=== PATIENT | male | born 1935 | race Caucasian/White ===

== ENCOUNTER 2016-05-03 10:53 | Inpatient (IN) | payer OTHER ==
[~2016-05-03] VITALS: Ht 177.8 cm; Wt 67.1 kg
--- NOTE | 2016-05-03 11:19 | EMERGENCY ROOM VISIT NOTE ---
History Report prepared by Vamsi: Nabor Mcclain Under the Supervision of: Dr. Cayden Singh M.D. First contact with patient: 11:10 Chief Complaint: RESPIRATORY PROBLEMS Stated Complaint: POSSIBLE PNEMONIA History of Present Illness The patient is an 81 year old male who presents to the Emergency Room with complaints of persistent respiratory problems that started 2 weeks ago. He was referred here by his primary care physician. The patient's oxygen was low at the clinic. Per the patient's family, the patient has been sick for 2 weeks, and has been coughing and having gurgling in his chest. The patient has also been losing weight. The patient does not use oxygen at home. Currently, the patient denies any pain or recent fevers. He has a history of heart failure and stroke. He has been taking cold medications, and his whole family has been sick recently. The patient had his flu shot this year. Source of History: patient, family Onset: 2 weeks ago Position: other (global - respiratory problems) Timing: other (persistent) Associated Symptoms: + SOB, + cough, No fevers Note: Associated symptoms: Gurgling in chest, recent weight loss. Denies any current pain. Review of Systems See HPI for pertinent positives & negatives. A total of 10 systems reviewed and were otherwise negative. Past Medical & Surgical Medical Problems: (1) Dementia (2) Heart disease (3) Pneumonia involving right lung (4) Stroke Family History Family history omitted secondary to age. Social History Smoking Status: Never Smoker Marital Status: Housing Status: lives with family Occupation Status: retired Current/Historical Medications Scheduled Carvedilol (Coreg), 12.5 MG PO BID Cholecalciferol (Vitamin D3), 1 TAB PO DAILY Donepezil HCl (Aricept), 5 MG PO HS Enteral Nutrition Formula (Ensure), 1 CAN PO TID Finasteride (Proscar), 5 MG PO DAILY Hydrochlorothiazide (Hctz), 12.5 MG PO DAILY Lisinopril (Prinivil), 2.5 MG PO DAILY Omeprazole (Prilosec), 20 MG PO DAILY Potassium Chloride (Klor-Con M20), 20 MEQ PO BID Spironolactone (Spironolactone), 12.5 MG PO DAILY Warfarin Sod (Coumadin), 4 MG PO FRIDAY Warfarin Sod (Jantoven), 2 MG PO DIRECTED Allergies Coded Allergies: No Known Allergies (Unverified , 05/03/16) Physical Exam Vital Signs Date Time Temp Pulse Resp B/P Pulse Ox O2 Delivery O2 Flow Rate FiO2 05/03/16 13:21 82 05/03/16 13:01 88 24 100/78 93 2.0 05/03/16 11:22 97 Nasal Cannula 2.0 05/03/16 11:21 84 05/03/16 11:19 87 Room Air 05/03/16 11:15 87 Room Air 05/03/16 10:59 36.4 89 18 108/74 100 Nasal Cannula 2.0 Physical Exam GENERAL: Patient is ill appearing and chronically unwell appearing, in mild distress. HEENT: No acute trauma, normocephalic atraumatic, mucous membranes moist, no nasal congestion, no scleral icterus. NECK: No stridor, no adenopathy, no meningismus, trachea is midline. LUNGS: Dyspneic. Diffuse wet lung sounds. HEART: Regular rate and rhythm. No murmurs, rubs, gallops appreciated. ABDOMEN: Soft, nontender, bowel sounds positive, no masses appreciated, no peritonitis. BACK: No midline tenderness, no CVA tenderness EXTREMITIES: Normal motion all extremities, no cyanosis, no edema. NEUROLOGIC: Alert and oriented, no acute motor or sensory deficits, no focal weakness, cranial nerves grossly intact. Mild dementia. SKIN: No rash, no jaundice, no diaphoresis. Medical Decision & Procedures ER Provider Diagnostic Interpretation: X ray results are stated below per my interpretation and the radiologist's interpretation. CHEST ONE VIEW PORTABLE HISTORY: Short of breath. COMPARISON: None. FINDINGS: The heart is mildly enlarged. Trace bilateral pleural effusions. There is a hazy opacity within the right lung. No pneumothorax. The left lung is essentially clear. IMPRESSION: 1. Hazy opacity within the right lung which could represent developing asymmetric pulmonary edema or a pneumonia. Recommend follow to ensure resolution. 2. Mild cardiomegaly and trace bilateral pleural effusions. Electronically signed by: Willard Montoya M.D. 05/03/2016 12:08 PM Dictated Date/Time: 05/03/2016 12:06 PM Laboratory Results 05/03/16 11:35 Red Blood Count 4.55, Mean Corpuscular Volume 96.0, Mean Corpuscular Hemoglobin 31.4, Mean Corpuscular Hemoglobin Concent 32.7, Mean Platelet Volume 11.3, Neutrophils (%) (Auto) 78.1, Lymphocytes (%) (Auto) 12.2, Monocytes (%) (Auto) 8.6, Eosinophils (%) (Auto) 0.5, Basophils (%) (Auto) 0.5, Neutrophils # (Auto) 6.56, Lymphocytes # (Auto) 1.02, Monocytes # (Auto) 0.72, Eosinophils # (Auto) 0.04, Basophils # (Auto) 0.04 05/03/16 11:35 05/03/16 13:10 Test 05/03/16 11:35 05/03/16 11:39 05/03/16 13:10 White Blood Count 8.39 K/uL (4.8-10.8) Red Blood Count 4.55 M/uL (4.7-6.1) Hemoglobin 14.3 g/dL (14.0-18.0) Hematocrit 43.7 % (42-52) Mean Corpuscular Volume 96.0 fL (80-100) Mean Corpuscular Hemoglobin 31.4 pg (25-34) Mean Corpuscular Hemoglobin Concent 32.7 g/dl (32-36) Platelet Count 205 K/uL (130-400) Mean Platelet Volume 11.3 fL (7.4-10.4) Neutrophils (%) (Auto) 78.1 % Lymphocytes (%) (Auto) 12.2 % Monocytes (%) (Auto) 8.6 % Eosinophils (%) (Auto) 0.5 % Basophils (%) (Auto) 0.5 % Neutrophils # (Auto) 6.56 K/uL (1.4-6.5) Lymphocytes # (Auto) 1.02 K/uL (1.2-3.4) Monocytes # (Auto) 0.72 K/uL (0.11-0.59) Eosinophils # (Auto) 0.04 K/uL (0-0.5) Basophils # (Auto) 0.04 K/uL (0-0.2) RDW Standard Deviation 51.1 fL (36.4-46.3) RDW Coefficient of Variation 14.6 % (11.5-14.5) Immature Granulocyte % (Auto) 0.1 % Immature Granulocyte # (Auto) 0.01 K/uL (0.00-0.02) Anion Gap 7.0 mmol/L (3-11) Est Creatinine Clear Calc Drug Dose 36.8 ml/min Estimated GFR () 53.5 Estimated GFR (Non- 46.1 BUN/Creatinine Ratio 19.6 (10-20) Calcium Level 9.2 mg/dl (8.5-10.1) Creatine Kinase MB 1.7 ng/ml (0.5-3.6) Creatine Kinase MB Ratio (0-3.0) Troponin I < 0.015 ng/ml (0-0.045) Pro-B-Type Natriuretic Peptide 2692 pg/ml (0-1800) Bedside Lactic Acid Venous 1.44 mmol/L (0.90-1.70) Prothrombin Time 48.2 SECONDS (9.0-12.0) Prothromb Time International Ratio 4.2 (0.9-1.1) Activated Partial Thromboplast Time 39.7 SECONDS (21.0-31.0) Partial Thromboplastin Ratio 1.5 Total Creatine Kinase 52 U/L (39-308) Laboratory results as reviewed by me. Medications Administered Medications (Trade) Dose Ordered Sig/Bibi Route Start Time Stop Time Status Last Admin Dose Admin Levofloxacin 750 mg 750 mg NOW STAT IV 05/03/16 13:03 05/03/16 13:04 DC 05/03/16 13:16 750 MG Clindamycin Phosphate/Dextrose (Cleocin Iv/ Dextrose Add-Osseo 50ML) 54 ml @ 100 mls/hr ONE ONCE IV 05/03/16 13:15 05/03/16 13:47 DC 05/03/16 15:09 100 MLS/HR ECG Indication: SOB/dyspnea Rate (beats per minute): 90 Rhythm: atrial fibrillation Findings: no acute ischemic change, other (QTC of 437) ED Course 1111: The patient was evaluated in room B12B. A complete history and physical exam was performed. 1255: I reevaluated the patient and he is resting comfortably. The patient verbally expressed understanding and agreement of the treatment plan. The patient will be evaluated for further treatment. 1303: Ordered Levaquin / D5W 750 mg IV. 1314: I discussed the patient with Dr. Lakhani [place] [facility] he will evaluate the patient for further treatment. 1315: Ordered Clindamycin Phosphate 600 mg/Dextrose 54 ml @ 100 mls/hr IV. Medical Decision Differential: Infectious, Reactive Airway Disease, Pneumonia, Pneumothorax, COPD , CHF, ACS, Pulmonary Embolism, MSK, GI, Dissection, amongst other etiologies entertained. 81 yr old male with hypoxia and very poor lung exam who I suspect has infection on top of CHF/pulm edema. Mild chronic dementia at baseline. Not overtly septic. Will given dose of Levaquin for PNA as well as Clinda as possible aspiration risk. Given hypoxia will bring in to hospitalist service for further evaluation/treatment. Consults Time Called: 1255 Consulting Physician: Dr. Kar VIVAS hospitalist Returned Call: 1314 I discussed the patient with Dr. Kar VIVAS hospitalist - he will evaluate the patient for further treatment. Impression Primary Impression: PNA (pneumonia) Additional Impressions: Pulmonary edema Hypoxia Scribe Attestation The scribe's documentation has been prepared under my direction and personally reviewed by me in its entirety. I confirm that the note above accurately reflects all work, treatment, procedures, and medical decision making performed by me. Departure Information Dispostion Being Evaluated By Hospitalist Referrals No Doctor, Assigned (PCP) Patient Instructions [facility] Problem Qualifiers Primary Impression: PNA (pneumonia) Pneumonia type: due to unspecified organism Laterality: right Lung location : unspecified part of lung Qualified Codes: J18.9 - Pneumonia, unspecified organism Additional Impressions: Pulmonary edema Chronicity: acute Qualified Codes: J81.0 - Acute pulmonary edema
[2016-05-03] MEDS ORDERED: NUTR-706 PO (11:48)
[2016-05-03] MEDS ORDERED: CMD4 PO (11:48)
[2016-05-03] MEDS ORDERED: SPR25 PO (11:48)
[2016-05-03] MEDS ORDERED: PRLSR20 PO (11:48)
[2016-05-03] MEDS ORDERED: DONE5TAB9 PO (11:48)
[2016-05-03] MEDS ORDERED: CARV12.52 PO (11:48)
[2016-05-03] MEDS ORDERED: HYDR25TA4 PO (11:48)
[2016-05-03] MEDS ORDERED: MCRK20 PO (11:48)
[2016-05-03] MEDS ORDERED: CHOL1000 PO (11:48)
[2016-05-03] MEDS ORDERED: FINA5TAB PO (11:48)
[2016-05-03] MEDS ORDERED: WARF2TAB8 PO (11:48)
[2016-05-03] MEDS ORDERED: LISI-729 PO (11:48)
[2016-05-03 12:07] LABS: BASO % 0.5 %; BASO ABS # 0.04 K/uL (0-0.2); COMPLETE YES; EOS % 0.5 %; HEMATOCRIT 43.7 % (42-52); IG% 0.1 %; LYMPH % 12.2 %; LYMPH ABS # 1.02 K/uL (1.2-3.4); MEAN CORPUSCULAR HEMOGLOBIN 31.4 pg (25-34); MEAN CORPUSCULAR HGB CONC 32.7 g/dl (32-36); MEAN PLATELET VOLUME 11.3 fL (7.4-10.4); MONO % 8.6 %; NEUT % 78.1 %; PLATELET COUNT 205 K/uL (130-400); RED BLOOD COUNT 4.55 M/uL (4.7-6.1); WHITE BLOOD COUNT 8.39 K/uL (4.8-10.8)
--- NOTE | 2016-05-03 12:10 | DIAGNOSTIC IMAGING REPORT ---
CHEST ONE VIEW PORTABLE HISTORY: Short of breath. COMPARISON: None. FINDINGS: The heart is mildly enlarged. Trace bilateral pleural effusions. There is a hazy opacity within the right lung. No pneumothorax. The left lung is essentially clear. IMPRESSION: 1. Hazy opacity within the right lung which could represent developing asymmetric pulmonary edema or a pneumonia. Recommend follow to ensure resolution. 2. Mild cardiomegaly and trace bilateral pleural effusions. Electronically signed by: Willard Montoya M.D. 05/03/2016 12:08 PM Dictated Date/Time: 05/03/2016 12:06 PM
[2016-05-03 12:37] LABS: BLOOD UREA NITROGEN 27 mg/dl (7-18); BUN/CREATININE RATIO 19.6 (10-20); CALCIUM 9.2 mg/dl (8.5-10.1); CARBON DIOXIDE 31 mmol/L (21-32); CHLORIDE 102 mmol/L (98-107); GLUCOSE 99 mg/dl (70-99); SODIUM 140 mmol/L (136-145)
[2016-05-03] MEDS ORDERED: LEVAQUIN 750MG / 150ML D5W IV STA (13:03)
[2016-05-03] MEDS ORDERED: CLINDAMYCIN IV 600 MG in DEXTROSE 5% ADD-VANTAGE 50ML 50 ML IV ONE (13:15)
[2016-05-03 13:37] LABS: PARTIAL THROMBOPLASTIN RATIO 1.5; PROTHROMBIN TIME (PATIENT) 48.2 SECONDS (9.0-12.0)
[2016-05-03 13:42] LABS: INR 4.2 (0.9-1.1)
--- NOTE | 2016-05-03 14:53 | Medical Student: [facility] ---
Med Student History & Physical Date & Time of Service: May 03, 2016 at 14:02 Chief Complaint: Shortness of Breath Primary Care Physician: Katie Posey History of Present Illness Source: family 81y/o female with a history of CHF, stroke, and dementia presents with a two week history of feeling sick, including symptoms of shortness of breath with exertion, coughing, wheezing, weakness, decreased activity, and decreased appetite. The patient was sent to the ED by his PCP for having a low O2 at the clinic. Per family, the patient has been sleeping more and walking less, and when he does walk around, he gets very short of breath. Per family, the patient does not complain much about pain or shortness of breath, but he has recently been stating that he has been having pains in the middle of the chest. The patient does not use O2 at home. He sees a trade mark examiner at the [facility] in [place]. The family is also concerned about the patient's diarrhea. The diarrhea is a chronic problem, but the family is worried about potential dehydration. They have not noticed a change in the color of stool or blood in the stool. Past Medical/Surgical History Medical Problems: (1) CHF 2. IN 3. Stroke 4. Atrial Fibrillation 5. Dementia 6. Reflux Surgical History 1. Cardiac Stents Social History Smoking Status: Never Smoker Alcohol Use: none Marital Status: Housing status: lives with family Occupational Status: retired Allergies Coded Allergies: No Known Allergies (Unverified , 05/03/16) Medications Carvedilol (Coreg), 12.5 MG PO BID Cholecalciferol (Vitamin D3), 1 TAB PO DAILY Donepezil HCl (Aricept), 5 MG PO HS Enteral Nutrition Formula (Ensure), 1 CAN PO TID Finasteride (Proscar), 5 MG PO DAILY Hydrochlorothiazide (Hctz), 12.5 MG PO DAILY Lisinopril (Prinivil), 2.5 MG PO DAILY Omeprazole (Prilosec), 20 MG PO DAILY Potassium Chloride (Klor-Con M20), 20 MEQ PO BID Spironolactone (Spironolactone), 12.5 MG PO DAILY Warfarin Sod (Coumadin), 4 MG PO FRIDAY Warfarin Sod (Jantoven), 2 MG PO DIRECTED Review of Systems Limited due to patient's dementia Constitutional: No chills, No fever, No sweats Eyes: No discharge, No redness Respiratory: + cough, + shortness of breath, + wheezing Cardiovascular: + chest pain, No edema Abdomen: + diarrhea, No constipation, No nausea, No pain, No vomiting Integumentary: No itch, No new/changing skin lesions, No rash Physical Exam Vital Signs (24 Hours) Date Time Temp Pulse Resp B/P Pulse Ox O2 Delivery O2 Flow Rate FiO2 05/03/16 13:21 82 05/03/16 13:01 88 24 100/78 93 2.0 05/03/16 11:22 97 Nasal Cannula 2.0 05/03/16 11:21 84 05/03/16 11:19 87 Room Air 05/03/16 11:15 87 Room Air 05/03/16 10:59 36.4 89 18 108/74 100 Nasal Cannula 2.0 General Appearance: WD/WN, no apparent distress Head: normocephalic, atraumatic Eyes: normal inspection, EOMI Respiratory/Chest: chest non-tender, + pertinent finding (crackles, wet sounded lungs bilaterally, worse on right. Course breath sounds) Cardiovascular: no murmur, + irregularly irregular, + pertinent finding ( distant heart sounds) Abdomen/GI: normal bowel sounds, non tender, soft Back: normal inspection Extremities/Musculoskelatal: normal inspection, no pedal edema, non-tender Neurologic/Psych: alert, + pertinent finding (responds to questions) Skin: normal color, warm/dry, no rash Diagnostics Laboratory Results Results Past 24 Hours Test 05/03/16 11:35 05/03/16 11:39 05/03/16 13:10 Range/Units White Blood Count 8.39 4.8-10.8 K/uL Red Blood Count 4.55 4.7-6.1 M/uL Hemoglobin 14.3 14.0-18.0 g/dL Hematocrit 43.7 42-52 % Mean Corpuscular Volume 96.0 80-100 fL Mean Corpuscular Hemoglobin 31.4 25-34 pg Mean Corpuscular Hemoglobin Concent 32.7 32-36 g/dl Platelet Count 205 130-400 K/uL Mean Platelet Volume 11.3 7.4-10.4 fL Neutrophils (%) (Auto) 78.1 % Lymphocytes (%) (Auto) 12.2 % Monocytes (%) (Auto) 8.6 % Eosinophils (%) (Auto) 0.5 % Basophils (%) (Auto) 0.5 % Neutrophils # (Auto) 6.56 1.4-6.5 K/uL Lymphocytes # (Auto) 1.02 1.2-3.4 K/uL Monocytes # (Auto) 0.72 0.11-0.59 K/uL Eosinophils # (Auto) 0.04 0-0.5 K/uL Basophils # (Auto) 0.04 0-0.2 K/uL RDW Standard Deviation 51.1 36.4-46.3 fL RDW Coefficient of Variation 14.6 11.5-14.5 % Immature Granulocyte % (Auto) 0.1 % Immature Granulocyte # (Auto) 0.01 0.00-0.02 K/uL Sodium Level 140 136-145 mmol/L Potassium Level 5.0 3.5-5.1 mmol/L Chloride Level 102 98-107 mmol/L Carbon Dioxide Level 31 21-32 mmol/L Anion Gap 7.0 3-11 mmol/L Blood Urea Nitrogen 27 7-18 mg/dl Creatinine 1.40 0.60-1.40 mg/dl Est Creatinine Clear Calc Drug Dose 36.8 ml/min Estimated GFR () 53.5 Estimated GFR (Non- 46.1 BUN/Creatinine Ratio 19.6 10-20 Random Glucose 99 70-99 mg/dl Calcium Level 9.2 8.5-10.1 mg/dl Total Creatine Kinase 52 39-308 U/L Creatine Kinase MB 1.7 0.5-3.6 ng/ml Creatine Kinase MB Ratio 0-3.0 Troponin I < 0.015 0-0.045 ng/ml Pro-B-Type Natriuretic Peptide 2692 0-1800 pg/ml Bedside Lactic Acid Venous 1.44 0.90-1.70 mmol/L Prothrombin Time 48.2 9.0-12.0 SECONDS Prothromb Time International Ratio 4.2 0.9-1.1 Activated Partial Thromboplast Time 39.7 21.0-31.0 SECONDS Partial Thromboplastin Ratio 1.5 Microbiology Results 05/03/16 Blood Culture, Received Pending 05/03/16 Blood Culture, Received Pending Diagnostic Radiology CXR: IMPRESSION: 1. Hazy opacity within the right lung which could represent developing asymmetric pulmonary edema or a pneumonia. Recommend follow to ensure resolution. 2. Mild cardiomegaly and trace bilateral pleural effusions. Impression Assessment and Plan 81y/o male with a history of CHF and dementia presents with shortness of breath on exertion, weakness, and fatigue for two weeks. A CXR was performed and showed right side opacity, suggesting PNA. The patient will be treated for PNA. The patient's BNP is also elevated and the patient's lung infection potentially exacerbated his CHF. The patient is showing signs of left-sided heart failure as his lungs sound fluid overloaded and he does not have peripheral edema. Other potential etiologies for CHF exacerbation include IN, arrhythmia, anemia, uncontrolled hypertension, and med noncompliance. PNA- Administer Vancomycin IV and Zosyn IV. Levalbuterol/Ipratropium ING Q6hr and Methylprednisolone IV Q8hr MARIBETH. Blood cultures pending. O2 via nasal canula as needed for shortness of breath symptoms and low O2 saturation. Continue to monitor patient. CHF- Hold HCTZ. Continue to monitor the patient's symptoms. Will not give Lasix at this time due to the patient's borderline low blood pressure. Consider obtaining cardiology records from the [facility]. Consider performing an echo and obtaining a cardiology consult depending on the patient's hospital course. Obtain serial cardiac enzymes. Administer Carvedilol 12.5 mg PO BID, Lisinopril 2.5mg PO daily, and spironolactone 12.5mg PO daily. Atrial Fibrillation- The patient's INR is 4.2. Continue to monitor the INR and hold the Warfarin until the INR is in the 2.0-3.0 range. Dementia- Continue to administer Donepezil 5mg PO HS. Reflux- Continue to administer Omeprazole 20mg PO daily. BPH- Administer Finasteride 5mg PO daily. Supplementation- Administer Vit D3 1000 units PO, Ensure, and Potassium Chloride 20MEQ PO BID.
[2016-05-03] MEDS ORDERED: ACETAMINOPHEN 325 MG TAB PO PRN ×2 (15:15)
[2016-05-03] MEDS ORDERED: ALUMINUM/MAGNESIUM/SIMETH (MAALOX MAX) 30 ML UDC PO PRN (15:15)
[2016-05-03] MEDS ORDERED: DiphenhydrAMINE HCL 50 MG/ML VIAL IV PRN (15:15)
[2016-05-03] MEDS ORDERED: MoRPHine SULFATE 4 MG/ML 1 ML CARP\\VIAL IV PRN (15:15)
[2016-05-03] MEDS ORDERED: BISACODYL 10 MG SUPP PR PRN (15:15)
[2016-05-03] MEDS ORDERED: MoRPHine SULFATE 2 MG/ML CARP IV PRN (15:15)
[2016-05-03] MEDS ORDERED: ZOLPIDEM TARTRATE 5 MG TAB PO PRN ×2 (15:15)
[2016-05-03] MEDS ORDERED: LORAZEPAM 2 MG/ML 1 ML VIAL IV PRN ×2 (15:15)
[2016-05-03] MEDS ORDERED: PROMETHAZINE HCL INJ 12.5 MG in SODIUM CHLORIDE 0.9% 50ML 50 ML IV PRN (15:15)
[2016-05-03] MEDS ORDERED: ONDANSETRON INJ 2 MG/ML 2 ML VIAL IV PRN ×2 (15:15)
[2016-05-03] MEDS ORDERED: MAGNESIUM HYDROXIDE SUSP 30 ML UDC PO PRN (15:15)
[2016-05-03] MEDS ORDERED: VANCOMYCIN CONSULT ACTIVE PRN (16:00)
[2016-05-03] MEDS ORDERED: PIPERACILL/TAZOBAC CONSULT ACTIVE PRN (16:00)
--- NOTE | 2016-05-03 16:07 | Pharmacy Progress Note ---
Pharmacy Antibiotic Consult Date of Service: May 03, 2016. Pharmacy Dosing Scope Pharmacy is consulted to initiate Vancomycin and Zosyn IV dosing therapy, order appropriate labs and adjust drug dose/frequency. Subjective The patient is a 81 year old male admitted on 05/03/16 with pneumonia. Objective Height (Feet): 5 Height (Inches): 10.00 Weight (Kilograms): 65.000 Lab Results (24hrs): Laboratory Tests Test 05/03/16 11:35 BUN/Creatinine Ratio 19.6 Blood Urea Nitrogen 27 mg/dl Creatinine 1.40 mg/dl White Blood Count 8.39 K/uL Red Blood Count 4.55 M/uL Hemoglobin 14.3 g/dL Hematocrit 43.7 % Mean Corpuscular Volume 96.0 fL Mean Corpuscular Hemoglobin 31.4 pg Mean Corpuscular Hemoglobin Concent 32.7 g/dl Platelet Count 205 K/uL Mean Platelet Volume 11.3 fL Neutrophils (%) (Auto) 78.1 % Lymphocytes (%) (Auto) 12.2 % Monocytes (%) (Auto) 8.6 % Eosinophils (%) (Auto) 0.5 % Basophils (%) (Auto) 0.5 % Neutrophils # (Auto) 6.56 K/uL Lymphocytes # (Auto) 1.02 K/uL Monocytes # (Auto) 0.72 K/uL Eosinophils # (Auto) 0.04 K/uL Basophils # (Auto) 0.04 K/uL Micro Results: Blood cultures pending. Recent Pertinent Medications Levaquin 750mg IV x1 in ED Clindamycin 600mg IV x1 in ED Assessment & Plan VANCOMYCIN Loading dose: Vancomycin 1600 mg (25mg/kg) IV X 1 dose then: * Vancomycin 1000 mg (15mg/kg) IV every 24 hours. * Estimated pharmacokinetic parameters: T1/2= 20hrs, [place] = 0.035/hr, Vd = 0.7L/ Kg * These are based on SCr of 1.4mg/dL, unknown baseline. We will adjust dosing interval or check a level sooner if patient's renal function changes significantly. * Goal trough level estimate: between 15 - 20 mcg/mL for pneumonia * Trough level has been ordered for: prior to 1200 dose, this will be prior to the 4th total dose. ZOSYN: 3.375g IV Q8H for CrCl > 20ml/min - extended infusion protocol Pharmacy will continue to follow and will adjust dose/frequency as necessary. Thank you
[2016-05-03 16:20] VITALS: BP 103/70; PULSE 95; TEMP 36.8; Ht 177.8 cm; Wt 67.1 kg
[2016-05-03] MEDS ORDERED: LORAZEPAM INJ 0.5 MG in SYRINGE 0.75 ML IV PRN (17:00)
[2016-05-03] MEDS ORDERED: LORAZEPAM INJ 1 MG in SYRINGE 0.5 ML IV PRN (17:00)
[2016-05-03] MEDS ORDERED: LEVOFLOXACIN CONSULT ACTIVE PRN (17:00)
[2016-05-03] MEDS ORDERED: VANCOMYCIN INJ 1,600 MG in SODIUM CHLORIDE 0.9% 500ML 500 ML IV SCH (17:00)
[2016-05-03] MEDS: LACTOBACILLUS ACIDOPHILUS (FLORANEX) TAB PO SCH (17:14)
[2016-05-03] MEDS: METHYLPREDNISOLONE IV 40 MG in SYRINGE 0 ML IV SCH (18:21)
--- NOTE | 2016-05-03 18:48 | History and Physical ---
History & Physical Date & Time of Service: May 03, 2016 at 18:43 Chief Complaint: Hypoxia, Pneumonia Involving Right Lung Primary Care Physician: Katie Posey History of Present Illness Source: patient, family, spouse The patient is an 81-year-old male who was referred by his PCP, after having a low pulse ox when seen at clinic today, to the emergency department with respiratory difficulties that began 2 weeks prior to arrival. Family reports that patient has had decreased intake of foods and solids during this time. The rest of his family has been ill, and he presently is taking over-the- counter medications. Past Medical/Surgical History Medical Problems: (1) Dementia Status: Chronic (2) Heart disease Status: Resolved (3) Stroke Status: Resolved Social History Smoking Status: Never Smoker Smokeless Tobacco Use: No Alcohol Use: none Drug Use: none Marital Status: Housing status: lives with family Occupational Status: retired Multi-Drug Resistant Organisms History of MDRO: No Allergies Coded Allergies: No Known Allergies (Unverified , 05/03/16) Home Medications Scheduled Carvedilol (Coreg), 12.5 MG PO BID Cholecalciferol (Vitamin D3), 1 TAB PO DAILY Donepezil HCl (Aricept), 5 MG PO HS Enteral Nutrition Formula (Ensure), 1 CAN PO TID Finasteride (Proscar), 5 MG PO DAILY Hydrochlorothiazide (Hctz), 12.5 MG PO DAILY Lisinopril (Prinivil), 2.5 MG PO DAILY Omeprazole (Prilosec), 20 MG PO DAILY Potassium Chloride (Klor-Con M20), 20 MEQ PO BID Spironolactone (Spironolactone), 12.5 MG PO DAILY Warfarin Sod (Coumadin), 4 MG PO FRIDAY Warfarin Sod (Jantoven), 2 MG PO DIRECTED Review of Systems The patient denies chest pain, palpitations, lower extremity swelling, vision change, hearing change, sore throat, fevers, chills, sweats, weight change, fatigue, nausea, vomiting, abdominal pain, pelvic pain, blood in urine or stool , dysuria, urinary frequency or urgency, lightheadedness, dizziness, headache, memory loss, rash, abnormal bruising or bleeding, imbalance, focal or generalized weakness, numbness or tingling in arms or legs, arthralgias or myalgias, back or neck pain, night sweats, or allergy symptoms. The review of systems is otherwise negative other than for that already noted above, and at least 10 systems have been reviewed. Physical Exam Vital Signs Date Time Temp Pulse Resp B/P Pulse Ox O2 Delivery O2 Flow Rate FiO2 05/03/16 16:20 36.8 95 18 103/70 Nasal Cannula 2.0 05/03/16 15:10 80 20 104/67 94 Nasal Cannula 2.0 05/03/16 13:21 82 05/03/16 13:01 88 24 100/78 93 2.0 05/03/16 11:22 97 Nasal Cannula 2.0 05/03/16 11:21 84 05/03/16 11:19 87 Room Air 05/03/16 11:15 87 Room Air 05/03/16 10:59 36.4 89 18 108/74 100 Nasal Cannula 2.0 The patient is awake, well-developed and adequately nourished, alert and oriented 3, normocephalic and atraumatic, lying in bed and in no acute distress. HEENT--PERRL, EOMI, mucous membranes and oropharynx dry. Neck--supple, no JVD or bruits, thyroid normal, trachea midline, no adenopathy. Heart--normal S1 and S2, no extra beats, no murmurs, rubs or gallops. Lungs--wheezes or rhonchi bilaterally right worse than left, no respiratory distress, no accessory muscle use. Abdomen--normal bowel sounds and soft, nontender and nondistended, no hernias or masses, no organomegaly. Extremities--no cyanosis, clubbing or edema. There are good distal pulses b/l. Dermatologic--normal skin turgor, normal color, warm and dry, no abnormal lymph nodes, no rash. Neurologic--cranial nerves II through XII grossly intact, motor and sensory examination normal. Rheumatologic--normal range of motion, nontender, muscles and joints. Psychiatric--normal affect. Diagnostics Laboratory Results Results Past 24 Hours Test 05/03/16 11:35 05/03/16 11:39 05/03/16 13:10 Range/Units White Blood Count 8.39 4.8-10.8 K/uL Red Blood Count 4.55 4.7-6.1 M/uL Hemoglobin 14.3 14.0-18.0 g/dL Hematocrit 43.7 42-52 % Mean Corpuscular Volume 96.0 80-100 fL Mean Corpuscular Hemoglobin 31.4 25-34 pg Mean Corpuscular Hemoglobin Concent 32.7 32-36 g/dl Platelet Count 205 130-400 K/uL Mean Platelet Volume 11.3 7.4-10.4 fL Neutrophils (%) (Auto) 78.1 % Lymphocytes (%) (Auto) 12.2 % Monocytes (%) (Auto) 8.6 % Eosinophils (%) (Auto) 0.5 % Basophils (%) (Auto) 0.5 % Neutrophils # (Auto) 6.56 1.4-6.5 K/uL Lymphocytes # (Auto) 1.02 1.2-3.4 K/uL Monocytes # (Auto) 0.72 0.11-0.59 K/uL Eosinophils # (Auto) 0.04 0-0.5 K/uL Basophils # (Auto) 0.04 0-0.2 K/uL RDW Standard Deviation 51.1 36.4-46.3 fL RDW Coefficient of Variation 14.6 11.5-14.5 % Immature Granulocyte % (Auto) 0.1 % Immature Granulocyte # (Auto) 0.01 0.00-0.02 K/uL Sodium Level 140 136-145 mmol/L Potassium Level 5.0 3.5-5.1 mmol/L Chloride Level 102 98-107 mmol/L Carbon Dioxide Level 31 21-32 mmol/L Anion Gap 7.0 3-11 mmol/L Blood Urea Nitrogen 27 7-18 mg/dl Creatinine 1.40 0.60-1.40 mg/dl Est Creatinine Clear Calc Drug Dose 36.8 ml/min Estimated GFR () 53.5 Estimated GFR (Non- 46.1 BUN/Creatinine Ratio 19.6 10-20 Random Glucose 99 70-99 mg/dl Calcium Level 9.2 8.5-10.1 mg/dl Total Creatine Kinase 52 39-308 U/L Creatine Kinase MB 1.7 0.5-3.6 ng/ml Creatine Kinase MB Ratio 0-3.0 Troponin I < 0.015 0-0.045 ng/ml Pro-B-Type Natriuretic Peptide 2692 0-1800 pg/ml Bedside Lactic Acid Venous 1.44 0.90-1.70 mmol/L Prothrombin Time 48.2 9.0-12.0 SECONDS Prothromb Time International Ratio 4.2 0.9-1.1 Activated Partial Thromboplast Time 39.7 21.0-31.0 SECONDS Partial Thromboplastin Ratio 1.5 Microbiology Results 05/03/16 Blood Culture, Received Pending 05/03/16 Blood Culture, Received Pending Diagnostic Radiology Patient Name: KEYANA MEDINA MARIANNE Unit Number: [id number] Dictated: 05/03/161205 Transcribed: 05/03/161205 PAJ Printed Date/Time: [~ rep prt dt]/[~ rep prt tm] [~ rep ct labl] - [~ rep ct ivnm] [facility] [place] [address] Dictated: 05/03/161205 Transcribed: 05/03/161205 PAJ Printed Date/Time: [~ rep prt dt]/[~ rep prt tm] [~ rep ct labl] - [~ rep ct ivnm] CHEST ONE VIEW PORTABLE HISTORY: Short of breath. COMPARISON: None. FINDINGS: The heart is mildly enlarged. Trace bilateral pleural effusions. There is a hazy opacity within the right lung. No pneumothorax. The left lung is essentially clear. IMPRESSION: 1. Hazy opacity within the right lung which could represent developing asymmetric pulmonary edema or a pneumonia. Recommend follow to ensure resolution. 2. Mild cardiomegaly and trace bilateral pleural effusions. Electronically signed by: Willard Montoya M.D. 05/03/2016 12:08 PM Dictated Date/Time: 05/03/2016 12:06 PM The status of this report is Signed. Draft = Not yet reviewed or approved by Radiologist. Signed = Reviewed and approved by Radiologist. <AttendingPhy></AttendingPhy> <FamilyPhy>Katie PoseyRRicoN.P.</FamilyPhy> < PrimaryPhy>Katie PoseyN.P.</PrimaryPhy> <UnitNumber>[id number]</ UnitNumber> <VisitNumber>[id number]</VisitNumber> <PatientName>KEYANA MEDINA MARIANNE</PatientName> <DateOfBirth>1935</DateOfBirth> <Location> C.EDB</Location> <ServiceDate>05/03/16</ServiceDate> <MNE>ESINDI</MNE> < OrderingPhy>Cayden Singh M.D.</OrderingPhy> <OrderingPhyMNE>f rep ord dr pike</OrderingPhyMNE> <DictatingPhyMNE>f rep dict dr pike</DictatingPhyMNE> < CCListMNE>f rep ct glendy</CCListMNE> <AdmittingPhyMNE>f pt admit dr pike</ AdmittingPhyMNE> <AttendingPhyMNE>f pt attend dr pike</AttendingPhyMNE> <ConsultingPhyMNE>f pt consult dr pike</ConsultingPhyMNE> <FamilyPhyMNE>f pt fam dr pike</FamilyPhyMNE> <OtherPhyMNE>f pt other dr pike</OtherPhyMNE> < PrimaryPhyMNE>f pt prim care dr pike</PrimaryPhyMNE> <ReferringPhyMNE>f pt referring dr pike</ReferringPhyMNE> EKG EKG shows atrial fibrillation at 90 bpm, with no acute ST-T changes. Impression Assessment and Plan Pneumonia involving right lung, with hypoxia--the patient be admitted to medical floor. He'll be started on vancomycin IV per renal dosing, Zosyn 3.375 mg IV every 12 hours, levofloxacin 500 mg IV daily, Solu-Medrol 40 mg IV every 8 hours, guaifenesin extended release 60 mg by mouth twice a day, and Xopenex with Atrovent nebulizer to use every 6 hours all awake and every 2 hours when necessary. CAD/hypertension/atrial fibrillation--continue carbidopa 12.5 mg by mouth twice a day, lisinopril 2.5 mg by mouth daily, HCTZ 12.5 mg by mouth daily, Klor-Con 20 mEq by mouth twice a day and spironolactone 12.5 mg by mouth daily. INR is still mildly therapeutic, it was 4.6 yesterday is now 4.2 today, we'll recheck the INR tomorrow, and restart when less than 3. BPH--continue finasteride 5 mg by mouth daily. Dementia--continue donepezil 5 mg by mouth at bedtime. GERD--continue omeprazole 20 mg by mouth daily. Level of Care Med/Surg Advanced Directives Existing Advance Directive: No Existing Living Will: No Existing Power of Gold Reclaimer: No Resuscitation Status FULL RESUSCITATION VTE Prophylaxis VTE Risk Assessment Done? Y/N: Yes Risk Level: Moderate Given or contraindicated: Warfarin (Coumadin)
[2016-05-03 19:31] VITALS: PULSE 81; O2SAT 92
[2016-05-03] MEDS: LEVALBUTEROL 1.25MG/0.5ML NEB INH SCH (19:31)
[2016-05-03] MEDS: IPRATROPIUM BROMIDE NEB SOLN 0.02% 2.5 ML VIAL INH SCH (19:31)
[2016-05-03] MEDS: PIPERACILL/TAZOBAC IV 3.375 GM in DEXTROSE 5% 100ML 100 ML IV SCH (20:04)
[2016-05-03] MEDS: BOOST VANILLA PO SCH ×2 (20:08)
[2016-05-03] MEDS: CARVEDILOL 12.5 MG TAB PO SCH (20:10)
[2016-05-03] MEDS: DONEPEZIL HCL 5 MG TAB PO SCH (20:11)
[2016-05-03] MEDS: DOCUSATE SODIUM 100 MG CAP PO SCH (20:11)
[2016-05-03] MEDS: GUAIFENESIN 600 MG TABCR PO SCH (20:12)
[2016-05-03] MEDS: POTASSIUM CHLORIDE 20 MEQ TABCR PO SCH (20:13)
[2016-05-03 20:15] VITALS: BP 101/67; PULSE 74
[2016-05-03] MEDS ORDERED: LEVALBUTEROL/IPRATROPIUM NEB INH SCH (21:00)
[2016-05-03] MEDS: CHOLESTYRAMINE LIGHT 4 GM PKT PO SCH (22:12)
[2016-05-03 23:37] VITALS: BP 95/65; PULSE 99; TEMP 36.7; O2SAT 91
[2016-05-04] VITALS (7 sets, daily range): BP systolic 96–105; BP diastolic 63–70; PULSE 76–95; TEMP 36.5; O2SAT 90–93
[2016-05-04] MEDS: PIPERACILL/TAZOBAC IV 3.375 GM in DEXTROSE 5% 100ML 100 ML IV SCH ×3 (00:36→16:51)
[2016-05-04] MEDS: METHYLPREDNISOLONE IV 40 MG in SYRINGE 0 ML IV SCH ×3 (02:11→17:22)
[2016-05-04] MEDS: LEVALBUTEROL 1.25MG/0.5ML NEB INH SCH ×4 (02:24→19:23)
[2016-05-04] MEDS: IPRATROPIUM BROMIDE NEB SOLN 0.02% 2.5 ML VIAL INH SCH ×4 (02:24→19:23)
[2016-05-04 07:23] LABS: BASO % 0.1 %; BASO ABS # 0.01 K/uL (0-0.2); COMPLETE YES; EOS % 0.1 %; HEMATOCRIT 40.1 % (42-52); IG% 0.4 %; LYMPH % 4.9 %; MEAN CELL VOLUME 94.1 fL (80-100); MEAN CORPUSCULAR HEMOGLOBIN 31.7 pg (25-34); MEAN CORPUSCULAR HGB CONC 33.7 g/dl (32-36); MEAN PLATELET VOLUME 10.9 fL (7.4-10.4); MONO % 0.6 %; NEUT % 93.9 %; PLATELET COUNT 176 K/uL (130-400); RED BLOOD COUNT 4.26 M/uL (4.7-6.1); WHITE BLOOD COUNT 10.25 K/uL (4.8-10.8)
[2016-05-04 07:40] LABS: PARTIAL THROMBOPLASTIN RATIO 1.7; PROTHROMBIN TIME (PATIENT) 51.8 SECONDS (9.0-12.0)
[2016-05-04 07:49] LABS: INR 4.5 (0.9-1.1)
[2016-05-04 08:02] LABS: BUN/CREATININE RATIO 18.9 (10-20); CALCIUM 8.8 mg/dl (8.5-10.1); CREATININE 1.5 mg/dl (0.60-1.40); POTASSIUM 5.3 mmol/L (3.5-5.1)
[2016-05-04] MEDS: LACTOBACILLUS ACIDOPHILUS (FLORANEX) TAB PO SCH ×3 (08:02→16:52)
[2016-05-04] MEDS: DOCUSATE SODIUM 100 MG CAP PO SCH ×2 (08:03→20:21)
[2016-05-04] MEDS: CARVEDILOL 12.5 MG TAB PO SCH ×3 (08:04→20:27)
[2016-05-04] MEDS: POTASSIUM CHLORIDE 20 MEQ TABCR PO SCH (08:05)
[2016-05-04] MEDS: GUAIFENESIN 600 MG TABCR PO SCH ×2 (08:05→20:22)
[2016-05-04] MEDS: PANTOprazole SOD 40 MG TAB PO SCH (08:05)
[2016-05-04] MEDS: CHOLECALCIFEROL 1000 INTER.UNIT TAB PO SCH (08:06)
[2016-05-04] MEDS: FINASTERIDE 5 MG TAB PO SCH (08:06)
[2016-05-04] MEDS: BOOST VANILLA PO SCH ×6 (08:51→20:24)
[2016-05-04] MEDS ORDERED: SPIRONOLACTONE 25 MG TAB PO SCH (09:00)
[2016-05-04] MEDS ORDERED: LISINOPRIL 2.5 MG TAB PO SCH (09:00)
[2016-05-04] MEDS ORDERED: HYDROCHLOROTHIAZIDE 25 MG TAB PO SCH (09:00)
[2016-05-04] MEDS: CHOLESTYRAMINE LIGHT 4 GM PKT PO SCH ×2 (10:08→22:00)
[2016-05-04] MEDS: VANCOMYCIN INJ 1,000 MG in SODIUM CHLORIDE 0.9% 250ML 250 ML IV SCH (12:39)
[2016-05-04] MEDS ORDERED: HALOPERIDOL LACTATE 5 MG/ML 1 ML VIAL IM PRN (15:00)
--- NOTE | 2016-05-04 15:22 | Hospitalist Progress Note ---
Hospitalist Progress Note Date of Service May 04, 2016. Subjective Pt evaluation today including: conversation w/ patient, conversation w/ family , physical exam, chart review, lab review, review of studies, review of inpatient medication list PO Intake: barby po Voiding: no voiding problems Pt with cough but no sputum production, no fevers, is SOB with ambulation around house even prior to the last 2 weeks as per daughter. Pt denies CP, no abd pain, no diarrhea. Family thinks last ECHO was years ago, hasn't seen his [facility] in over a year at least. He is in good spirits here and making jokes with me. Family that lives with him reports they have all been sick recently with respiratory illnesses Constitutional: No fever Eyes: No problem reported ENT: No problem reported Respiratory: + cough, No sputum Cardiovascular: No chest pain, No palpitations Abdomen: No diarrhea, No pain Musculoskeletal: No problem reported Neurologic: + memory loss Psychiatric: No problem reported Skin: No rash Objective Vital Signs Date Time Temp Pulse Resp B/P Pulse Ox O2 Delivery O2 Flow Rate FiO2 05/04/16 13:59 76 16 93 Room Air 05/04/16 08:16 Nasal Cannula 3.0 05/04/16 07:47 36.5 87 18 105/63 90 Nasal Cannula 3.0 05/04/16 07:35 86 18 91 Nasal Cannula 3.0 05/04/16 02:24 92 18 92 Nasal Cannula 3.0 05/03/16 23:59 Nasal Cannula 3.0 05/03/16 23:37 36.7 99 20 95/65 91 Nasal Cannula 3.0 05/03/16 20:15 74 101/67 05/03/16 20:00 Nasal Cannula 3.0 05/03/16 19:31 81 18 92 Nasal Cannula 2.0 05/03/16 16:20 36.8 95 18 103/70 Nasal Cannula 2.0 05/03/16 15:10 80 20 104/67 94 Nasal Cannula 2.0 Physical Exam General Appearance: + mild distress (and sounds like has upper airway secretions), + thin Eyes: normal inspection, sclerae normal ENT: hearing grossly normal, pharynx normal Neck: trachea midline Respiratory/Chest: no accessory muscle use, + crackles (at bases and diffuse wheezing and rhonchi) Cardiovascular: regular rate, rhythm Abdomen: normal bowel sounds, non tender, soft, no organomegaly, no pulsatile mass Extremities: non-tender, no pedal edema, no calf tenderness Neurologic/Psychiatric: no motor/sensory deficits, alert, normal mood/affect Skin: normal color, warm/dry, no rash Laboratory Results Last 24 Hours Test 05/04/16 07:13 White Blood Count 10.25 K/uL Red Blood Count 4.26 M/uL Hemoglobin 13.5 g/dL Hematocrit 40.1 % Mean Corpuscular Volume 94.1 fL Mean Corpuscular Hemoglobin 31.7 pg Mean Corpuscular Hemoglobin Concent 33.7 g/dl Platelet Count 176 K/uL Mean Platelet Volume 10.9 fL Neutrophils (%) (Auto) 93.9 % Lymphocytes (%) (Auto) 4.9 % Monocytes (%) (Auto) 0.6 % Eosinophils (%) (Auto) 0.1 % Basophils (%) (Auto) 0.1 % Neutrophils # (Auto) 9.63 K/uL Lymphocytes # (Auto) 0.50 K/uL Monocytes # (Auto) 0.06 K/uL Eosinophils # (Auto) 0.01 K/uL Basophils # (Auto) 0.01 K/uL RDW Standard Deviation 49.0 fL RDW Coefficient of Variation 14.4 % Immature Granulocyte % (Auto) 0.4 % Immature Granulocyte # (Auto) 0.04 K/uL Prothrombin Time 51.8 SECONDS Prothromb Time International Ratio 4.5 Activated Partial Thromboplast Time 43.9 SECONDS Partial Thromboplastin Ratio 1.7 Sodium Level 138 mmol/L Potassium Level 5.3 mmol/L Chloride Level 102 mmol/L Carbon Dioxide Level 28 mmol/L Anion Gap 8.0 mmol/L Blood Urea Nitrogen 28 mg/dl Creatinine 1.50 mg/dl Est Creatinine Clear Calc Drug Dose 34.3 ml/min Estimated GFR () 49.2 Estimated GFR (Non- 42.4 BUN/Creatinine Ratio 18.9 Random Glucose 126 mg/dl Calcium Level 8.8 mg/dl Magnesium Level 2.0 mg/dl Total Bilirubin 0.6 mg/dl Direct Bilirubin 0.2 mg/dl Aspartate Amino Transf (AST/SGOT) 19 U/L Alanine Aminotransferase (ALT/SGPT) 20 U/L Alkaline Phosphatase 53 U/L Total Protein 6.7 gm/dl Albumin 2.6 gm/dl Diagnostic Results CXR image personally reviewed by me and shows right sided infiltrate and evidence of CHF Assessment and Plan 81y/o male with a history of CHF of unknown type but likely systolic (no outside records available), CAD s/p remote stent placement, BPH, PAF, GERD, and dementia presents with shortness of breath on exertion, weakness, and fatigue for two weeks. A CXR was performed and showed right side opacity, bilat small pleural effusions, cardiomegaly, suggesting PNA and acute CHF. BNP is also elevated. CAP RLL and RUL, with acute hypoxemic respiratory failure--no h/o smoking or COPD but with diffuse wheezing could be from pulm edema or atypical infection. Came from home and no recent hospitalization, not severe sepsis so can narrow down antibiotics from triple therapy. Given that entire family was recently ill , need to check Rapid Flu which was not yet done. Could be viral PNA -continue Levaquin and vancomycin IV per renal dosing to cover for CAP and MRSA in case of post-influenza MRSA PNA, but d/c Zosyn 3.375 mg IV -continue Solu-Medrol 40 mg IV every 8 hours, guaifenesin extended release 60 mg by mouth twice a day -continue Xopenex with Atrovent nebulizer to use every 6 hours all awake and every 2 hours when necessary. -continue supplemental O2 and wean as tolerated CAD/Acute CHF (likely systolic)/paroxysmal atrial fibrillation on AC with coumadin--No outside records for review but is on appropriate meds for severe CHF. BNP and signs of CHF on CXR here. BP low normal and blocker polishing at 1.5. K+ elevated at 5.3. -check ECHO -give one time dose of lasix 40mg po now for fluid overload and hyperkalemia -continue Coreg 12.5 mg by mouth twice a day, hold lisinopril 2.5 mg by mouth daily to see if BP and renal function improves and can facilitate diuresis with lasix -d/c HCTZ 12.5 and Klor-Con 20 and hold spironolactone from home for hyperkalemia and THEO vs CKD. -INR supratherapeutic,continue to hold coumadin and recheck the INR tomorrow, restart when less than 3. -consider Cardiology consult -Primary Government Affairs Specialist is at [facility] in [place] but hasn't seen in a while CKD Stage III vs THEO, Hyperkalemia:blocker polishing here 1.5 and no old records for comparison, K+ 5.3 -renally dose meds -avoid nephrotoxins -follow PRP -hold lisinopril and HCTZ, aldactone -stop KCL po -only giving lasix to diurese which will help with K+ BPH--continue finasteride 5 mg by mouth daily. Dementia--continue donepezil 5 mg by mouth at bedtime. --avoid benzos -Haldol IM prn sundowning/agitation GERD--continue omeprazole 20 mg by mouth daily. Proph-coumadin, PPI Dispo FULL Code PT/OT evals
[2016-05-04] MEDS ORDERED: FUROSEMIDE 40 MG TAB PO ONE (15:30)
[2016-05-04 17:17] LABS: INFLUENZA A PCR Neg for Influ A (NEG); INFLUENZA B PCR Neg for Influ B (NEG)
[2016-05-04] MEDS: DONEPEZIL HCL 5 MG TAB PO SCH (20:22)
[2016-05-05] VITALS (8 sets, daily range): BP systolic 101–132; BP diastolic 66–77; PULSE 58–120; TEMP 36.2–36.8; O2SAT 92–97
[2016-05-05] MEDS: PIPERACILL/TAZOBAC IV 3.375 GM in DEXTROSE 5% 100ML 100 ML IV SCH ×3 (00:57→17:40)
[2016-05-05] MEDS: METHYLPREDNISOLONE IV 40 MG in SYRINGE 0 ML IV SCH ×3 (02:17→17:40)
[2016-05-05] MEDS: LEVALBUTEROL 1.25MG/0.5ML NEB INH SCH ×4 (03:07→19:30)
[2016-05-05] MEDS: IPRATROPIUM BROMIDE NEB SOLN 0.02% 2.5 ML VIAL INH SCH ×4 (03:07→19:30)
[2016-05-05 06:31] LABS: MEAN CELL VOLUME 94.7 fL (80-100); MEAN CORPUSCULAR HEMOGLOBIN 32.8 pg (25-34); MEAN CORPUSCULAR HGB CONC 34.6 g/dl (32-36); MEAN PLATELET VOLUME 11.9 fL (7.4-10.4); PLATELET COUNT 193 K/uL (130-400); RED BLOOD COUNT 4.33 M/uL (4.7-6.1); WHITE BLOOD COUNT 28.09 K/uL (4.8-10.8)
[2016-05-05 06:36] LABS: INR 2.7 (0.9-1.1); PARTIAL THROMBOPLASTIN RATIO 1.4; PROTHROMBIN TIME (PATIENT) 30.1 SECONDS (9.0-12.0)
[2016-05-05 06:55] LABS: BUN/CREATININE RATIO 22.2 (10-20); CALCIUM 8.7 mg/dl (8.5-10.1); CREATININE 1.7 mg/dl (0.60-1.40); MAGNESIUM 2.2 mg/dl (1.8-2.4); POTASSIUM 4.5 mmol/L (3.5-5.1)
[2016-05-05 07:00] LABS: BASO ABS # 0.01 K/uL (0-0.2); COMPLETE YES; IG% 0.5 %; LYMPH % 2.5 %; MONO % 2.2 %; NEUT % 94.8 %
--- NOTE | 2016-05-05 07:20 | DIAGNOSTIC IMAGING REPORT ---
CHEST ONE VIEW PORTABLE CLINICAL HISTORY: f/u PNA, CHF pneumonia COMPARISON STUDY: 05/03/2016 FINDINGS: Somewhat progressive consolidative change versus effusion left lung base. Findings of mildly asymmetric congestive failure versus pulmonary edema persists. IMPRESSION: Mildly progressive increased density left base most likely on the basis of effusion and/or consolidative change. Unchanging asymmetric components of congestive failure Electronically signed by: Lv Jones M.D. 05/05/2016 7:19 AM Dictated Date/Time: 05/05/2016 7:13 AM
[2016-05-05] MEDS: DOCUSATE SODIUM 100 MG CAP PO SCH ×2 (08:22→20:50)
[2016-05-05] MEDS: CARVEDILOL 12.5 MG TAB PO SCH ×2 (08:22→20:50)
[2016-05-05] MEDS: FINASTERIDE 5 MG TAB PO SCH (08:23)
[2016-05-05] MEDS: CHOLECALCIFEROL 1000 INTER.UNIT TAB PO SCH (08:23)
[2016-05-05] MEDS: LACTOBACILLUS ACIDOPHILUS (FLORANEX) TAB PO SCH ×3 (08:23→17:41)
[2016-05-05] MEDS: PANTOprazole SOD 40 MG TAB PO SCH (08:24)
[2016-05-05] MEDS: GUAIFENESIN 600 MG TABCR PO SCH ×2 (08:24→20:52)
[2016-05-05] MEDS: BOOST VANILLA PO SCH ×6 (08:30→20:50)
[2016-05-05] MEDS ORDERED: NURSING VERBAL MED ORDER ONE (09:30)
[2016-05-05] MEDS: CHOLESTYRAMINE LIGHT 4 GM PKT PO SCH ×2 (11:19→22:52)
[2016-05-05] MEDS ORDERED: LEVOFLOXACIN / D5W 750 MG in PREMIXED IN D5W 150 ML IV SCH ×2 (12:00)
[2016-05-05] MEDS: VANCOMYCIN INJ 1,000 MG in SODIUM CHLORIDE 0.9% 250ML 250 ML IV SCH (12:25)
[2016-05-05] MEDS ORDERED: HEPARIN 25,000 UNIT/500ML D5W 500 ML IV PRN (12:45)
--- NOTE | 2016-05-05 13:51 | ECHOCARDIOGRAM REPORT ---
*NOTICE TO RECEIVING REPUBLICAN AGENCY This information is strictly Confidential and protected under [place] law. [place] law prohibits you from making any further disclosure of this information unless further disclosure is expressly permitted by the written consent of the person to whom it pertains or is authorized by law. A general authorization for the release of medical or other information is not sufficient for this purpose. Hospital accepts no responsibility if the information is made available to any other person, INCLUDING THE PATIENT. Interpretation Summary * Name: KEYANA MEDINA Study Date: 05/05/2016 08:08 AM BP: 106/66 mmHg * Patient Location: [id number]\S\2 HR: 96 * : 1935 (M/d/yyy) Gender: Male Height: 70 in * Age: 81 yrs Ethnicity: CA Weight: 143 lb * Ordering Physician: Ailyn Eason * Performed By: Steff Quintero RDCS * * Reason For Study: Congestive heart failure * BSA: 1.8 m2 * -- Conclusions -- * 1. Small LV cavity size. Mild concentric LVH. * 2. Low normal LV function. LVEF 50-55%. Flattened septum suggestive of RV pressure overload. * 3. Mildly dilated RV with midly reduced RV function. * 4. Severe biatrial enlargement * 5. Small pericardial effusion. * 6. Grade II diastolic dysfunction * 7. At least mild pulmonary hypertension. * 8. No prior studies for comparison Procedure Details * A complete two-dimensional transthoracic echocardiogram was performed (2D, M-mode, Doppler and color flow Doppler). Left Ventricle * The left ventricular cavity is small. * Ejection Fraction = 50-55%. * Flattened septum is consistent with RV pressure overload. Right Ventricle * The right ventricle is mildly dilated. * The right ventricular systolic function is mildly reduced. Atria * The left atrium is severely dilated. * The right atrium is severely dilated. * No ASD detected; PFO is not assessed. Mitral Valve * The mitral valve is grossly normal. * There is no mitral valve stenosis. * Significant mitral regurgitation is absent. Tricuspid Valve * The tricuspid valve is not well visualized. * There is no tricuspid stenosis. * There is mild tricuspid regurgitation. Aortic Valve * The aortic valve opens well. * No hemodynamically significant valvular aortic stenosis. * Trace aortic regurgitation. Pulmonic Valve * The pulmonic valve is not well visualized. Great Vessels * The aortic root and proximal ascending aorta are normal sized. Pericardium/Pleural * Small pericardial effusion. Left Ventricular Diastolic Function * Diastolic dysfunction, Grade II (pseudonormalization pattern). MMode 2D Measurements and Calculations IVSd 1.2 cm LVIDd 4.5 cm LVIDs 3.2 cm LVPWd 1.4 cm IVS/LVPW 0.89 FS 28.4 % EDV(Teich) 90.6 ml ESV(Teich) 40.7 ml EF(Teich) 55.0 % EDV(cubed) 88.8 ml ESV(cubed) 32.5 ml EF(cubed) 63.3 % LV mass(C)d 224.2 grams LV mass(C)dI 123.9 grams/m\S\2 SV(Teich) 49.8 ml SI(Teich) 27.5 ml/m\S\2 SV(cubed) 56.2 ml SI(cubed) 31.1 ml/m\S\2 Ao root diam 3.2 cm Ao root area 8.1 cm\S\2 ACS 2.1 cm asc Aorta Diam 3.3 cm LVOT diam 2.0 cm LVOT area 3.3 cm\S\2 LVAd ap4 16.8 cm\S\2 LVLd ap4 6.6 cm EDV(MOD-sp4) 35.5 ml EDV(sp4-el) 36.2 ml LVAs ap4 10.7 cm\S\2 LVLs ap4 5.5 cm ESV(MOD-sp4) 17.3 ml ESV(sp4-el) 17.7 ml EF(MOD-sp4) 51.3 % EF(sp4-el) 51.2 % LVAd ap2 15.9 cm\S\2 LVLd ap2 6.0 cm EDV(MOD-sp2) 36.2 ml EDV(sp2-el) 35.7 ml LVAs ap2 9.7 cm\S\2 LVLs ap2 5.3 cm ESV(MOD-sp2) 16.1 ml ESV(sp2-el) 15.1 ml EF(MOD-sp2) 55.5 % EF(sp2-el) 57.8 % LVLd %diff -9.89 % EDV(MOD-bp) 37.2 ml LVLs %diff -4.70 % ESV(MOD-bp) 17.2 ml EF(MOD-bp) 53.8 % SV(MOD-sp4) 18.2 ml SI(MOD-sp4) 10.1 ml/m\S\2 SV(MOD-sp2) 20.1 ml SI(MOD-sp2) 11.1 ml/m\S\2 SV(MOD-bp) 20.0 ml SI(MOD-bp) 11.1 ml/m\S\2 SV(sp4-el) 18.5 ml SI(sp4-el) 10.2 ml/m\S\2 SV(sp2-el) 20.6 ml SI(sp2-el) 11.4 ml/m\S\2 Doppler Measurements and Calculations MV E max fox 78.2 cm/sec MV A max fox 31.8 cm/sec MV E/A 2.5 MV dec time 0.19 sec Ao V2 max 61.9 cm/sec Ao max PG 1.5 mmHg Ao max PG (full) 0.37 mmHg PARRISH(V,A) 2.9 cm\S\2 PARRISH(V,D) 2.9 cm\S\2 LV V1 max PG 1.2 mmHg LV V1 max 54.0 cm/sec TR max fox 304.2 cm/sec
[2016-05-05] MEDS: GUAIFENESIN SUGAR FREE 200 MG/10 ML UDC PO SCH ×2 (14:43→17:41)
[2016-05-05] MEDS ORDERED: FUROSEMIDE 40 MG TAB PO ONE (15:15)
--- NOTE | 2016-05-05 15:45 | Hospitalist Progress Note ---
Hospitalist Progress Note Date of Service May 05, 2016. Subjective Pt evaluation today including: conversation w/ patient, conversation w/ family , physical exam, chart review, lab review, review of inpatient medication list Voiding: no voiding problems Feeling a bit better, still coarse breath sounds, no daily weight or I/Os recorded. Afebrile. ECHO result reviewed with him and family Constitutional: No fever Respiratory: + cough, No sputum Cardiovascular: No chest pain Abdomen: No pain All Other Systems: Reviewed and Negative Objective Vital Signs Date Time Temp Pulse Resp B/P Pulse Ox O2 Delivery O2 Flow Rate FiO2 05/05/16 14:24 82 18 97 Nasal Cannula 4.0 05/05/16 08:19 98 05/05/16 08:08 36.6 58 20 101/67 97 Nasal Cannula 3.0 05/05/16 08:00 Nasal Cannula 3.0 05/05/16 03:08 96 18 92 Nasal Cannula 3.0 05/05/16 00:16 36.8 101 18 106/66 92 3.0 05/04/16 23:59 Nasal Cannula 3.0 05/04/16 20:26 95 96/67 05/04/16 20:00 Nasal Cannula 3.0 05/04/16 19:23 80 16 93 Nasal Cannula 3.0 05/04/16 16:08 Nasal Cannula 3.0 05/04/16 15:28 36.5 91 18 105/70 92 Nasal Cannula 3.0 Physical Exam General Appearance: + mild distress (on NC, mild tachypnea with speaking fluent sentences), + thin Eyes: normal inspection, sclerae normal Neck: trachea midline Respiratory/Chest: no accessory muscle use, + rhonchi (diffuse), + wheezing ( diffuse) Cardiovascular: no edema, no gallop, no murmur (but difficult to auscultate over rhonchi), + irregularly irregular Abdomen: normal bowel sounds, non tender, soft Extremities: no pedal edema, no calf tenderness Neurologic/Psychiatric: alert, normal mood/affect Skin: normal color, warm/dry, no rash Laboratory Results Last 24 Hours Test 05/04/16 15:30 05/05/16 05:23 Influenza Type A (RT-PCR) Neg for Influ A Influenza Type B (RT-PCR) Neg for Influ B White Blood Count 28.09 K/uL Red Blood Count 4.33 M/uL Hemoglobin 14.2 g/dL Hematocrit 41.0 % Mean Corpuscular Volume 94.7 fL Mean Corpuscular Hemoglobin 32.8 pg Mean Corpuscular Hemoglobin Concent 34.6 g/dl Platelet Count 193 K/uL Mean Platelet Volume 11.9 fL Neutrophils (%) (Auto) 94.8 % Lymphocytes (%) (Auto) 2.5 % Monocytes (%) (Auto) 2.2 % Eosinophils (%) (Auto) 0.0 % Basophils (%) (Auto) 0.0 % Neutrophils # (Auto) 26.63 K/uL Lymphocytes # (Auto) 0.70 K/uL Monocytes # (Auto) 0.62 K/uL Eosinophils # (Auto) 0.00 K/uL Basophils # (Auto) 0.01 K/uL RDW Standard Deviation 50.6 fL RDW Coefficient of Variation 14.7 % Immature Granulocyte % (Auto) 0.5 % Immature Granulocyte # (Auto) 0.13 K/uL Prothrombin Time 30.1 SECONDS Prothromb Time International Ratio 2.7 Activated Partial Thromboplast Time 37.5 SECONDS Partial Thromboplastin Ratio 1.4 Sodium Level 139 mmol/L Potassium Level 4.5 mmol/L Chloride Level 102 mmol/L Carbon Dioxide Level 27 mmol/L Anion Gap 10.0 mmol/L Blood Urea Nitrogen 38 mg/dl Creatinine 1.70 mg/dl Est Creatinine Clear Calc Drug Dose 30.3 ml/min Estimated GFR () 42.3 Estimated GFR (Non- 36.5 BUN/Creatinine Ratio 22.2 Random Glucose 117 mg/dl Calcium Level 8.7 mg/dl Magnesium Level 2.2 mg/dl Total Bilirubin 0.6 mg/dl Direct Bilirubin 0.2 mg/dl Aspartate Amino Transf (AST/SGOT) 17 U/L Alanine Aminotransferase (ALT/SGPT) 19 U/L Alkaline Phosphatase 52 U/L Total Protein 6.9 gm/dl Albumin 2.7 gm/dl Assessment and Plan 81y/o male with a history of chronic diastolic CHF, CAD s/p remote stent placement, BPH, PAF, GERD, and dementia presents with shortness of breath on exertion, weakness, and fatigue for two weeks. A CXR was performed and showed right sided opacity, bilat small pleural effusions, cardiomegaly, suggesting PNA and acute CHF. BNP is also elevated. CAP RLL and RUL, with acute hypoxemic respiratory failure--no h/o smoking or COPD but with diffuse wheezing could be from pulm edema or atypical infection. Came from home and no recent hospitalization, not severe sepsis so narrowed down antibiotics from triple therapy. Received Zosyn, Levaquin, and Vanc initially. Given that entire family was recently ill, checked Rapid Flu which was NEGATIVE. -continue Levaquin for CAP and d/c vancomycin as MRSA nasal swab negative -continue Solu-Medrol 40 mg IV every 8 hours and taper down when wheezing improved, guaifenesin extended release 60 mg by mouth twice a day -continue Xopenex with Atrovent nebulizer to use every 6 hours all awake and every 2 hours when necessary. -continue supplemental O2 and wean as tolerated -start flutter valve -get out of bed to chair today CAD/Acute on chronic combined diastolic and systolic CHF/paroxysmal atrial fibrillation on AC with coumadin--No outside records for review but is on appropriate meds for CHF. BNP and signs of CHF on CXR here. BP low normal and android developer rising from 1.5--> 1.7 . K+ elevated at 5.3 initially and now down to 4.5 after lasix given ECHO showed: * 1. Small LV cavity size. Mild concentric LVH. * 2. Low normal LV function. LVEF 50-55%. Flattened septum suggestive of RV pressure overload. * 3. Mildly dilated RV with midly reduced RV function. * 4. Severe biatrial enlargement * 5. Small pericardial effusion. * 6. Grade II diastolic dysfunction * 7. At least mild pulmonary hypertension. * 8. No prior studies for comparison -give lasix 40mg po again today for fluid overload and be cautious with renal function being decreased -continue Coreg 12.5 mg by mouth twice a day, holding lisinopril 2.5 mg by mouth daily to see if BP and renal function improves and can facilitate diuresis with lasix -d/c HCTZ 12.5 and Klor-Con 20 and hold spironolactone from home for hyperkalemia and THEO vs CKD. 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 Dementia--continue donepezil 5 mg by mouth at bedtime. --avoid benzos -Haldol IM prn sundowning/agitation GERD--continue omeprazole 20 mg by mouth daily. Proph-coumadin, PPI Dispo FULL Code PT/OT evals
[2016-05-05] MEDS: WARFARIN SOD 2 MG TAB PO SCH (16:07)
[2016-05-05] MEDS: DONEPEZIL HCL 5 MG TAB PO SCH (20:50)
[2016-05-06] VITALS (9 sets, daily range): BP systolic 94–139; BP diastolic 56–74; PULSE 84–91; TEMP 36.3–36.7; O2SAT 92–95
[2016-05-06] MEDS: METHYLPREDNISOLONE IV 40 MG in SYRINGE 0 ML IV SCH ×2 (01:39→10:42)
[2016-05-06] MEDS: GUAIFENESIN SUGAR FREE 200 MG/10 ML UDC PO SCH ×4 (01:39→16:22)
[2016-05-06] MEDS: PIPERACILL/TAZOBAC IV 3.375 GM in DEXTROSE 5% 100ML 100 ML IV SCH ×2 (01:39→08:13)
[2016-05-06] MEDS: LEVALBUTEROL 1.25MG/0.5ML NEB INH SCH ×4 (02:22→19:47)
[2016-05-06] MEDS: IPRATROPIUM BROMIDE NEB SOLN 0.02% 2.5 ML VIAL INH SCH ×4 (02:22→19:47)
[2016-05-06 05:51] LABS: HEMATOCRIT 40.3 % (42-52); MEAN CELL VOLUME 95.5 fL (80-100); MEAN CORPUSCULAR HEMOGLOBIN 32.2 pg (25-34); MEAN CORPUSCULAR HGB CONC 33.7 g/dl (32-36); MEAN PLATELET VOLUME 11.7 fL (7.4-10.4); PLATELET COUNT 175 K/uL (130-400); RED BLOOD COUNT 4.22 M/uL (4.7-6.1); WHITE BLOOD COUNT 24.96 K/uL (4.8-10.8)
[2016-05-06 06:06] LABS: INR 2.4 (0.9-1.1); PARTIAL THROMBOPLASTIN RATIO 1.4; PROTHROMBIN TIME (PATIENT) 26.3 SECONDS (9.0-12.0)
[2016-05-06 06:21] LABS: BASO ABS # 0.01 K/uL (0-0.2); COMPLETE YES; IG% 0.4 %; LYMPH % 2.2 %; LYMPH ABS # 0.55 K/uL (1.2-3.4); MONO % 1.8 %; NEUT % 95.6 %
[2016-05-06 06:26] LABS: BUN/CREATININE RATIO 25.8 (10-20); CALCIUM 8.4 mg/dl (8.5-10.1); CREATININE 1.6 mg/dl (0.60-1.40); MAGNESIUM 2.2 mg/dl (1.8-2.4); POTASSIUM 4.6 mmol/L (3.5-5.1)
[2016-05-06] MEDS: FINASTERIDE 5 MG TAB PO SCH (08:13)
[2016-05-06] MEDS: DOCUSATE SODIUM 100 MG CAP PO SCH ×2 (08:13→20:26)
[2016-05-06] MEDS: LACTOBACILLUS ACIDOPHILUS (FLORANEX) TAB PO SCH ×3 (08:13→16:23)
[2016-05-06] MEDS: CARVEDILOL 12.5 MG TAB PO SCH ×2 (08:14→20:26)
[2016-05-06] MEDS: GUAIFENESIN 600 MG TABCR PO SCH (08:15)
[2016-05-06] MEDS: CHOLECALCIFEROL 1000 INTER.UNIT TAB PO SCH (08:15)
[2016-05-06] MEDS: PANTOprazole SOD 40 MG TAB PO SCH (08:15)
[2016-05-06] MEDS: BOOST VANILLA PO SCH ×6 (08:22→20:26)
[2016-05-06] MEDS: CHOLESTYRAMINE LIGHT 4 GM PKT PO SCH ×2 (10:42→21:38)
[2016-05-06] MEDS ORDERED: VANCOMYCIN TROUGH SCH (11:30)
--- NOTE | 2016-05-06 13:18 | Progress Note ---
Subjective Date of Service: May 06, 2016. Subjective Pt evaluation today including: conversation w/ patient, physical exam, lab review, review of inpatient medication list Pain: denies pain PO Intake: adequate Voiding: no voiding problems patient sitting in chair eating lunch, doing well, breathing stable feeling strong, still needing oxygen discussed plans, questions answered Problem List Medical Problems: (1) Hypoxia Status: Acute (2) PNA (pneumonia) Status: Acute (3) Pulmonary edema Status: Acute Review of Systems Respiratory: + dyspnea on exertion All Other Systems: Reviewed and Negative Medications Current Inpatient Medications Medications (Trade) Dose Ordered Sig/Bibi Route Start Time Stop Time Status Last Admin Dose Admin Acetaminophen (Tylenol Tab) 650 mg Q4H PRN PO 05/03/16 15:15 06/02/16 15:14 Zolpidem Tartrate (Ambien Tab) 5 mg HSZ PRN PO 05/03/16 15:15 06/02/16 15:14 Carvedilol (Coreg Tab) 12.5 mg BID PO 05/03/16 21:00 06/02/16 20:59 05/06/16 08:14 12.5 MG Cholecalciferol (Vitamin D Tab) 1,000 inter.unit DAILY PO 05/04/16 09:00 06/03/16 08:59 05/06/16 08:15 1,000 INTER.UNIT Donepezil HCl (Aricept Tab) 5 mg HS PO 05/03/16 21:00 06/02/16 20:59 05/05/16 20:50 5 MG Enteral Nutritional Formula (Boost) 1 can TID PO 05/03/16 21:00 06/02/16 20:59 05/06/16 08:22 1 CAN Finasteride (Proscar Tab) 5 mg DAILY PO 05/04/16 09:00 06/03/16 08:59 05/06/16 08:13 5 MG Lisinopril (Zestril Tab) 2.5 mg DAILY PO 05/04/16 09:00 06/03/16 08:59 Future Hold 05/04/16 08:07 2.5 MG Pantoprazole Sodium (Protonix Tab) 40 mg QAM PO 05/04/16 09:00 06/03/16 08:59 05/06/16 08:15 40 MG Magnesium Hydroxide (Milk Of Magnesia Susp) 30 ml Q6H PRN PO 05/03/16 15:15 06/02/16 15:14 Bisacodyl (Dulcolax Supp) 10 mg DAILY PRN IN 05/03/16 15:15 06/02/16 15:14 Diphenhydramine HCl (Benadryl Inj) 25 mg Q4H PRN IV 05/03/16 15:15 06/02/16 15:14 Al Hydrox/Mg Hydrox/ Simethicone 15 ml 15 ml Q4H PRN PO 05/03/16 15:15 06/02/16 15:14 Promethazine HCl/ Sodium Chloride (Phenergan Inj/ Nss 50ml) 50.5 ml @ 202 mls/hr Q4H PRN IV 05/03/16 15:15 06/02/16 15:14 Ondansetron HCl (Zofran Inj) 4 mg Q6H PRN IV 05/03/16 15:15 06/02/16 15:14 Docusate Sodium (coLACE CAP) 100 mg BID PO 05/03/16 21:00 06/02/16 20:59 05/06/16 08:13 100 MG Morphine Sulfate (MoRPHine SULFATE INJ) 2 mg Q2H PRN IV 05/03/16 15:15 05/17/16 15:14 Morphine Sulfate (MoRPHine SULFATE INJ) 4 mg Q2H PRN IV 05/03/16 15:15 05/17/16 15:14 Cholestyramine Resin (Questran Powder Light) 4 gm BID@10,22 PO 05/03/16 22:00 06/02/16 21:59 05/06/16 10:42 4 GM Lactobacillus Acidophilus (Floranex Tab) 4 tab TIDM PO 05/03/16 17:00 06/02/16 17:59 05/06/16 12:48 4 TAB Ipratropium Adrian (Atrovent 0.02% 0.5MG/2.5ML Neb) 0.5 mg Q6R INH 05/03/16 21:00 06/02/16 20:59 05/06/16 07:08 0.5 MG Levalbuterol (Xopenex 1.25MG/ 0.5ML Neb) 1.25 mg Q6R INH 05/03/16 21:00 06/02/16 20:59 05/06/16 07:08 1.25 MG Levofloxacin (Consult) 1 ea UD PRN N/A 05/03/16 17:00 06/02/16 16:59 Haloperidol Lactate (Haldol Inj) 5 mg DAILY PRN IM 05/04/16 15:00 06/03/16 14:59 Warfarin Sodium (Coumadin Tab) 2 mg DAILY@16 PO 05/05/16 16:00 06/04/16 15:59 05/05/16 16:07 2 MG Guaifenesin (Robitussin Sugar Free Syrup) 200 mg Q6@0000,0600,1200,1800 PO 05/05/16 13:00 06/04/16 12:59 05/06/16 12:48 200 MG Prednisone (PredniSONE TAB) 40 mg QAM PO 05/07/16 09:00 06/06/16 08:59 Levofloxacin (Levaquin Tab) 750 mg Q2D@11 PO 05/07/16 11:00 05/09/16 23:59 Objective Vital Signs Date Time Temp Pulse Resp B/P Pulse Ox O2 Delivery O2 Flow Rate FiO2 05/06/16 09:15 Nasal Cannula 3.0 05/06/16 07:55 36.7 89 18 106/67 93 Nasal Cannula 4.0 05/06/16 07:08 86 18 92 Nasal Cannula 4.0 05/06/16 02:22 86 18 92 Nasal Cannula 4.0 05/06/16 00:00 36.5 87 18 139/74 92 3.0 05/05/16 23:59 Nasal Cannula 3.0 05/05/16 20:54 103 132/77 05/05/16 20:00 Nasal Cannula 3.0 05/05/16 19:30 120 18 93 Nasal Cannula 4.0 05/05/16 16:46 Nasal Cannula 3.0 05/05/16 16:08 36.2 86 20 101/68 94 Nasal Cannula 3.0 05/05/16 14:24 82 18 97 Nasal Cannula 4.0 Physical Exam General Appearance: WD/WN, no apparent distress Eyes: normal inspection, EOMI, sclerae normal Neck: supple, no adenopathy, no JVD, trachea midline Respiratory/Chest: chest non-tender, lungs clear, normal breath sounds, no respiratory distress, no accessory muscle use Cardiovascular: regular rate, rhythm, no edema, no gallop, no JVD, no murmur Abdomen: normal bowel sounds, non tender, soft, no organomegaly Extremities: normal range of motion, non-tender, normal inspection, no pedal edema, no calf tenderness Neurologic/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0 % Neutrophils # (Auto) 23.85 K/uL Lymphocytes # (Auto) 0.55 K/uL Monocytes # (Auto) 0.45 K/uL Eosinophils # (Auto) 0.00 K/uL Basophils # (Auto) 0.01 K/uL RDW Standard Deviation 51.4 fL RDW Coefficient of Variation 15.0 % Immature Granulocyte % (Auto) 0.4 % Immature Granulocyte # (Auto) 0.10 K/uL Red Blood Cell Morphology Unremarkable Prothrombin Time 26.3 SECONDS Prothromb Time International Ratio 2.4 Activated Partial Thromboplast Time 35.9 SECONDS Partial Thromboplastin Ratio 1.4 Sodium Level 140 mmol/L Potassium Level 4.6 mmol/L Chloride Level 102 mmol/L Carbon Dioxide Level 28 mmol/L Anion Gap 10.0 mmol/L Blood Urea Nitrogen 41 mg/dl Creatinine 1.60 mg/dl Est Creatinine Clear Calc Drug Dose 32.9 ml/min Estimated GFR () 45.5 Estimated GFR (Non- 39.3 BUN/Creatinine Ratio 25.8 Random Glucose 116 mg/dl Calcium Level 8.4 mg/dl Magnesium Level 2.2 mg/dl Total Bilirubin 0.6 mg/dl Direct Bilirubin 0.2 mg/dl Aspartate Amino Transf (AST/SGOT) 26 U/L Alanine Aminotransferase (ALT/SGPT) 29 U/L Alkaline Phosphatase 48 U/L Total Protein 6.2 gm/dl Albumin 2.5 gm/dl Assessment and Plan 81y/o male with a history of chronic diastolic CHF, CAD s/p remote stent placement, BPH, PAF, GERD, and dementia presents with shortness of breath on exertion, weakness, and fatigue for two weeks. A CXR was performed and showed right sided opacity, bilat small pleural effusions, cardiomegaly, suggesting PNA and acute CHF. BNP is also elevated. CAP RLL and RUL, with acute hypoxemic respiratory failure, possible COPD exacerbation-- initially treated with broad spectrum antibiotics, he is afebrile, WBC normal , will taper to just Levaquin 750mg q2D change Solumedrol to Prednisone, quick taper continue nebulizers try to wean off oxygen CAD/Acute on chronic combined diastolic and systolic CHF/paroxysmal atrial fibrillation on AC with coumadin--No outside records for review but is on appropriate meds for CHF. BNP and signs of CHF on CXR here. BP low normal and buggyman rising from 1.5--> 1.7 . K+ elevated at 5.3 initially and now down to 4.5 after lasix given received lasix 40mg po yesterday, Cr holding at 1.6, breathing well today, repeat CXR tomorrow, no diuresis today, lungs clear continue Coreg 12.5 mg by mouth twice a day, holding lisinopril 2.5 mg by mouth daily to see if BP and renal function improves and can facilitate diuresis with lasix d/c HCTZ 12.5 and Klor-Con 20 and hold spironolactone from home for hyperkalemia and THEO vs CKD. INR initially supratherapeutic and coumadin was held--> now INR therapeutic-- > restart coumadin today at 2mg CKD Stage III vs THEO, Hyperkalemia:buggyman here 1.5--> 1.7 and no old records for comparison, K+ 5.3--> 4.5 Cr holding between 1.4 and 1.7, very well may be baseline K stable at 4.6 repeat labs in AM BPH--continue finasteride 5 mg by mouth daily. Dementia--continue donepezil 5 mg by mouth at bedtime. --avoid benzos -Haldol IM prn sundowning/agitation GERD--continue omeprazole 20 mg by mouth daily. Proph-coumadin, PPI Dispo FULL Code PT/OT evals - need to determine if he can go home or rehab?
[2016-05-06] MEDS: WARFARIN SOD 2 MG TAB PO SCH (16:22)
[2016-05-06] MEDS: DONEPEZIL HCL 5 MG TAB PO SCH (20:26)
[2016-05-07] MEDS: GUAIFENESIN SUGAR FREE 200 MG/10 ML UDC PO SCH ×2 (00:13→06:40)
[2016-05-07] MEDS: LEVALBUTEROL 1.25MG/0.5ML NEB INH SCH ×2 (03:01→07:18)
[2016-05-07] MEDS: IPRATROPIUM BROMIDE NEB SOLN 0.02% 2.5 ML VIAL INH SCH ×2 (03:01→07:18)
[2016-05-07 03:02] VITALS: PULSE 78; O2SAT 92
[2016-05-07 06:45] LABS: HEMATOCRIT 41.1 % (42-52); MEAN CELL VOLUME 94.1 fL (80-100); MEAN CORPUSCULAR HEMOGLOBIN 31.4 pg (25-34); MEAN CORPUSCULAR HGB CONC 33.3 g/dl (32-36); MEAN PLATELET VOLUME 11.7 fL (7.4-10.4); PLATELET COUNT 183 K/uL (130-400); RED BLOOD COUNT 4.37 M/uL (4.7-6.1); WHITE BLOOD COUNT 22.31 K/uL (4.8-10.8)
[2016-05-07 07:03] VITALS: BP 108/73; PULSE 87; TEMP 36.5; O2SAT 94
[2016-05-07 07:06] LABS: BASO ABS # 0.01 K/uL (0-0.2); COMPLETE YES; IG% 0.3 %; LYMPH % 7.1 %; LYMPH ABS # 1.58 K/uL (1.2-3.4); MONO % 4.1 %; NEUT % 88.5 %
[2016-05-07 07:18] VITALS: PULSE 78; O2SAT 95
[2016-05-07 07:20] LABS: BUN/CREATININE RATIO 31.3 (10-20); CALCIUM 8.6 mg/dl (8.5-10.1); CREATININE 1.4 mg/dl (0.60-1.40); MAGNESIUM 2.3 mg/dl (1.8-2.4); POTASSIUM 4.3 mmol/L (3.5-5.1)
[2016-05-07 08:00] VITALS: O2SAT 95
[2016-05-07] MEDS: PANTOprazole SOD 40 MG TAB PO SCH (08:37)
[2016-05-07] MEDS: FINASTERIDE 5 MG TAB PO SCH (08:37)
[2016-05-07] MEDS: LACTOBACILLUS ACIDOPHILUS (FLORANEX) TAB PO SCH (08:38)
[2016-05-07] MEDS: CARVEDILOL 12.5 MG TAB PO SCH (08:38)
[2016-05-07] MEDS: CHOLECALCIFEROL 1000 INTER.UNIT TAB PO SCH (08:38)
[2016-05-07] MEDS: DOCUSATE SODIUM 100 MG CAP PO SCH (08:38)
[2016-05-07] MEDS: BOOST VANILLA PO SCH ×2 (08:40)
[2016-05-07] MEDS: CHOLESTYRAMINE LIGHT 4 GM PKT PO SCH (10:00)
[2016-05-07] MEDS ORDERED: RBTUDL10 PO (10:49)
[2016-05-07] MEDS ORDERED: LVQ750 PO (10:49)
[2016-05-07] MEDS ORDERED: PRD20 PO (10:49)
[2016-05-07] MEDS ORDERED: LCTX PO (10:49)
[2016-05-07] MEDS ORDERED: LEVOFLOXACIN 750 MG TAB PO SCH (11:00)
--- NOTE | 2016-05-07 11:00 | Discharge Instructions ---
Discharge Instructions Admission Reason for Admission: Hypoxia, Pneumonia Involving Right Lung Discharge Discharge Diagnosis / Problem: Pneumonia, right lung, acute hypoxic respiratory failure Discharge Goals Goal(s): Decrease discomfort, Improve function Activity Recommendations Activity Limitations: resume your previous activity Lifting Limitations: none Exercise/Sports Limitations: as tolerated Shower/Bathe: no limitations . Instructions / Follow-Up Instructions / Follow-Up Medications: - LEVAQUIN: you will take one tablet every other day for total of three doses, this will cover you for a total of 7 days of treatment for pneumonia - PREDNISONE: will complete a quick taper and stop, take 40mg tomorrow AM and then 20mg daily for 3 days then stop - GUAFENISINE: cough syrup, take every 6 hours as needed - FLORANEX: probiotic, take for the next several days with meals - COUMADIN: you can resume your prior regimen with 2mg daily and 4mg on Friday, please follow up with your primary care physician for repeat INR as previously scheduled In summary, you were found to have right sided pneumonia and you were initially treated with broad spectrum IV antibiotics, tapered back to just Levaquin which is doses every other day based on your renal function. Your breathing has improved, you have not had a fever and your vital signs are stable. Today your oxygen was removed in the morning and you were 90-91% on room air which is fine for discharge to home. Please continue to eat and drink and get rest over the next few days as your body recovers from the pneumonia Your kidney function and electrolytes are stable. You were evaluated by therapy, recommended home health which will begin tomorrow FOLLOW UP - Please call for a follow up with Katie Posey within one week of this discharge, please discuss timing of repeat INR, should be within a week of discharge Current Hospital Diet Patient's current hospital diet: AHA Diet (Heart Healthy) Discharge Diet Recommended Diet: AHA Diet (Heart Healthy) Pending Studies Studies pending at discharge: no Laboratory Results Last Resulted CBC 05/07/16 06:10 Red Blood Count 4.37, Mean Corpuscular Volume 94.1, Mean Corpuscular Hemoglobin 31.4, Mean Corpuscular Hemoglobin Concent 33.3, Mean Platelet Volume 11.7, Neutrophils (%) (Auto) 88.5, Lymphocytes (%) (Auto) 7.1, Monocytes (%) (Auto) 4.1, Eosinophils (%) (Auto) 0.0, Basophils (%) (Auto) 0.0, Neutrophils # (Auto) 19.75, Lymphocytes # (Auto) 1.58, Monocytes # (Auto) 0.91, Eosinophils # (Auto) 0.00, Basophils # (Auto) 0.01 Last Resulted BMP 05/07/16 06:10 Medical Emergencies . Who to Call and When: Medical Emergencies: If at any time you feel your situation is an emergency, please call 911 immediately. . Non-Emergent Contact Non-Emergency issues call your: Primary Care Provider Call Non-Emergent contact if: temperature is above 100.5, you have any medication questions . . "Provider Documentation" section prepared by Wilman Gottlieb. VTE Core Measure Inpt VTE Proph given/why not?: Warfarin (Coumadin)
[2016-05-07 13:06] VITALS: BP 108/73; PULSE 78; TEMP 36.5; O2SAT 95
--- NOTE | 2016-05-07 14:38 | Discharge Summary ---
Discharge Summary Date of Service May 07, 2016. Discharge Summary Admission Date: May 03, 2016 at 15:03 Discharge Date: May 07, 2016 Discharge Disposition: Home with services Principal Diagnosis: Right sided community acquired pneumonia Problems/Secondary Diagnoses: COPD exacerbation, mild CKD stage III, possible acute component that is resolved Acute hypoxic respiratory failure, resolved Supratherapeutic INR Procedures: none Consultations: none Medication Reconciliation New Medications: Guaifenesin (Guaifenesin) 200 Mg/10 Ml Syrp 200 MG PO Q6H PRN for Cough, #120 ML 0 Refills Lactobacillus Acidophilus (Floranex) 1 Tab Tab 4 TAB PO TIDM, #120 TAB 0 Refills Levofloxacin (Levofloxacin) 750 Mg Tab 750 MG PO Q2D@11, #3 TAB 0 Refills Prednisone (Prednisone) 20 Mg Tab 40 MG PO UD, #5 TAB 0 Refills Taper: 05/08 take 40mg, then 05/09 take 20mg daily x 3 days then stop Continued Medications: Carvedilol (Coreg) 12.5 Mg Tab 12.5 MG PO BID, TAB Cholecalciferol (Vitamin D3) 1,000 Unit Tab 1 TAB PO DAILY for 90 Days, #90 TAB 3 Refills Donepezil HCl (Aricept) 5 Mg Tab 5 MG PO HS for 90 Days, TAB 3 Refills Enteral Nutrition Formula (Ensure) Liq 1 CAN PO TID Finasteride (Proscar) 5 Mg Tab 5 MG PO DAILY, TAB Hydrochlorothiazide (Hctz) 25 Mg Tab 12.5 MG PO DAILY, TAB Lisinopril (Prinivil) 5 Mg Tab 2.5 MG PO DAILY, TAB Omeprazole (Prilosec) 20 Mg Capcr 20 MG PO DAILY, CAP Potassium Chloride (Klor-Con M20) 20 Meq Tabcr 20 MEQ PO BID Spironolactone (Spironolactone) 25 Mg Tab 12.5 MG PO DAILY Warfarin Sod (Coumadin) 4 Mg Tab 4 MG PO FRIDAY Warfarin Sod (Jantoven) 2 Mg Tab 2 MG PO DIRECTED, TAB TAKE EVERYDAY EXCEPT FRIDAY Discharge Exam Patient feeling great this AM, sitting up in chair eating breakfast. No respiratory distress, was still on supplemental oxygen. Removed oxygen, patient did well for several hours and saturations were 90-91% on room air. Discussed with kim Major over the phone, planned for discharge with home services to start the next day, he had been cleared by PT/OT to return home with family and home health. Review of Systems: Constitutional: + weakness, No chills, No fatigue, No fever, No problem reported, No sweats, No weight loss Eyes: No diplopia, No discharge, No eye pain, No problem reported, No redness, No worsening of vision ENT: No dental problems, No hearing loss, No nasal symptoms, No problem reported, No sore throat, No tinnitus, No trouble swallowing, No unusual epistaxis Respiratory: + cough, + dyspnea on exertion, No dyspnea at rest, No hemoptysis, No shortness of breath, No sputum, No wheezing Cardiovascular: No PND, No chest pain, No claudication, No edema, No orthopnea, No palpitations, No problem reported Abdomen: No GI bleeding, No constipation, No diarrhea, No nausea, No pain, No problem reported, No vomiting Musculoskeletal: No calf pain, No joint pain, No muscle pain, No problem reported, No swelling Genitourinary - Male: No dysuria, No hematuria, No urinary frequency, No urinary urgency Neurologic: No balance problems, No memory loss, No numbness/tingling, No paralysis, No problem reported, No vertigo, No weakness Psychiatric: No anhedonism, No anxiety, No depression symptoms, No insomnia , No problem reported, No substance abuse Endocrine: No excessive thirst, No excessive urination, No fatigue, No problem reported Hematologic / Lymphatic: No abnormal bleeding/bruising, No clotting problems , No night sweats, No problem reported, No swollen lymph nodes Integumentary: No bleeding, No color change, No itch, No new/changing skin lesions, No problem reported, No rash Physical Exam: General Appearance: no apparent distress, + thin Eyes: normal inspection, EOMI, sclerae normal ENT: normal ENT inspection, hearing grossly normal, pharynx normal Neck: supple, no adenopathy, no JVD, trachea midline Respiratory/Chest: chest non-tender, lungs clear, no respiratory distress, no accessory muscle use, + decreased breath sounds (bases) Cardiovascular: no edema, no gallop, no JVD, no murmur, normal peripheral pulses, + irregularly irregular Abdomen / GI: normal bowel sounds, non tender, soft, no organomegaly Extremities: normal inspection, no calf tenderness, normal capillary refill , no pedal edema, normal range of motion, pelvis stable Neurologic/Psychiatric: 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 A CXR was performed and showed right sided opacity, bilat small pleural effusions, cardiomegaly, suggesting PNA and acute CHF. BNP is also elevated. Community acquired pneumonia, RLL and RUL, with acute hypoxemic respiratory failure, possible COPD exacerbation-- initially treated with broad spectrum antibiotics, he is afebrile, WBC normal , will taper to just Levaquin 750mg q2D complete 3 more doses of Levaquin for a 7 day total course change Solumedrol to Prednisone 40mg daily, will complete 40mg tomorrow then 20mg daily x 3 days weaned off of oxygen today continue cough syrup CAD/Acute on chronic combined diastolic and systolic CHF/paroxysmal atrial fibrillation on AC with coumadin--No outside records for review but is on appropriate meds for CHF. BNP and signs of CHF on CXR here. BP low normal and educational technology coordinator rising from 1.5--> 1.7 . K+ elevated at 5.3 initially and now down to 4.5 after lasix given acute heart failure component resolved with Lasix as needed, he is euvolemic , no need for further diuresis continue Coreg 12.5 mg by mouth twice a day, resume lisinopril 2.5 mg by mouth daily resume prior medications on discharge INR initially supratherapeutic and coumadin was held--> now INR therapeutic-- > restart coumadin at 2mg daily and 4mg on Friday follow INR with PCP CKD Stage III vs THEO, Hyperkalemia:educational technology coordinator here 1.5--> 1.7 and no old records for comparison, K+ 5.3--> 4.5 Cr holding between 1.4 and 1.7, very well may be baseline K stable at 4.6 continues to be stable today, resume all prior medications on discharge BPH--continue finasteride 5 mg by mouth daily. Dementia--continue donepezil 5 mg by mouth at bedtime. --avoid benzos -Haldol IM prn sundowning/agitation GERD--continue omeprazole 20 mg by mouth daily. Proph-coumadin, PPI Dispo FULL Code PT/OT evals - cleared to return home with home health today Total Time Spent: Greater than 30 minutes This includes examination of the patient, discharge planning, medication reconciliation, and communication with other providers. Discharge Instructions Please refer to the electronic Patient Visit Report (Discharge Instructions) for additional information. Follow-Up Katie Posey in one week Additional Copies To Katie Posey
== END 2016-05-07 14:29 | disposition home health service (06) | DRG 291 ==
LOC: ENRESERVTM → ENRESERVDT → C.EDB 10:54 → C.MS2W 15:03
PROVIDERS: ADMIT Hospitalist; ATTEND Internal Medicine
DX: I13.0 Hypertensive heart and chronic kidney disease with heart failure and stage 1 through stage 4 chronic kidney disease, or unspecified chronic kidney disease (principal); J18.9 Pneumonia, unspecified organism; I50.43 Acute on chronic combined systolic (congestive) and diastolic (congestive) heart failure; J96.01 Acute respiratory failure with hypoxia; J44.1 Chronic obstructive pulmonary disease with (acute) exacerbation; N17.9 Acute kidney failure, unspecified; I31.3 Pericardial effusion (noninflammatory); N18.3 Chronic kidney disease, stage 3 (moderate); R79.1 Abnormal coagulation profile; I25.10 Atherosclerotic heart disease of native coronary artery without angina pectoris; I48.0 Paroxysmal atrial fibrillation; E87.5 Hyperkalemia; K21.9 Gastro-esophageal reflux disease without esophagitis; N40.0 Benign prostatic hyperplasia without lower urinary tract symptoms; F03.90 Unspecified dementia, unspecified severity, without behavioral disturbance, psychotic disturbance, mood disturbance, and anxiety; Z79.01 Long term (current) use of anticoagulants

== ENCOUNTER 2017-07-25 11:11 | Inpatient (IN) | payer OTHER ==
[2017-07-25] VITALS (10 sets, daily range): BP systolic 95–112; BP diastolic 63–72; PULSE 65–91; TEMP 36.4–36.7; O2SAT 92–98; Ht 172.7 cm; Wt 66.5 kg
[~2017-07-25] VITALS: Ht 172.7 cm; Wt 66.5 kg
[~2017-07-25 11:11] MED LIST: CARV12.52 PO; CHOL1000 PO; CMD4 PO; DONE5TAB9 PO; FINA5TAB PO; HYDR25TA4 PO; LCTX PO; LISI-729 PO; LVQ750 PO; MCRK20 PO; NUTR-706 PO; PRD20 PO; PRLSR20 PO; RBTUDL10 PO; SPR25 PO; WARF2TAB8 PO
[2017-07-25] MEDS ORDERED: ONDANSETRON INJ 2 MG/ML 2 ML VIAL IV STA (11:27)
[2017-07-25] MEDS: MoRPHine SULFATE 4 MG/ML 1 ML CARP\\VIAL IV PRN ×2 (11:38→15:19)
[2017-07-25 11:50] LABS: BASO % 0.8 %; BASO ABS # 0.05 K/uL (0-0.2); EOS % 1.3 %; EOS ABS # 0.08 K/uL (0-0.5); HEMATOCRIT 38.4 % (42-52); HEMOGLOBIN 12.2 g/dL (14.0-18.0); IG# 0.01 K/uL (0.00-0.02); LYMPH % 17.7 %; LYMPH ABS # 1.06 K/uL (1.2-3.4); MEAN CELL VOLUME 97.7 fL (80-100); MEAN CORPUSCULAR HGB CONC 31.8 g/dl (32-36); MONO % 11.2 %; MONO ABS # 0.67 K/uL (0.11-0.59); NEUT % 68.8 %; NEUT ABS # 4.13 K/uL (1.4-6.5); PLATELET COUNT 123 K/uL (130-400); RED CELL DISTRIBUTION WIDTH CV 15.1 % (11.5-14.5); RED CELL DISTRIBUTION WIDTH SD 54.5 fL (36.4-46.3)
--- NOTE | 2017-07-25 11:57 | DIAGNOSTIC IMAGING REPORT ---
R PELVIS/UNILATERAL HIP 2-3VIEWS CLINICAL HISTORY: hip pain, fall trauma. Pain. COMPARISON: None. DISCUSSION: Intertrochanteric fracture right hip. No evidence dislocation. No evidence for acetabular protrusion. The remaining osseous structures are unremarkable for age. There is no evidence for soft tissue swelling. IMPRESSION: Intertrochanteric fracture right hip. The above report was generated using voice recognition software. It may contain grammatical, syntax or spelling errors. Electronically signed by: Lv Jones M.D. 07/25/2017 11:55 AM Dictated Date/Time: 07/25/2017 11:55 AM
--- NOTE | 2017-07-25 11:58 | DIAGNOSTIC IMAGING REPORT ---
CHEST ONE VIEW PORTABLE CLINICAL HISTORY: 82 years-old Male presenting with fall, hip fx. TECHNIQUE: Portable semiupright AP view of the chest was obtained. COMPARISON: 05/05/2016. FINDINGS: Atherosclerosis of aortic arch. Cardiac silhouette enlarged. Pulmonary vascular prominence. Prominent skin fold projects over the left hemithorax. No pneumothorax. Improved aeration of the left lung base in comparison to prior chest x-ray from over one year ago. No new focal opacity. No large effusion. Degenerative changes with superior subluxation of the right glenohumeral joint. Upper abdomen normal. IMPRESSION: 1. Cardiomegaly with possible volume overload. No other convincing evidence of acute cardiopulmonary disease. Electronically signed by: eBnnie Shook M.D. 07/25/2017 11:56 AM Dictated Date/Time: 07/25/2017 11:55 AM
[2017-07-25 11:59] LABS: INR 2.4 (0.9-1.1); PTT PATIENT 34.8 SECONDS (21.0-31.0)
[2017-07-25] MEDS ORDERED: LOPE1LIQ15 PO (12:10)
[2017-07-25] MEDS ORDERED: DONE5TAB14 PO (12:10)
[2017-07-25] MEDS ORDERED: WARF2TAB8 PO (12:10)
--- NOTE | 2017-07-25 12:20 | DIAGNOSTIC IMAGING REPORT ---
CT HEAD WITHOUT CONTRAST (CT) CLINICAL HISTORY: Head pain status post trauma. Patient on Coumadin. COMPARISON STUDY: No previous studies for comparison. TECHNIQUE: Axial CT of the brain is performed from the vertex to the skull base. IV contrast was not administered for this examination. A dose lowering technique was utilized adhering to the principles of ALARA. CT DOSE: 788.63 mGycm FINDINGS: No intra or extra-axial mass lesions are visualized. There is no CT evidence of acute cortical infarction. There is no evidence of midline shift. No calvarial fractures are visualized. There is ar 8 mm hyperdense focus within the left frontal lobe at the periphery of the left MCA infarct. On a small acute hemorrhage cannot be excluded, this likely represents esme-infarct mineralization. There are patchy white matter hypodensities likely on a small vessel basis. There is an old large left MCA territory infarct. There is an old right cerebellar infarct. There is no evidence of pathologic ventricular dilatation. There is no evidence of acute sinusitis IMPRESSION: 1. 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 Old right cerebellar infarct 3. 8mm hyperdense focus within the left frontal lobe. 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 Electronically signed by: Clayton Ambrose M.D. 07/25/2017 12:18 PM Dictated Date/Time: 07/25/2017 12:15 PM
[2017-07-25 12:44] LABS: BLOOD UREA NITROGEN 19 mg/dl (7-18); CARBON DIOXIDE 32 mmol/L (21-32); CREATININE 1.28 mg/dl (0.60-1.40); GLUCOSE 107 mg/dl (70-99); SODIUM 138 mmol/L (136-145)
[2017-07-25] MEDS ORDERED: MoRPHine SULFATE 4 MG/ML 1 ML CARP\\VIAL IV PRN (13:00)
[2017-07-25] MEDS ORDERED: POLYETHYLENE (MIRALAX) 17 GM PACK PO PRN (13:00)
[2017-07-25] MEDS ORDERED: ACETAMINOPHEN 325 MG TAB PO PRN (13:00)
[2017-07-25] MEDS ORDERED: NALOXONE HCL 0.4 MG/1 ML VIAL/CARP IV PRN (13:00)
[2017-07-25] MEDS ORDERED: OXYCODONE HCL IR 5 MG TAB (IMMEDIATE RELEASE) PO PRN (13:00)
[2017-07-25] MEDS ORDERED: BISACODYL 10 MG SUPP PR PRN (13:00)
[2017-07-25] MEDS ORDERED: SOD PHOSPHATE/SOD BIPHOSPHATE ENEMA 132 ML BTL PR PRN (13:00)
[2017-07-25] MEDS ORDERED: ONDANSETRON INJ 2 MG/ML 2 ML VIAL IV PRN (13:00)
[2017-07-25] MEDS ORDERED: MAGNESIUM HYDROXIDE SUSP 30 ML UDC PO PRN (13:00)
[2017-07-25] MEDS ORDERED: SODIUM CHLORIDE 0.9% 500ML 500 ML IV STA (13:03)
[2017-07-25] MEDS ORDERED: PHYTONADIONE INJ 5 MG in SODIUM CHLORIDE 0.9% 50ML 50 ML IV STA ×2 (13:26→20:34)
--- NOTE | 2017-07-25 13:38 | History and Physical ---
History & Physical Date & Time of Service: July 25, 2017 at 13:13 Chief Complaint: Fall/Leg Pain Primary Care Physician: Katie Posey History of Present Illness Source: patient 82 y/o M Hx chronic diastolic CHF, chronic AF, CVA, CAD, CKD III, dementia, BPH. The [place] was [place] the [place] earlier today and upon exiting the building he suffered a mechanical fall resulting in a R intertrochanteric fracture. He was reportedly in his normal state of health prior and has no complaints at the time of admission. The pt is a poor historian. His [id number] is present at bedside to provide the preceding information. Past Medical/Surgical History 1) Chronic AF 2) CHF - echo 02/2017: grade II diastolic dysfunction - EF 50-55% 3) CKD III 4) Dementia 5) BPH 6) CAD - distant history of [place] and stent 7) CVA - large left MCA territory infarct, right cerebellar infarct Family History No pertinent family history Noncontributory to present complaint Social History Ambulates independently - does not currently drink or smoke Smoking Status: Former Smoker Drug Use: none Marital Status: Housing status: lives with family Occupational Status: retired Allergies Coded Allergies: No Known Allergies (Unverified , 07/25/17) Home Medications Scheduled Carvedilol (Coreg), 12.5 MG PO BID Donepezil Hydrochloride (Aricept), 5 MG PO HS Enteral Nutrition Formula (Ensure), 1 CAN PO TID Finasteride (Proscar), 5 MG PO DAILY Hydrochlorothiazide (Hctz), 12.5 MG PO DAILY Lisinopril (Prinivil), 2.5 MG PO DAILY Omeprazole (Prilosec), 20 MG PO DAILY Potassium Chloride (Klor-Con M20), 20 MEQ PO BID Spironolactone (Spironolactone), 12.5 MG PO DAILY Warfarin Sod (Jantoven), 2 MG PO DAILY Miscellaneous Medications Loperamide Hcl (Loperamide Hcl), 4 MG PO Review of Systems Cannot obtain a reliable ROS from pt - no complaints and denies hip pain on admission. Physical Exam Vital Signs Date Time Temp Pulse Resp B/P (MAP) Pulse Ox O2 Delivery O2 Flow Rate FiO2 07/25/17 12:35 91 07/25/17 11:51 78 22 114/66 96 Nasal Cannula 2.0 07/25/17 11:12 Nasal Cannula 2.0 07/25/17 11:12 36.5 88 20 131/87 97 Room Air 9.0 General Appearance: + pertinent finding (Very thin, elderly male - no distress) ENT: normal ENT inspection, pharynx normal Neck: supple, + JVD Respiratory/Chest: chest non-tender, lungs clear, normal breath sounds Cardiovascular: regular rate, rhythm, no edema, no gallop Abdomen/GI: normal bowel sounds, non tender, soft Extremities/Musculoskelatal: no calf tenderness, + pedal edema (minimal), + pertinent finding (RLE externally rotated) Neurologic/Psych: 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-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 nml as tested, alert Skin: normal color Diagnostics Laboratory Results Results Past 24 Hours Test 07/25/17 11:38 07/25/17 13:00 Range/Units White Blood Count 6.00 4.8-10.8 K/uL Red Blood Count 3.93 4.7-6.1 M/uL Hemoglobin 12.2 14.0-18.0 g/dL Hematocrit 38.4 42-52 % Mean Corpuscular Volume 97.7 80-100 fL Mean Corpuscular Hemoglobin 31.0 25-34 pg Mean Corpuscular Hemoglobin Concent 31.8 32-36 g/dl Platelet Count 123 130-400 K/uL Mean Platelet Volume 11.0 7.4-10.4 fL Neutrophils (%) (Auto) 68.8 % Lymphocytes (%) (Auto) 17.7 % Monocytes (%) (Auto) 11.2 % Eosinophils (%) (Auto) 1.3 % Basophils (%) (Auto) 0.8 % Neutrophils # (Auto) 4.13 1.4-6.5 K/uL Lymphocytes # (Auto) 1.06 1.2-3.4 K/uL Monocytes # (Auto) 0.67 0.11-0.59 K/uL Eosinophils # (Auto) 0.08 0-0.5 K/uL Basophils # (Auto) 0.05 0-0.2 K/uL RDW Standard Deviation 54.5 36.4-46.3 fL RDW Coefficient of Variation 15.1 11.5-14.5 % Immature Granulocyte % (Auto) 0.2 % Immature Granulocyte # (Auto) 0.01 0.00-0.02 K/uL Prothrombin Time 24.8 9.0-12.0 SECONDS Prothromb Time International Ratio 2.4 0.9-1.1 Activated Partial Thromboplast Time 34.8 21.0-31.0 SECONDS Partial Thromboplastin Ratio 1.3 Sodium Level 138 136-145 mmol/L Potassium Level 6.0 3.5-5.1 mmol/L Chloride Level 104 98-107 mmol/L Carbon Dioxide Level 32 21-32 mmol/L Anion Gap 2.0 3-11 mmol/L Blood Urea Nitrogen 19 7-18 mg/dl Creatinine 1.28 0.60-1.40 mg/dl Estimated GFR () 59.2 Estimated GFR (Non- 51.1 BUN/Creatinine Ratio 14.8 10-20 Random Glucose 107 70-99 mg/dl Calcium Level 9.0 8.5-10.1 mg/dl Diagnostic Radiology CT head: 1. 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 Old right cerebellar infarct 3. 8mm hyperdense focus within the left frontal lobe. 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 Pelvic XR: R intertrochanteric fracture EKG AF, PVCs Impression Assessment and Plan 82 y/o M Hx chronic diastolic CHF, chronic AF, CVA, CAD, CKD III, dementia, BPH. [place] today and upon exiting the building he suffered a mechanical fall resulting in a R intertrochanteric fracture. He was reportedly in his normal state of health prior and has no complaints at the time of admission. The pt is a poor historian. His [id number] is present at bedside to provide the preceding information. Initial labs are notable for a K of 6. 1) Hip fracture - the pt is high risk - Class IV with an RCRI of 11% - likely proceeding to intermediate risk surgery. Due to his cardiovascular history, we will consult cardiology as indicated. We have provided vitamin K in prep for potential surgery. The pt should be bridged with Heparin or Lovenox if the procedure is delayed and his INR is subtherapeutic. Regarding his scheduled med - we will cont Coreg, Finasteride, Aricept esme-op. 2) HyperK - cause unclear - likely related to Aldactone use, Lisinopril use and CKD - there do not appear to be any related EKG changes - will provide IVF, hold Aldactone and trend BMP - we will consider Kayexalate or Lasix if K does not normalize with fluids 3) CKD III - creat is at baseline - maintain volume status esme-op - Aldactone, HCTZ, DORON held 4) CAD - cont Coreg - presumably he is statin-intolerant 5) CHF - currently euvolemic - cont B cassie - volume status bears monitoring as diuretics are held 6) AF - Coumadin held - bridge with Lovenox if procedure delayed 7) BPH - cont Finasteride Full code - anticoagulated with Coumadin Total time for this admit including review of labs, meds, imaging, records - discussion with pt and ER attending - 40 min Resuscitation Status VTE Prophylaxis Will order VTE Prophylaxis: Yes
[2017-07-25] MEDS ORDERED: LOPERAMIDE LIQUID 1MG/7.5ML 120ML BTL PO SCH (14:00)
--- NOTE | 2017-07-25 14:03 | EMERGENCY ROOM VISIT NOTE ---
History Report prepared by Vamsi: Shabnam Garcia Under the Supervision of: Dr. Shane Rizo M.D. First contact with patient: 11:19 Stated Complaint: FALL/LEG PAIN History of Present Illness The patient is an 82 year old male who presents to the Emergency Room with complaints of an episode of a fall occurring prior to arrival. Per nursing staff , the patient was at the [place] and fell. They report that he has right side leg shortening and external rotation. The patient reports that is unsure why he fell. The patient complains of his right front hip hurting. The patient denies hitting his head and loss of consciousness. He notes that he does not wear oxygen all the time. Source of History: patient, nursing staff Onset: prior to arrival Position: other (global) Quality: other (fall) Timing: other (episode) Associated Symptoms: No LOC Note: The patient complains of right hip pain. The patient denies hitting his head. Review of Systems See HPI for pertinent positives & negatives. A total of 10 systems reviewed and were otherwise negative. Past Medical & Surgical Medical Problems: (1) Dementia (2) Heart disease (3) Hip fracture (4) Pneumonia involving right lung (5) Stroke Family History No pertinent family history Social History Smoking Status: Never Smoker Drug Use: none Marital Status: Housing Status: lives with family Occupation Status: retired Current/Historical Medications Scheduled Carvedilol (Coreg), 12.5 MG PO BID Donepezil Hydrochloride (Aricept), 5 MG PO HS Enteral Nutrition Formula (Ensure), 1 CAN PO TID Finasteride (Proscar), 5 MG PO DAILY Hydrochlorothiazide (Hctz), 12.5 MG PO DAILY Lisinopril (Prinivil), 2.5 MG PO DAILY Omeprazole (Prilosec), 20 MG PO DAILY Potassium Chloride (Klor-Con M20), 20 MEQ PO BID Spironolactone (Spironolactone), 12.5 MG PO DAILY Warfarin Sod (Jantoven), 2 MG PO DAILY Miscellaneous Medications Loperamide Hcl (Loperamide Hcl), 4 MG PO Allergies Coded Allergies: No Known Allergies (Unverified , 07/25/17) Physical Exam Vital Signs Date Time Temp Pulse Resp B/P (MAP) Pulse Ox O2 Delivery O2 Flow Rate FiO2 07/25/17 12:35 91 07/25/17 11:51 78 22 114/66 96 Nasal Cannula 2.0 07/25/17 11:12 Nasal Cannula 2.0 07/25/17 11:12 96 Nasal Cannula 2.0 07/25/17 11:12 36.5 88 20 131/87 97 Room Air 9.0 Physical Exam GENERAL: Patient is in no acute distress. HEENT: No acute trauma, normocephalic atraumatic, mucous membranes moist, no nasal congestion, no scleral icterus. NECK: No stridor, no adenopathy, no meningismus, trachea is midline. No posterior c-spine tenderness. LUNGS: Diminished breath sounds bilaterally. No wheezing or rhonchi. Breath sounds are equal. HEART: Irregular and mildly tachycardic. No murmurs. ABDOMEN: Soft, nontender, bowel sounds positive, no hernias, no peritonitis. EXTREMITIES: Right lower extremity is externally rotated and shortened. There is pain with palpation within the area of the right hip. Right knee and right ankle are not painful. NEUROLOGIC: Oriented x 3, no acute motor or sensory deficits, no focal weakness. SKIN: No rash, no jaundice, no diaphoresis. Medical Decision & Procedures ER Provider Diagnostic Interpretation: Radiology results as stated below per my review and radiologist interpretation: CHEST ONE VIEW PORTABLE CLINICAL HISTORY: 82 years-old Male presenting with fall, hip fx. TECHNIQUE: Portable semiupright AP view of the chest was obtained. COMPARISON: 05/05/2016. FINDINGS: Atherosclerosis of aortic arch. Cardiac silhouette enlarged. Pulmonary vascular prominence. Prominent skin fold projects over the left hemithorax. No pneumothorax. Improved aeration of the left lung base in comparison to prior chest x-ray from over one year ago. No new focal opacity. No large effusion. Degenerative changes with superior subluxation of the right glenohumeral joint. Upper abdomen normal. IMPRESSION: 1. Cardiomegaly with possible volume overload. No other convincing evidence of acute cardiopulmonary disease. Electronically signed by: Bennie Shook M.D. 07/25/2017 11:56 AM Dictated Date/Time: 07/25/2017 11:55 AM R PELVIS/UNILATERAL HIP 2-3VIEWS CLINICAL HISTORY: hip pain, fall trauma. Pain. COMPARISON: None. DISCUSSION: Intertrochanteric fracture right hip. No evidence dislocation. No evidence for acetabular protrusion. The remaining osseous structures are unremarkable for age. There is no evidence for soft tissue swelling. IMPRESSION: Intertrochanteric fracture right hip. The above report was generated using voice recognition software. It may contain grammatical, syntax or spelling errors. Electronically signed by: Lv Jones M.D. 07/25/2017 11:55 AM Dictated Date/Time: 07/25/2017 11:[address] HEAD WITHOUT CONTRAST (CT) CLINICAL HISTORY: Head pain status post trauma. Patient on Coumadin. COMPARISON STUDY: No previous studies for comparison. TECHNIQUE: Axial CT of the brain is performed from the vertex to the skull base. IV contrast was not administered for this examination. A dose lowering technique was utilized adhering to the principles of ALARA. CT DOSE: 788.63 mGycm FINDINGS: No intra or extra-axial mass lesions are visualized. There is no CT evidence of acute cortical infarction. There is no evidence of midline shift. No calvarial fractures are visualized. There is ar 8 mm hyperdense focus within the left frontal lobe at the periphery of the left MCA infarct. On a small acute hemorrhage cannot be excluded, this likely represents esme-infarct mineralization. There are patchy white matter hypodensities likely on a small vessel basis. There is an old large left MCA territory infarct. There is an old right cerebellar infarct. There is no evidence of pathologic ventricular dilatation. There is no evidence of acute sinusitis IMPRESSION: 1. 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 Old right cerebellar infarct 3. 8mm hyperdense focus within the left frontal lobe. 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 Electronically signed by: Clayton Ambrose M.D. 07/25/2017 12:18 PM Dictated Date/Time: 07/25/2017 12:15 PM Laboratory Results 07/25/17 11:38 Red Blood Count 3.93, Mean Corpuscular Volume 97.7, Mean Corpuscular Hemoglobin 31.0, Mean Corpuscular Hemoglobin Concent 31.8, Mean Platelet Volume 11.0, Neutrophils (%) (Auto) 68.8, Lymphocytes (%) (Auto) 17.7, Monocytes (%) (Auto) 11.2, Eosinophils (%) (Auto) 1.3, Basophils (%) (Auto) 0.8, Neutrophils # (Auto ) 4.13, Lymphocytes # (Auto) 1.06, Monocytes # (Auto) 0.67, Eosinophils # (Auto ) 0.08, Basophils # (Auto) 0.05 Test 07/25/17 11:38 White Blood Count 6.00 K/uL (4.8-10.8) Red Blood Count 3.93 M/uL (4.7-6.1) Hemoglobin 12.2 g/dL (14.0-18.0) Hematocrit 38.4 % (42-52) Mean Corpuscular Volume 97.7 fL (80-100) Mean Corpuscular Hemoglobin 31.0 pg (25-34) Mean Corpuscular Hemoglobin Concent 31.8 g/dl (32-36) Platelet Count 123 K/uL (130-400) Mean Platelet Volume 11.0 fL (7.4-10.4) Neutrophils (%) (Auto) 68.8 % Lymphocytes (%) (Auto) 17.7 % Monocytes (%) (Auto) 11.2 % Eosinophils (%) (Auto) 1.3 % Basophils (%) (Auto) 0.8 % Neutrophils # (Auto) 4.13 K/uL (1.4-6.5) Lymphocytes # (Auto) 1.06 K/uL (1.2-3.4) Monocytes # (Auto) 0.67 K/uL (0.11-0.59) Eosinophils # (Auto) 0.08 K/uL (0-0.5) Basophils # (Auto) 0.05 K/uL (0-0.2) RDW Standard Deviation 54.5 fL (36.4-46.3) RDW Coefficient of Variation 15.1 % (11.5-14.5) Immature Granulocyte % (Auto) 0.2 % Immature Granulocyte # (Auto) 0.01 K/uL (0.00-0.02) Prothrombin Time 24.8 SECONDS (9.0-12.0) Prothromb Time International Ratio 2.4 (0.9-1.1) Activated Partial Thromboplast Time 34.8 SECONDS (21.0-31.0) Partial Thromboplastin Ratio 1.3 Laboratory results reviewed by me. Medications Administered Medications (Trade) Dose Ordered Sig/Bibi Route Start Time Stop Time Status Last Admin Dose Admin Morphine Sulfate (MoRPHine SULFATE INJ) 4 mg Q15M PRN IV 07/25/17 11:30 08/08/17 11:29 07/25/17 15:19 4 MG Ondansetron HCl (Zofran Inj) 4 mg NOW STAT IV 07/25/17 11:27 07/25/17 11:32 DC 07/25/17 11:37 4 MG ECG Per My Interpretation Indication: other (nursing protocol) Rate (beats per minute): 87 Rhythm: atrial fibrillation Findings: PVC, other (no ST elevation) ED Course 1120: The patient was evaluated in room C3. A complete history and physical exam was performed. 1127: Ordered Zofran Inj 4 mg IV. 1130: Ordered Morphine Sulfate 4 mg PRN IV pain. 1227: I reevaluated the patient. I updated him and his family on the fracture. 1241: Case management notified me the hospitalist is aware of the patient. 1301: I discussed the patient's case with Dr. Tone MARTÍNEZ Hospitalist. The patient will be evaluated for further management. Medical Decision Differential diagnoses include right hip or femur fracture, intracranial bleeding, neck, chest, or abdominal trauma, neurovascular compromise, coagulopathy, anemia, electrolyte imbalance, dehydration. There is no leukocytosis or concerning anemia. INR is elevated consistent with his Coumadin use. No evidence for kidney failure-the potassium was high but not critical at a value of 6. Urinalysis does not show infection, however, hematuria was noted. Brain CT showed evidence for an old stroke and some changes thought secondary to the previous stroke. EKG showed A. fib with PVCs. Chest x-ray did not show pneumonia or CHF. Pelvis and right hip films show evidence for a right intertrochanteric hip fracture. Patient received IV morphine for pain, IV Zofran for nausea. He was given IV saline. He does seem comfortable. I discussed my findings with the patient and his family. The patient requires a hospital stay. He will require orthopedic intervention. The on-call hospitalist was consulted. His injuries from this fall seem isolated to the right hip. Medication Reconcilliation Current Medication List: was personally reviewed by me Blood Pressure Screening Patient's blood pressure: Normal blood pressure Will be further monitored by the hospitalist. Consults Time Called: 1221 Consulting Physician: Dr. Tone MARTÍNEZ Hospitalist Returned Call: 1301 I discussed the patient's case with Dr. Tone MARTÍNEZ Hospitalist. The patient will be evaluated for further management. Impression Primary Impression: Hip fracture, right Additional Impression: Fall Scribe Attestation The scribe's documentation has been prepared under my direction and personally reviewed by me in its entirety. I confirm that the note above accurately reflects all work, treatment, procedures, and medical decision making performed by me. Departure Information Dispostion Being Evaluated By Hospitalist Referrals Katie Posey (PCP) Problem Qualifiers
[2017-07-25] MEDS: D5W AND NSS 1,000 ML IV SCH (16:08)
[2017-07-25 17:16] LABS: CALCIUM 8.6 mg/dl (8.5-10.1); CREATININE 1.15 mg/dl (0.60-1.40); POTASSIUM 5.7 mmol/L (3.5-5.1)
--- NOTE | 2017-07-25 17:55 | Cardiology Consultation ---
Cardiology Consultation Date of Consultation: July 25, 2017. Requesting Physician: Tone Reason for Consultation: pre=operative evaluation Pt evaluation today including: conversation w/ patient, conversation w/ family , physical exam, chart review, lab review, review of studies, review of inpatient medication list History of Present Illness The patient is an 82-year-old gentleman with a history of cardiac disease reportedly having had a remote myocardial infarction. It seems that he was ambulating earlier today and suffered a mechanical fall resulting in a right hip fracture. Patient does suffer from dementia. He was able to answer some simple questions but the majority of the history was provided by family members who were present for this interview. It seems that in general he can perform routine activity without notable symptoms. He does not generally at ascend stairs or perform yard work. However, he is ambulatory and does not report limiting symptoms such as dyspnea or chest pain. He did suffer a large stroke several years ago in for period of time could not ambulate. However he successfully finished rehabilitation and now is again ambulatory. The family states that he has not had any recent complaints. He appears to eat well. They have not noticed any edema or swelling in his extremities. He generally does not fall. According to the family members he did suffer a fall several years ago but none in the interim. Past Medical/Surgical History 1) Chronic AF 2) CHF - echo 02/2017: grade II diastolic dysfunction - EF 50-55% 3) CKD III 4) Dementia 5) BPH 6) CAD - distant history of CA 7) CVA - large left MCA territory infarct, right cerebellar infarct Past surgical history: None Family History No pertinent family history Noncontributory given his advanced age Social History Smoking Status: Never Smoker History of Alcohol Use: No Currently lives with family. Review of Systems Respiratory: + dyspnea on exertion Review of systems limited by his cognitive disorder. He did not report any breathing difficulty. He does have some pain at his hip fracture site. All Other Systems: Reviewed and Negative Allergies Coded Allergies: No Known Allergies (Unverified , 07/25/17) Medications Current Inpatient Medications Medications (Trade) Dose Ordered Sig/Bibi Route Start Time Stop Time Status Last Admin Dose Admin Morphine Sulfate (MoRPHine SULFATE INJ) 4 mg Q15M PRN IV 07/25/17 11:30 08/08/17 11:29 07/25/17 15:19 4 MG Ondansetron HCl (Zofran Inj) 4 mg Q6H PRN IV 07/25/17 13:00 08/24/17 12:59 Acetaminophen (Tylenol Tab) 650 mg Q6H PRN PO 07/25/17 13:00 08/24/17 12:59 Oxycodone HCl (Roxicodone Immediate Rel Tab) 10 mg Q4H PRN PO 07/25/17 13:00 08/08/17 12:59 Morphine Sulfate (MoRPHine SULFATE INJ) 4 mg Q2H PRN IV 07/25/17 13:00 08/08/17 12:59 Naloxone HCl (Narcan Inj) 0.1 mg PRN PRN IV 07/25/17 13:00 08/24/17 12:59 Senna/Docusate Sodium (Senokot S Tab) 2 tab HS PO 07/25/17 21:00 08/24/17 20:59 Polyethylene (Miralax Powder Packet) 17 gm DAILY PRN PO 07/25/17 13:00 08/24/17 12:59 Magnesium Hydroxide (Milk Of Magnesia Susp) 30 ml DAILY PRN PO 07/25/17 13:00 08/24/17 12:59 Bisacodyl (Dulcolax Supp) 10 mg DAILY PRN UT 07/25/17 13:00 08/24/17 12:59 Sodium Biphosphate/ Sodium Phosphate (Fleet Enema) 132 ml PRN PRN UT 07/25/17 13:00 Carvedilol (Coreg Tab) 12.5 mg BID PO 07/25/17 21:00 08/24/17 20:59 Donepezil HCl (Aricept Tab) 5 mg HS PO 07/25/17 21:00 08/24/17 20:59 Finasteride (Proscar Tab) 5 mg DAILY PO 07/26/17 09:00 08/25/17 08:59 Pantoprazole Sodium (Protonix Tab) 40 mg DAILY PO 07/26/17 09:00 08/25/17 08:59 Dextrose/Sodium Chloride 1,000 ml @ 100 mls/hr Q10H IV 07/25/17 13:00 07/26/17 08:59 07/25/17 16:08 100 MLS/HR Enteral Nutritional Formula (Boost Plus Vanilla) 1 can TID PO 07/25/17 21:00 08/24/17 20:59 Cefazolin Sodium 2000 mg/Syringe 15 ml @ 3.75 mls/ min PREOP IV 07/26/17 06:00 07/27/17 05:59 Physical Exam Vital Signs Past 12 Hours Date Time Temp Pulse Resp B/P (MAP) Pulse Ox O2 Delivery O2 Flow Rate FiO2 07/25/17 16:16 97 Nasal Cannula 2.0 07/25/17 16:10 98 Nasal Cannula 2.0 07/25/17 15:40 97 Nasal Cannula 2.0 07/25/17 15:39 65 14 112/72 (85) 98 Nasal Cannula 2.0 07/25/17 15:02 82 18 116/80 96 Nasal Cannula 2.0 07/25/17 13:57 76 20 114/71 96 Nasal Cannula 2.0 07/25/17 12:56 82 21 104/67 96 Nasal Cannula 2.0 07/25/17 12:35 91 07/25/17 11:51 78 22 114/66 96 Nasal Cannula 2.0 07/25/17 11:12 Nasal Cannula 2.0 07/25/17 11:12 96 Nasal Cannula 2.0 07/25/17 11:12 36.5 88 20 131/87 97 Room Air 9.0 The patient is alert but not oriented to place or condition. Mood and affect appeared normal. He answered some questions appropriately HEENT: Pupils are equal and reactive to light and accommodation. Extraocular movements are intact. The sclerae are anicteric. Neuro: He could not perform a Neuro examination. No obvious cranial nerve deficits Neck: Patient's neck is supple. He has palpable carotid pulses bilaterally without bruits on auscultation. There is no evidence of jugular venous distention. The thyroid is not enlarged. Lungs: Clear to auscultation bilaterally with some distant breath sounds overall.. He has good air movement without use of accessory muscles. No rales wheezes or rhonchi. Cardiac: Heart demonstrates an irregular rate and rhythm. Normal S1 and S2. No murmurs on examination. Pulses: The patient has palpable radial pulses bilaterally that are equal in intensity Extremities: There was no evidence of hypoperfusion. There is no cyanosis or clubbing. There is no edema although SCDs are in place. Skin: I did not appreciate any rashes on examination today. Data Laboratory Results: Last 24 Hours Test 07/25/17 11:38 07/25/17 13:00 07/25/17 16:24 White Blood Count 6.00 K/uL Red Blood Count 3.93 M/uL Hemoglobin 12.2 g/dL Hematocrit 38.4 % Mean Corpuscular Volume 97.7 fL Mean Corpuscular Hemoglobin 31.0 pg Mean Corpuscular Hemoglobin Concent 31.8 g/dl Platelet Count 123 K/uL Mean Platelet Volume 11.0 fL Neutrophils (%) (Auto) 68.8 % Lymphocytes (%) (Auto) 17.7 % Monocytes (%) (Auto) 11.2 % Eosinophils (%) (Auto) 1.3 % Basophils (%) (Auto) 0.8 % Neutrophils # (Auto) 4.13 K/uL Lymphocytes # (Auto) 1.06 K/uL Monocytes # (Auto) 0.67 K/uL Eosinophils # (Auto) 0.08 K/uL Basophils # (Auto) 0.05 K/uL RDW Standard Deviation 54.5 fL RDW Coefficient of Variation 15.1 % Immature Granulocyte % (Auto) 0.2 % Immature Granulocyte # (Auto) 0.01 K/uL Prothrombin Time 24.8 SECONDS Prothromb Time International Ratio 2.4 Activated Partial Thromboplast Time 34.8 SECONDS Partial Thromboplastin Ratio 1.3 Sodium Level 138 mmol/L 136 mmol/L Potassium Level 6.0 mmol/L 5.7 mmol/L Chloride Level 104 mmol/L 103 mmol/L Carbon Dioxide Level 32 mmol/L 30 mmol/L Anion Gap 2.0 mmol/L 3.0 mmol/L Blood Urea Nitrogen 19 mg/dl 20 mg/dl Creatinine 1.28 mg/dl 1.15 mg/dl Estimated GFR () 59.2 67.4 Estimated GFR (Non- 51.1 58.1 BUN/Creatinine Ratio 14.8 17.0 Random Glucose 107 mg/dl 117 mg/dl Calcium Level 9.0 mg/dl 8.6 mg/dl Urine Color YELLOW Urine Appearance CLEAR Urine pH 5.0 Urine Specific [place] 1.019 Urine Protein NEG Urine Glucose (UA) NEG Urine Ketones NEG Urine Occult Blood 2+ Urine Nitrite NEG Urine Bilirubin NEG Urine Urobilinogen NEG Urine Leukocyte Esterase NEG Urine WBC (Auto) 1-5 /hpf Urine RBC (Auto) >30 /hpf Urine Hyaline Casts (Auto) 1-5 /lpf Urine Epithelial Cells (Auto) 10-20 /lpf Urine Bacteria (Auto) NEG Est Creatinine Clear Calc Drug Dose 45.0 ml/min Imaging: Imaging demonstrated his hip fracture. There was evidence of cardiomegaly but no significant pulmonary edema. Head CT demonstrated old MCA infarct EKG: Atrial fibrillation without evidence of old infarct Echocardiogram dated 05/05/2016: Preserved LV systolic function. Biatrial dilation. Right ventricular dilation with evidence of pulmonary hypertension Assessment & Plan 1. Coronary artery disease: Patient had a very remote myocardial infarction by report. There is no evidence of this on his recent echocardiogram or EKG. According to the family members as occurred over 30 years ago. There were no stents available at that time. Unclear whether he actually underwent any percutaneous intervention. In any regard he does not appear to have symptoms of angina or coronary insufficiency with routine activity. An echocardiogram performed last year did not demonstrate wall motion abnormalities or reduced LV systolic function. It is not clear to me why the patient is not on anti-lipid therapy in the family could not provide any details in this regard. Given his history and his known cerebral vascular disease he should be on aggressive secondary prevention for cardiovascular disease. This would include continuation of his warfarin, daily beta-cassie and high-dose atorvastatin or rosuvastatin. 2. Atrial fibrillation: Permanent. No overt symptoms. He seems to have reasonable rate control on carvedilol. He is appropriately anticoagulated. 3. Pulmonary hypertension: This was noted on echocardiography 1 year ago. He had some right ventricular dilation and reduced function suggestive of longstanding pulmonary disease. He is not complaining of significant dyspnea and has no hypoxia. No evidence of cor pulmonale currently. 4. Preoperative: He does not have any current symptoms of cardiac disease. He has no angina or evidence of decompensated heart failure. No notable murmurs to suggest any new valvular disease. He has chronic atrial fibrillation which appears well controlled. I do not think there is any need for further cardiac testing as he definitely needs his hip fixed. His anticoagulation can certainly be reversed to facilitate the surgery. I would agree with bridging if there is a prolonged period subtherapeutic warfarin given his history of stroke and other risk factors. This can be addressed postoperatively. I would also wait to operate untill his electrolytes are normal, certainly with a normal potassium. As with all cardiac patient's standard recommendations apply including the avoidance of significant anemia, hypertension, hypotension, hypoxia, and prolonged tachycardia. I would continue his beta-cassie in the perioperative period.
--- NOTE | 2017-07-25 18:44 | CONSULTATION REPORT ---
DATE OF CONSULTATION: 07/25/2017 REASON FOR CONSULT: Right hip fracture. HISTORY OF PRESENT ILLNESS: The patient is an 82-year-old white male who is accompanied by his family. They stated that today he was coming out of the doctor's office after having a visit and he ended up getting his one leg crossed over and lost his balance and fell onto his right side. There was no loss of consciousness. There was no shortness of breath or chest pain complaints prior to or after the fall. No complaints of lightheadedness. The patient is somewhat of a poor historian and family provides a lot of his information, also information be taken from the chart. The patient was brought to [facility] where he was seen by the staff. X-rays were taken and found that he had an intertrochanteric fracture of the right hip. He was thusly admitted for further care. We have been asked to see him for his hip fracture. PAST MEDICAL HISTORY: Chronic atrial fibrillation on chronic Coumadin, CHF, CKD 3, dementia, BPH, CAD with a history of myocardial infarction and stenting, history of CVA, large left MCA territory infarct, and right cerebellar infarct. PAST SURGICAL HISTORY: None. FAMILY HISTORY: Noncontributory. SOCIAL HISTORY: The patient lives with his family and ambulates independently. He does not use alcohol or tobacco at this time but was a former smoker. MEDICATIONS: Carvedilol 12.5 mg p.o. b.i.d., Aricept 5 mg p.o. at bedtime, Ensure 1 can p.o. t.i.d., finasteride 5 mg p.o. daily, hydrochlorothiazide 12.5 mg p.o. daily, lisinopril 2.5 mg p.o. daily, omeprazole 20 mg p.o. daily, potassium chloride 20 mEq p.o. b.i.d., spironolactone 12.5 mg p.o. daily, warfarin 2 mg p.o. daily, loperamide 4 mg p.o. p.r.n. ALLERGIES: NKDA. REVIEW OF SYSTEMS: As per admitting history and physical. PHYSICAL EXAMINATION: GENERAL: The patient is an elderly white male, lying in bed, eating his dinner. He appears his stated age. He is pleasant and cooperative. He answers some questions appropriately. VITAL SIGNS: Latest vital signs earlier this afternoon showed pulse 65, respirations 14, BP 112/72, pulse ox 98 on 2 L of O2. EXTREMITIES: Focusing the exam on his right lower extremity, he has the head of the bed approximately at 45 degrees. There is a pillow under the right knee with the hip flexed to approximately 90 degrees. There is obvious swelling around the lateral and anterior thigh near the hip but no areas of ecchymosis or abrasions. The thigh is soft, going distally to the knee. The knee is nontender on palpation. Right ankle is nontender on palpation and he has good range of motion of his ankle at this time without pain. The right lower extremity is shortened and externally rotated compared to the left. No attempts were made to move the right hip and/or knee due to right hip fracture. Left lower extremity was essentially benign at this time and nontender at the hip, knee, and ankle. Pulses are equal bilaterally. Upper extremities are essentially benign at this time, have good range of motion and are nontender at the shoulders, elbows, and wrists. No gross motor or sensory deficits seen at this time other than due to right hip fracture. ASSESSMENT: Right intertrochanteric hip fracture. PLAN: The patient will require a trochanteric femoral nail to repair his fracture. Currently, his INR was 2.4, will need to be less than 1.5 especially for spinal anesthesia if needed. Cardiology has been consulted and we will await their input. The patient will be high risk with his comorbidities. Coumadin will be held at this time and will have to discuss with medicine service. If vitamin K would be warranted or if he will need to drift down slowly and wait for his INR to come down within limits, that would be good for his surgery. We will tentatively add him on to the schedule for tomorrow pending his INR results and cardiology input and medicine service input.
[2017-07-25 20:29] LABS: INR 2.1 (0.9-1.1)
--- NOTE | 2017-07-25 20:51 | Anesthesiology Progress Note ---
Anesthesia Progress Note Date of Service July 25, 2017. Progress Notes The patient is scheduled for a R hip fracture repair tomorrow. He has a complex medical history of remote stroke, remote ND, afib, HTN, diastolic heart failure, anemia, thrombocytopenia, GERD, dementia, stage 3 CKD, hyperkalemia, anticoagulation with warfarin, and BPH. His INR was elevated at 2.4 on arrival and is now 2.1 after a single dose of Vitamin K. He will be given a second dose of IV vitamin K tonight. His potassium was elevated at 6 on arrival but is being treated with IV fluids and was 5.7 when last checked. Consent was obtained from the patient's son over the phone for general vs spinal anesthesia (depending on the INR) with the possibility of invasive monitoring. The patient is now NPO except for meds. He will have his INR and potassium levels checked in the morning and may proceed to surgery if they are normalized. I spoke to Dr. Figueroa about the patient.
[2017-07-25] MEDS: BOOST PLUS VANILLA PO SCH (21:00)
[2017-07-25] MEDS: CARVEDILOL 12.5 MG TAB PO SCH (21:00)
[2017-07-25] MEDS: DONEPEZIL HCL 5 MG TAB PO SCH (21:04)
[2017-07-25] MEDS: DOCUSATE SODIUM/SENNA 50/8.6MG TAB PO SCH (21:05)
[2017-07-26] VITALS (8 sets, daily range): BP systolic 87–108; BP diastolic 54–73; PULSE 61–102; TEMP 36.6–37.8; O2SAT 93–97
[2017-07-26] MEDS: D5W AND NSS 1,000 ML IV SCH ×2 (02:24→18:37)
[2017-07-26] MEDS ORDERED: CEFAZOLIN 2000MG IV PUSH 15 ML IV SCH (06:00)
[2017-07-26] MEDS ORDERED: CEFAZOLIN IV 2,000 MG in DEXTROSE 5% 50ML 50 ML IV SCH (06:00)
[2017-07-26] MEDS ORDERED: CEFAZOLIN IV 2,000 MG in SYRINGE 0 ML IV SCH ×2 (06:00→20:00)
[2017-07-26 06:37] LABS: HEMOGLOBIN 9.9 g/dL (14.0-18.0); MEAN CELL VOLUME 97.5 fL (80-100); MEAN CORPUSCULAR HEMOGLOBIN 31.1 pg (25-34); MEAN CORPUSCULAR HGB CONC 31.9 g/dl (32-36); MEAN PLATELET VOLUME 11.8 fL (7.4-10.4); PLATELET COUNT 118 K/uL (130-400); RED CELL DISTRIBUTION WIDTH CV 15.1 % (11.5-14.5); RED CELL DISTRIBUTION WIDTH SD 54.1 fL (36.4-46.3); WHITE BLOOD COUNT 9.38 K/uL (4.8-10.8)
[2017-07-26 06:43] LABS: INR 1.6 (0.9-1.1)
[2017-07-26 07:01] LABS: CALCIUM 7.9 mg/dl (8.5-10.1); CREATININE 1.15 mg/dl (0.60-1.40); POTASSIUM 4.6 mmol/L (3.5-5.1)
[2017-07-26] MEDS ORDERED: PHYTONADIONE INJ 5 MG in SODIUM CHLORIDE 0.9% 50ML 50 ML IV ONE (08:00)
--- NOTE | 2017-07-26 08:53 | Hospitalist Progress Note ---
Hospitalist Progress Note Date of Service July 26, 2017. (Annabelle Jean PA-C) Subjective Pt evaluation today including: conversation w/ patient, physical exam, chart review, lab review, review of studies Pain: R hip PO Intake: NPO Voiding: no voiding problems The patient was seen and examined this morning. Pt reports wanting something to eat. He reports his pain is well controlled. His family is present at bedside and reports he is overall doing well. Constitutional: No fever, No chills, No sweats Eyes: No redness, No discharge ENT: No hearing loss, No nasal symptoms Respiratory: + problem reported (uses O2 at 2L baseline), No cough, No shortness of breath Cardiovascular: No chest pain, No edema, No palpitations Abdomen: No pain, No nausea, No vomiting, No diarrhea, No constipation Musculoskeletal: + see HPI Neurologic: + problem reported (does not use walker/cane at baseline), No weakness, No numbness/tingling Psychiatric: No depression symptoms, No anxiety Endo: No fatigue Skin: No rash, No itch (Annabelle Jean, ZEINA) Objective Vital Signs Date Time Temp Pulse Resp B/P (MAP) Pulse Ox O2 Delivery O2 Flow Rate FiO2 07/26/17 07:35 37.4 89 16 95/61 (72) 94 Nasal Cannula 2.0 07/25/17 23:30 97 Room Air 2.0 07/25/17 22:44 36.6 73 18 95/65 (75) 97 Room Air 07/25/17 21:52 36.5 90 18 95/67 (76) 98 Nasal Cannula 2.0 07/25/17 21:45 36.5 91 20 97/63 (74) 98 Nasal Cannula 2.0 07/25/17 21:17 36.4 83 16 97/63 (74) 95 Nasal Cannula 2.0 07/25/17 16:16 97 Nasal Cannula 2.0 07/25/17 16:10 98 Nasal Cannula 2.0 07/25/17 15:40 97 Nasal Cannula 2.0 07/25/17 15:39 65 14 112/72 (85) 98 Nasal Cannula 2.0 07/25/17 15:02 82 18 116/80 96 Nasal Cannula 2.0 07/25/17 13:57 76 20 114/71 96 Nasal Cannula 2.0 07/25/17 12:56 82 21 104/67 96 Nasal Cannula 2.0 07/25/17 12:35 91 07/25/17 11:51 78 22 114/66 96 Nasal Cannula 2.0 07/25/17 11:12 Nasal Cannula 2.0 07/25/17 11:12 96 Nasal Cannula 2.0 07/25/17 11:12 36.5 88 20 131/87 97 Room Air 9.0 (Annabelle Jean, PA-C) Physical Exam General Appearance: WD/WN, no apparent distress Eyes: PERRL, EOMI ENT: hearing grossly normal, pharynx normal Neck: supple, no JVD Respiratory/Chest: lungs clear, no respiratory distress, no accessory muscle use, + pertinent finding (on 2 L via NC) Cardiovascular: no JVD, + irregularly irregular (rate controlled) Abdomen: normal bowel sounds, non tender, soft Extremities: non-tender, no pedal edema, + pertinent finding (RLE in brace, R leg sensation to light touch intact distally, good pedal pulses, can wiggle toes ) Neurologic/Psychiatric: alert, normal mood/affect (pleasantly sarcastic), oriented x 3 Skin: normal color, warm/dry (Annabelle Jean, YELENA-C) Laboratory Results Last 24 Hours Test 07/25/17 11:38 07/25/17 13:00 07/25/17 16:24 07/25/17 19:58 White Blood Count 6.00 K/uL Red Blood Count 3.93 M/uL Hemoglobin 12.2 g/dL Hematocrit 38.4 % Mean Corpuscular Volume 97.7 fL Mean Corpuscular Hemoglobin 31.0 pg Mean Corpuscular Hemoglobin Concent 31.8 g/dl Platelet Count 123 K/uL Mean Platelet Volume 11.0 fL Neutrophils (%) (Auto) 68.8 % Lymphocytes (%) (Auto) 17.7 % Monocytes (%) (Auto) 11.2 % Eosinophils (%) (Auto) 1.3 % Basophils (%) (Auto) 0.8 % Neutrophils # (Auto) 4.13 K/uL Lymphocytes # (Auto) 1.06 K/uL Monocytes # (Auto) 0.67 K/uL Eosinophils # (Auto) 0.08 K/uL Basophils # (Auto) 0.05 K/uL RDW Standard Deviation 54.5 fL RDW Coefficient of Variation 15.1 % Immature Granulocyte % (Auto) 0.2 % Immature Granulocyte # (Auto) 0.01 K/uL Prothrombin Time 24.8 SECONDS 21.8 SECONDS Prothromb Time International Ratio 2.4 2.1 Activated Partial Thromboplast Time 34.8 SECONDS Partial Thromboplastin Ratio 1.3 Sodium Level 138 mmol/L 136 mmol/L Potassium Level 6.0 mmol/L 5.7 mmol/L Chloride Level 104 mmol/L 103 mmol/L Carbon Dioxide Level 32 mmol/L 30 mmol/L Anion Gap 2.0 mmol/L 3.0 mmol/L Blood Urea Nitrogen 19 mg/dl 20 mg/dl Creatinine 1.28 mg/dl 1.15 mg/dl Estimated GFR () 59.2 67.4 Estimated GFR (Non- 51.1 58.1 BUN/Creatinine Ratio 14.8 17.0 Random Glucose 107 mg/dl 117 mg/dl Calcium Level 9.0 mg/dl 8.6 mg/dl Urine Color YELLOW Urine Appearance CLEAR Urine pH 5.0 Urine Specific Candor 1.019 Urine Protein NEG Urine Glucose (UA) NEG Urine Ketones NEG Urine Occult Blood 2+ Urine Nitrite NEG Urine Bilirubin NEG Urine Urobilinogen NEG Urine Leukocyte Esterase NEG Urine WBC (Auto) 1-5 /hpf Urine RBC (Auto) >30 /hpf Urine Hyaline Casts (Auto) 1-5 /lpf Urine Epithelial Cells (Auto) 10-20 /lpf Urine Bacteria (Auto) NEG Est Creatinine Clear Calc Drug Dose 45.0 ml/min Test 07/26/17 06:14 07/26/17 07:29 White Blood Count 9.38 K/uL Red Blood Count 3.18 M/uL Hemoglobin 9.9 g/dL Hematocrit 31.0 % Mean Corpuscular Volume 97.5 fL Mean Corpuscular Hemoglobin 31.1 pg Mean Corpuscular Hemoglobin Concent 31.9 g/dl RDW Standard Deviation 54.1 fL RDW Coefficient of Variation 15.1 % Platelet Count 118 K/uL Mean Platelet Volume 11.8 fL Prothrombin Time 16.8 SECONDS Prothromb Time International Ratio 1.6 Sodium Level 139 mmol/L Potassium Level 4.6 mmol/L Chloride Level 107 mmol/L Carbon Dioxide Level 29 mmol/L Anion Gap 3.0 mmol/L Blood Urea Nitrogen 18 mg/dl Creatinine 1.15 mg/dl Est Creatinine Clear Calc Drug Dose 45.0 ml/min Estimated GFR () 67.4 Estimated GFR (Non- 58.1 BUN/Creatinine Ratio 16.0 Random Glucose 118 mg/dl Calcium Level 7.9 mg/dl Magnesium Level 2.0 mg/dl (Annabelle Jean PA-C) Assessment and Plan 82 y/o M Hx chronic diastolic CHF, chronic AF, CVA (left MCA territory infarct, right cerebellar infarct), CAD with remote hx of AL, CKD III, dementia, BPH. The [facility] earlier today and upon exiting the building he suffered a mechanical fall resulting in a R intertrochanteric fracture. Initial labs are notable for hyperkalemia = 6. R intertrochanteric Hip fracture - the pt is high risk - Cardiology consulted and at this time have cleared the pt for surgical procedure. - Received vitamin K in prep for potential surgery. INR repeat 1.5 - Ortho consulted and plans for surgery today - The pt should be bridged with Heparin or Lovenox after procedure to regain therapeutic INR - Cont Coreg, Finasteride, Aricept esme-op. Hyperkalemia - cause unclear - likely related to Aldactone use, Lisinopril use and CKD - no EKG changes - K improved to 4.6 today, other electrolytes stable - Cont IVF at low rate for now - hold Aldactone - Follow daily bmp CKD III - creat is at baseline - maintain volume status esme-op - Aldactone, HCTZ, DORON held CAD - cont Coreg - presumably he is statin-intolerant - cardiology recommending statin, can add this to regimen after surgical procedure CHF - currently euvolemic - cont B cassie - volume status bears monitoring as diuretics are held - echo 02/2017: grade II diastolic dysfunction - EF 50-55% Chronic AF - INR as above, reversed for surgical procedure- Hold coumadin - bridge with Lovenox if procedure delayed - Rate controlled with carvedilol BPH - cont Finasteride DVT ppx: coumadin being held for surgical procedure CODE: Full Disposition: From home, PT/OT evals s/p surg, lives with . (Annabelle Jean PA-C) Supervising Note Dr. Álvarez I performed a history and physical examination on the patient. I reviewed above note and agree with it. I discussed plan with APC and patient. During my face to face encounter with the patient, I answered all of the patient's questions. Potassium improved. will cont Iv fluids. will monitor labs. (Jarrett Álvarez M.D.)
[2017-07-26] MEDS: FINASTERIDE 5 MG TAB PO SCH (08:58)
[2017-07-26] MEDS: PANTOprazole SOD 40 MG TAB PO SCH (08:58)
[2017-07-26] MEDS: BOOST PLUS VANILLA PO SCH ×3 (08:59→20:35)
[2017-07-26] MEDS: CARVEDILOL 12.5 MG TAB PO SCH ×2 (08:59→20:31)
[2017-07-26 10:11] LABS: INR 1.5 (0.9-1.1)
[2017-07-26] MEDS ORDERED: MIDAZOLAM HCL 1 MG/ML 2ML VIAL ONE (10:44)
[2017-07-26] MEDS ORDERED: KETAMINE HCL INJ 50 MG/ML 10 ML VIAL ONE (10:45)
[2017-07-26] MEDS ORDERED: BUPIVACAINE 0.5 % 5 MG/1 ML MPF 30ML VIAL ONE (10:53)
[2017-07-26] MEDS ORDERED: EpINEphrine INJ 1MG/ML AMP 1 MG/ML AMP ONE (10:53)
--- NOTE | 2017-07-26 11:51 | History & Physical Bridge Note ---
H&P Re-Evaluation Bridge Note: I have examined the patient, reviewed the History & Physical and in the interval since the performance of the History & Physical I have noted the following changes of clinical significance: No changes noted
[2017-07-26] MEDS ORDERED: FENTANYL CITRATE INJ 50 MCG/1 ML 2 ML VIAL ONE (12:14)
--- NOTE | 2017-07-26 13:04 | [facility] Operative Report ---
Operative Report Operative Date July 26, 2017. Pre-Operative Diagnosis Right intertrochanteric hip fracture. Post-Operative Diagnosis Right intertrochanteric hip fracture. Procedure(s) Performed Open Reduction Internal Fixation of Intertrochanteric Fracture, Right Surgeon Dr. Villela Food Service Specialist Surgeon(s) YELENA Castrejon Estimated Blood Loss 50 cc Findings As above Specimens none Drains None Anesthesia Type General Complication(s) none Disposition Recovery Room / PACU Indications The patient is a 82-year-old male who sustained an injury to the right hip. X- rays demonstrated a intertrochanteric fracture. He has been cleared medically and presents for open reduction and internal fixation. Description of Procedure Risks benefits and alternatives of surgery including but not limited to infection, DVT, PE, pain, stiffness, need for surgery, damage to blood vessels, damage to nerves or risks of anesthesia, were discussed with the patient and her family and they wished to proceed. Patient was identified in the laterality was confirmed and marked. They received a preoperative antibiotic. The patient was transferred to the fracture table. The operative limb was placed in traction and the well leg was placed in a well leg head that was well-padded. The arms were well-padded and placed out of the way of the surgical field. I confirmed reduction of the fracture with fluoroscopy with the patient's fracture table and made adjustments to fracture table alignment is necessary to reduce the fracture appropriately. The hip was then prepped and draped in the usual standard manner with ChloraPrep. I made a longitudinal incision proximal to the greater trochanter. I sharply incised through the skin and then used Bovie electrocautery to achieve hemostasis. I incised through the fascia and then bluntly dissected down to the tip of the greater trochanter. Under fluoroscopic guidance I placed a guide pin into the greater trochanter and ensured proper placement on both AP and lateral fluoroscopy views. Once I was satisfied with the position of the guide. I advanced this distally. I then overreamed with the 17 mm proximal reamer. I then placed a Synthes trochanteric fixation nail into position. The size of the nail was a short nail. Then I placed the guide arm onto the nail insertion device made a stab incision more distally and then placed the drill guide for the helical blade. I adjusted the position of the nail as necessary to ensure that the guidepin was center center in the femoral head. Once I was satisfied with the position of the pin advanced it to the appropriate position of the femoral head. I then measured and then reamed the lateral cortex and then reamed down into the femoral head. I then inserted a size [address] I then locked the set screw proximally and then compressed the fracture. Then through a stab incision I placed a interlocking screw through the drill guide. I confirmed hardware placement and maintenance of reduction on AP and lateral fluoroscopy views. Wounds were then thoroughly irrigated. The fascia was closed with interrupted #1 Vicryl suture. Subcutaneous tissues closed with interrupted 2-0 Vicryl suture and the skin with jacob. Sterile dressings applied. All needle and sponge counts were correct at the end of the procedure the patient was transferred to the PACU in stable condition without apparent complication. The PA-C was necessary for assistance with procedure for assistance in positioning, prepping, draping, retraction and closure. I attest to the content of the Intraoperative Record and any orders documented therein. Any exceptions are noted below.
[2017-07-26] MEDS ORDERED: ROCURONIUM BROMIDE 10 MG/ML 5 ML VIAL ONE (13:06)
[2017-07-26] MEDS ORDERED: PROPOFOL IV EMULSION 10 MG/ML 20 ML VIAL ONE (13:06)
[2017-07-26] MEDS ORDERED: GLYCOPYRROLATE INJ 0.2 MG/ML VIAL ONE (13:07)
[2017-07-26] MEDS ORDERED: ONDANSETRON INJ 2 MG/ML 2 ML VIAL ONE (13:07)
[2017-07-26] MEDS ORDERED: DEXAMETHASONE SOD INJ 4 MG/ML VIAL ONE (13:07)
[2017-07-26] MEDS ORDERED: CEFAZOLIN SOD 1 GM VIAL ONE (13:07)
[2017-07-26] MEDS ORDERED: NEOSTIGMINE METHYLSULFATE 5 MG/5 ML SYR ONE (13:07)
[2017-07-26] MEDS ORDERED: HYDROmorphone INJ 0.5 MG/0.5 ML SYR IV PRN (13:15)
[2017-07-26] MEDS ORDERED: EpHEDrine SULFATE INJ 50 MG/ML AMP IV PRN (13:15)
[2017-07-26] MEDS ORDERED: MEPERIDINE HCL 25 MG/ML CARP IV PRN (13:15)
[2017-07-26] MEDS ORDERED: ONDANSETRON INJ 2 MG/ML 2 ML VIAL IV PRN ×2 (13:15)
[2017-07-26] MEDS ORDERED: NALOXONE HCL 0.4 MG/1 ML VIAL/CARP IV PRN (13:15)
[2017-07-26] MEDS ORDERED: FENTANYL CITRATE INJ 50 MCG/1 ML 2 ML VIAL IV PRN (13:15)
[2017-07-26] MEDS ORDERED: CEFAZOLIN IV 1,000 MG in DEXTROSE 5% 50ML 50 ML IV SCH (13:15)
[2017-07-26] MEDS ORDERED: MAGNESIUM HYDROXIDE SUSP 30 ML UDC PO PRN (13:15)
[2017-07-26] MEDS ORDERED: ATROPINE SULFATE 0.1 MG/ML 5ML SYR IV PRN (13:15)
[2017-07-26] MEDS ORDERED: HYDROmorphone INJ 1 MG/ML SYR IV PRN (13:15)
[2017-07-26] MEDS ORDERED: LABETALOL HCL IV 5 MG/ML 20ML IV PRN (13:15)
--- NOTE | 2017-07-26 13:28 | DIAGNOSTIC IMAGING REPORT ---
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 Status post ORIF COMPARISON: Pelvis and right hip radiographs 07/25/2017 TECHNIQUE: 4 spot fluoroscopic images of the right hip were obtained utilizing 59.2 seconds fluoroscopy time. FINDINGS: Status post placement of an intratrochanteric nail with intramedullary allegra fixating the previously described acute intertrochanteric right femoral fracture. There is improved satisfactory alignment. There is a single distal cannulated screw fixating the intramedullary nail. Moderate osteoarthritis about the right hip. IMPRESSION: Satisfactory alignment status post placement of an intratrochanteric nail with intramedullary allegra. The above report was generated using voice recognition software. It may contain grammatical, syntax or spelling errors. Electronically signed by: Nabil Ro M.D. 07/26/2017 1:27 PM Dictated Date/Time: 07/26/2017 1:25 PM
--- NOTE | 2017-07-26 13:57 | Anesthesiology Progress Note ---
Anesthesia Post Op Note Date & Time July 26, 2017 at 13:57 Vital Signs Pain Intensity: 0 Vital Signs Past 12 Hours Date Time Temp Pulse Resp B/P (MAP) Pulse Ox O2 Delivery O2 Flow Rate FiO2 07/26/17 13:45 101 14 109/76 97 Nasal Cannula 2 07/26/17 13:35 106 14 108/70 100 Oxymask 6 07/26/17 13:25 36.8 104 14 109/73 100 Oxymask 6 07/26/17 08:56 84 99/68 (78) 07/26/17 07:48 Nasal Cannula 2.0 07/26/17 07:35 37.4 89 16 95/61 (72) 94 Nasal Cannula 2.0 Notes Mental Status: alert / awake / arousable, participated in evaluation Pt Amnestic to Procedure: Yes Nausea / Vomiting: adequately controlled Pain: adequately controlled Airway Patency, RR, SpO2: stable & adequate BP & HR: stable & adequate Hydration State: stable & adequate Anesthetic Complications: no major complications apparent
[2017-07-26] MEDS ORDERED: STANDARD WARFARIN NOMOGRAM SCH (14:00)
[2017-07-26] MEDS: ACETAMINOPHEN 325 MG TAB PO PRN (15:21)
[2017-07-26] MEDS ORDERED: WARFARIN SOD 4 MG TAB PO ONE (16:30)
--- NOTE | 2017-07-26 16:54 | DIAGNOSTIC IMAGING REPORT ---
R FOOT MIN 3 VIEWS ROUTINE HISTORY: 82 years-old Male right foot pain acute right foot pain COMPARISON: None available TECHNIQUE: 3 views of the right foot FINDINGS: The bones appear mildly demineralized. Hallux valgus deformity with moderate first MTP joint osteoarthritis. Hematoma deformities are noted throughout the second through fifth digits with hyperextension of the metatarsal phalangeal and flexion of the proximal interphalangeal joints. No acute fracture or dislocation. Mild/moderate degenerative changes about the midfoot with small enthesophyte about the plantar calcaneus. Peripheral arterial calcifications are noted. No opaque foreign body. IMPRESSION: 1. No acute fracture or dislocation. 2. Degenerative changes as above. 3. Peripheral arterial disease. The above report was generated using voice recognition software. It may contain grammatical, syntax or spelling errors. Electronically signed by: Nabil Ro M.D. 07/26/2017 4:53 PM Dictated Date/Time: 07/26/2017 4:51 PM
[2017-07-26] MEDS ORDERED: NURSING VERBAL MED ORDER ONE ×2 (17:00→17:30)
[2017-07-26] MEDS ORDERED: D5W AND NSS 1,000 ML IV SCH (17:45)
[2017-07-26] MEDS: CEFAZOLIN IV 1,000 MG in SYRINGE 0 ML IV SCH (20:30)
[2017-07-26] MEDS: DONEPEZIL HCL 5 MG TAB PO SCH (20:36)
[2017-07-26] MEDS: DOCUSATE SODIUM/SENNA 50/8.6MG TAB PO SCH (20:36)
[2017-07-27] VITALS (9 sets, daily range): BP systolic 91–120; BP diastolic 55–76; PULSE 88–112; TEMP 36.7–37.6; O2SAT 94–98
[2017-07-27] MEDS: D5W AND NSS 1,000 ML IV SCH ×3 (03:08→22:41)
[2017-07-27] MEDS: CEFAZOLIN IV 1,000 MG in SYRINGE 0 ML IV SCH (03:53)
[2017-07-27 06:48] LABS: HEMATOCRIT 29.2 % (42-52); HEMOGLOBIN 9.8 g/dL (14.0-18.0); MEAN CELL VOLUME 95.7 fL (80-100); MEAN CORPUSCULAR HEMOGLOBIN 32.1 pg (25-34); MEAN CORPUSCULAR HGB CONC 33.6 g/dl (32-36); MEAN PLATELET VOLUME 11.9 fL (7.4-10.4); PLATELET COUNT 113 K/uL (130-400); RED CELL DISTRIBUTION WIDTH CV 15.1 % (11.5-14.5); RED CELL DISTRIBUTION WIDTH SD 53.1 fL (36.4-46.3); WHITE BLOOD COUNT 11.16 K/uL (4.8-10.8)
[2017-07-27 07:23] LABS: CALCIUM 7.7 mg/dl (8.5-10.1); CREATININE 1.07 mg/dl (0.60-1.40); POTASSIUM 4.1 mmol/L (3.5-5.1)
--- NOTE | 2017-07-27 08:15 | Orthopedic Progress Note ---
Orthopedic Progress Note Date of Service July 27, 2017. Subjective Post OP Day: 1 Reports: feeling well (Alert and oriented) Objective N/V intact, dressing C/D/I (Mild blood tinged), toes mobile Date Time Temp Pulse Resp B/P (MAP) Pulse Ox O2 Delivery O2 Flow Rate FiO2 07/27/17 07:11 36.8 98 16 113/76 (88) 95 Room Air 07/27/17 02:46 37.1 98 14 109/66 (80) 95 Nasal Cannula 2.0 07/26/17 23:41 37.8 102 14 108/73 (85) 94 Nasal Cannula 2.0 07/26/17 23:15 Nasal Cannula 2.0 07/26/17 19:37 37.3 95 16 98/62 (74) 97 Nasal Cannula 2.0 07/26/17 17:31 36.6 63 16 92/60 (71) 95 Nasal Cannula 2.0 07/26/17 16:34 36.7 61 16 87/54 (65) 95 Nasal Cannula 2.0 07/26/17 15:30 36.7 91 18 91/59 (70) 95 Nasal Cannula 2.0 07/26/17 15:09 Nasal Cannula 2.0 07/26/17 15:05 84 16 95/62 (73) 93 Nasal Cannula 2.0 07/26/17 14:05 36.9 84 12 102/61 95 Nasal Cannula 2 07/26/17 13:55 92 14 109/69 97 Nasal Cannula 2 07/26/17 13:45 101 14 109/76 97 Nasal Cannula 2 07/26/17 13:35 106 14 108/70 100 Oxymask 6 07/26/17 13:25 36.8 104 14 109/73 100 Oxymask 6 07/26/17 08:56 84 99/68 (78) Laboratory Results 24 Hours: Test 07/26/17 09:54 07/27/17 06:11 Prothromb Time International Ratio 1.5 Prothrombin Time 15.8 SECONDS Hematocrit 29.2 % Hemoglobin 9.8 g/dL Assessment & Plan Assessment: 82 yo stable POD #1 s/p right troch nail Plan: 1. Med management 2. DVT prophylaxis- resume Coumadin, SCDs 3. PT/OT- WBAT 4. D/C planning- per medicine, follow-up with Dr Villela ~ 10-14 days
[2017-07-27] MEDS: CARVEDILOL 12.5 MG TAB PO SCH ×2 (08:54→21:04)
[2017-07-27] MEDS: FINASTERIDE 5 MG TAB PO SCH (08:54)
[2017-07-27] MEDS: PANTOprazole SOD 40 MG TAB PO SCH (08:54)
[2017-07-27] MEDS: BOOST PLUS VANILLA PO SCH ×3 (08:54→21:00)
[2017-07-27] MEDS ORDERED: PNEUMOCOCCAL POLYSACCHARIDES 25 MCG/0.5 ML VIAL/SYR IM. ONE (09:30)
[2017-07-27] MEDS ORDERED: PNEUMOCOCCAL ADMINISTRATION CHARGE ONE (09:30)
[2017-07-27] MEDS: ACETAMINOPHEN 325 MG TAB PO PRN (10:27)
[2017-07-27] MEDS ORDERED: NURSING VERBAL MED ORDER ONE (12:00)
[2017-07-27] MEDS: WARFARIN SOD 2 MG TAB PO SCH (15:32)
[2017-07-27] MEDS: DOCUSATE SODIUM/SENNA 50/8.6MG TAB PO SCH (21:04)
[2017-07-27] MEDS: DONEPEZIL HCL 5 MG TAB PO SCH (21:04)
--- NOTE | 2017-07-27 23:31 | Progress Note ---
Subjective Date of Service: July 27, 2017. Subjective Pt evaluation today including: conversation w/ patient Patient reports feeling well. His right foot pain has resolved. He has no complaints today. Problem List Medical Problems: (1) Fall Status: Acute (2) Hip fracture, right Status: Acute (3) Hypoxia Status: Acute (4) PNA (pneumonia) Status: Acute (5) Pulmonary edema Status: Acute Review of Systems Constitutional: No fever, No chills, No sweats Eyes: No redness, No discharge ENT: No hearing loss, No nasal symptoms Respiratory: + problem reported (uses O2 at 2L baseline), No cough, No shortness of breath Cardiovascular: No chest pain, No edema, No palpitations Abdomen: No pain, No nausea, No vomiting, No diarrhea, No constipation Musculoskeletal: + see HPI Neurologic: + problem reported (does not use walker/cane at baseline), No weakness, No numbness/tingling Psychiatric: No depression symptoms, No anxiety Endo: No fatigue Skin: No rash, No itch All Other Systems: Reviewed and Negative Objective Vital Signs Date Time Temp Pulse Resp B/P (MAP) Pulse Ox O2 Delivery O2 Flow Rate FiO2 07/27/17 23:03 37.2 96 18 119/75 (90) 94 Nasal Cannula 2.0 07/27/17 21:03 112 120/73 (89) 07/27/17 19:40 37.6 107 18 107/71 (83) 98 Nasal Cannula 3.0 07/27/17 15:30 Nasal Cannula 2.0 07/27/17 15:07 36.7 97 18 103/66 (78) 97 Nasal Cannula 2.0 07/27/17 11:31 91 95 07/27/17 11:05 36.8 88 16 91/55 (67) 94 Room Air 07/27/17 08:06 Nasal Cannula 2.0 07/27/17 08:06 108 115/70 (85) 07/27/17 07:11 36.8 98 16 113/76 (88) 95 Room Air 07/27/17 02:46 37.1 98 14 109/66 (80) 95 Nasal Cannula 2.0 07/26/17 23:41 37.8 102 14 108/73 (85) 94 Nasal Cannula 2.0 Physical Exam Comments: General Appearance: WD/WN, no apparent distress Eyes: PERRL, EOMI ENT: hearing grossly normal, pharynx normal Neck: supple, no JVD Respiratory/Chest: lungs clear, no respiratory distress, no accessory muscle use, + pertinent finding (on 2 L via NC) Cardiovascular: no JVD, + irregularly irregular (rate controlled) Abdomen: normal bowel sounds, non tender, soft Extremities: non-tender, no pedal edema, brace noted in right side of hip and leg Neurologic/Psychiatric: alert, normal mood/affect (pleasantly sarcastic), oriented x 3 Skin: normal color, warm/dry Laboratory Results Last 24 Hours Test 07/27/17 06:11 White Blood Count 11.16 K/uL Red Blood Count 3.05 M/uL Hemoglobin 9.8 g/dL Hematocrit 29.2 % Mean Corpuscular Volume 95.7 fL Mean Corpuscular Hemoglobin 32.1 pg Mean Corpuscular Hemoglobin Concent 33.6 g/dl RDW Standard Deviation 53.1 fL RDW Coefficient of Variation 15.1 % Platelet Count 113 K/uL Mean Platelet Volume 11.9 fL Sodium Level 141 mmol/L Potassium Level 4.1 mmol/L Chloride Level 108 mmol/L Carbon Dioxide Level 28 mmol/L Anion Gap 5.0 mmol/L Blood Urea Nitrogen 14 mg/dl Creatinine 1.07 mg/dl Est Creatinine Clear Calc Drug Dose 48.3 ml/min Estimated GFR () 73.5 Estimated GFR (Non- 63.4 BUN/Creatinine Ratio 12.7 Random Glucose 114 mg/dl Calcium Level 7.7 mg/dl Assessment and Plan 82 y/o M Hx chronic diastolic CHF, chronic AF, CVA (left MCA territory infarct, right cerebellar infarct), CAD with remote hx of [place], CKD III, dementia, BPH. The pt was at the [facility] earlier today and upon exiting the building he suffered a mechanical fall resulting in a R intertrochanteric fracture. Initial labs are notable for hyperkalemia = 6. R intertrochanteric Hip fracture - the pt is high risk - Cardiology consulted and at this time have cleared the pt for surgical procedure. - Received vitamin K in prep for potential surgery. INR repeat 1.5 - Ortho consulted and plans for surgery today - Resumed warfarin. -will recheck INR in AM. - Cont Coreg, Finasteride, Aricept esme-op. Hyperkalemia - cause unclear - likely related to Aldactone use, Lisinopril use and CKD - no EKG changes - K improved to 4.6 today, other electrolytes stable - Cont IVF at low rate for now - hold Aldactone - Follow daily bmp CKD III - creat is at baseline - maintain volume status esme-op - Aldactone, HCTZ, DORON held CAD - cont Coreg - presumably he is statin-intolerant - cardiology recommending statin, can add this to regimen after surgical procedure CHF - currently euvolemic - cont B cassie - volume status bears monitoring as diuretics are held - echo 02/2017: grade II diastolic dysfunction - EF 50-55% Chronic AF - INR as above, reversed for surgical procedure- resumed coumadin - Rate controlled with carvedilol BPH - cont Finasteride DVT ppx: coumadin resumed CODE: Full Disposition: From home, PT/OT evals s/p surg, lives with . Will need rehab.
[2017-07-28] MEDS: POLYETHYLENE (MIRALAX) 17 GM PACK PO SCH ×4 (05:30→16:06)
[2017-07-28 07:35] VITALS: BP 114/74; PULSE 107; TEMP 36.7; O2SAT 97
[2017-07-28 07:38] LABS: HEMATOCRIT 27.7 % (42-52); HEMOGLOBIN 9.2 g/dL (14.0-18.0); MEAN CELL VOLUME 94.9 fL (80-100); MEAN CORPUSCULAR HEMOGLOBIN 31.5 pg (25-34); MEAN CORPUSCULAR HGB CONC 33.2 g/dl (32-36); MEAN PLATELET VOLUME 11.1 fL (7.4-10.4); PLATELET COUNT 109 K/uL (130-400); RED CELL DISTRIBUTION WIDTH CV 14.8 % (11.5-14.5); RED CELL DISTRIBUTION WIDTH SD 51.2 fL (36.4-46.3); WHITE BLOOD COUNT 11.03 K/uL (4.8-10.8)
[2017-07-28 07:44] LABS: INR 1.7 (0.9-1.1)
[2017-07-28 07:57] LABS: CALCIUM 7.9 mg/dl (8.5-10.1); CREATININE 1.01 mg/dl (0.60-1.40); POTASSIUM 4.1 mmol/L (3.5-5.1)
[2017-07-28 08:47] VITALS: BP 110/69; PULSE 90
[2017-07-28] MEDS: PANTOprazole SOD 40 MG TAB PO SCH (08:48)
[2017-07-28] MEDS: CARVEDILOL 12.5 MG TAB PO SCH ×2 (08:49→20:39)
[2017-07-28] MEDS: FINASTERIDE 5 MG TAB PO SCH (08:49)
[2017-07-28] MEDS: BOOST PLUS VANILLA PO SCH ×3 (08:53→20:39)
--- NOTE | 2017-07-28 08:54 | Hospitalist Progress Note ---
Hospitalist Progress Note Date of Service July 28, 2017. (Annabelle Jean PA-C) Subjective Pt evaluation today including: conversation w/ patient, physical exam, chart review, lab review, review of studies Pain: Minimal hip pain PO Intake: good Voiding: no voiding problems The patient was seen and examined this morning. Pt reports doing ok this morning. He reports minimal activity and has only been able to pivot with transitions since hip surgery. He has pain in the R hip is tolerable. He is tolerating PO intake well. Pt is having Constitutional: No fever, No chills, No sweats, No fatigue Eyes: No redness, No diplopia ENT: No nasal symptoms, No trouble swallowing Respiratory: No cough, No wheezing, No shortness of breath Cardiovascular: No chest pain, No edema Abdomen: + constipation (no BM in 4 days), No pain, No nausea, No vomiting, No diarrhea Male : No dysuria Endo: No fatigue Skin: No rash, No itch (Annabelle Jean PA-C) Objective Vital Signs Date Time Temp Pulse Resp B/P (MAP) Pulse Ox O2 Delivery O2 Flow Rate FiO2 07/28/17 07:35 36.7 107 18 114/74 (87) 97 2.0 07/28/17 07:15 Nasal Cannula 2.0 07/28/17 00:15 Nasal Cannula 2.0 07/27/17 23:03 37.2 96 18 119/75 (90) 94 Nasal Cannula 2.0 07/27/17 21:03 112 120/73 (89) 07/27/17 19:40 37.6 107 18 107/71 (83) 98 Nasal Cannula 3.0 07/27/17 15:30 Nasal Cannula 2.0 07/27/17 15:07 36.7 97 18 103/66 (78) 97 Nasal Cannula 2.0 07/27/17 11:31 91 95 07/27/17 11:05 36.8 88 16 91/55 (67) 94 Room Air (Annabelle Jean PA-C) Physical Exam General Appearance: WD/WN, no apparent distress, + thin Eyes: PERRL, EOMI ENT: pharynx normal, + pertinent finding (MMM, slightly hard of hearing) Neck: supple, no JVD Respiratory/Chest: no respiratory distress, no accessory muscle use, + pertinent finding (ON 2 L via NC, faint crackles in the LLL, diminshed bibasilarly) Cardiovascular: no murmur, + irregularly irregular (rate controlled) Abdomen: normal bowel sounds, non tender, soft Extremities: non-tender, no pedal edema, + pertinent finding (R hip dressing c/ d/i) Neurologic/Psychiatric: alert, normal mood/affect, + pertinent finding ( answers appropriately, oriented to self and place, unable to remember his wifes name) Skin: normal color, warm/dry (Annabelle Jean PA-C) Laboratory Results Last 24 Hours Test 07/28/17 07:23 White Blood Count 11.03 K/uL Red Blood Count 2.92 M/uL Hemoglobin 9.2 g/dL Hematocrit 27.7 % Mean Corpuscular Volume 94.9 fL Mean Corpuscular Hemoglobin 31.5 pg Mean Corpuscular Hemoglobin Concent 33.2 g/dl RDW Standard Deviation 51.2 fL RDW Coefficient of Variation 14.8 % Platelet Count 109 K/uL Mean Platelet Volume 11.1 fL Prothrombin Time 18.1 SECONDS Prothromb Time International Ratio 1.7 Sodium Level 138 mmol/L Potassium Level 4.1 mmol/L Chloride Level 107 mmol/L Carbon Dioxide Level 27 mmol/L Anion Gap 4.0 mmol/L Blood Urea Nitrogen 12 mg/dl Creatinine 1.01 mg/dl Est Creatinine Clear Calc Drug Dose 51.2 ml/min Estimated GFR () 78.8 Estimated GFR (Non- 68.0 BUN/Creatinine Ratio 12.0 Random Glucose 127 mg/dl Calcium Level 7.9 mg/dl (Annabelle Jean PA-C) Assessment and Plan 82 y/o M Hx chronic diastolic CHF, chronic AF, CVA (left MCA territory infarct, right cerebellar infarct), CAD with remote hx of [place], CKD III, dementia, BPH. The pt was at the [facility] earlier today and upon exiting the building he suffered a mechanical fall resulting in a R intertrochanteric fracture. Initial labs are notable for hyperkalemia = 6. R intertrochanteric Hip fracture - the pt is high risk - Cardiology consulted and at this time have cleared the pt for surgical procedure. - Received vitamin K in prep surgery - Started lovenox inj daily for bridging to therapeutic INR w/ coumadin -INR 1.7 - Cont Coreg, Finasteride, Aricept esme-op. - Bowel regimen ordered as no BM in 4 days. - Sennokot on board, schedule mirilax daily, add dulcolax supp x 1 now. - PT/OT on board- WBAT r leg , will need f/u in 10-[address] Villela - Encouraged incentive spirometry and ambulation as tolerated Hyperkalemia - cause unclear - likely related to Aldactone use, Lisinopril use and CKD - no EKG changes - K 4.1 today, other electrolytes stable - Stop IVF today with normal electrolytes, stable BP, HR slightly elevated in low 100s but likely due to pain. Will resume lisinopril and aldactone. - Follow daily bmp CKD III - creat is at baseline - resume Aldactone and lisinopril, Hold HCTZ CAD - cont Coreg - presumably he is statin-intolerant - cardiology recommending statin so have added atorvastatin 40 mg to regimen to see if pt tolerates - will ask pcp to follow up. CHF - appears euvolemic - cont B cassie - resume aldactone and lisinopril. Faint crackles in the RLL on exam but may be atelectasis. - can resume HCTZ pending BP and may consider repeat CXR if any changes in O2 sats. Pt does not wear home O2, although still on 2 L. - Stop IVFs today. - echo 02/2017: grade II diastolic dysfunction - EF 50-55% Chronic AF - INR as above- bridge with Lovenox to coumadin - Rate controlled with carvedilol, slightly elevated but will monitor for now. BPH - cont Finasteride DVT ppx: coumadin and lovenox CODE: Full Disposition: From home, PT/OT evals s/p surg, lives with . CM to assist with dc planning, referral to [facility]. (Annabelle Jean, ZEINA) PA Physician Supervision Note: I interviewed and examined the patient. Discussed with Annabelle Jean PAC and agree with findings and plan as documented in the note. Any exceptions or clarifications are listed here: None Patient is in good condition his pain is controlled disposition is initiated trying to determine between [facility] and rehab at a correction facility. He has his insurance to the OR medical and were trying to reach his son make the final decision with her copayment would be provided by family for placement into [facility] or whether the OR will have the full responsibility and he will likely have rehab at SNF otherwise patient's medical condition is stable Vital signs show he remains afebrile heart rate is 99 blood pressure is 104/68, is asymptomatic acute blood loss anemia postoperatively He is oriented to person and place but not time his cardiac exam is irregularly regular his lungs are clear Patient is here status post right hip fracture with repair with a baseline history of coagulation for atrial fibrillation for placement for subacute rehab and correction facility versus [facility] Documented By: Bull Barnett (Bull Barnett M.D.)
[2017-07-28] MEDS ORDERED: ATORVASTATIN 40 MG TAB PO SCH (09:00)
[2017-07-28] MEDS ORDERED: HYDROCHLOROTHIAZIDE 25 MG TAB PO SCH (09:00)
--- NOTE | 2017-07-28 09:13 | Orthopedic Progress Note ---
Orthopedic Progress Note Date of Service July 28, 2017. Subjective Post OP Day: 2 Reports: feeling well, Denies: chest pain, SOB, nausea / vomiting, light headedness, calf pain Objective calves soft nontender, N/V intact, hip located, capillary refill less than 2 sec., dressing C/D/I, A&O x3, toes mobile Date Time Temp Pulse Resp B/P (MAP) Pulse Ox O2 Delivery O2 Flow Rate FiO2 07/28/17 08:47 90 110/69 (83) 07/28/17 07:35 36.7 107 18 114/74 (87) 97 2.0 07/28/17 07:15 Nasal Cannula 2.0 07/28/17 00:15 Nasal Cannula 2.0 07/27/17 23:03 37.2 96 18 119/75 (90) 94 Nasal Cannula 2.0 07/27/17 21:03 112 120/73 (89) 07/27/17 19:40 37.6 107 18 107/71 (83) 98 Nasal Cannula 3.0 07/27/17 15:30 Nasal Cannula 2.0 07/27/17 15:07 36.7 97 18 103/66 (78) 97 Nasal Cannula 2.0 07/27/17 11:31 91 95 07/27/17 11:05 36.8 88 16 91/55 (67) 94 Room Air Laboratory Results 24 Hours: Test 07/28/17 07:23 Hematocrit 27.7 % Hemoglobin 9.2 g/dL Prothromb Time International Ratio 1.7 Prothrombin Time 18.1 SECONDS Assessment & Plan Assessment: 82 yo stable POD #2 s/p right troch nail Plan: 1. Medical management 2. DVT prophylaxis- resume Coumadin, SCDs, LOVENOX BRIDGING 3. PT/OT- WBAT 4. D/C planning- [facility] per medicine, follow-up with Dr Villela ~ 10-14 days 5. Pain management- Belinda
--- NOTE | 2017-07-28 09:14 | Consultant Recommendations ---
Java Portal Developer Recommendations Date of Service July 28, 2017. Java Portal Developer Recommendations SP RIGHT TROCH NAIL - WBAT WITH WALKER - COUMADIN/LOVENOX PER MEDICINE/COAG CLINIC - KNEE HIGH TEDS 20 HRS/DAY X 4 WEEKS - FOLLOW UP WITH DR. QUIÑONES IN 10-14 DAYS. [phone] -DRESSING CHANGES DAILY. IF WOUND IS DRY, CHANGE EVERY OTHER DAY.
[2017-07-28 10:16] VITALS: BP 104/68; PULSE 99
[2017-07-28] MEDS: ATORVASTATIN 40 MG TAB PO SCH (10:17)
[2017-07-28] MEDS: SPIRONOLACTONE 25 MG TAB PO SCH (10:18)
[2017-07-28] MEDS: LISINOPRIL 2.5 MG TAB PO SCH (10:18)
[2017-07-28] MEDS: ENOXAPARIN 40 MG/0.4 ML SYR SQ SCH (10:19)
[2017-07-28] MEDS ORDERED: BISACODYL 10 MG SUPP PR ONE (10:30)
[2017-07-28 15:07] VITALS: BP 121/74; PULSE 109; TEMP 36.7; O2SAT 95
[2017-07-28] MEDS ORDERED: WARFARIN SOD 4 MG TAB PO SCH (16:00)
[2017-07-28 16:10] VITALS: O2SAT 95
[2017-07-28] MEDS ORDERED: NURSING VERBAL MED ORDER ONE (16:15)
[2017-07-28] MEDS: DOCUSATE SODIUM/SENNA 50/8.6MG TAB PO SCH (20:33)
[2017-07-28] MEDS: DONEPEZIL HCL 5 MG TAB PO SCH (20:39)
[2017-07-28 23:00] VITALS: BP 94/63; PULSE 84; TEMP 37.2; O2SAT 96
[2017-07-29 07:23] VITALS: BP 100/53; PULSE 93; TEMP 37; O2SAT 94
--- NOTE | 2017-07-29 08:07 | Orthopedic Progress Note ---
Orthopedic Progress Note Date of Service July 29, 2017. Subjective Post OP Day: 3 Reports: feeling well, Denies: complaints Additional Notes: Pt lying in bed. Nursing is presently bathing the patient. He has no complaints currently. Pain is controlled. Objective calves soft nontender, N/V intact, dressing C/D/I, toes mobile Date Time Temp Pulse Resp B/P (MAP) Pulse Ox O2 Delivery O2 Flow Rate FiO2 07/29/17 07:23 37.0 93 16 100/53 (69) 94 2.0 07/28/17 23:20 Nasal Cannula 2.0 07/28/17 23:00 37.2 84 16 94/63 (73) 96 Nasal Cannula 2.0 07/28/17 16:10 95 Nasal Cannula 2.0 07/28/17 15:07 36.7 109 18 121/74 (90) 95 Nasal Cannula 2.0 07/28/17 10:16 99 104/68 (80) 07/28/17 08:47 90 110/69 (83) Assessment & Plan Assessment: 82 yo stable POD #3 s/p right troch nail Plan: 1. Medical management 2. DVT prophylaxis- resume Coumadin, SCDs, LOVENOX BRIDGING 3. PT/OT- WBAT 4. D/C planning- [facility], [facility] ; follow-up with Dr Villela ~ 10-14 days ORTHO WILL SIGN OFF AT THIS TIME. PLEASE CALL WITH ANY QUESTIONS. Inhouse Planning Pain Management: Dilaudid, Oxy IR DVT Prophylaxis: TEDs, SCDs, Coumadin, Lovenox Discharge Planning Discharge Planning: uncertain
--- NOTE | 2017-07-29 08:14 | Hospitalist Progress Note ---
Hospitalist Progress Note Date of Service July 29, 2017. (Annabelle Jean PA-C) Subjective Pt evaluation today including: conversation w/ patient, physical exam, chart review, lab review, review of studies Pain: R hip pain PO Intake: Good Voiding: no voiding problems The patient was seen and examined this morning. Pt reports doing ok. He has no acute complaints other than R hip pain which has been ongoing. He has had difficulty with walking and has only been pivoting from bedside chair to bed. He is ambulating to the bathroom with assistance, but not far distances. He reports urinating without difficulty and bowels moved twice yesterday after suppository. Additional Comments: Constitutional: No fever, No chills, No sweats, No fatigue Eyes: No redness, No diplopia ENT: No nasal symptoms, No trouble swallowing Respiratory: No cough, No wheezing, No shortness of breath Cardiovascular: No chest pain, No edema Abdomen: + constipation (no BM in 4 days), No pain, No nausea, No vomiting, No diarrhea Male : No dysuria Endo: No fatigue Skin: No rash, No itch (Annabelle Jean PA-C) Objective Vital Signs Date Time Temp Pulse Resp B/P (MAP) Pulse Ox O2 Delivery O2 Flow Rate FiO2 07/29/17 07:23 37.0 93 16 100/53 (69) 94 2.0 07/28/17 23:20 Nasal Cannula 2.0 07/28/17 23:00 37.2 84 16 94/63 (73) 96 Nasal Cannula 2.0 07/28/17 16:10 95 Nasal Cannula 2.0 07/28/17 15:07 36.7 109 18 121/74 (90) 95 Nasal Cannula 2.0 07/28/17 10:16 99 104/68 (80) 07/28/17 08:47 90 110/69 (83) (Annabelle Jean PA-C) Physical Exam Notes: General Appearance: WD/WN, no apparent distress, + thin Eyes: PERRL, EOMI ENT: pharynx normal, + pertinent finding (MMM, slightly hard of hearing) Neck: supple, no JVD Respiratory/Chest: no respiratory distress, no accessory muscle use, + pertinent finding (On 2L, very faint crackles in the LLL, diminished bibasilarly ) Cardiovascular: no murmur, + irregularly irregular (rate controlled) Abdomen: normal bowel sounds, non tender, soft, +genitals edematous and ecchymotic Extremities: non-tender, (2+ pitting edema RLE, R hip dressing c/d/i, difficulty moving the RLE due to pain) Neurologic/Psychiatric: alert, normal mood/affect, + pertinent finding ( answers appropriately, oriented to self and place) Skin: normal color, warm/dry (Annabelle Jean PA-C) Assessment and Plan 82 y/o M Hx chronic diastolic CHF, chronic AF, CVA (left MCA territory infarct, right cerebellar infarct), CAD with remote hx of [place], CKD III, dementia, BPH. The pt was at the [facility] earlier today and upon exiting the building he suffered a mechanical fall resulting in a R intertrochanteric fracture. Initial labs are notable for hyperkalemia = 6. R intertrochanteric Hip fracture - the pt is high risk - Cardiology consulted and at this time have cleared the pt for surgical procedure. - Started lovenox inj daily for bridging to therapeutic INR w/ coumadin - follow INR with am labs - Cont Coreg, Finasteride, Aricept esme-op. - Bowel regimen w Sennokot, schedule mirilax daily. s/p BM on 07/28. - PT/OT on board- WBAT r leg , will need f/u in 10-[address] Villela - Encouraged incentive spirometry and ambulation as tolerated RLE Edema - Appears to have more edema today compared to yesterday - Check doppler RLE U/S - Resumed HCTZ to start tomorrow morning, consider IV lasix 20 mg after doppler. Hyperkalemia - cause unclear - likely related to Aldactone use, Lisinopril use and CKD - no EKG changes - K 4.1 today, other electrolytes stable - Stop IVF today with normal electrolytes, stable BP, HR slightly elevated in low 100s but likely due to pain. Will resume lisinopril and aldactone, resume HCTZ as well. - Follow daily bmp - have not resumed home regimen of potassium 20 mg BID po yet CKD III - creat is at baseline - resume Aldactone, lisinopril and HCTZ CAD - cont Coreg - presumably he is statin-intolerant - cardiology recommending statin so have added atorvastatin 40 mg to regimen to see if pt tolerates - will ask pcp to follow up. Chronic Diastolic CHF - stable - appears euvolemic - cont B cassie - resume aldactone and lisinopril on 07/28, resume HCTZ starting 07/30. - Faint crackles in the RLL on exam but may be atelectasis. Incentive spirometry encouraged. - echo 02/2017: grade II diastolic dysfunction - EF 50-55% Chronic AF - INR as above- bridge with Lovenox to coumadin - Rate controlled with carvedilol BPH - cont Finasteride DVT ppx: coumadin and lovenox CODE: Full Disposition: From home, PT/OT evals s/p surg, lives with . CM to assist with dc planning, referral to [facility] vs other options pending copay amount. (Annabelle Jean, SHELLC) PA Physician Supervision Note: I interviewed and examined the patient. Discussed with Annabelle Jean PAC and agree with findings and plan as documented in the note. Any exceptions or clarifications are listed here: None Patient has some swelling to his affected side where he had his hip repaired. He has no other complaints or problems disposition remains to be an issue is pending a Doppler evaluation of the leg for DVT, he is on warfarin for DVT prevention Vital signs show temp 37 oh 93 16 100/53 Her exam is regular lungs are clear leg shows edema hard to tell whether his postoperative change versus DVT will be pending a Doppler study continue to work on disposition Documented By: Bull Barnett (Bull Barnett M.D.)
[2017-07-29] MEDS: FINASTERIDE 5 MG TAB PO SCH (09:09)
[2017-07-29] MEDS: ATORVASTATIN 40 MG TAB PO SCH (09:10)
[2017-07-29] MEDS: PANTOprazole SOD 40 MG TAB PO SCH (09:10)
[2017-07-29] MEDS: POLYETHYLENE (MIRALAX) 17 GM PACK PO SCH (09:10)
[2017-07-29] MEDS: SPIRONOLACTONE 25 MG TAB PO SCH (09:11)
[2017-07-29] MEDS: ENOXAPARIN 40 MG/0.4 ML SYR SQ SCH (09:11)
[2017-07-29] MEDS: BOOST PLUS VANILLA PO SCH ×3 (09:15→20:59)
[2017-07-29 09:17] VITALS: BP 118/77; PULSE 100
[2017-07-29] MEDS: LISINOPRIL 2.5 MG TAB PO SCH (09:18)
[2017-07-29] MEDS: CARVEDILOL 12.5 MG TAB PO SCH ×2 (09:19→20:57)
[2017-07-29 14:55] VITALS: BP 101/67; PULSE 101; TEMP 36.5; O2SAT 97
[2017-07-29] MEDS: WARFARIN SOD 2 MG TAB PO SCH (16:47)
--- NOTE | 2017-07-29 17:10 | DIAGNOSTIC IMAGING REPORT ---
R VENOUS DOPP LOWER EXT UNILAT HISTORY: 82 years-old Male R/o DVT acute right leg pain and swelling COMPARISON: None available TECHNIQUE: Multiple real-time sonographic images of the right lower extremity deep venous structures were obtained assessing grayscale appearance, color and spectral flow. FINDINGS: Normal compressibility, phasicity, flow and augmentation of the right lower extremity deep venous structures. Mild subcutaneous edema. IMPRESSION: No sonographic evidence of deep venous thrombosis. The above report was generated using voice recognition software. It may contain grammatical, syntax or spelling errors. Electronically signed by: Nabil Ro M.D. 07/29/2017 5:09 PM Dictated Date/Time: 07/29/2017 5:07 PM
[2017-07-29] MEDS: DONEPEZIL HCL 5 MG TAB PO SCH (20:57)
[2017-07-29] MEDS: DOCUSATE SODIUM/SENNA 50/8.6MG TAB PO SCH (20:57)
[2017-07-29 23:00] VITALS: BP 98/60; PULSE 98; TEMP 37.1; O2SAT 97
[2017-07-30 07:21] LABS: HEMATOCRIT 25.8 % (42-52); HEMOGLOBIN 8.6 g/dL (14.0-18.0); MEAN CELL VOLUME 94.2 fL (80-100); MEAN CORPUSCULAR HEMOGLOBIN 31.4 pg (25-34); MEAN CORPUSCULAR HGB CONC 33.3 g/dl (32-36); MEAN PLATELET VOLUME 11.1 fL (7.4-10.4); PLATELET COUNT 132 K/uL (130-400); RED CELL DISTRIBUTION WIDTH CV 14.8 % (11.5-14.5); RED CELL DISTRIBUTION WIDTH SD 50.4 fL (36.4-46.3); WHITE BLOOD COUNT 7.48 K/uL (4.8-10.8)
[2017-07-30 07:29] LABS: INR 2.4 (0.9-1.1)
[2017-07-30 07:39] VITALS: BP 101/57; PULSE 80; TEMP 37.1; O2SAT 97
[2017-07-30 07:52] LABS: CALCIUM 8.2 mg/dl (8.5-10.1); CREATININE 1.04 mg/dl (0.60-1.40); POTASSIUM 4.2 mmol/L (3.5-5.1)
[2017-07-30] MEDS ORDERED: FUROSEMIDE INJ 20 MG in SYRINGE 0 ML IV ONE (08:45)
[2017-07-30] MEDS ORDERED: HYDROCHLOROTHIAZIDE 25 MG TAB PO SCH (09:00)
[2017-07-30] MEDS: POLYETHYLENE (MIRALAX) 17 GM PACK PO SCH (09:00)
[2017-07-30 09:16] VITALS: BP 117/71; PULSE 80
[2017-07-30] MEDS: CARVEDILOL 12.5 MG TAB PO SCH (09:17)
[2017-07-30] MEDS: ATORVASTATIN 40 MG TAB PO SCH (09:17)
[2017-07-30] MEDS: SPIRONOLACTONE 25 MG TAB PO SCH (09:25)
[2017-07-30] MEDS: FINASTERIDE 5 MG TAB PO SCH (09:26)
[2017-07-30] MEDS: LISINOPRIL 2.5 MG TAB PO SCH (09:26)
[2017-07-30] MEDS: PANTOprazole SOD 40 MG TAB PO SCH (09:26)
[2017-07-30] MEDS: ENOXAPARIN 40 MG/0.4 ML SYR SQ SCH (09:27)
[2017-07-30] MEDS: BOOST PLUS VANILLA PO SCH ×2 (09:32→14:00)
[2017-07-30 09:44] VITALS: BP 117/71; PULSE 80; O2SAT 97
--- NOTE | 2017-07-30 11:11 | Discharge Instructions ---
Discharge Instructions Date of Service July 30, 2017. Admission Reason for Admission: Hip Fracture Discharge Discharge Diagnosis / Problem: Hip fracture Discharge Goals Goal(s): Decrease discomfort, Improve function, Increase independence, Improve disease control Activity Recommendations Activity Level: Up Ad Yael, Assistance Required Therapies: Physical Therapy, Occupational Therapy Weightbearing Status: Right weightbearing (as tolerated) Lifting Limitations: no more than 10 pounds, gradually increase as tolerated Exercise/Sports Limitations: gradually increase as tolerated Shower/Bathe: no limitations (with assistance) . Additional Information Patient informed of condition: Yes Advance Directives: Yes DNR: No Level of Care: Acute Rehab Communicable Disease: No Prognosis: Stable Instructions / Follow-Up Instructions / Follow-Up You were admitted to [facility] with R intertrochanteric hip fracture s/p mechanical fall and diagnosed with the same. During your stay here you underwent R intertrochanteric nailing/hip fracture fixation by Dr. Villela on 07/26/17. You were treated with supportive care, PT/OT, pain management during your stay. Medications: You have been given oxycodone for pain management, you may alternate this with tylenol for pain. Continue to take stool softener/laxative/fiber agent for constipation while using narcotics. Continue taking coumadin as directed. INR at time on day of discharge was 2.4 Continue taking all other medications as prescribed. You were started on atorvastatin 40 mg daily during your stay here. Appointments: [facility] upon arrival there. Follow up with orthopedics, Dr. Villela within 10-14 days. Current Hospital Diet Patient's current hospital diet: Regular Diet Discharge Diet Recommended Diet: AHA Diet (Heart Healthy) Procedures Procedures Performed: Open Reduction Internal Fixation of Intertrochanteric Fracture, Right Pending Studies Studies pending at discharge: no Medical Emergencies . Who to Call and When: Medical Emergencies: If at any time you feel your situation is an emergency, please call 911 immediately. . Non-Emergent Contact Non-Emergency issues call your: Primary Care Provider, Surgeon Call Non-Emergent contact if: you have a fever, temperature is above 100.5, your pain is not controlled, your pain is worsening, your pain is unusual for you, your pain is concerning you, wound has increased drainage, wound has increased redness, wound has increased pain, you have any medication questions other concerns with your health. Call 911 or go directly to the Emergency Department if you experience any of the following: Chest pain, chest tightness, shortness of breath, abdominal pain , lightheadedness, dizziness, gastrointestinal bleeding, or have any other concerns regarding your health. . Past History Medical & Surgical History: (1) Hip fracture (2) Diastolic CHF (3) Chronic atrial fibrillation (4) CKD (chronic kidney disease), stage III (5) Dementia (6) CAD (coronary artery disease) (7) BPH (benign prostatic hyperplasia) . "Provider Documentation" section prepared by Karyn Jean. . Web Operations Specialist Recommendations Web Operations Specialist Recommendations: SP RIGHT TROCH NAIL - WBAT WITH WALKER - COUMADIN/LOVENOX PER MEDICINE/COAG CLINIC - KNEE HIGH TEDS 20 HRS/DAY X 4 WEEKS - FOLLOW UP WITH DR. VILLELA IN 10-14 DAYS. [phone] -DRESSING CHANGES DAILY. IF WOUND IS DRY, CHANGE EVERY OTHER DAY. Core Measure Problem Core Measures: None [place] Drug Monitoring [place] Search Results: no issues identified
[2017-07-30] MEDS ORDERED: ACET-1047 PO (11:18)
[2017-07-30] MEDS ORDERED: DLCS PR (11:18)
[2017-07-30] MEDS ORDERED: RXC5 PO (11:18)
[2017-07-30] MEDS ORDERED: LPT40 PO (11:18)
[2017-07-30] MEDS ORDERED: SENN8.6T7 PO (11:18)
[2017-07-30] MEDS ORDERED: MRLP17 PO (11:18)
[2017-07-30 11:30] VITALS: BP 117/71; PULSE 80; TEMP 37.1; O2SAT 97
--- NOTE | 2017-07-30 11:58 | Discharge Summary ---
Discharge Summary Date of Service July 30, 2017. Discharge Summary Admission Date: July 25, 2017 at 12:55 Discharge Date: July 30, 2017 Discharge Disposition: Rehab Principal Diagnosis: R intertrochanteric hip Fracture Problems/Secondary Diagnoses: Medical Problems: (1) BPH (benign prostatic hyperplasia) (2) CAD (coronary artery disease) (3) Chronic atrial fibrillation (4) CKD (chronic kidney disease), stage III (5) Dementia (6) Diastolic CHF (7) Heart disease (8) Hip fracture (9) Pneumonia involving right lung (10) Stroke Procedures: R PELVIS/UNILATERAL HIP 2-3VIEWS 07/25/17 IMPRESSION: Intertrochanteric fracture right hip. CT HEAD WITHOUT CONTRAST (CT) 07/25/17 FINDINGS: No intra or extra-axial mass lesions are visualized. There is no CT evidence of acute cortical infarction. There is no evidence of midline shift. No calvarial fractures are visualized. There is ar 8 mm hyperdense focus within the left frontal lobe at the periphery of the left MCA infarct. On a small acute hemorrhage cannot be excluded, this likely represents esme-infarct mineralization. There are patchy white matter hypodensities likely on a small vessel basis. There is an old large left MCA territory infarct. There is an old right cerebellar infarct. There is no evidence of pathologic ventricular dilatation. There is no evidence of acute sinusitis IMPRESSION: 1. 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 Old right cerebellar infarct 3. 8mm hyperdense focus within the left frontal lobe. 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 CHEST ONE VIEW PORTABLE 07/25/17 IMPRESSION: 1. Cardiomegaly with possible volume overload. No other convincing evidence of acute cardiopulmonary disease. R VENOUS DOPP LOWER EXT UNILAT 07/29/17 IMPRESSION: No sonographic evidence of deep venous thrombosis. Consultations: Orthopedics Medication Reconciliation New Medications: Acetaminophen (Mapap) 325 Mg Tab 650 MG PO Q6H PRN for For mild pain (pain scale 1-3) for 14 Days, #112 TAB Atorvastatin (Lipitor) 40 Mg Tab 40 MG PO QAM for 30 Days, #30 TAB Bisacodyl (Bisac-Evac) 10 Mg Supp 10 MG ND DAILY PRN for Constipation for 30 Days, #30 SUPP Oxycodone HCl (Oxycodone HCl) 5 Mg Tab 10 MG PO Q4H PRN for Severe pain (pain scale 7-10) for 14 Days, #112 TAB Polyethylene (Miralax) 17 Gm Pow 17 GM PO DAILY PRN for Constipation for 30 Days, #30 DOSE Sennosides-Docusate Sodium (Senokot S) 1 Tab Tab 2 TAB PO HS for 30 Days, #60 TAB Continued Medications: Carvedilol (Coreg) 12.5 Mg Tab 12.5 MG PO BID, TAB Donepezil Hydrochloride (Aricept) 5 Mg Tab 5 MG PO HS, TAB Enteral Nutrition Formula (Ensure) Liq 1 CAN PO TID Finasteride (Proscar) 5 Mg Tab 5 MG PO DAILY, TAB Hydrochlorothiazide (Hctz) 25 Mg Tab 12.5 MG PO DAILY, TAB Lisinopril (Prinivil) 5 Mg Tab 2.5 MG PO DAILY, TAB Loperamide Hcl (Loperamide Hcl) 1 Mg/5 Ml Liq 4 MG PO take 4mg as first dose, then 2mg after each loose stool. max of 16 mg per day Omeprazole (Prilosec) 20 Mg Capcr 20 MG PO DAILY, CAP Potassium Chloride (Klor-Con M20) 20 Meq Tabcr 20 MEQ PO BID Spironolactone (Spironolactone) 25 Mg Tab 12.5 MG PO DAILY Warfarin Sod (Jantoven) 2 Mg Tab 2 MG PO DAILY, TAB Discharge Exam The patient was seen and examined this morning. Pt reports doing well today. He worked more with PT/OT today and tolerated it better per himself and nursing. He is having bowel movements, urinating without difficulty. Still is having hip pain with movement but tolerating it well. ROS: Constitutional: No fever, No chills, No sweats, No fatigue Eyes: No redness, No diplopia ENT: No nasal symptoms, No trouble swallowing Respiratory: No cough, No wheezing, No shortness of breath Cardiovascular: No chest pain, + swelling in RLE Abdomen: No pain, No nausea, No vomiting, No diarrhea Male : No dysuria Endo: No fatigue Skin: No rash, No itch PE: General Appearance: WD/WN, no apparent distress, + thin Eyes: PERRL, EOMI ENT: pharynx normal, + pertinent finding (MMM, slightly hard of hearing) Neck: supple, no JVD Respiratory/Chest: no respiratory distress, no accessory muscle use, + pertinent finding (On 2L, very faint crackles in the LLL, diminished bibasilarly ) Cardiovascular: no murmur, + irregularly irregular (rate controlled) Abdomen: normal bowel sounds, non tender, soft, +genitals edematous and ecchymotic Extremities: non-tender, (2+ pitting edema RLE, trace in LLE ankle- slightly improved today, R hip dressing c/d/i, difficulty moving the RLE due to pain) Neurologic/Psychiatric: alert, normal mood/affect, + pertinent finding ( answers appropriately, oriented to self and place) Skin: normal color, warm/dry Hospital Course 82 y/o M Hx chronic diastolic CHF, chronic AF, CVA (left MCA territory infarct, right cerebellar infarct), CAD with remote hx of ME, CKD III, dementia, BPH. The pt was at the [facility] earlier today and upon exiting the building he suffered a mechanical fall resulting in a R intertrochanteric fracture. Initial labs are notable for hyperkalemia = 6. R intertrochanteric Hip fracture - the pt is high risk - Cardiology consulted and at this time have cleared the pt for surgical procedure. - Administered lovenox inj daily for bridging to therapeutic INR w/ coumadin - INR 2.4 today, can dc lovenox inj upon discharge. - Cont Coreg, Finasteride, Aricept esme-op. - Bowel regimen w Sennokot, schedule mirilax daily. s/p BM on 07/28. - PT/OT on board- WBAT r leg , will need f/u in 10-[address] Villela - Encouraged incentive spirometry and ambulation as tolerated RLE Edema - Appears to have more edema today compared to yesterday - Check doppler RLE U/S- negative- Administered 1x dose of Lasix 20 mg IV - Resumed HCTZ on 07/30 Hyperkalemia - cause unclear - likely related to Aldactone use, Lisinopril use and CKD - no EKG changes - K 4.2 today, other electrolytes stable - resumed home regimen of potassium 20 mg BID upon dc - Stop IVF today with normal electrolytes, stable BP, HR slightly elevated in low 100s but likely due to pain. Will resume lisinopril and aldactone, resume HCTZ as well. - Follow daily bmp CKD III - creat is at baseline - resume Aldactone, lisinopril and HCTZ CAD - cont Coreg - presumably he is statin-intolerant - cardiology recommending statin so have added atorvastatin 40 mg to regimen to see if pt tolerates - will ask pcp to follow up. Chronic Diastolic CHF - stable - lasix administered for edema in the RLE - cont B cassie - resume aldactone and lisinopril on 07/28, resume HCTZ starting 07/30. - breath sounds improved today -Incentive spirometry encouraged. - echo 02/2017: grade II diastolic dysfunction - EF 50-55% Chronic AF - INR as above- bridge with Lovenox to coumadin - Rate controlled with carvedilol BPH - cont Finasteride DVT ppx: coumadin and lovenox CODE: Full Disposition: From home, PT/OT evals s/p surg, lives with . CM to assist with dc planning, Pt dc to [facility] today. PA Physician Supervision Note: I interviewed and examined the patient. Discussed with Annabelle Jean PAC and agree with findings and plan as documented in the note. Any exceptions or clarifications are listed here: None Patient was seen prior to discharge in the presence of his family he was noted that he did have some right leg swelling but the DVT study was negative. Diuretics were given 1 to help with his overall comfort. Patient's vital signs are stable and be transferred to the to [facility]ial facility for further subacute rehab. I did speak to Dr. Recinos there over the phone given full report. This was above and beyond the time that way and took to prepare this summary Documented By: Bull Barnett Total Time Spent: Greater than 30 minutes This includes examination of the patient, discharge planning, medication reconciliation, and communication with other providers. Discharge Instructions Please refer to the electronic Patient Visit Report (Discharge Instructions) for additional information. Follow-Up Follow up with PCP at the [facility] re[facility] facility within 24-48 hours upon arrival there. Follow up with orthopedics, Dr. Villela within 10-14 days.
== END 2017-07-30 14:22 | DRG 481 ==
LOC: EDBD 11:11 → C.EDC 11:12 → C.MSN 12:55 → ENRESERV 13:35 → CANRESERV 14:37 → ENRESERV 14:38
PROVIDERS: ADMIT Internal Medicine; ATTEND Internal Medicine
PROC: 0QS604Z Reposition Right Upper Femur with Internal Fixation Device, Open Approach (ICD-10-PCS; principal; 2017-07-26 08:00)
DX: S72.141A Displaced intertrochanteric fracture of right femur, initial encounter for closed fracture (principal); I50.32 Chronic diastolic (congestive) heart failure; E87.5 Hyperkalemia; T50.0X5A Adverse effect of mineralocorticoids and their antagonists, initial encounter; T46.4X5A Adverse effect of angiotensin-converting-enzyme inhibitors, initial encounter; R79.1 Abnormal coagulation profile; R60.0 Localized edema; I48.2 Chronic atrial fibrillation; F03.90 Unspecified dementia, unspecified severity, without behavioral disturbance, psychotic disturbance, mood disturbance, and anxiety; N18.3 Chronic kidney disease, stage 3 (moderate); I25.10 Atherosclerotic heart disease of native coronary artery without angina pectoris; I25.2 Old myocardial infarction; N40.0 Benign prostatic hyperplasia without lower urinary tract symptoms; Z79.899 Other long term (current) drug therapy; Z79.01 Long term (current) use of anticoagulants; Z86.73 Personal history of transient ischemic attack (TIA), and cerebral infarction without residual deficits; Z95.5 Presence of coronary angioplasty implant and graft; Z87.891 Personal history of nicotine dependence; W01.0XXA Fall on same level from slipping, tripping and stumbling without subsequent striking against object, initial encounter; Y92.531 Health care provider office as the place of occurrence of the external cause; Y99.8 Other external cause status

== ENCOUNTER 2020-12-10 17:24 | Inpatient (IN) ==
[2020-12-10] MEDS ORDERED: SODIUM CHLORIDE 0.9% 1000ML 1,000 ML IV STA ×2 (17:32→20:18)
[2020-12-10 18:20] LABS: iSTAT Creatinine 2.1 mg/dl (0.6-1.3); iSTAT Hemoglobin 13.3 g/dl (14.0-18.0); iSTAT Ionized Calcium 1.32 mmol/l (1.12-1.32); iSTAT Potassium 4.8 mmol/L (3.3-5.0)
--- NOTE | 2020-12-10 18:21 | XRay Report ---
SINGLE VIEW CHEST CLINICAL HISTORY: Dyspnea. FINDINGS: 3 AP, portable, upright chest radiographs are compared to study dated 02/20/2019. The heart is enlarged noting atherosclerotic calcification of the thoracic aorta. The pulmonary vasculature is noncongested. Emphysema and chronic interstitial thickening is similar to previous. There is volume l oss in the left lung with multifocal left-sided consolidation. The right lung appears clear noting bi basilar scarring/atelectasis. A left pleural effusion is suspected. No pneumothorax is seen. The skel etal structures are osteopenic. The bony thorax is grossly intact. IMPRESSION: 1. Cardiomegaly and emphysema with no radiographic evidence of congestive failure. 2. There is volume loss in the left lung with multifocal left-sided pulmonary consolidation. Correlat e clinically for evidence of pneumonia/aspiration pneumonitis. Radiographic follow-up to resolution i s recommended. 3. Suspect a left pleural effusion. ACT 112: Negative or not required by law. Electronically signed by: Shane See M.D. 12/10/2020 6:20 PM
[2020-12-10] MEDS ORDERED: VANCOMYCIN CONSULT ACTIVE PRN (18:38)
[2020-12-10] MEDS ORDERED: PIPERACILLIN/TAZOBACTAM 4.5 GM/120 ML BAG IV ONE (18:38)
[2020-12-10] MEDS ORDERED: PIPERACILL/TAZOBAC CONSULT ACTIVE PRN (18:38)
[2020-12-10] MEDS ORDERED: SODIUM CHLORIDE 0.9% 1000ML 500 ML IV ONE ×4 (18:38→21:28)
[2020-12-10] MEDS ORDERED: VANCOMYCIN HCL 750 MG in SODIUM CHLORIDE 0.9% 500 ML IV SCH (18:45)
[2020-12-10 19:04] LABS: Appearance Urine Cloudy (Clear); Bacteria Urine Automated Negative (Negative); Bilirubin Urine Negative (Negative); Blood Urine Negative (Negative); Color Urine Yellow; Epithelial Cell Urine Auto >30 /lpf (0-5); Glucose Urine UA Negative (Negative); Ketones Urine Negative (Negative); Leukocyte Esterase Urine Trace (Negative); Nitrite Urine Negative (Negative); Protein Urine 1+ (Negative); Specific Gravity Urine 1.014 (1.000-1.030); Urobilinogen Urine Negative (Negative)
[2020-12-10 19:05] LABS: Hematocrit (blood only) 37.8 % (42-52); Hemoglobin 11.9 g/dL (14.0-18.0); Immature Granulocytes # (auto) 0.03 K/uL (0.00-0.02); Immature Granulocytes % (auto) 0.2 %; Lymphocytes # (auto) 0.63 K/uL (1.2-3.4); Lymphocytes % (auto) 4.2 %; Mean Corpuscular Hemoglobin 33.2 pg (25-34); Mean Corpuscular Hgb Conc 31.5 g/dL (32-36); Mean Corpuscular Volume 105.6 fL (80-100); Mean Platelet Volume 11.4 fL (7.4-10.4); Monocytes # (auto) 0.06 K/uL (0.11-0.59); Monocytes % (auto) 0.4 %; Neutrophils % (auto) 95.2 %; Platelet Count 217 K/uL (130-400); RDW Coefficient of Variation 15.8 % (11.5-14.5); RDW Standard Deviation 60.9 fL (36.4-46.3); Red Blood Count 3.58 M/uL (4.7-6.1); White Blood Count 15.12 K/uL (4.8-10.8)
[2020-12-10 19:09] LABS: iSTAT Arterial Blood Gas HCO3 21 meg/L (19-24); iSTAT Arterial Blood Gas pCO2 43 mmHg (35-46); iSTAT Arterial Blood Gas pH 7.31 (7.35-7.45); iSTAT Arterial Blood Gas pO2 53 mmHg (80-95); iSTAT Carbon Dioxide 23 mmol/L (24-31); iSTAT Hematocrit 34 % (42-52); iSTAT Hemoglobin 11.6 g/dl (14.0-18.0); iSTAT Potassium 4.1 mmol/L (3.3-5.0); iSTAT Sodium 150 mmol/L (135-144)
[2020-12-10 19:12] LABS: Renal Epithelial Cells Urine 0-5 /lpf (0-5)
[2020-12-10 19:17] LABS: INR 1.8 (0.9-1.1); Partial Thromboplastin Ratio 1.3; Partial Thromboplastin Time 33.6 Seconds (21.0-31.0); Prothrombin Time 17.2 Seconds (9.0-12.0)
[2020-12-10 19:22] LABS: Albumin Level 1.9 gm/dl (3.4-5.0); BUN Creatinine Ratio 31.9 (10-20); Calcium 9.4 mg/dl (8.5-10.1); Creatinine Clr Calc Pharmacy 14.1 ml/min; Est GFR (African American) 29.3 ml/min; Est GFR (Non-African American) 25.3 ml/min; Magnesium 2.2 mg/dl (1.8-2.4); Potassium 4.3 mmol/L (3.5-5.1)
[2020-12-10 19:33] LABS: Albumin Globulin Ratio 0.4 (0.9-2); Bilirubin,Total 0.8 mg/dl (0.2-1); Globulin 4.8 gm/dl (2.5-4.0); Thyroid Stimulating Hormone 1.1 uIu/ml (0.300-4.500); Total Protein 6.7 gm/dl (6.4-8.2); Troponin I 0.043 ng/ml (0-0.045)
[2020-12-10] MEDS ORDERED: VANCOMYCIN HCL 750 MG in SODIUM CHLORIDE 0.9% 250 ML IV ONE (20:00)
--- NOTE | 2020-12-10 20:08 | Emergency Department Note ---
Impression & Plan Pneumonia, Hypoxia, Atrial fibrillation with rapid ventricular response, Acute dehydration, Acute hypotension, Leukocytosis ED Provider Note INFORMANT: EMS and family ED PROVIDER(S): Lc Tovar MD CHIEF COMPLAINT: Altered mental status PLAN: Disposition: Admitted Condition: Critical Outpatient prescription management: none Referral: None MEDICAL DECISION MAKING: Patient presented Acutely ill. EMS started resuscitation. Patient improving somewhat. He was still hypotensive and hypoxic. Family was present shortly after his arrival. They noted that he may have discussed a DNR/DNI status. They are okay with oxygen support and fluid resuscitation. Antibiotics are okay as well. The patient had a chest x-ray concerning for pneumonia. He is oxygen saturation was poor and he was placed on BiPAP. He was given IV cefepime and vancomycin. Fluid boluses were given as well. An i-STAT revealed findings concerning for significant dehydration. An ABG showed acidosis and poor oxygenation. Lactate was elevated as was BNP. Patient's blood work showed leukocytosis. Additional fluid boluses were given. Covid testing negative. Urinalysis negative. I discussed admission to the hospital with the family and they were in agreement. The patient still exhibiting mild hypotension. His oxygenation did improve however clinically he looks much better. He is awake and alert. He has no complaints. Consultation was made with Dr. Nahum Lakhani of the [facility] service. Patient was evaluated in the ER for further management. Triage Nursing notes reviewed and agree them. Vital Signs: reviewed and remarkable for hypotension, hypoxia Differential diagnosis: Infection, hypoglycemia, electrolyte abnormalities, overdose, toxicologic, cardiac sources, intracerebral event, neurologic, trauma, as well as other pathologies. Diagnostics interpreted by me: ECG: Twelve-lead ECG reveals atrial fibrillation with rapid ventricular response at 122 bpm. LVH. Septal Q wave present. Anterolateral T wave inversions are present and are new compared to February 202018. Cardiac Monitoring: Cardiac monitoring ordered by me: The patient was placed on continuous cardiac monitoring and observed. It revealed atrial fibrillation wi th RVR at 107 bpm. Imaging studies: Chest x-ray concerning for left-sided pneumonia. HPI: The patient is a 85 year old male who presents to the Emergency Room with altered mental status. This started today and is described as generalized weakness and unresponsiveness family. EMS was summoned. The patient was hypotensive and hypoxic for EMS. He required high flow nasal cannula oxygen and a normal saline fluid bolus to help improve his vital signs. Family states that he has been getting more weaker over the last few weeks. He is on anticoagulation due to his history of atrial fibrillation. EMS noted he was in rapid atrial fibrillation with heart rates up to 140 during transport. That seemed to improve with fluid resuscitation. Upon arrival patient's mental status was improving per EMS. He was hypotensive. He denied headache, chest pain, abdominal pain, vomiting. History is limited secondary to his medical acuity. ROS: See above HPI for pertinent positives & negatives. Limited secondary to medical acuity. PAST MEDICAL HISTORY:See Below , A. fib PAST SURGICAL HISTORY:See Below, FAMILY HISTORY:See Below SOCIAL HISTORY:See Below, lives with family HOME MEDICATIONS:See Below ALLERGIES:See Below VITALS:See Below PHYSICAL EXAMINATION: GENERAL: Awake, opening eyes spontaneously, relatively alert, ill-appearing, in mild distress HENT: Normocephalic, atraumatic. Oropharynx unremarkable. EYES: Normal conjunctiva. Sclera non-icteric. NECK: Inspection normal. Non-tender. Supple. No nuchal rigidity. FROM. No masses. RESPIRATORY: Crackles and rhonchi noted, especially on the left. Increased respiratory effort. CARDIAC: Tachycardic rate. Irregular rhythm. No murmurs. No rubs. Extremities cool and poorly perfused. No JVD. GI: Soft, non-distended. No tenderness to palpation. No rebound or guarding. No masses. RECTAL: Deferred. MUSCULOSKELETAL: Atraumatic. Generalized muscular atrophy present chest examination reveals no tenderness. The back is symmetrical on inspection without obvious abnormality. There is no CVA tenderness to palpation. No joint edema. Calves are equal size bilaterally and non-tender. No edema. Cyanotic discoloration to fingers and feet. NEURO: Impaired sensorium. No focal sensory or motor deficits noted. Unable to comply with full neurologic examination. SKIN: No rash or jaundice noted. CRITICAL CARE: I have personally spent greater than 45 minutes of critical care time in the direct management of this patient. This includes bedside care, interpretation of diagnostic studies, and testing, discussion with consultants, patient, and family members, and other required patient management activities. These minutes are in excess of all separately billable procedures. Lc Tovar MD Past Med/Surg History Medical History (Updated 12/11/20 @ 00:53 by KATE Mahmood) Afib CHF (congestive heart failure) COPD (chronic obstructive pulmonary disease) Emphysema of lung Myocardial infarction Stroke Surgical History No significant past surgical history Social History Smoking Status: Never smoker Second Hand Exposure: No; Do You Dip or Chew Tobacco: No; Tobacco Cessation Education Requested by Patient: No Hx Alcohol Use: No Hx Substance Use: No Preferred Language: Salvadorean Communication Ability: Effective Search Manager Required: No Beliefs That Will Affect Care: None Current Living Situation: Family Other Information That Helps Us Care for You: No Feels Safe at Home: Yes Safety Concerns: Feels Safe At This Time Assistive Devices: Denture - Upper, Denture - Lower and Wheelchair Allergies Allergies Allergy/AdvReac Type Severity Reaction Status Date / Time No Known Allergies Allergy Unverified 02/21/19 10:21 Home Meds Home Medications Medication Instructions Recorded Confirmed apixaban 5 mg tablet (Eliquis) 2.5 mg PO BID 02/20/19 12/10/20 ascorbic acid (vitamin C) 500 mg 500 mg PO QAM 02/20/19 12/10/20 tablet (Vitamin C) atorvastatin 80 mg tablet 40 mg PO HS 02/20/19 12/10/20 cetirizine 10 mg tablet 5 mg PO QAM 02/20/19 12/10/20 donepezil 10 mg tablet 10 mg PO HS 02/20/19 12/10/20 ferrous sulfate 325 mg (65 mg 325 mg PO Q OTHER DAY 02/20/19 12/10/20 iron) tablet furosemide 20 mg tablet 20 mg PO QAM 02/20/19 12/10/20 carvedilol 6.25 mg tablet 3.125 mg PO Q12 12/10/20 12/10/20 cholecalciferol (vitamin D3) 50 50 mcg PO DAILY 12/10/20 12/10/20 mcg (2,000 unit) tablet ergocalciferol (vitamin D2) 1,250 1,250 mcg PO WK 12/10/20 12/10/20 mcg (50,000 unit) capsule finasteride 5 mg tablet 5 mg PO DAILY 12/10/20 12/10/20 food supplemt, lactose-reduced 1 ea PO TID 12/10/20 12/10/20 (Ensure Clear) loperamide 1 mg/7.5 mL oral liquid 2 - 4 mg PO UD PRN MDD 16mg 12/10/20 12/10/20 omeprazole 20 mg capsule,delayed 20 mg PO DAILY 12/10/20 12/10/20 release potassium chloride 20 mEq 20 meq PO DAILY 12/10/20 12/10/20 tablet,extended release(part/cryst) spironolactone 25 mg tablet 12.5 mg PO DAILY 12/10/20 12/10/20 Results & Data (ED) Vital Signs Vital Signs - 24 hr 12/10/20 17:32 12/10/20 17:35 12/10/20 18:06 Temperature 36.4 C L Temperature Source Oral Pulse Rate 124 H 118 H 132 H Pulse Rate from SpO2 Sensor Pulse Rhythm Irregular Respiratory Rate 27 H 27 H 37 H Respiratory Effort / Characteristics Labored Respiratory Depth Shallow Respiratory Pattern Tachypnea Blood Pressure 80/54 L 80/54 L 70/54 L Blood Pressure Mean 62 62 59 Blood Pressure Position Lying Pulse Oximetry 67 L Oxygen Delivery Method Nasal Cannula Oxygen Flow Rate 2 Fraction of Inspired Oxygen Sepsis Recent Fever Within 48 Hours No Sepsis New/Unexplained Change in Mental Status N/A Sepsis Action Taken by Nursing No Action Required Oxygen Flow Rate - Titration Pulse Oximetry Post Tiitration 12/10/20 18:15 12/10/20 18:30 12/10/20 18:34 Temperature Temperature Source Pulse Rate 127 H 126 H Pulse Rate from SpO2 Sensor 89 104 H Pulse Rhythm Respiratory Rate 38 H 36 H Respiratory Effort / Characteristics Respiratory Depth Respiratory Pattern Blood Pressure 60/44 L 58/40 L Blood Pressure Mean 49 46 Blood Pressure Position Pulse Oximetry 63 L 70 L 68 L Oxygen Delivery Method Oxymask Nasal Cannula Oxymask BiPAP Oxygen Flow Rate 15 2 15 Fraction of Inspired Oxygen Sepsis Recent Fever Within 48 Hours Sepsis New/Unexplained Change in Mental Status Sepsis Action Taken by Nursing Oxygen Flow Rate - Titration 15 Pulse Oximetry Post Tiitration 72 L 12/10/20 18:45 12/10/20 19:00 12/10/20 19:05 Temperature Temperature Source Pulse Rate 120 H 115 H 111 H Pulse Rate from SpO2 Sensor 142 H Pulse Rhythm Respiratory Rate 29 H 23 31 H Respiratory Effort / Characteristics Spontaneous Short of Breath Respiratory Depth Shallow Respiratory Pattern Blood Pressure 78/53 L Blood Pressure Mean 61 Blood Pressure Position Pulse Oximetry 70 L 71 L 72 L Oxygen Delivery Method BiPAP BiPAP Oxygen Flow Rate Fraction of Inspired Oxygen 100 Sepsis Recent Fever Within 48 Hours Sepsis New/Unexplained Change in Mental Status Sepsis Action Taken by Nursing Oxygen Flow Rate - Titration Pulse Oximetry Post Tiitration 12/10/20 19:15 12/10/20 19:32 12/10/20 19:36 Temperature Temperature Source Pulse Rate 113 H 114 H 114 H Pulse Rate from SpO2 Sensor Pulse Rhythm Respiratory Rate 28 H 21 33 H Respiratory Effort / Characteristics Respiratory Depth Respiratory Pattern Blood Pressure 74/58 L 69/51 L Blood Pressure Mean 63 57 Blood Pressure Position Pulse Oximetry 69 L 71 L 73 L Oxygen Delivery Method BiPAP BiPAP BiPAP Oxygen Flow Rate Fraction of Inspired Oxygen Sepsis Recent Fever Within 48 Hours Sepsis New/Unexplained Change in Mental Status Sepsis Action Taken by Nursing Oxygen Flow Rate - Titration Pulse Oximetry Post Tiitration 12/10/20 19:40 12/10/20 19:46 12/10/20 19:50 Temperature Temperature Source Pulse Rate 116 H 110 H 112 H Pulse Rate from SpO2 Sensor Pulse Rhythm Respiratory Rate 25 H 26 H 26 H Respiratory Effort / Characteristics Respiratory Depth Respiratory Pattern Blood Pressure 82/52 L 90/54 L 70/59 L Blood Pressure Mean 62 66 62 Blood Pressure Position Pulse Oximetry 71 L 74 L 77 L Oxygen Delivery Method BiPAP BiPAP BiPAP Oxygen Flow Rate Fraction of Inspired Oxygen Sepsis Recent Fever Within 48 Hours Sepsis New/Unexplained Change in Mental Status Sepsis Action Taken by Nursing Oxygen Flow Rate - Titration Pulse Oximetry Post Tiitration 12/10/20 20:00 12/10/20 20:15 12/10/20 20:30 Temperature Temperature Source Pulse Rate 117 H 115 H 112 H Pulse Rate from SpO2 Sensor Pulse Rhythm Respiratory Rate 30 H 30 H 30 H Respiratory Effort / Characteristics Respiratory Depth Respiratory Pattern Blood Pressure 66/55 L 81/52 L 77/56 L Blood Pressure Mean 58 61 63 Blood Pressure Position Pulse Oximetry 79 L 82 L 79 L Oxygen Delivery Method BiPAP BiPAP BiPAP Oxygen Flow Rate Fraction of Inspired Oxygen Sepsis Recent Fever Within 48 Hours Sepsis New/Unexplained Change in Mental Status Sepsis Action Taken by Nursing Oxygen Flow Rate - Titration Pulse Oximetry Post Tiitration 12/10/20 20:45 12/10/20 21:00 12/10/20 21:16 Temperature Temperature Source Pulse Rate 106 H 109 H 118 H Pulse Rate from SpO2 Sensor Pulse Rhythm Respiratory Rate 31 H 22 16 Respiratory Effort / Characteristics Respiratory Depth Respiratory Pattern Blood Pressure 78/53 L 77/60 L 74/53 L Blood Pressure Mean 61 65 60 Blood Pressure Position Pulse Oximetry 76 L 79 L 82 L Oxygen Delivery Method BiPAP BiPAP Oxygen Flow Rate Fraction of Inspired Oxygen Sepsis Recent Fever Within 48 Hours Sepsis New/Unexplained Change in Mental Status Sepsis Action Taken by Nursing Oxygen Flow Rate - Titration Pulse Oximetry Post Tiitration 12/10/20 21:30 12/10/20 21:46 Temperature Temperature Source Pulse Rate 102 H 108 H Pulse Rate from SpO2 Sensor 104 H Pulse Rhythm Respiratory Rate 29 H 26 H Respiratory Effort / Characteristics Respiratory Depth Respiratory Pattern Blood Pressure 77/47 L 75/54 L Blood Pressure Mean 57 61 Blood Pressure Position Pulse Oximetry 88 L 94 Oxygen Delivery Method BiPAP BiPAP Oxygen Flow Rate Fraction of Inspired Oxygen Sepsis Recent Fever Within 48 Hours Sepsis New/Unexplained Change in Mental Status Sepsis Action Taken by Nursing Oxygen Flow Rate - Titration Pulse Oximetry Post Tiitration Laboratory Data Result diagrams: 12/10/20 18:55 12/10/20 18:55 Lab Results 12/10/20 12/10/20 12/10/20 Range/Units 17:33 17:33 18:07 WBC (4.8-10.8) K/uL RBC (4.7-6.1) M/uL Hgb (14.0-18.0) g/dL POC Hgb 13.3 L (14.0-18.0) g/dl Hct (42-52) % POC Hct 39 L (42-52) % MCV (80-100) fL MCH (25-34) pg MCHC (32-36) g/dL RDW Std Deviation (36.4-46.3) fL RDW Coeff of Victoriano (11.5-14.5) % Plt Count (130-400) K/uL MPV (7.4-10.4) fL Immature Gran % (Auto) % Neut % (Auto) % Lymph % (Auto) % [place] % (Auto) % Eos % (Auto) % Baso % (Auto) % Neut # (Auto) (1.4-6.5) K/uL Lymph # (Auto) (1.2-3.4) K/uL [place] # (Auto) (0.11-0.59) K/uL Eos # (Auto) (0-0.5) K/uL Baso # (Auto) (0-0.2) K/uL Immature Gran # (Auto) (0.00-0.02) K/uL PT (9.0-12.0) Seconds INR (0.9-1.1) APTT (21.0-31.0) Seconds PTT Ratio POC pH (7.35-7.45) POC pCO2 (35-46) mmHg POC pO2 (80-95) mmHg POC HCO3 (19-24) orn/L POC Base Excess (-9-1.8) ron/L POC ABG O2 Sat (90-95) % POC Sodium 151 H (135-144) mmol/L Sodium (136-145) mmol/L POC Potassium 4.8 (3.3-5.0) mmol/L Potassium (3.5-5.1) mmol/L POC Chloride 111 (101-112) mmol/L Chloride (98-107) mmol/L Carbon Dioxide (21-32) mmol/L POC Total CO2 24 (24-31) mmol/L Anion Gap (3-11) POC Anion Gap 21.0 (16-25) mmol/L POC BUN 75 H (7-18) mg/dl BUN (7-18) mg/dl Creatinine (0.6-1.4) mg/dl POC Creatinine 2.1 H (0.6-1.3) mg/dl Est Cr Clr Drug Dosing ml/min Est GFR ( Amer) ml/min Est GFR (Non-Af Amer) ml/min BUN/Creatinine Ratio (10-20) Glucose (70-99) mg/dl POC Glucose (other) 137 H (70-99) mg/dl Lactate (0.4-2.0) mmol/L Calcium (8.5-10.1) mg/dl POC Ioniz Calcium Doug 1.32 (1.12-1.32) mmol/l Magnesium (1.8-2.4) mg/dl Total Bilirubin (0.2-1) mg/dl AST (15-37) U/L ALT (12-78) U/L Alkaline Phosphatase (45-117) U/L Troponin I (0-0.045) ng/ml NT-Pro-B Natriuret Pep (0-1800) pg/ml Total Protein (6.4-8.2) gm/dl Albumin (3.4-5.0) gm/dl Globulin (2.5-4.0) gm/dl Albumin/Globulin Ratio (0.9-2) TSH (0.300-4.500) uIu/ml Urine Color Urine Appearance (Clear) Urine pH (4.5-7.5) Ur Specific [place] (1.000-1.030) Urine Protein (Negative) Urine Glucose (UA) (Negative) Urine Ketones (Negative) Urine Blood (Negative) Urine Nitrite (Negative) Urine Bilirubin (Negative) Urine Urobilinogen (Negative) Ur Leukocyte Esterase (Negative) Urine WBC (Auto) (0-5) /hpf Urine RBC (Auto) (0-4) /hpf U Hyaline Cast (Auto) (0-5) /lpf U Epithel Cells (Auto) (0-5) /lpf Urine Bacteria (Auto) (Negative) Ur Renal Epithelial Cell (0-5) /lpf COVID-19 Eval Order Covid19 at [facility] SARS-CoV-2 (PCR) NEGATIVE (Negative) 12/10/20 12/10/20 12/10/20 Range/Units 18:55 18:55 18:55 WBC 15.12 H (4.8-10.8) K/uL RBC 3.58 L (4.7-6.1) M/uL Hgb 11.9 L (14.0-18.0) g/dL POC Hgb (14.0-18.0) g/dl Hct 37.8 L (42-52) % POC Hct (42-52) % MCV 105.6 H (80-100) fL MCH 33.2 (25-34) pg MCHC 31.5 L (32-36) g/dL RDW Std Deviation 60.9 H (36.4-46.3) fL RDW Coeff of Victoriano 15.8 H (11.5-14.5) % Plt Count 217 (130-400) K/uL MPV 11.4 H (7.4-10.4) fL Immature Gran % (Auto) 0.2 % Neut % (Auto) 95.2 % Lymph % (Auto) 4.2 % [place] % (Auto) 0.4 % Eos % (Auto) 0.0 % Baso % (Auto) 0.0 % Neut # (Auto) 14.40 H (1.4-6.5) K/uL Lymph # (Auto) 0.63 L (1.2-3.4) K/uL [place] # (Auto) 0.06 L (0.11-0.59) K/uL Eos # (Auto) 0.00 (0-0.5) K/uL Baso # (Auto) 0.00 (0-0.2) K/uL Immature Gran # (Auto) 0.03 H (0.00-0.02) K/uL PT 17.2 H (9.0-12.0) Seconds INR 1.8 H (0.9-1.1) APTT 33.6 H (21.0-31.0) Seconds PTT Ratio 1.3 POC pH (7.35-7.45) POC pCO2 (35-46) mmHg POC pO2 (80-95) mmHg POC HCO3 (19-24) ron/L POC Base Excess (-9-1.8) ron/L POC ABG O2 Sat (90-95) % POC Sodium (135-144) mmol/L Sodium 149 H (136-145) mmol/L POC Potassium (3.3-5.0) mmol/L Potassium 4.3 (3.5-5.1) mmol/L POC Chloride (101-112) mmol/L Chloride 117 H (98-107) mmol/L Carbon Dioxide 20 L (21-32) mmol/L POC Total CO2 (24-31) mmol/L Anion Gap 12.0 H (3-11) POC Anion Gap (16-25) mmol/L POC BUN (7-18) mg/dl BUN 72 H (7-18) mg/dl Creatinine 2.25 H (0.6-1.4) mg/dl POC Creatinine (0.6-1.3) mg/dl Est Cr Clr Drug Dosing 14.1 ml/min Est GFR ( Amer) 29.3 ml/min Est GFR (Non-Af Amer) 25.3 ml/min BUN/Creatinine Ratio 31.9 H (10-20) Glucose 134 H (70-99) mg/dl POC Glucose (other) (70-99) mg/dl Lactate (0.4-2.0) mmol/L Calcium 9.4 (8.5-10.1) mg/dl POC Ioniz Calcium Doug (1.12-1.32) mmol/l Magnesium 2.2 (1.8-2.4) mg/dl Total Bilirubin 0.8 (0.2-1) mg/dl AST 179 H (15-37) U/L ALT 89 H (12-78) U/L Alkaline Phosphatase 80 (45-117) U/L Troponin I 0.043 (0-0.045) ng/ml NT-Pro-B Natriuret Pep 25697 H (0-1800) pg/ml Total Protein 6.7 (6.4-8.2) gm/dl Albumin 1.9 L (3.4-5.0) gm/dl Globulin 4.8 H (2.5-4.0) gm/dl Albumin/Globulin Ratio 0.4 L (0.9-2) TSH 1.100 (0.300-4.500) uIu/ml Urine Color Urine Appearance (Clear) Urine pH (4.5-7.5) Ur Specific [place] (1.000-1.030) Urine Protein (Negative) Urine Glucose (UA) (Negative) Urine Ketones (Negative) Urine Blood (Negative) Urine Nitrite (Negative) Urine Bilirubin (Negative) Urine Urobilinogen (Negative) Ur Leukocyte Esterase (Negative) Urine WBC (Auto) (0-5) /hpf Urine RBC (Auto) (0-4) /hpf U Hyaline Cast (Auto) (0-5) /lpf U Epithel Cells (Auto) (0-5) /lpf Urine Bacteria (Auto) (Negative) Ur Renal Epithelial Cell (0-5) /lpf COVID-19 Eval Order SARS-CoV-2 (PCR) (Negative) 12/10/20 12/10/20 12/10/20 Range/Units 18:55 18:55 18:57 WBC (4.8-10.8) K/uL RBC (4.7-6.1) M/uL Hgb (14.0-18.0) g/dL POC Hgb 11.6 L (14.0-18.0) g/dl Hct (42-52) % POC Hct 34 L (42-52) % MCV (80-100) fL MCH (25-34) pg MCHC (32-36) g/dL RDW Std Deviation (36.4-46.3) fL RDW Coeff of Victoriano (11.5-14.5) % Plt Count (130-400) K/uL MPV (7.4-10.4) fL Immature Gran % (Auto) % Neut % (Auto) % Lymph % (Auto) % [place] % (Auto) % Eos % (Auto) % Baso % (Auto) % Neut # (Auto) (1.4-6.5) K/uL Lymph # (Auto) (1.2-3.4) K/uL [place] # (Auto) (0.11-0.59) K/uL Eos # (Auto) (0-0.5) K/uL Baso # (Auto) (0-0.2) K/uL Immature Gran # (Auto) (0.00-0.02) K/uL PT (9.0-12.0) Seconds INR (0.9-1.1) APTT (21.0-31.0) Seconds PTT Ratio POC pH 7.31 L (7.35-7.45) POC pCO2 43 (35-46) mmHg POC pO2 53 L (80-95) mmHg POC HCO3 21 (19-24) ron/L POC Base Excess -5.0 (-9-1.8) ron/L POC ABG O2 Sat 84.0 L (90-95) % POC Sodium 150 H (135-144) mmol/L Sodium (136-145) mmol/L POC Potassium 4.1 (3.3-5.0) mmol/L Potassium (3.5-5.1) mmol/L POC Chloride (101-112) mmol/L Chloride (98-107) mmol/L Carbon Dioxide (21-32) mmol/L POC Total CO2 23 L (24-31) mmol/L Anion Gap (3-11) POC Anion Gap (16-25) mmol/L POC BUN (7-18) mg/dl BUN (7-18) mg/dl Creatinine (0.6-1.4) mg/dl POC Creatinine (0.6-1.3) mg/dl Est Cr Clr Drug Dosing ml/min Est GFR ( Amer) ml/min Est GFR (Non-Af Amer) ml/min BUN/Creatinine Ratio (10-20) Glucose (70-99) mg/dl POC Glucose (other) (70-99) mg/dl Lactate 5.4 H* (0.4-2.0) mmol/L Calcium (8.5-10.1) mg/dl POC Ioniz Calcium Doug (1.12-1.32) mmol/l Magnesium (1.8-2.4) mg/dl Total Bilirubin (0.2-1) mg/dl AST (15-37) U/L ALT (12-78) U/L Alkaline Phosphatase (45-117) U/L Troponin I (0-0.045) ng/ml NT-Pro-B Natriuret Pep (0-1800) pg/ml Total Protein (6.4-8.2) gm/dl Albumin (3.4-5.0) gm/dl Globulin (2.5-4.0) gm/dl Albumin/Globulin Ratio (0.9-2) TSH (0.300-4.500) uIu/ml Urine Color Yellow Urine Appearance Cloudy A (Clear) Urine pH 5.0 (4.5-7.5) Ur Specific [place] 1.014 (1.000-1.030) Urine Protein 1+ H (Negative) Urine Glucose (UA) Negative (Negative) Urine Ketones Negative (Negative) Urine Blood Negative (Negative) Urine Nitrite Negative (Negative) Urine Bilirubin Negative (Negative) Urine Urobilinogen Negative (Negative) Ur Leukocyte Esterase Trace H (Negative) Urine WBC (Auto) 1-5 (0-5) /hpf Urine RBC (Auto) 5-10 H (0-4) /hpf U Hyaline Cast (Auto) 1-5 (0-5) /lpf U Epithel Cells (Auto) >30 H (0-5) /lpf Urine Bacteria (Auto) Negative (Negative) Ur Renal Epithelial Cell 0-5 (0-5) /lpf COVID-19 Eval Order SARS-CoV-2 (PCR) (Negative) Administered Medications Norepinephrine Bitartrate (Levophed/D5w) 8 mg in 508 mls @ 41.148 mls/hr IV .[id number] [facility], [facility]; Protocol Stop: 01/09/21 22:14 Last Titration: 12/11/20 00:43 Dose: 0.25 mcg/kg/min, 41.1 mls/hr Documented by: [id number] Titration: 12/10/20 23:45 Dose: 0.2 mcg/kg/min, 32.9 mls/hr Documented by: [id number] Titration: 12/10/20 23:15 Dose: 0.15 mcg/kg/min, 24.7 mls/hr Documented by: [id number] Titration: 12/10/20 23:00 Dose: 0.1 mcg/kg/min, 16.5 mls/hr Documented by: [id number] Admin: 12/10/20 22:45 Dose: 0.05 mcg/kg/min, 8.2 mls/hr Documented by: [id number] Cosigned by: [id number] Piperacillin Sod/Tazobactam (Sod 3.375 gm/ Dextrose) 115 mls @ 28.75 mls/hr IV Q12H MARIBETH; Protocol Stop: 12/18/20 01:59 Last Admin: 12/11/20 01:11 Dose: 28.8 mls/hr Documented by: [id number] Vasopressin 20 units/ Sodium (Chloride) 101 mls @ 12.12 mls/hr IV .[id number] MARIBETH Stop: 01/10/21 00:59 Last Admin: 12/11/20 01:11 Dose: 0.04 unit/min, 12.1 mls/hr Documented by: [id number] Cosigned by: [id number] Discontinued Medications Sodium Chloride (Nss 1000ml) 1,000 mls @ 50 mls/hr IV .Q20H STA Stop: 12/11/20 13:31 Last Infusion: 12/10/20 20:46 Dose: 0 mls/hr Documented by: [id number] Admin: 12/10/20 17:40 Dose: 50 mls/hr Documented by: [id number] Sodium Chloride (Nss 1000ml) 500 mls @ 999 mls/hr IV .Q31M ONE Stop: 12/10/20 19:08 Last Infusion: 12/10/20 19:18 Dose: 0 mls/hr Documented by: [id number] Admin: 12/10/20 18:43 Dose: 999 mls/hr Documented by: [id number] Piperacillin Sod/Tazobactam Sod (Zosyn) 4.5 gm in 120 mls @ 240 mls/hr IV NOW ONE Stop: 12/10/20 19:07 Last Infusion: 12/10/20 19:26 Dose: 0 mls/hr Documented by: [id number] Admin: 12/10/20 18:49 Dose: 240 mls/hr Documented by: [id number] Sodium Chloride (Nss 1000ml) 500 mls @ 999 mls/hr IV .Q31M ONE Stop: 12/10/20 19:42 Last Infusion: 12/10/20 19:50 Dose: 0 mls/hr Documented by: [id number] Admin: 12/10/20 19:17 Dose: 999 mls/hr Documented by: [id number] Vancomycin HCl 750 mg/ Sodium (Chloride) 265 mls @ 200 mls/hr IV NOW ONE Stop: 12/10/20 21:19 Last Infusion: 12/10/20 21:30 Dose: 0 mls/hr Documented by: [id number] Admin: 12/10/20 20:05 Dose: 200 mls/hr Documented by: [id number] Sodium Chloride (Nss 1000ml) 500 mls @ 999 mls/hr IV .Q31M ONE Stop: 12/10/20 20:48 Last Infusion: 12/10/20 20:46 Dose: 0 mls/hr Documented by: [id number] Admin: 12/10/20 20:20 Dose: 999 mls/hr Documented by: [id number] Sodium Chloride (Nss 1000ml) 1,000 mls @ 125 mls/hr IV .Q8H STA Stop: 12/11/20 04:17 Last Infusion: 12/11/20 00:20 Dose: 0 mls/hr Documented by: [id number] Admin: 12/10/20 20:45 Dose: 125 mls/hr Documented by: [id number] Sodium Chloride (Nss 1000ml) 500 mls @ 999 mls/hr IV .Q31M ONE Stop: 12/10/20 21:58 Last Infusion: 12/10/20 22:06 Dose: 0 mls/hr Documented by: [id number] Admin: 12/10/20 21:32 Dose: 999 mls/hr Documented by: [id number] Linezolid (Zyvox) 600 mg in 300 mls @ 300 mls/hr IV Q12H MARIBETH Stop: 12/12/20 21:59 Last Infusion: 12/10/20 23:58 Dose: 0 mls/hr Documented by: [id number] Admin: 12/10/20 22:25 Dose: 300 mls/hr Documented by: [id number] Miscellaneous (Stat Iv Infusion Titration Per Protocol) 1 ea N/A NOW STA Stop: 12/10/20 22:09 Last Admin: 12/10/20 23:58 Dose: 1 ea Documented by: [id number] Imaging Data Radiologist's Impression: Chest X-Ray 12/10/20 17:32 SINGLE VIEW CHEST CLINICAL HISTORY: Dyspnea. FINDINGS: 3 AP, portable, upright chest radiographs are compared to study dated 02/20/2019. The heart is enlarged noting atherosclerotic calcification of the thoracic aorta. The pulmonary vasculature is noncongested. Emphysema and chronic interstitial thickening is similar to previous. There is volume loss in the left lung with multifocal left-sided consolidation. The right lung appears clear noting bibasilar scarring/atelectasis. A left pleural effusion is suspected. No pneumothorax is seen. The skeletal structures are osteopenic. The bony thorax is grossly intact. IMPRESSION: 1. Cardiomegaly and emphysema with no radiographic evidence of congestive failure. 2. There is volume loss in the left lung with multifocal left-sided pulmonary consolidation. Correlate clinically for evidence of pneumonia/aspiration pneumonitis. Radiographic follow-up to resolution is recommended. 3. Suspect a left pleural effusion. ACT 112: Negative or not required by law. Electronically signed by: Shane See M.D. 12/10/2020 6:20 PM Discharge Plan Visit Data Chief Complaint: Hypotension ED Provider: Lc Tovar Discharge Problem: Pneumonia, Hypoxia, Atrial fibrillation with rapid ventricular response, Acute dehydration, Acute hypotension, Leukocytosis Patient Disposition: Admitted As Inpatient Discharge Instructions Interventions: ED Discharge Assessment Last Done: 12/10/20 22:10
[2020-12-10] MEDS ORDERED: LINEZOLID 600 MG/300 ML BAG IV SCH (22:00)
--- NOTE | 2020-12-10 22:05 | History & Physical Report ---
Date of Service December 10, 2020 Assessment & Plan (1) Septic shock: Plan: Miguelangel Lynch is a 85-year-old male with past medical received for atrial fibrillation, chronic kidney disease stage III, BPH, dementia, and diastolic heart failure; who presented to the ER with altered mental status following brief period of time of unresponsiveness with family earlier today. Septic shock: -SIRS 3/4, qSOFA 2 -Lactate 5.4 in ED; repeat lactate pending -WBC 15.12 -Blood cultures pending -Received vancomycin and Zosyn in ED -Given acute kidney injury will transition to Zosyn and linezolid -Tenuous boluses of NS 500 mL x 3 in ED given diastolic heart failure concerns -No improvement in BP despite fluid resuscitation -Started on Levophed in ED -Admit to ICU for continued management Hypoxia: -Hypoxic on presentation to ED (O2 sat 67%) -ABG demonstrating: pH 7.31, PCO2 43, PO2 53, HCO3 21 -Limited improvement on BiPAP at maximal settings in ED -CXR demonstrating cardiomegaly, emphysema, volume loss of left lung with multifocal left-sided pulmonary consolidation, questionable left pleural effusion -Video swallow study from August 2020 demonstrating no definite aspiration with minimal retention of contrast material -Concern for mucous plugging versus aspiration pneumonitis Multi-organ dysfunction: -Likely related to poor forward flow from hypotension -Creatinine 2.25 (last comparison from 02/2019 of 1.14) -Elevated LFTs on admission -INR of 1.8 Atrial relation with RVR: -History of A. fib on on Eliquis at home -A. fib with RVR noted by EMS during transportation (heart rate up to 140) Diastolic CHF: -Longstanding history of diastolic dysfunction, on carvedilol, Lasix, and spironolactone at home -last echo in April 2016 demonstrating LVEF 50 to 55% dilated RV with reduced RV function and severe biatrial enlargement -BNP 11,435 on admission Dementia: -On donepezil 10 mg at night at home Diet: N.p.o. CODE STATUS: DNR/DNI DVT prophylaxis: Heparin (2) Multi-organ system dysfunction: (3) Pneumonia: (4) Hypoxia: (5) Atrial fibrillation with rapid ventricular response: (6) Acute kidney injury: (7) Diastolic CHF: History of Present Illness Primary Care Provider: NO PCP Miguelangel Lynch is a 85-year-old male with past medical received for atrial fibrillation, chronic kidney disease stage III, BPH, dementia, and diastolic heart failure; who presented to the ER with altered mental status following brief period of time of unresponsiveness with family earlier today. Family notes that over the last several weeks he has continued to have decline in his overall strength, and seems to be getting weaker almost daily. This morning getting him up to get him cleaned up, he was with it and interacting with them like normal. However, as they transition him to a stretcher to take him to the bathroom and noticed that he was having incredible difficulty with this, and subsequently became unresponsive. Family is uncertain for how long he was unresponsive, but they were trying to stimulate him and talk with him with no effect. EMS was ultimately called and patient was transported to the ED for further evaluation. Upon EMS arrival to the house he was hypoxic and hypotensive, requiring high flow nasal cannula and received 1 L normal saline bolus prior to arrival to the ED. Continued to have marked hypotension and hypoxia, ultimately was transitioned to BiPAP with initially minimal improvement in oxygen saturations before admission. Family present in the ED states that he looked considerably better prior to admission than he had early this morning. But noted that his fingers and toes were becoming more bluish discolored. Acknowledged that he had previously expressed desire to not be resuscitated if his heart stopped and desire to avoid intubation, and wishes to be DNR/DNI. However had previously never had conversations about antibiotics or fluid resuscitation, nor had knowledge of potential for medications to elevate blood pressure. Family indicates that they would be willing to trial these medications, in an effort to prolong life. Allergies Allergy/AdvReac Type Severity Reaction Status Date / Time No Known Allergies Allergy Unverified 02/21/19 10:21 Home Medications Medication Instructions Recorded Confirmed Type apixaban 5 mg tablet (Eliquis) 2.5 mg PO BID 02/20/19 12/10/20 History ascorbic acid (vitamin C) 500 mg 500 mg PO QAM 02/20/19 12/10/20 History tablet (Vitamin C) atorvastatin 80 mg tablet 40 mg PO HS 02/20/19 12/10/20 History cetirizine 10 mg tablet 5 mg PO QAM 02/20/19 12/10/20 History donepezil 10 mg tablet 10 mg PO HS 02/20/19 12/10/20 History ferrous sulfate 325 mg (65 mg 325 mg PO Q OTHER DAY 02/20/19 12/10/20 History iron) tablet furosemide 20 mg tablet 20 mg PO QAM 02/20/19 12/10/20 History carvedilol 6.25 mg tablet 3.125 mg PO Q12 12/10/20 12/10/20 History cholecalciferol (vitamin D3) 50 50 mcg PO DAILY 12/10/20 12/10/20 History mcg (2,000 unit) tablet ergocalciferol (vitamin D2) 1,250 1,250 mcg PO WK 12/10/20 12/10/20 History mcg (50,000 unit) capsule finasteride 5 mg tablet 5 mg PO DAILY 12/10/20 12/10/20 History food supplemt, lactose-reduced 1 ea PO TID 12/10/20 12/10/20 History (Ensure Clear) loperamide 1 mg/7.5 mL oral liquid 2 - 4 mg PO UD PRN MDD 16mg 12/10/20 12/10/20 History omeprazole 20 mg capsule,delayed 20 mg PO DAILY 12/10/20 12/10/20 History release potassium chloride 20 mEq 20 meq PO DAILY 12/10/20 12/10/20 History tablet,extended release(part/cryst) spironolactone 25 mg tablet 12.5 mg PO DAILY 12/10/20 12/10/20 History Past Med/Surg History Medical History Afib CHF (congestive heart failure) COPD (chronic obstructive pulmonary disease) Emphysema of lung Myocardial infarction Palliative care encounter Stroke Surgical History No significant past surgical history Social History Smoking Status: Never smoker Second Hand Exposure: No; Do You Dip or Chew Tobacco: No; Tobacco Cessation Education Requested by Patient: No Hx Alcohol Use: No Hx Substance Use: No Preferred Language: Colombian Communication Ability: Unable Billing Collections Specialist Required: No Beliefs That Will Affect Care: None marital status: / Current Living Situation: Family Other Information That Helps Us Care for You: No Feels Safe at Home: Yes Safety Concerns: Feels Safe At This Time Assistive Devices: Oxygen - Continuous Review of Systems Review of Systems: All systems reviewed & are unremarkable except as noted in HPI & below Physical Exam Constitutional: + thin, + frail appearing, cooperative and + lethargic Eyes: PERRL, conjunctivae normal, anicteric sclerae normal visual coleman by confrontation and EOM intact bilaterally Respiratory: + abnormal respiratory effort and no labored breathing Auscultation: + diminished lung sounds (L>R) and + wheezes (pena-lobar); no crackles and no rales Cardiovascular: Rate/Rhythm: + tachycardic and + irregularly irregular Heart Sounds: no gallop, no murmur and no cardiac rub Faint peripheral pulses (radial, ulnar, posterior tibial, dorsalis pedis) Gastrointestinal (Abdomen): normal bowel sounds, soft, nontender, no hepatosplenomegaly Skin: + turgor decreased Neurologic: PERRL, EOMI, accommodation nl, no face palsy, no dysarthria moves all extremities, awake and + confused; no focal motor deficits Speech / Cognition: normal speech Results & Data Results & Data ([facility]) Vital Signs (Past 12 Hours) Vital Signs Temp Pulse Resp BP Pulse Ox 12/10/20 21:46 108 H 26 H 75/54 L 94 12/10/20 21:30 102 H 29 H 77/47 L 88 L 12/10/20 21:16 118 H 16 74/53 L 82 L 12/10/20 21:00 109 H 22 77/60 L 79 L 12/10/20 20:45 106 H 31 H 78/53 L 76 L 12/10/20 20:30 112 H 30 H 77/56 L 79 L 12/10/20 20:15 115 H 30 H 81/52 L 82 L 12/10/20 20:00 117 H 30 H 66/55 L 79 L 12/10/20 19:50 112 H 26 H 70/59 L 77 L 12/10/20 19:46 110 H 26 H 90/54 L 74 L 12/10/20 19:40 116 H 25 H 82/52 L 71 L 12/10/20 19:36 114 H 33 H 69/51 L 73 L 12/10/20 19:32 114 H 21 71 L 12/10/20 19:15 113 H 28 H 74/58 L 69 L 12/10/20 19:05 111 H 31 H 72 L 12/10/20 19:00 115 H 23 78/53 L 71 L 12/10/20 18:45 120 H 29 H 70 L 12/10/20 18:34 126 H 36 H 58/40 L 68 L 12/10/20 18:30 70 L 12/10/20 18:15 127 H 38 H 60/44 L 63 L 12/10/20 18:06 132 H 37 H 70/54 L 12/10/20 17:35 36.4 C L 118 H 27 H 80/54 L 67 L 12/10/20 17:32 124 H 27 H 80/54 L Laboratory Results 12/10/20 12/10/20 12/10/20 Range/Units 22:03 18:57 18:55 WBC (4.8-10.8) K/uL RBC (4.7-6.1) M/uL Hgb (14.0-18.0) g/dL POC Hgb 11.6 L (14.0-18.0) g/dl Hct (42-52) % POC Hct 34 L (42-52) % MCV (80-100) fL MCH (25-34) pg MCHC (32-36) g/dL RDW Std Deviation (36.4-46.3) fL RDW Coeff of Victoriano (11.5-14.5) % Plt Count (130-400) K/uL MPV (7.4-10.4) fL Immature Gran % (Auto) % Neut % (Auto) % Lymph % (Auto) % Heard % (Auto) % Eos % (Auto) % Baso % (Auto) % Neut # (Auto) (1.4-6.5) K/uL Lymph # (Auto) (1.2-3.4) K/uL Heard # (Auto) (0.11-0.59) K/uL Eos # (Auto) (0-0.5) K/uL Baso # (Auto) (0-0.2) K/uL Immature Gran # (Auto) (0.00-0.02) K/uL PT (9.0-12.0) Seconds INR (0.9-1.1) APTT (21.0-31.0) Seconds PTT Ratio POC pH 7.31 L (7.35-7.45) POC pCO2 43 (35-46) mmHg POC pO2 53 L (80-95) mmHg POC HCO3 21 (19-24) ron/L POC Base Excess -5.0 (-9-1.8) ron/L POC ABG O2 Sat 84.0 L (90-95) % POC Sodium 150 H (135-144) mmol/L Sodium (136-145) mmol/L POC Potassium 4.1 (3.3-5.0) mmol/L Potassium (3.5-5.1) mmol/L POC Chloride (101-112) mmol/L Chloride (98-107) mmol/L Carbon Dioxide (21-32) mmol/L POC Total CO2 23 L (24-31) mmol/L Anion Gap (3-11) POC Anion Gap (16-25) mmol/L POC BUN (7-18) mg/dl BUN (7-18) mg/dl Creatinine (0.6-1.4) mg/dl POC Creatinine (0.6-1.3) mg/dl Est Cr Clr Drug Dosing ml/min Est GFR ( Amer) ml/min Est GFR (Non-Af Amer) ml/min BUN/Creatinine Ratio (10-20) Glucose (70-99) mg/dl POC Glucose (other) (70-99) mg/dl Lactate (0.4-2.0) mmol/L Calcium (8.5-10.1) mg/dl POC Ioniz Calcium Doug (1.12-1.32) mmol/l Magnesium (1.8-2.4) mg/dl Total Bilirubin (0.2-1) mg/dl AST (15-37) U/L ALT (12-78) U/L Alkaline Phosphatase (45-117) U/L Troponin I (0-0.045) ng/ml NT-Pro-B Natriuret Pep (0-1800) pg/ml Total Protein (6.4-8.2) gm/dl Albumin (3.4-5.0) gm/dl Globulin (2.5-4.0) gm/dl Albumin/Globulin Ratio (0.9-2) TSH (0.300-4.500) uIu/ml Urine Color Yellow Urine Appearance Cloudy A (Clear) Urine pH 5.0 (4.5-7.5) Ur Specific Wheelwright 1.014 (1.000-1.030) Urine Protein 1+ H (Negative) Urine Glucose (UA) Negative (Negative) Urine Ketones Negative (Negative) Urine Blood Negative (Negative) Urine Nitrite Negative (Negative) Urine Bilirubin Negative (Negative) Urine Urobilinogen Negative (Negative) Ur Leukocyte Esterase Trace H (Negative) Urine WBC (Auto) 1-5 (0-5) /hpf Urine RBC (Auto) 5-10 H (0-4) /hpf U Hyaline Cast (Auto) 1-5 (0-5) /lpf U Epithel Cells (Auto) >30 H (0-5) /lpf Urine Bacteria (Auto) Negative (Negative) Ur Renal Epithelial Cell 0-5 (0-5) /lpf Nasal Screen MRSA (PCR) Pending COVID-19 Eval Order SARS-CoV-2 (PCR) (Negative) 12/10/20 12/10/20 12/10/20 Range/Units 18:55 18:55 18:55 WBC (4.8-10.8) K/uL RBC (4.7-6.1) M/uL Hgb (14.0-18.0) g/dL POC Hgb (14.0-18.0) g/dl Hct (42-52) % POC Hct (42-52) % MCV (80-100) fL MCH (25-34) pg MCHC (32-36) g/dL RDW Std Deviation (36.4-46.3) fL RDW Coeff of Victoriano (11.5-14.5) % Plt Count (130-400) K/uL MPV (7.4-10.4) fL Immature Gran % (Auto) % Neut % (Auto) % Lymph % (Auto) % Heard % (Auto) % Eos % (Auto) % Baso % (Auto) % Neut # (Auto) (1.4-6.5) K/uL Lymph # (Auto) (1.2-3.4) K/uL Heard # (Auto) (0.11-0.59) K/uL Eos # (Auto) (0-0.5) K/uL Baso # (Auto) (0-0.2) K/uL Immature Gran # (Auto) (0.00-0.02) K/uL PT 17.2 H (9.0-12.0) Seconds INR 1.8 H (0.9-1.1) APTT 33.6 H (21.0-31.0) Seconds PTT Ratio 1.3 POC pH (7.35-7.45) POC pCO2 (35-46) mmHg POC pO2 (80-95) mmHg POC HCO3 (19-24) ron/L POC Base Excess (-9-1.8) ron/L POC ABG O2 Sat (90-95) % POC Sodium (135-144) mmol/L Sodium 149 H (136-145) mmol/L POC Potassium (3.3-5.0) mmol/L Potassium 4.3 (3.5-5.1) mmol/L POC Chloride (101-112) mmol/L Chloride 117 H (98-107) mmol/L Carbon Dioxide 20 L (21-32) mmol/L POC Total CO2 (24-31) mmol/L Anion Gap 12.0 H (3-11) POC Anion Gap (16-25) mmol/L POC BUN (7-18) mg/dl BUN 72 H (7-18) mg/dl Creatinine 2.25 H (0.6-1.4) mg/dl POC Creatinine (0.6-1.3) mg/dl Est Cr Clr Drug Dosing 14.1 ml/min Est GFR ( Amer) 29.3 ml/min Est GFR (Non-Af Amer) 25.3 ml/min BUN/Creatinine Ratio 31.9 H (10-20) Glucose 134 H (70-99) mg/dl POC Glucose (other) (70-99) mg/dl Lactate 5.4 H* (0.4-2.0) mmol/L Calcium 9.4 (8.5-10.1) mg/dl POC Ioniz Calcium Doug (1.12-1.32) mmol/l Magnesium 2.2 (1.8-2.4) mg/dl Total Bilirubin 0.8 (0.2-1) mg/dl AST 179 H (15-37) U/L ALT 89 H (12-78) U/L Alkaline Phosphatase 80 (45-117) U/L Troponin I 0.043 (0-0.045) ng/ml NT-Pro-B Natriuret Pep 92588 H (0-1800) pg/ml Total Protein 6.7 (6.4-8.2) gm/dl Albumin 1.9 L (3.4-5.0) gm/dl Globulin 4.8 H (2.5-4.0) gm/dl Albumin/Globulin Ratio 0.4 L (0.9-2) TSH 1.100 (0.300-4.500) uIu/ml Urine Color Urine Appearance (Clear) Urine pH (4.5-7.5) Ur Specific Wheelwright (1.000-1.030) Urine Protein (Negative) Urine Glucose (UA) (Negative) Urine Ketones (Negative) Urine Blood (Negative) Urine Nitrite (Negative) Urine Bilirubin (Negative) Urine Urobilinogen (Negative) Ur Leukocyte Esterase (Negative) Urine WBC (Auto) (0-5) /hpf Urine RBC (Auto) (0-4) /hpf U Hyaline Cast (Auto) (0-5) /lpf U Epithel Cells (Auto) (0-5) /lpf Urine Bacteria (Auto) (Negative) Ur Renal Epithelial Cell (0-5) /lpf Nasal Screen MRSA (PCR) COVID-19 Eval Order SARS-CoV-2 (PCR) (Negative) 12/10/20 12/10/20 12/10/20 Range/Units 18:55 18:07 17:33 WBC 15.12 H (4.8-10.8) K/uL RBC 3.58 L (4.7-6.1) M/uL Hgb 11.9 L (14.0-18.0) g/dL POC Hgb 13.3 L (14.0-18.0) g/dl Hct 37.8 L (42-52) % POC Hct 39 L (42-52) % MCV 105.6 H (80-100) fL MCH 33.2 (25-34) pg MCHC 31.5 L (32-36) g/dL RDW Std Deviation 60.9 H (36.4-46.3) fL RDW Coeff of Victoriano 15.8 H (11.5-14.5) % Plt Count 217 (130-400) K/uL MPV 11.4 H (7.4-10.4) fL Immature Gran % (Auto) 0.2 % Neut % (Auto) 95.2 % Lymph % (Auto) 4.2 % Heard % (Auto) 0.4 % Eos % (Auto) 0.0 % Baso % (Auto) 0.0 % Neut # (Auto) 14.40 H (1.4-6.5) K/uL Lymph # (Auto) 0.63 L (1.2-3.4) K/uL Heard # (Auto) 0.06 L (0.11-0.59) K/uL Eos # (Auto) 0.00 (0-0.5) K/uL Baso # (Auto) 0.00 (0-0.2) K/uL Immature Gran # (Auto) 0.03 H (0.00-0.02) K/uL PT (9.0-12.0) Seconds INR (0.9-1.1) APTT (21.0-31.0) Seconds PTT Ratio POC pH (7.35-7.45) POC pCO2 (35-46) mmHg POC pO2 (80-95) mmHg POC HCO3 (19-24) ron/L POC Base Excess (-9-1.8) ron/L POC ABG O2 Sat (90-95) % POC Sodium 151 H (135-144) mmol/L Sodium (136-145) mmol/L POC Potassium 4.8 (3.3-5.0) mmol/L Potassium (3.5-5.1) mmol/L POC Chloride 111 (101-112) mmol/L Chloride (98-107) mmol/L Carbon Dioxide (21-32) mmol/L POC Total CO2 24 (24-31) mmol/L Anion Gap (3-11) POC Anion Gap 21.0 (16-25) mmol/L POC BUN 75 H (7-18) mg/dl BUN (7-18) mg/dl Creatinine (0.6-1.4) mg/dl POC Creatinine 2.1 H (0.6-1.3) mg/dl Est Cr Clr Drug Dosing ml/min Est GFR ( Amer) ml/min Est GFR (Non-Af Amer) ml/min BUN/Creatinine Ratio (10-20) Glucose (70-99) mg/dl POC Glucose (other) 137 H (70-99) mg/dl Lactate (0.4-2.0) mmol/L Calcium (8.5-10.1) mg/dl POC Ioniz Calcium Doug 1.32 (1.12-1.32) mmol/l Magnesium (1.8-2.4) mg/dl Total Bilirubin (0.2-1) mg/dl AST (15-37) U/L ALT (12-78) U/L Alkaline Phosphatase (45-117) U/L Troponin I (0-0.045) ng/ml NT-Pro-B Natriuret Pep (0-1800) pg/ml Total Protein (6.4-8.2) gm/dl Albumin (3.4-5.0) gm/dl Globulin (2.5-4.0) gm/dl Albumin/Globulin Ratio (0.9-2) TSH (0.300-4.500) uIu/ml Urine Color Urine Appearance (Clear) Urine pH (4.5-7.5) Ur Specific Wheelwright (1.000-1.030) Urine Protein (Negative) Urine Glucose (UA) (Negative) Urine Ketones (Negative) Urine Blood (Negative) Urine Nitrite (Negative) Urine Bilirubin (Negative) Urine Urobilinogen (Negative) Ur Leukocyte Esterase (Negative) Urine WBC (Auto) (0-5) /hpf Urine RBC (Auto) (0-4) /hpf U Hyaline Cast (Auto) (0-5) /lpf U Epithel Cells (Auto) (0-5) /lpf Urine Bacteria (Auto) (Negative) Ur Renal Epithelial Cell (0-5) /lpf Nasal Screen MRSA (PCR) COVID-19 Eval Order SARS-CoV-2 (PCR) NEGATIVE (Negative) 12/10/20 Range/Units 17:33 WBC (4.8-10.8) K/uL RBC (4.7-6.1) M/uL Hgb (14.0-18.0) g/dL POC Hgb (14.0-18.0) g/dl Hct (42-52) % POC Hct (42-52) % MCV (80-100) fL MCH (25-34) pg MCHC (32-36) g/dL RDW Std Deviation (36.4-46.3) fL RDW Coeff of Victoriano (11.5-14.5) % Plt Count (130-400) K/uL MPV (7.4-10.4) fL Immature Gran % (Auto) % Neut % (Auto) % Lymph % (Auto) % Heard % (Auto) % Eos % (Auto) % Baso % (Auto) % Neut # (Auto) (1.4-6.5) K/uL Lymph # (Auto) (1.2-3.4) K/uL Heard # (Auto) (0.11-0.59) K/uL Eos # (Auto) (0-0.5) K/uL Baso # (Auto) (0-0.2) K/uL Immature Gran # (Auto) (0.00-0.02) K/uL PT (9.0-12.0) Seconds INR (0.9-1.1) APTT (21.0-31.0) Seconds PTT Ratio POC pH (7.35-7.45) POC pCO2 (35-46) mmHg POC pO2 (80-95) mmHg POC HCO3 (19-24) ron/L POC Base Excess (-9-1.8) ron/L POC ABG O2 Sat (90-95) % POC Sodium (135-144) mmol/L Sodium (136-145) mmol/L POC Potassium (3.3-5.0) mmol/L Potassium (3.5-5.1) mmol/L POC Chloride (101-112) mmol/L Chloride (98-107) mmol/L Carbon Dioxide (21-32) mmol/L POC Total CO2 (24-31) mmol/L Anion Gap (3-11) POC Anion Gap (16-25) mmol/L POC BUN (7-18) mg/dl BUN (7-18) mg/dl Creatinine (0.6-1.4) mg/dl POC Creatinine (0.6-1.3) mg/dl Est Cr Clr Drug Dosing ml/min Est GFR ( Amer) ml/min Est GFR (Non-Af Amer) ml/min BUN/Creatinine Ratio (10-20) Glucose (70-99) mg/dl POC Glucose (other) (70-99) mg/dl Lactate (0.4-2.0) mmol/L Calcium (8.5-10.1) mg/dl POC Ioniz Calcium Doug (1.12-1.32) mmol/l Magnesium (1.8-2.4) mg/dl Total Bilirubin (0.2-1) mg/dl AST (15-37) U/L ALT (12-78) U/L Alkaline Phosphatase (45-117) U/L Troponin I (0-0.045) ng/ml NT-Pro-B Natriuret Pep (0-1800) pg/ml Total Protein (6.4-8.2) gm/dl Albumin (3.4-5.0) gm/dl Globulin (2.5-4.0) gm/dl Albumin/Globulin Ratio (0.9-2) TSH (0.300-4.500) uIu/ml Urine Color Urine Appearance (Clear) Urine pH (4.5-7.5) Ur Specific Wheelwright (1.000-1.030) Urine Protein (Negative) Urine Glucose (UA) (Negative) Urine Ketones (Negative) Urine Blood (Negative) Urine Nitrite (Negative) Urine Bilirubin (Negative) Urine Urobilinogen (Negative) Ur Leukocyte Esterase (Negative) Urine WBC (Auto) (0-5) /hpf Urine RBC (Auto) (0-4) /hpf U Hyaline Cast (Auto) (0-5) /lpf U Epithel Cells (Auto) (0-5) /lpf Urine Bacteria (Auto) (Negative) Ur Renal Epithelial Cell (0-5) /lpf Nasal Screen MRSA (PCR) COVID-19 Eval Order Covid19 at [facility] SARS-CoV-2 (PCR) (Negative) Diagnostic Findings Impressions Chest X-Ray 12/10/20 17:32 SINGLE VIEW CHEST CLINICAL HISTORY: Dyspnea. FINDINGS: 3 AP, portable, upright chest radiographs are compared to study dated 02/20/2019. The heart is enlarged noting atherosclerotic calcification of the thoracic aorta. The pulmonary vasculature is noncongested. Emphysema and chronic interstitial thickening is similar to previous. There is volume loss in the left lung with multifocal left-sided consolidation. The right lung appears clear noting bibasilar scarring/atelectasis. A left pleural effusion is suspected. No pneumothorax is seen. The skeletal structures are osteopenic. The bony thorax is grossly intact. IMPRESSION: 1. Cardiomegaly and emphysema with no radiographic evidence of congestive failure. 2. There is volume loss in the left lung with multifocal left-sided pulmonary consolidation. Correlate clinically for evidence of pneumonia/aspiration pneumonitis. Radiographic follow-up to resolution is recommended. 3. Suspect a left pleural effusion. ACT 112: Negative or not required by law. Electronically signed by: Shane See M.D. 12/10/2020 6:20 PM Medications Administered Home Medication List Medication Instructions Recorded apixaban 5 mg tablet (Eliquis) 2.5 mg PO BID 02/20/19 ascorbic acid (vitamin C) 500 mg 500 mg PO QAM 02/20/19 tablet (Vitamin C) atorvastatin 80 mg tablet 40 mg PO HS 02/20/19 cetirizine 10 mg tablet 5 mg PO QAM 02/20/19 donepezil 10 mg tablet 10 mg PO HS 02/20/19 ferrous sulfate 325 mg (65 mg 325 mg PO Q OTHER DAY 02/20/19 iron) tablet furosemide 20 mg tablet 20 mg PO QAM 02/20/19 carvedilol 6.25 mg tablet 3.125 mg PO Q12 12/10/20 cholecalciferol (vitamin D3) 50 50 mcg PO DAILY 12/10/20 mcg (2,000 unit) tablet ergocalciferol (vitamin D2) 1,250 1,250 mcg PO WK 12/10/20 mcg (50,000 unit) capsule finasteride 5 mg tablet 5 mg PO DAILY 12/10/20 food supplemt, lactose-reduced 1 ea PO TID 12/10/20 (Ensure Clear) loperamide 1 mg/7.5 mL oral liquid 2 - 4 mg PO UD PRN MDD 16mg 12/10/20 omeprazole 20 mg capsule,delayed 20 mg PO DAILY 12/10/20 release potassium chloride 20 mEq 20 meq PO DAILY 12/10/20 tablet,extended release(part/cryst) spironolactone 25 mg tablet 12.5 mg PO DAILY 12/10/20 Critical Care Time 40 minutes Supervising Physician Co-Signing Physician Notes Attending addendum: I have physically seen this patient, have supervised the medical residents activities, and agree with the H&P unless as otherwise noted. 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
[2020-12-10] MEDS ORDERED: STAT IV Infusion **Titration per Protocol STA (22:08)
[2020-12-10] MEDS ORDERED: ICU PROTOCOL FOR HYPERGLYCEMIA PRN (22:33)
[2020-12-10] MEDS: NOREPINEPHRINE/D5W 8 MG/508 ML BAG IV SCH (22:45)
--- NOTE | 2020-12-10 23:02 | Critical Care Consultation ---
Date of Consultation December 10, 2020 Assessment & Plan (1) Septic shock: Reason Critically Ill: 85-year-old male presents to the ICU with septic shock and acute hypoxic respiratory failure currently requiring vasopressors and high FiO2 requirements on BiPAP. Patient is DNR/DNI. Neuro - AMSstroke and dementia noted on patient's history and unsure of baseline mental status -Likely metabolic encephalopathy in the setting of sepsis. BUN also significantly elevated -Neurological exam grossly unremarkable, no complaints of headache, patient anticoagulated and ischemic event unlikely -Monitor for now Cardiac - Shockpatient presented with hypotension's unresponsive to fluids. Chest x-ray consistent with pneumonia and suspect likely septic shock from pulmonary source. -Patient does have history of diastolic heart failure and echo pending -Received 2.5 L isotonic bolus in the emergency department, will hold on further fluid resuscitation for now due to heart failure and significant hypoxia -We will hold diuretics and antihypertensives for now -CVC inserted and Levophed to maintain maps greater than 65 -Troponin negative -Random cortisol pending -Monitor Atrial fibrillationchronic -Currently rate controlled -Anticoagulated on Eliquis. Consider transitioning to heparin drip in a.m. -Continuous monitoring on telemetry Respiratory - Acute hypoxic respiratory failurepatient presents with severe hypoxia currently requiring BiPAP 100% FiO2. Would normally require intubation but patient strictly DNI -Chest x-ray consistent with pneumonia, did speak with patient's family regarding bronchoscopy. This would require intubation and patient's family declined. -See ID for management of pneumonia -History of diastolic health heart failure requiring diuretics, BNP 11,435. Will hold on diuresis for now as patient is hypotensive requiring vasopressor support -Patient anticoagulated and PE unlikely -Continuous monitoring on pulse ox. -Continue with BiPAP and wean FiO2 as tolerated. GI - N.p.o. for now Transaminitismild likely in the setting of shock liver following hypotension -Monitor RENAL/LYTES - THEO on CKD stage IIIsuspect ATN following hypotension. Creatinine 2.25 on admission with prior baseline 1.14 -No electrolyte abnormalities at this time and acidosis likely attributed to lactate -Hold diuretics for now -Careful with IV fluid resuscitation as patient has diastolic heart failure and is significantly hypoxic -Maintain maps greater than 65 -Avoid nephrotoxins renally adjust medication -Monitor BMPs - BPHholding finasteride as patient is n.p.o. for now -Diop ENDO - No history of diabetes, ICU hyperglycemic protocol TSH within normal limits HEME - H&H stable, routine CBCs ID - Sepsislikely from pulmonary sources chest x-ray is consistent with pulmonary infiltrates/pneumonia -Elevated WBC and lactate on admission. Afebrile -Urinalysis unremarkable, blood cultures pending -Procalcitonin pending -COVID-19 negative -Nasal MRSA negative -Continue with Zosyn for now LINES/IV ACCESS - Right IJ CVC DVT PROPHYLAXIS - SCDs, heparin Patient's prognosis remains poor given his advanced age and comorbidities. This was discussed with the patient's family. His CODE STATUS remains DNR/DNI. Patient's family did see open to transition to comfort care if he continues to decompensate but would like to pursue medical management at this time to see if the patient makes progress and reevaluate tomorrow. I have personally spent 50 minutes of critical care time in the direct management of this patient. This is a life/limb threatening event. This includes time spent evaluating patient, direct bedside care, chart review, placing orders, interpretation of diagnostic studies, discussion with consultants, patient, and family members, as well as other required patient management activities. This time is exclusive of all separately billable procedures, and teaching time and separate from and in addition to any other critical care service time. Thank you for allowing us to participate in the care of this patient. Please refer to my attending physician's documentation for any further recommendations. (2) Acute kidney injury: (3) Multi-organ system dysfunction: (4) Pneumonia: (5) Hypoxia: (6) Acute and chronic respiratory failure with hypoxia: (7) Atrial fibrillation with rapid ventricular response: (8) Leukocytosis: (9) Metabolic acidosis: History of Present Illness Attending Physician: Nahum Lakhani MD History of Present Illness Patient is a 85-year-old male with past medical history including A. fib, diastolic heart failure, COPD, stroke, dementia, BPH, CAD who presents to the emergency department with altered mental status described by family as generalized weakness and unresponsiveness that it started today. 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 He was noted to be in A. fib RVR on route to the hospital with EMS with rates of 140 that improved with fluid resuscitation. In the emergency department he was noted to be hypotensive and hypoxic. Lab work revealed elevated lactate of 5, leukocytosis, THEO and elevated BNP. Chest x-ray consistent with pneumonia. Of note, patient is DNR/DNI and family did not want to pursue intubation though patient's FiO2 requirements are significantly high. He is currently on BiPAP with 100% FiO2 with saturations in the low to mid 90s. Patient family did opt for vasopressors, central line, and medical management. Patient now transferred to the ICU for further management this time. On exam, patient is very frail and appears weak but is able to answer simple questions. He is noted to be confused but did deny any pain, headache dizziness, shortness of breath, sore throat, abdominal pain, nausea or vomiting, diarrhea. I did speak with the patient's family in regards to bronchoscopy for which the patient would require intubation due to his FiO2 requirements at this time. They denied elective intubation due to patient's wishes. I did further discuss CODE STATUS and goals of care as well. At this time, we will pursue medical management and continue with BiPAP. Central venous catheter placed and currently on Levophed drip. Allergies Allergy/AdvReac Type Severity Reaction Status Date / Time No Known Allergies Allergy Unverified 02/21/19 10:21 Home Medications Medication Instructions Recorded Confirmed Type apixaban 5 mg tablet (Eliquis) 2.5 mg PO BID 02/20/19 12/10/20 History ascorbic acid (vitamin C) 500 mg 500 mg PO QAM 02/20/19 12/10/20 History tablet (Vitamin C) atorvastatin 80 mg tablet 40 mg PO HS 02/20/19 12/10/20 History cetirizine 10 mg tablet 5 mg PO QAM 02/20/19 12/10/20 History donepezil 10 mg tablet 10 mg PO HS 02/20/19 12/10/20 History ferrous sulfate 325 mg (65 mg 325 mg PO Q OTHER DAY 02/20/19 12/10/20 History iron) tablet furosemide 20 mg tablet 20 mg PO QAM 02/20/19 12/10/20 History carvedilol 6.25 mg tablet 3.125 mg PO Q12 12/10/20 12/10/20 History cholecalciferol (vitamin D3) 50 50 mcg PO DAILY 12/10/20 12/10/20 History mcg (2,000 unit) tablet ergocalciferol (vitamin D2) 1,250 1,250 mcg PO WK 12/10/20 12/10/20 History mcg (50,000 unit) capsule finasteride 5 mg tablet 5 mg PO DAILY 12/10/20 12/10/20 History food supplemt, lactose-reduced 1 ea PO TID 12/10/20 12/10/20 History (Ensure Clear) loperamide 1 mg/7.5 mL oral liquid 2 - 4 mg PO UD PRN MDD 16mg 12/10/20 12/10/20 History omeprazole 20 mg capsule,delayed 20 mg PO DAILY 12/10/20 12/10/20 History release potassium chloride 20 mEq 20 meq PO DAILY 12/10/20 12/10/20 History tablet,extended release(part/cryst) spironolactone 25 mg tablet 12.5 mg PO DAILY 12/10/20 12/10/20 History Patient History Medical History (Updated 12/11/20 @ 00:53 by KATE Mahmood) Afib CHF (congestive heart failure) COPD (chronic obstructive pulmonary disease) Emphysema of lung Myocardial infarction Stroke Surgical History No significant past surgical history Social History Smoking Status: Never smoker Second Hand Exposure: No; Do You Dip or Chew Tobacco: No; Tobacco Cessation Education Requested by Patient: No Hx Alcohol Use: No Hx Substance Use: No Preferred Language: Japanese Communication Ability: Effective Kosher Inspector Required: No Beliefs That Will Affect Care: None Current Living Situation: Family Other Information That Helps Us Care for You: No Feels Safe at Home: Yes Safety Concerns: Feels Safe At This Time Assistive Devices: Denture - Upper, Denture - Lower and Wheelchair Review of Systems Review of Systems: All systems reviewed & are unremarkable except as noted in HPI & below Physical Exam Constitutional: + thin, cooperative and + lethargic; not in distress Eyes: PERRL, conjunctivae normal, anicteric sclerae ENMT: external ear and nose normal, oropharynx normal Neck: trachea midline, no thyromegaly Respiratory: Coarse crackles/rhonchi auscultated bilaterally in all lung [place]. Symmetrical chest wall movement. No wheezes. Cardiovascular: Rate/Rhythm: + tachycardic and + irregularly irregular Heart Sounds: normal S1 and normal S2 Vessels: no JVD Extremities: normal capillary refill; no edema Gastrointestinal (Abdomen): normal bowel sounds, soft, nontender, no hepatosplenomegaly Musculoskeletal: no cyanosis or clubbing, extremities motor strength 5/5 Skin: no rashes, warm and dry Neurologic: PERRL, EOMI, accommodation nl, no face palsy, no dysarthria Psychiatric: Orientation: alert, oriented to person and cooperative; + not oriented to place and + not oriented to time Results & Data Results & Data ([facility]) Vital Signs (Past 12 Hours) Vital Signs Temp Pulse Resp BP Pulse Ox 12/10/20 22:01 106 H 28 H 92/70 L 94 12/10/20 21:46 108 H 26 H 75/54 L 94 12/10/20 21:30 102 H 29 H 77/47 L 88 L 12/10/20 21:16 118 H 16 74/53 L 82 L 12/10/20 21:00 109 H 22 77/60 L 79 L 12/10/20 20:45 106 H 31 H 78/53 L 76 L 12/10/20 20:30 112 H 30 H 77/56 L 79 L 12/10/20 20:15 115 H 30 H 81/52 L 82 L 12/10/20 20:00 117 H 30 H 66/55 L 79 L 12/10/20 19:50 112 H 26 H 70/59 L 77 L 12/10/20 19:46 110 H 26 H 90/54 L 74 L 12/10/20 19:40 116 H 25 H 82/52 L 71 L 12/10/20 19:36 114 H 33 H 69/51 L 73 L 12/10/20 19:32 114 H 21 71 L 12/10/20 19:15 113 H 28 H 74/58 L 69 L 12/10/20 19:05 111 H 31 H 72 L 12/10/20 19:00 115 H 23 78/53 L 71 L 12/10/20 18:45 120 H 29 H 70 L 12/10/20 18:34 126 H 36 H 58/40 L 68 L 12/10/20 18:30 70 L 12/10/20 18:15 127 H 38 H 60/44 L 63 L 12/10/20 18:06 132 H 37 H 70/54 L 12/10/20 17:35 36.4 C L 118 H 27 H 80/54 L 67 L 12/10/20 17:32 124 H 27 H 80/54 L Coding Level of Care Code Critical Care 1st 30-74 mins Diagnoses Acute kidney injury N17.9 Multi-organ system dysfunction Septic shock A41.9; R65.21 Pneumonia J18.9 Hypoxia R09.02 Acute and chronic respiratory failure with hypoxia J96.21 Atrial fibrillation with rapid ventricular response I48.91 Leukocytosis D72.829 Metabolic acidosis E87.2
--- NOTE | 2020-12-10 23:02 | Procedure Note ---
Procedure Note Date of Service December 10, 2020 Note INTERNAL JUGULAR CENTRAL LINE PROCEDURE NOTE: Procedure: Internal Jugular Central Line Placement Attending: Dr. Sin Camacho Provider: KATE Edward Indication: Central Drug Administration Anesthesia: Lidocaine 1% [Line placed emergently in the setting of septic shock requiring vasopressor support. A time-out was completed verifying correct patient, procedure, site, positioning, and implants(s) or special equipment if applicable. Patients right neck was cleansed and draped in the typical sterile fashion using Chloraprep. The Internal Jugular Vein and Carotid Artery were identified using ultrasound. The superficial tissue was anesthetized using 3 mL of 1% lidocaine without epinephrine under direct visualization with the ultrasound. After adequate anesthetization was achieved, the Internal Jugular vein was cannulated under direct ultrasound guidance using an introducer needle on a syringe. Good venous blood return was maintained prior to removal of syringe from introducer needle. Using Seldinger Technique, a guide wire was advanced through the introducer needle without resistance. The introducer needle was removed and ultrasound images were obtained of the guide wire within the Internal Jugular Vein and saved to the patients medical record. A small incision was made in penetrating fashion at the guide wire insertion site utilizing an 11 blade scalpel. The dilator was advanced to the vessel without resistance. The dilator was exchanged for the triple lumen catheter which was advanced into the vessel without resistance. The guide wire was removed intact from the catheter without issue. Claves were placed on each catheter tip with confirmation of good blood flow from each lumen. Each port was easily flushed with sterile saline. The catheter was placed at 16 cm and sutured in place. BioPatch was applied to the catheter and a sterile Tegaderm dressing was applied over the catheter with careful attention to sterility. Patient tolerated procedure well. No immediate complications were met. Post procedure x-ray was completed, placement was appropriate and no pneumothorax was noted. Images obtained are saved for permanent record Procedural Ultrasound Guidance: Procedure Date: 12/11/2020 Indication: Central venous catheter insertion Attending: Dr. Sin Camacho Provider: KATE Edward Artery AND Vein visualized: Yes Compressible Vein: Yes Guidewire or Short Catheter seen in vein prior to dilation: Yes Line confirmed in Vein with ultrasound: Yes Images obtained are saved for permanent record. Coding
[2020-12-11] MEDS ORDERED: STAT IV Infusion **Titration per Protocol STA (00:55)
[2020-12-11] MEDS: VASOPRESSIN 20 UNITS in 0.9 % SODIUM CHLORIDE 100 ML IV SCH ×3 (01:11→16:42)
[2020-12-11] MEDS: PIPERACILLIN/TAZOBACTAM 3.375 GM in DEXTROSE 5% 100 ML IV SCH ×2 (01:11→14:35)
[2020-12-11] MEDS ORDERED: HYDROCORTISONE SOD 100 MG in SYRINGE 0 ML IV STA (03:02)
[2020-12-11] MEDS ORDERED: HYDROCORTISONE SOD SUCCINATE 100 MG/2 ML VIAL IV ONE (03:15)
[2020-12-11 04:32] LABS: Hemoglobin 11.3 g/dL (14.0-18.0); Mean Corpuscular Hemoglobin 32.9 pg (25-34); Mean Corpuscular Hgb Conc 31.4 g/dL (32-36); Mean Platelet Volume 11.1 fL (7.4-10.4); Platelet Count 190 K/uL (130-400); RDW Coefficient of Variation 15.7 % (11.5-14.5); RDW Standard Deviation 59.6 fL (36.4-46.3); Red Blood Count 3.43 M/uL (4.7-6.1); White Blood Count 13.39 K/uL (4.8-10.8)
[2020-12-11 04:50] LABS: Albumin Level 1.7 gm/dl (3.4-5.0); BUN Creatinine Ratio 33.3 (10-20); Bilirubin Direct 0.4 mg/dl (0-0.2); Calcium 8.7 mg/dl (8.5-10.1); Creatinine Clr Calc Pharmacy 14.8 ml/min; Est GFR (African American) 31.5 ml/min; Est GFR (Non-African American) 27.2 ml/min; Magnesium 1.7 mg/dl (1.8-2.4); Potassium 4.4 mmol/L (3.5-5.1)
[2020-12-11 04:52] LABS: Bilirubin,Total 0.8 mg/dl (0.2-1); Phosphorus 4.2 mg/dl (2.5-4.9); Total Protein 6.2 gm/dl (6.4-8.2)
[2020-12-11 04:53] LABS: Partial Thromboplastin Ratio 1.5; Partial Thromboplastin Time 39.6 Seconds (21.0-31.0); Prothrombin Time 19.6 Seconds (9.0-12.0)
[2020-12-11 05:09] LABS: Echinocytes 1+; Immature Granulocytes # (auto) 0.03 K/uL (0.00-0.02); Immature Granulocytes % (auto) 0.2 %; Lymphocytes % (auto) 2.2 %; Monocytes # (auto) 0.32 K/uL (0.11-0.59); Monocytes % (auto) 2.4 %; Neutrophils # (auto) 12.74 K/uL (1.4-6.5); Neutrophils % (auto) 95.2 %; Ovalocytes 1+
--- NOTE | 2020-12-11 07:09 | Critical Care Progress Note ---
Date of Service December 11, 2020 Assessment & Plan (1) Septic shock: Plan: Reason Critically Ill: 85-year-old male w/ PMHx of afib, CKD3, and diastolic CHF who presents to the ICU evening of 12/10/20 with septic shock and acute hypoxic respiratory failure, requiring pressors and BiPAP. Patient is DNR/DNI. Neuro - AMSstroke and dementia noted on patient's history and unsure of baseline mental status -Likely metabolic encephalopathy in the setting of sepsis. Follow clinically. Cardiac - Shockpatient presented with hypotension's unresponsive to fluids. Chest x-ray consistent with pneumonia and suspect likely septic shock from pulmonary source. -Patient does have history of diastolic heart failure -12/11/20 echo. EF 60-65%. No RWMA. Moderate concentric LVH. Severe biatrial dilation. Moderate to severe MR and PH. -Received 2.5 L isotonic bolus in the emergency department -We will hold diuretics and antihypertensives for now -On vasopressin and Norepi. Weaning as tolerated -Troponin negative -Random cortisol pending -Monitor Atrial fibrillationchronic -Rate 90s-low 100s -Anticoagulated on Eliquis at home, currently held -Continuous monitoring on telemetry Respiratory - Acute hypoxic respiratory failurepatient presents with severe hypoxia. Would normally require intubation but patient strictly DNI -Chest x-ray consistent with pneumonia, discussed w/ family regarding bronchoscopy. This would require intubation and patient's family declined. -Compared w/ 2018 CXR, similar appearance at that time w/ cardiomegaly and L pleural effusion. considered mucous plug, but similar appearance on 2019 cxr would support against a new occurence -History of diastolic health heart failure requiring diuretics, BNP 11,435. Will hold on diuresis as not clinically supporting hypervolemia. -Less likely PE because anticoagulated on Eliquis at home -Continue with BiPAP and wean FiO2 as tolerated. -resp acidosis+metabolic acidosis (likely lactic) -Will preferably have patient lay on right side w/ good lung down to decrease V/Q mismatch -Added N acetylcysteine nebulized and hypertonic 7% nebulized treatments BID. Cough assist as tolerated. GI - NPO Transaminitismild likely in the setting of shock liver following hypotension, improving. Monitor RENAL/LYTES - THEO on CKD stage IIIsuspect ATN following hypotension. Creatinine 2.25 on admission with prior baseline 1.14 -No electrolyte abnormalities at this time and acidosis likely attributed to lactate -Hold diuretics as clinically, in correlation w/ cxr, not hypervolemic -Careful with IV fluid resuscitation as patient has diastolic heart failure and is significantly hypoxic -Monitor BMPs -HypoMg 1.7, repleting -HyperNa 147, slight free water deficit, monitor for now - BPHholding finasteride while NPO -Diop. uop minimal, likely secondary to hypoperfusion from shock. cumulative Is/Os: 5L in 0L out. -Bladder scan 0. ordered renal US ENDO - No history of diabetes, ICU hyperglycemic protocol TSH within normal limits HEME - H&H stable, routine CBCs elevated coags, INR 2.0. considered 2/2 sepsis home regimen Eliquis currently held while NPO ID - Sepsislikely from pulmonary source -Elevated WBC and lactate on admission. Afebrile -Urinalysis unremarkable, blood cultures pending -Procalcitonin elevated at 5.66 -COVID-19 negative -Nasal MRSA negative -Continue Zosyn LINES/IV ACCESS - Right IJ CVC. PIVs DVT PROPHYLAXIS - SCDs, SQ heparin 5000 q12 Progress patient's prognosis is poor. He remains oliguric and is not a candidate for hemodialysis. Palliative care consulted. There is some progress made regarding his respiratory status. (2) Acute kidney injury: (3) Multi-organ system dysfunction: (4) Pneumonia: (5) Hypoxia: (6) Acute and chronic respiratory failure with hypoxia: (7) Atrial fibrillation with rapid ventricular response: (8) Leukocytosis: (9) Metabolic acidosis: Admission and Anticipated Discharge Date Admission Date: December 10, 2020 Supervising Physician Co-Signing Physician Notes Dr. Meyer was the resident-physician during care of patient. I separately evaluated patient for bar portions of the history and the exam. I was present during the critical portion of medical decision making, and I discussed the case with the resident. I generally agree with the findings and plan except for any additions/exceptions noted. Patient seen and examined bedside. No acute distress. Patient was a BiPAP lying in left decubitus position not in acute distress Answering simple questions. He was on low-dose Levophed as well as vasopressin at the time of examination map being in 68-70 Denied any chest pain. He says he is feeling better after coming to the [facility] Chest x-ray did show mediastinal shift to the left which has been going on since February of last year. He has bilateral infiltrates especially in the lower lobe BNP was 10,000 Patient got fluid when he came to the ER as he was hypotensive Constitutional: No acute distress, frail-appearing HEENT: EOMI, PERRLA Respiratory system: Decreased air entry bilaterally, no wheeze, no rhonchi, positive crackles bilateral lower lobe CVS: S1-S2 positive, no murmurs or gallops, distant heart sounds Abdomen: Soft, nontender, nondistended, positive bowel sounds x4 Extremities: +2 pulses bilaterally radialis/ dorsalis pedis, no cyanosis, no edema Neuro: Awake alert oriented to self and place Psych: Normal mood and affect G/U: Positive Diop --Prophylaxis VTE: Heparin (patient is on apixaban at home) GI: None Lines: Right IJ Diet: N.p.o. Plan: In/out +4.9 L, urine output 10 mL Patient did get some hydrocortisone. His random cortisol prior to that was 43. I do not think he needs more hydrocortisone Continue with broad-spectrum antibiotics for multilobar pneumonia Patient likely has mucous plugging in the left lower lobe as well Continue with CoughAssist, add hypertonic saline as well as Mucomyst nebulized. Continue with chest PT It would be better for the patient to lie on the right side Patient is not making good amount of urine. His creatinine did go down to 2.12 Ultrasound of the kidneys did not show any obstruction. Hypomagnesemia is being replaced Transaminitis likely from hypotension that the patient came in with. Overall prognosis of the patient is poor Patient is DNR/DNI There is no improvement in the next 24-48 hours I think palliative care route should be approached Primary care has been consulted I have personally spent 38 minutes of critical care time in the direct management of this patient. This is a life/limb threatening event. This includes time spent evaluating patient, direct bedside care, chart review, placing orders, interpretation of diagnostic studies, discussion with consultants, patient, and/or family members regarding treatment decisions, as well as other required patient management activities. This time is exclusive of all separately billable procedures, and teaching time and separate from and in addition to any other critical care service time. Subjective Patient denies any complaints. Continues on pressors. Overnight, bipap settings weaned down some. Review of Systems Review of Systems: Constitutional: Denies fever, chills Cardiovascular: Denies chest pain, palpitations Respiratory: Denies shortness of breath Gastrointestinal: Denies abdominal pain, nausea, vomiting Genitourinary: Denies urinary symptoms Musculoskeletal: Denies pain Neurological: Denies numbness, tingling ROS limited by patient's baseline dementia vs AMS. Physical Exam Physical Exam: General: A&Ox1-2, not to place. Thin, frail appearing. No distress. HEENT: Atraumatic, normocephalic. EOMI. PERRL. Pulm: NIPPV via BiPAP. + some accessory muscle use. Decreased air entry, slightly worse at right lateral vs left. No inspiratory crackles. No respiratory distress. Cardiac: Tachycardic rate, irregular rhythm. Soft diastolic blowing murmur at mitral area. No LE edema Abdominal: Nontender, nondistended, soft. Integ: Lines appropriate. No visible rash. Results & Data Results & Data ([facility]) Vital Signs (Past 12 Hours) Vital Signs HR since midnight 90s-100s. RR upper 20s low 30s. MAP low as 57. mostly mid 60s or higher. 93+ bipap. Temp Pulse Pulse Resp BP BP Pulse Ox 12/11/20 06:10 101 H 34 H 93/59 L 93 12/11/20 05:40 106 H 33 H 103/73 94 12/11/20 05:10 99 H 32 H 95/65 L 99 12/11/20 04:40 95 H 32 H 83/63 L 97 12/11/20 04:10 36.5 C 108 H 34 H 85/59 L 94 12/11/20 03:40 96 H 24 91/62 L 96 12/11/20 03:20 96 H 32 H 96 12/11/20 03:10 101 H 29 H 82/63 L 94 12/11/20 02:41 91 H 23 83/54 L 93 12/11/20 02:10 97 H 26 H 94/58 L 96 12/11/20 02:00 100 H 26 H 91/60 L 95 12/11/20 01:30 99 H 28 H 86/65 L 94 12/11/20 01:10 102 H 22 80/53 L 94 12/11/20 00:41 105 H 26 H 79/52 L 95 12/11/20 00:10 108 H 27 H 88/66 L 95 12/10/20 23:53 36.3 C L 111 H 24 68/51 L 98 12/10/20 23:40 112 H 29 H 83/58 L 100 12/10/20 23:08 103 H 19 82/58 L 99 12/10/20 23:04 122 H 27 H 92 12/10/20 22:01 106 H 28 H 92/70 L 94 12/10/20 21:46 108 H 26 H 75/54 L 94 12/10/20 21:30 102 H 29 H 77/47 L 88 L 12/10/20 21:16 118 H 16 74/53 L 82 L 12/10/20 21:00 109 H 22 77/60 L 79 L 12/10/20 20:45 106 H 31 H 78/53 L 76 L 12/10/20 20:30 112 H 30 H 77/56 L 79 L 12/10/20 20:15 115 H 30 H 81/52 L 82 L 12/10/20 20:00 117 H 30 H 66/55 L 79 L 12/10/20 19:50 112 H 26 H 70/59 L 77 L 12/10/20 19:46 110 H 26 H 90/54 L 74 L 12/10/20 19:40 116 H 25 H 82/52 L 71 L 12/10/20 19:36 114 H 33 H 69/51 L 73 L 12/10/20 19:32 114 H 21 71 L 12/10/20 19:15 113 H 28 H 74/58 L 69 L 12/10/20 19:05 111 H 31 H 72 L Laboratory Results WBC 15.12->13.39. Hb 11.3, stable. Elevated coags, uptrending. Lactate 5.4->2.3. 12/10. Na 149->147. Cr 2.25->2.12. abg 7.31/43/53/21. Mg 2.2->1.7L. AST 170- >106. ALT 89->69. 12/10/20 62029 BNP. Alb 1.7L. Procalc 5.66H. random cortisol pending. 12/10 UA trace leuks. 12/10 nasal mrsa neg. 12/10 BC pending 12/10 ecg afib w/ rvr Cardiac Enzymes 12/10/20 12/11/20 Range/Units 18:55 04:19 AST 179 H 106 H (15-37) U/L Troponin I 0.043 (0-0.045) ng/ml Coagulation 12/10/20 12/11/20 Range/Units 18:55 04:19 PT 17.2 H 19.6 H (9.0-12.0) Seconds APTT 33.6 H 39.6 H (21.0-31.0) Seconds CBC 12/10/20 12/11/20 Range/Units 18:55 04:19 WBC 15.12 H 13.39 H (4.8-10.8) K/uL RBC 3.58 L 3.43 L (4.7-6.1) M/uL Hgb 11.9 L 11.3 L (14.0-18.0) g/dL Hct 37.8 L 36.0 L (42-52) % Plt Count 217 190 (130-400) K/uL Neut # (Auto) 14.40 H 12.74 H (1.4-6.5) K/uL Lymph # (Auto) 0.63 L 0.30 L (1.2-3.4) K/uL [place] # (Auto) 0.06 L 0.32 (0.11-0.59) K/uL Eos # (Auto) 0.00 0.00 (0-0.5) K/uL Baso # (Auto) 0.00 0.00 (0-0.2) K/uL Comprehensive Metabolic Panel 12/10/20 12/11/20 Range/Units 18:55 04:19 Sodium 149 H 147 H (136-145) mmol/L Potassium 4.3 4.4 (3.5-5.1) mmol/L Chloride 117 H 116 H (98-107) mmol/L Carbon Dioxide 20 L 24 (21-32) mmol/L BUN 72 H 71 H (7-18) mg/dl Creatinine 2.25 H 2.12 H (0.6-1.4) mg/dl Glucose 134 H 174 H (70-99) mg/dl Calcium 9.4 8.7 (8.5-10.1) mg/dl Direct Bilirubin 0.4 H (0-0.2) mg/dl AST 179 H 106 H (15-37) U/L ALT 89 H 69 (12-78) U/L Alkaline Phosphatase 80 67 (45-117) U/L Total Protein 6.7 6.2 L (6.4-8.2) gm/dl Albumin 1.9 L 1.7 L (3.4-5.0) gm/dl Intake and Output 12/10/20 12/11/20 12/11/20 22:59 06:59 14:59 Intake Total 3140 / 4605.328 1465.328 / 4605.328 547.863 / 547.863 Output Total 0 / 0 Balance 3140 / 4595.328 1455.328 / 4595.328 547.863 / 547.863 Intake: IV 3140 / 4605.328 1465.328 / 4605.328 547.863 / 547.863 Linezolid 600 mg In 300 ml @ 300 / 300 300 mls/hr IV Q12H [facility] Rx#: [id number] Magnesium Sulfate / D5w 1 gm In 100 / 100 100 ml @ 50 mls/hr IV Q2H [facility] Rx#:[id number] Norepinephrine/D5w 8 mg In 508 50.328 / 50.328 368.407 / 368.407 ml @ 0.21 MCG/KG/MIN 34.564 mls /hr IV .Q23G17M [facility] Rx#: [id number] Piperacillin/Tazobactam 3.375 115 / 115 gm In Dextrose 5% 100 ml @ 28. 75 mls/hr IV Q12H [facility] Rx#: [id number] Piperacillin/Tazobactam 4.5 gm 120 / 120 In 120 ml @ 240 mls/hr IV NOW ONE Rx#:[id number] Sodium Chloride 0.9% 1000ML 1, 2155 / 3155 1000 / 3155 000 ml @ 125 mls/hr IV .Q8H ST[facility] Rx#:[id number] Vancomycin HCl 750 mg In Sodium 265 / 265 Chloride 0.9% 250 ml @ 200 mls /hr IV NOW ONE Rx#:[id number] Vasopressin 20 units In 0.9 % 79.456 / 79.456 Sodium Chloride 100 ml @ 0.04 UNIT/MIN 12.12 mls/hr IV . Q8H20M [facility] Rx#:[id number] Left Antecubital 600 / 600 Oral 0 / 0 0 / 0 Output: Urine 0 / 0 Urine Amount (Catheter) 0 / 0 Diop/Indwelling 0 / 0 # Bowel Movements 0 / 0 0 / 0 Other: Weight 43.2 kg 42.7 kg Weight Measurement Method Built in Bedscale Built in [facility] Diagnostic Findings Chest X-Ray 12/10/20 07:00 XR chest 1V portable INDICATION: MN ^Resp failure . TECHNIQUE: Single frontal radiograph of the chest was obtained. Comparison: Comparison is made to chest one view 12/10/2020 FINDINGS: No lines and tubes are seen. The cardiomediastinal silhouette is stable. Again seen is leftward midline shift. Increased airspace opacities in the left upper and left retrocardiac region. There is interval worsening of the right lower lobe airspace opacity. No pneumothorax is seen. Left effusion cannot be excluded. IMPRESSION: 1. Interval worsening of bilateral airspace opacities which may represent aspiration, atelectasis, and/or pneumonia. 2. Stable cardiomegaly and emphysema. ACT 112: Negative or not required by law. Electronically signed by: Wilman Gupta M.D. 12/11/2020 7:34 AM Resident Activity Tracking Resident Involvement: Resident Care Provided Care Provided: Adult Hospital Medicine
--- NOTE | 2020-12-11 07:36 | XRay Report ---
XR chest 1V portable INDICATION: MN ^Resp failure . TECHNIQUE: Single frontal radiograph of the chest was obtained. Comparison: Comparison is made to chest one view 12/10/2020 FINDINGS: No lines and tubes are seen. The cardiomediastinal silhouette is stable. Again seen is leftward midli ne shift. Increased airspace opacities in the left upper and left retrocardiac region. There is inter tomás worsening of the right lower lobe airspace opacity. No pneumothorax is seen. Left effusion cannot be excluded. IMPRESSION: 1. Interval worsening of bilateral airspace opacities which may represent aspiration, atelectasis, a nd/or pneumonia. 2. Stable cardiomegaly and emphysema. ACT 112: Negative or not required by law. Electronically signed by: Wilman Gupta M.D. 12/11/2020 7:34 AM
[2020-12-11] MEDS: MAGNESIUM SULFATE / D5W 1 GM/100 ML BAG IV SCH ×2 (07:47→09:45)
[2020-12-11] MEDS: HEPARIN SOD 5,000 UNIT/0.5 ML VIAL SQ SCH ×2 (09:10→20:17)
--- NOTE | 2020-12-11 09:30 | XCELERA ---
[id number]
--- NOTE | 2020-12-11 10:22 | Palliative Care Consultation ---
Date of Consultation December 11, 2020 Assessment & Plan (1) Palliative care encounter: This is an 85 year old male who presented to the [facility] from home with altered mental status and an unresponsive episode at home. He has additional PMH that includes: atrial fibrillation, CKD3, BPH, senile degeneration of the brain, and CHF. During this admission he is being treated for a general septic shock presentation as he is now requiring vasoactive medications for treatment, including Levophed and Vasopressin. His BNP was increasing as well, so IV fluids were discontinued to decrease further heart failure exacerbation. His renal function has shown an acute on chronic presentation. Today, a renal ultrasound will be obtained, in addition to an ECHO. Palliative Medicine was consulted to discuss overall goals of care with the patient and family. I was able to talk with Mr. Lynch. Confirmed that he likes to be called "Millcient" as it was a nickname he has had for years, per his daughter in law. He remains on BiPAP but is able to answer yes or no questions, fairly reliably, although he has enouch confusion and encephalopathy that decision making plans will go through his son, Pedrito, and daughter in law, Vee. I reached out to Pedrito at [phone] and the phone rang and rang. I called Vee at [phone] and was able to talk with her at length. Millicent does live with his son and daughter in law. When discussing his ADL abilities she stated that he can eat independently, but does require assistance with bathing, dressing. He does ambulate with a walker at times, but does require support with walking. She mentioned that he did have a stroke int he past, and never really regained his full swallowing capabilities. He has had expressive aphagia since the event more than 10 years ago. She said that her and Pedrito reviewed his living will last evening and confirmed that he would not want to be resuscitated with CPR or intubation. Confirmed DNR/DNI. Vee mentioned that they would not want him to go through bronchoscopy, hemodialysis, feeding tubes, or any aggressive procedures. While he remains on pressors for support, the goal is to wean as tolerated. Their goal is to see how things go over the next 48 hours and transition to comfort measures if things are not moving in the right direction prior to that. Their longer term goal is for him to return home with them with a more hospice approach to his care and have him remain out of the hospital moving forward. Palliative will follow. History of Present Illness Reason for Consultation: Goals of care Requesting Physician: Paresh LOVE Attending Physician: Shmuel Lazo MD History of Present Illness This is an 85 year old male who presented to the [facility] from home with altered mental status and an unresponsive episode at home. He has additional PMH that includes: atrial fibrillation, CKD3, BPH, senile degeneration of the brain, and CHF. During this admission he is being treated for a general septic shock presentation as he is now requiring vasoactive medications for treatment, including Levophed and Vasopressin. His BNP was increasing as well, so IV fluids were discontinued to decrease further heart failure exacerbation. His renal function has shown an acute on chronic presentation. Today, a renal ultrasound will be obtained, in addition to an ECHO. Palliative Medicine was consulted to discuss overall goals of care with the patient and family. Please see A/P fir further details. Thanks for involving Palliative Medicine with this individual. Allergies Allergy/AdvReac Type Severity Reaction Status Date / Time No Known Allergies Allergy Unverified 02/21/19 10:21 Home Medications Medication Instructions Recorded Confirmed Type apixaban 5 mg tablet (Eliquis) 2.5 mg PO BID 02/20/19 12/10/20 History ascorbic acid (vitamin C) 500 mg 500 mg PO QAM 02/20/19 12/10/20 History tablet (Vitamin C) atorvastatin 80 mg tablet 40 mg PO HS 02/20/19 12/10/20 History cetirizine 10 mg tablet 5 mg PO QAM 02/20/19 12/10/20 History donepezil 10 mg tablet 10 mg PO HS 02/20/19 12/10/20 History ferrous sulfate 325 mg (65 mg 325 mg PO Q OTHER DAY 02/20/19 12/10/20 History iron) tablet furosemide 20 mg tablet 20 mg PO QAM 02/20/19 12/10/20 History carvedilol 6.25 mg tablet 3.125 mg PO Q12 12/10/20 12/10/20 History cholecalciferol (vitamin D3) 50 50 mcg PO DAILY 12/10/20 12/10/20 History mcg (2,000 unit) tablet ergocalciferol (vitamin D2) 1,250 1,250 mcg PO WK 12/10/20 12/10/20 History mcg (50,000 unit) capsule finasteride 5 mg tablet 5 mg PO DAILY 12/10/20 12/10/20 History food supplemt, lactose-reduced 1 ea PO TID 12/10/20 12/10/20 History (Ensure Clear) loperamide 1 mg/7.5 mL oral liquid 2 - 4 mg PO UD PRN MDD 16mg 12/10/20 12/10/20 History omeprazole 20 mg capsule,delayed 20 mg PO DAILY 12/10/20 12/10/20 History release potassium chloride 20 mEq 20 meq PO DAILY 12/10/20 12/10/20 History tablet,extended release(part/cryst) spironolactone 25 mg tablet 12.5 mg PO DAILY 12/10/20 12/10/20 History Patient History Medical History Afib CHF (congestive heart failure) COPD (chronic obstructive pulmonary disease) Emphysema of lung Myocardial infarction Palliative care encounter Stroke Surgical History No significant past surgical history Social History Smoking Status: Never smoker Second Hand Exposure: No; Do You Dip or Chew Tobacco: No; Tobacco Cessation Education Requested by Patient: No Hx Alcohol Use: No Hx Substance Use: No Preferred Language: Samoan Communication Ability: Unable 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 Beliefs That Will Affect Care: None marital status: / Current Living Situation: Family Other Information That Helps Us Care for You: No Feels Safe at Home: Yes Safety Concerns: Feels Safe At This Time Assistive Devices: Oxygen - Continuous Review of Systems Review of Systems: [place] System Assessment Scale: Pain: 0/3 SOB: 1/3 Lack of Appetite: 1/3 Tiredness: 1/3 Anxiety: 0/3 Palliative Performance Scale: 30% Physical Exam Constitutional: + cachectic, cooperative and comfortable ENMT: Mouth: + dry oral mucous membranes Respiratory: + respiratory distress (on BiPAP) and + tachypneic (intermittently ) Auscultation: + diminished lung sounds and + crackles Cardiovascular: Rate/Rhythm: regular rate and regular rhythm Gastrointestinal (Abdomen): Inspection/Auscultation: normal bowel sounds Skin: + crusts, + dry skin and + pallor Psychiatric: Orientation: alert, oriented to person, oriented to place and cooperative Insight: + limited insight Judgement: + limited judgement Results & Data ([facility]) Vital Signs (Past 12 Hours) Vital Signs Temp Pulse Pulse Resp BP BP Pulse Ox 12/11/20 09:40 36.2 C L 12/11/20 09:10 96 H 31 H 124/67 92 12/11/20 09:04 100 H 31 H 96 12/11/20 08:40 111 H 31 H 97/75 L 86 L 12/11/20 08:10 100 H 33 H 96/68 L 90 12/11/20 07:40 112 H 31 H 102/60 99 12/11/20 07:10 101 H 34 H 94/62 L 91 12/11/20 06:40 111 H 33 H 96/61 L 90 12/11/20 06:10 101 H 34 H 93/59 L 93 12/11/20 05:40 106 H 33 H 103/73 94 12/11/20 05:10 99 H 32 H 95/65 L 99 12/11/20 04:40 95 H 32 H 83/63 L 97 12/11/20 04:10 36.5 C 108 H 34 H 85/59 L 94 12/11/20 03:40 96 H 24 91/62 L 96 12/11/20 03:20 96 H 32 H 96 12/11/20 03:10 101 H 29 H 82/63 L 94 12/11/20 02:41 91 H 23 83/54 L 93 12/11/20 02:10 97 H 26 H 94/58 L 96 12/11/20 02:00 100 H 26 H 91/60 L 95 12/11/20 01:30 99 H 28 H 86/65 L 94 12/11/20 01:10 102 H 22 80/53 L 94 12/11/20 00:41 105 H 26 H 79/52 L 95 12/11/20 00:10 108 H 27 H 88/66 L 95 12/10/20 23:53 36.3 C L 111 H 24 68/51 L 98 12/10/20 23:40 112 H 29 H 83/58 L 100 12/10/20 23:08 103 H 19 82/58 L 99 12/10/20 23:04 122 H 27 H 92 PG Care Time/CCT Total # of Minutes Spent Total Time Spent with Patient: Total time spent is greater than 50% in coordination of care (as documented) at patient's floor/unit and/or counseling patient: 100 mintues with > 50% of that time spent assessing the patient, discussing goals of care with the family and collaborating with IDT Coding Level of Care Code 58538 Inpt Consult Level 3 Diagnoses Palliative care encounter Z51.5 Time Spent (min) 100
[2020-12-11] MEDS: LEVALBUTEROL HCL 1.25 MG/3 ML NEB NEB PRN ×2 (11:15→19:24)
[2020-12-11] MEDS: ACETYLCYSTEINE 20% INHAL SOLN 4ML ***DISPENSED BY RESP. INH SCH ×2 (11:16→19:21)
[2020-12-11] MEDS: SODIUM CHLOR 7% 4 ML NEB NEB SCH ×3 (11:22→19:15)
--- NOTE | 2020-12-11 12:07 | Ultrasound Report ---
US renal/blad retro comp HISTORY: 85 years-old Male r/o obstruction acute bilateral flank pain COMPARISON: None TECHNIQUE: Multiple real-time sonographic images of the kidneys and urinary bladder were obtained ass essing grayscale appearance and color flow FINDINGS: Limited study secondary to patient body habitus and immobility. Layering gallbladder sludge versus ch olelithiasis. The right kidney measures 9.2 cm in length and demonstrates no renal calculi or hydronephrosis. Paren chyma of the right kidney is echogenic. Cysts of the right kidney measure up to 2.8 x 2.9 x 2.7 cm. The left kidney measures 8.8 cm in length and demonstrates no renal calculi or hydronephrosis. Parenc hymal the left kidney is echogenic. Cysts of the left kidney measure up to 4.7 x 4.0 x 3.9 cm. Diop catheter is noted within a partially decompressed urinary bladder. Mobile echogenic debris with in the bladder is noted along with prostamegaly. IMPRESSION: 1. No renal calculi or hydronephrosis. 2. Mildly atrophic kidneys with findings suggestive of chronic medical renal disease. 3. Cholelithiasis versus gallbladder sludge. 4. Prostamegaly. 5. Echogenic mobile intraluminal debris within the urinary bladder. Correlate with urinalysis. ACT 112: Negative or not required by law. The above report was generated using voice recognition software. It may contain grammatical, syntax o r spelling errors. Electronically signed by: Sloan Ro M.D. 12/11/2020 12:06 PM
[2020-12-11] MEDS: NOREPINEPHRINE/D5W 8 MG/508 ML BAG IV SCH (12:24)
[2020-12-11] MEDS ORDERED: PHARMACY GLYCEMIC MGMT CONSULT PRN (12:42)
[2020-12-11] MEDS ORDERED: GLUCOSE 10 TABS/TUBE PO PRN (13:00)
[2020-12-11] MEDS ORDERED: CARBOHYDRATES FOR HYPOGLYCEMIA PO PRN (13:00)
[2020-12-11] MEDS ORDERED: GLUCAGON FOR INJ 1 MG VIAL SQ PRN (13:00)
[2020-12-11] MEDS ORDERED: DEXTROSE 50% 50 ML SYRINGE IV PRN (13:00)
[2020-12-11] MEDS ORDERED: GLUCOSE 40% GEL 15 GM TUBE PO PRN (13:00)
--- NOTE | 2020-12-11 13:05 | Pharmacy Report ---
Pharmacy Glycemic Short Note 2 - Date of Service December 11, 2020 - Glycemic Short BSG Results (Last 24 hours): 12/10/20 12/10/20 12/11/20 18:07 18:55 04:19 Glucose 134 H 174 H POC Glucose (other) 137 H 12/11/20 12:31 Glucose POC Glucose (other) 174 H OUTPATIENT ANTIDIABETIC REGIMEN: * n/a * a1C pending in AM ASSESSMENT: * Patient met criteria for pharmacy glycemic consult per ICU hyperglycemia protocol with two consecutive BSGs 174 mg/dL * Patient currently being treated with norepinephrine/vasopressin and is DNR/DNI, current plans to continue care without aggressive measures for the next 48 hours with possible transition to comfort measures if no improvement. * Patient does not appear diabetic as baseline, will target 140-180 mg/dL and start with correction factor, will use weight based stress of 3 as patient is low weight and stressed. This is still somewhat loose. * Patient is currently NPO and does appear to have an THEO although current baseline is unknown, SCr had improved from admission. * Will tighten parameters/add lantus as deemed necessary. PLAN FOR INPATIENT GLYCEMIC CONTROL: * Hold outpatient oral diabetes medications * Basal insulin * hold for now * Bolus insulin * NovoLog per scale ACHS or Q6hrs while NPO * Goal Range: Low 140 mg/dL - High 180 mg/dL * Correction Factor: 40 mg/dL/unit
--- NOTE | 2020-12-11 13:19 | Hospitalist Progress Note ---
Date of Service December 11, 2020 Assessment & Plan (1) Pneumonia: Plan: CXR on 12/10 showed left lung with multifocal left-sided pulmonary consolidation. - Continue Zosyn - CATALOGING ASSISTANT eval given it looks like aspiration-related. (2) Septic shock: Plan: On Levophed and vasopressin during my interview today with BP in the 90/60 range. - Per ICU team (3) Acute and chronic respiratory failure with hypoxia: Plan: Due to above. - Continue BiPap - As above (4) Atrial fibrillation with rapid ventricular response: Plan: HR worsened due to sepsis and Levophed, though only ~100 bpm. - Hold apixaban for now. - Monitor (5) Diastolic CHF: Plan: Chronic diastolic heart failure. No indication of acute exacerbation and patient looks volume down to me on exam this morning. - Hold furosemide - Monitor (6) CAD (coronary artery disease): Plan: Denied any chest pain to me. - Hold beta-cassie for hypotension. - Hold statin, spironolactone until able to reliably take PO (7) CKD (chronic kidney disease), stage III: Plan: Baseline Cr ~1.0. - Cr was 2.25 on admission, down slightly to 2.1 today. - Monitor UOP, Cr (8) BPH (benign prostatic hyperplasia): Plan: - Continue finasteride as able - Monitor PVRs once Diop is removed. (9) Dementia: Plan: Unclear baseline, but for me he is pleasant and conversant, but not a lot of insight into medical issues. - Continue donepezil as able (10) DVT prophylaxis: Plan: SCDs - Holding heparin per ICU team Admission and Anticipated Discharge Date Admission Date: December 10, 2020 Subjective Feeling well. No major issues. Reports no fevers/chills, chest pain, shortness of breath, abdominal pain, nausea, or vomiting. Physical Exam Constitutional: WD/WN, vitals as above Eyes: EOM intact bilaterally; no conjunctival abnormality ENMT: external ear and nose normal, oropharynx normal Neck: trachea midline, no thyromegaly normal visual inspection Respiratory: normal respiratory effort, lungs clear to auscultation no respiratory distress Cardiovascular: RRR, no murmur, no edema Gastrointestinal (Abdomen): Inspection/Auscultation: abdomen normal to inspection; abdomen not distended Musculoskeletal: no cyanosis or clubbing, extremities motor strength 5/5 Skin: no rashes, warm and dry Neurologic: moves all extremities and awake Psychiatric: Orientation: alert, oriented to person and cooperative Results & Data Results & Data ([facility]) Vital Signs (Past 12 Hours) Vital Signs Temp Pulse Pulse Resp BP BP Pulse Ox 12/11/20 12:45 36.5 C 12/11/20 12:40 101 H 28 H 91/64 L 93 12/11/20 12:10 100 H 27 H 96/67 L 100 12/11/20 11:40 102 H 28 H 87/49 L 94 12/11/20 11:27 112 H 35 H 97 12/11/20 11:22 94 H 35 H 97 12/11/20 11:10 105 H 28 H 77/58 L 98 12/11/20 10:40 106 H 27 H 84/52 L 98 12/11/20 10:11 101 H 30 H 95/59 L 98 12/11/20 09:41 103 H 31 H 117/61 89 L 12/11/20 09:40 36.2 C L 12/11/20 09:10 96 H 31 H 124/67 92 12/11/20 09:04 100 H 31 H 96 12/11/20 08:40 111 H 31 H 97/75 L 86 L 12/11/20 08:10 100 H 33 H 96/68 L 90 12/11/20 07:40 112 H 31 H 102/60 99 12/11/20 07:10 101 H 34 H 94/62 L 91 12/11/20 06:40 111 H 33 H 96/61 L 90 12/11/20 06:10 101 H 34 H 93/59 L 93 12/11/20 05:40 106 H 33 H 103/73 94 12/11/20 05:10 99 H 32 H 95/65 L 99 12/11/20 04:40 95 H 32 H 83/63 L 97 12/11/20 04:10 36.5 C 108 H 34 H 85/59 L 94 12/11/20 03:40 96 H 24 91/62 L 96 12/11/20 03:20 96 H 32 H 96 12/11/20 03:10 101 H 29 H 82/63 L 94 12/11/20 02:41 91 H 23 83/54 L 93 12/11/20 02:10 97 H 26 H 94/58 L 96 12/11/20 02:00 100 H 26 H 91/60 L 95 12/11/20 01:30 99 H 28 H 86/65 L 94 PG Care Time/CCT Total # of Minutes Spent Total Time Spent with Patient: Total time spent is greater than 50% in coordination of care (as documented) at patient's floor/unit and/or counseling patient: Coding Level of Care Code 14322 Subseq Hosp Care Lvl 3 Diagnoses Pneumonia J18.9 Septic shock A41.9; R65.21 Acute and chronic respiratory failure with hypoxia J96.21 Atrial fibrillation with rapid ventricular response I48.91 CAD (coronary artery disease) I25.10 CKD (chronic kidney disease), stage III N18.3 BPH (benign prostatic hyperplasia) N40.0 Dementia F03.90 Diastolic CHF I50.30 DVT prophylaxis Z29.9
--- NOTE | 2020-12-11 15:48 | Electrocardiogram Report ---
Test Reason : Blood Pressure : / mmHG Vent. Rate : 122 BPM Atrial Rate : 117 BPM P-R Int : 000 ms QRS Dur : 092 ms QT Int : 272 ms P-R-T Axes : 000 086 233 degrees QTc Int : 387 ms Poor data quality, interpretation may be adversely affected Atrial fibrillation with rapid ventricular response Moderate voltage criteria for LVH, may be normal variant Abnormal ECG When compared with ECG of 20-FEB-2019 16:54, T wave inversion now evident in Anterolateral leads HR has increased by 40 bpm Confirmed by Scooby Alexis ([id number]) on 12/11/2020 3:48:14 PM Referred By: REFERRED SELF Confirmed By:Scooby Alexis
--- NOTE | 2020-12-11 18:01 | Billing Data ---
Date of Service December 11, 2020 Coding Level of Care Code Critical Care 1st 30-74 mins Time Spent (min) 38
[2020-12-11] MEDS: INSULIN ASPART 100 UNITS/ML 3 ML PEN SC SCH (18:15)
[2020-12-12] MEDS: INSULIN ASPART 100 UNITS/ML 3 ML PEN SC SCH ×4 (00:03→18:08)
[2020-12-12] MEDS: PIPERACILLIN/TAZOBACTAM 3.375 GM in DEXTROSE 5% 100 ML IV SCH ×2 (01:12→13:04)
[2020-12-12 05:17] LABS: Basophils # (auto) 0.01 K/uL (0-0.2); Basophils % (auto) 0.1 %; Hemoglobin 10.7 g/dL (14.0-18.0); Immature Granulocytes # (auto) 0.03 K/uL (0.00-0.02); Immature Granulocytes % (auto) 0.2 %; Lymphocytes # (auto) 0.57 K/uL (1.2-3.4); Lymphocytes % (auto) 3.3 %; Mean Corpuscular Hemoglobin 32.4 pg (25-34); Mean Corpuscular Hgb Conc 32.4 g/dL (32-36); Mean Platelet Volume 11.3 fL (7.4-10.4); Monocytes # (auto) 0.64 K/uL (0.11-0.59); Monocytes % (auto) 3.7 %; Neutrophils # (auto) 16.11 K/uL (1.4-6.5); Neutrophils % (auto) 92.7 %; Platelet Count 169 K/uL (130-400); RDW Coefficient of Variation 15.4 % (11.5-14.5); RDW Standard Deviation 55.8 fL (36.4-46.3); White Blood Count 17.36 K/uL (4.8-10.8)
[2020-12-12 05:48] LABS: INR 1.6 (0.9-1.1); Partial Thromboplastin Ratio 1.7; Prothrombin Time 15.6 Seconds (9.0-12.0)
[2020-12-12 05:57] LABS: Albumin Level 1.6 gm/dl (3.4-5.0); BUN Creatinine Ratio 30.9 (10-20); Bilirubin Direct 0.3 mg/dl (0-0.2); Calcium 9.1 mg/dl (8.5-10.1); Creatinine Clr Calc Pharmacy 13.9 ml/min; Est GFR (African American) 29.1 ml/min; Est GFR (Non-African American) 25.1 ml/min; Magnesium 2.5 mg/dl (1.8-2.4); Potassium 3.7 mmol/L (3.5-5.1)
[2020-12-12 06:01] LABS: Bilirubin,Total 0.6 mg/dl (0.2-1); Total Protein 6.3 gm/dl (6.4-8.2)
--- NOTE | 2020-12-12 06:20 | Electrocardiogram Report ---
Test Reason : Blood Pressure : / mmHG Vent. Rate : 095 BPM Atrial Rate : 277 BPM P-R Int : 000 ms QRS Dur : 094 ms QT Int : 316 ms P-R-T Axes : 000 073 -57 degrees QTc Int : 397 ms Poor data quality, interpretation may be adversely affected Atrial fibrillation with premature ventricular or aberrantly conducted complexes Abnormal ECG When compared with ECG of 10-DEC-2020 17:33, ST no longer depressed in Anterolateral leads T wave inversion no longer evident in Anterolateral leads Confirmed by Scooby Alexis ([id number]) on 12/12/2020 6:20:13 AM Referred By: REFERRED SELF Confirmed By:Scooby Alexis
[2020-12-12] MEDS: LEVALBUTEROL HCL 1.25 MG/3 ML NEB NEB PRN (07:17)
[2020-12-12] MEDS: ACETYLCYSTEINE 20% INHAL SOLN 4ML ***DISPENSED BY RESP. INH SCH ×2 (07:17→19:38)
[2020-12-12] MEDS: SODIUM CHLOR 7% 4 ML NEB NEB SCH ×2 (07:18→19:32)
[2020-12-12 07:23] LABS: Estimated Average Glucose 111 mg/dl; Hemoglobin A1C 5.5 % (4.5-5.6)
--- NOTE | 2020-12-12 07:42 | Critical Care Progress Note ---
Date of Service December 12, 2020 Assessment & Plan (1) Septic shock: Plan: Reason Critically Ill: 85-year-old male w/ PMHx of afib, CKD3, and diastolic CHF who presents to the ICU evening of 12/10/20 with septic shock and acute hypoxic respiratory failure, initially requiring pressors and BiPAP. He is weaned off bipap. He is currently requiring 0.15 of Levophed. UOP is minimal. Patient is DNR/DNI. Neuro - No change in mental status in 24 hours. Follow clinically. AMSstroke and dementia noted on patient's history and unsure of baseline mental status -Likely had some contribution from metabolic encephalopathy in the setting of sepsis. Cardiac - Shock, improvingpatient presented with hypotension's unresponsive to fluids. Chest x-ray consistent with pneumonia and suspect likely septic shock from pulmonary source. -Patient does have history of diastolic heart failure -12/11/20 echo. EF 60-65%. No RWMA. Moderate concentric LVH. Severe biatrial dilation. Moderate to severe MR and PH. -Received 2.5 L isotonic bolus in the emergency department -We will hold diuretics and antihypertensives for now -Weaned off vasopressin. Levophed as above -Troponin 0.043 -Random cortisol 43.2, appropriate -Monitor Atrial fibrillationchronic -Rate 90s-low 100s -Anticoagulated on Eliquis at home, currently held, initially for NPO, but also for THEO/anuria. -Continuous monitoring on telemetry Respiratory - Acute hypoxic respiratory failurepatient presented with severe hypoxia. Would normally require intubation but patient strictly DNI -Chest x-ray consistent with pneumonia, discussed w/ family regarding bronchoscopy. This would require intubation and patient's family declined. -Compared w/ 2019 CXR, similar appearance at that time w/ cardiomegaly and L pleural effusion. considered mucous plug, but similar appearance on 2019 cxr would support against a new occurence -History of diastolic heart failure requiring diuretics, BNP 11,435. Will hold on diuresis as not clinically supporting hypervolemia. -Less likely PE because anticoagulated on Eliquis at home -resp acidosis+metabolic acidosis (likely lactic) -Will preferably have patient lay on right side w/ good lung down to decrease V/Q mismatch -Added N acetylcysteine nebulized and hypertonic 7% nebulized treatments BID. Cough assist as tolerated. GI - Clear liquid, low Na diet. Transaminitismild likely in the setting of shock liver following hypotension, improving. Monitor RENAL/LYTES - THEO on CKD stage IIIsuspect ATN following hypotension. Baseline 1.14 - Cr 2.25->2.12->2.26 -Started D5 1/2 NSS at 40mL/hr -Monitor BMPs Anuria UOP 22mL in 24 hours, insufficient hannah output to order urine labs Likely secondary to ATN form renal hypoperfusion Renal US showed mildly atrophic kidneys, but did not show obstruction Gentle IV hydration as per above - BPHholding finasteride while NPO -Hannah. -Cumulative 6.3L in 32mL out. ENDO - No history of diabetes, ICU hyperglycemic protocol TSH within normal limits HEME - H&H stable, routine CBCs elevated coags, considered 2/2 sepsis Hold home Eliquis ID - Sepsislikely from pulmonary source -Elevated WBC and lactate on admission. Afebrile -Urinalysis unremarkable, blood cultures pending -Procalcitonin 5.66->17.43, likely 2/2 shock and pulmonary infection -COVID-19 negative -Nasal MRSA negative -Continue Zosyn LINES/IV ACCESS - Right IJ CVC. PIVs DVT PROPHYLAXIS - SCDs, SQ heparin 5000 q12 Progress patient's prognosis is poor. He remains anuric and is not a candidate for hemodialysis. Palliative care consulted. There is improvement his respiratory status. Continue ICU care and reassess on 12/13/20. Family is considering home hospice. (2) Acute kidney injury: (3) Multi-organ system dysfunction: (4) Pneumonia: (5) Hypoxia: (6) Acute and chronic respiratory failure with hypoxia: (7) Atrial fibrillation with rapid ventricular response: (8) Leukocytosis: (9) Metabolic acidosis: Admission and Anticipated Discharge Date Admission Date: December 10, 2020 Supervising Physician Co-Signing Physician Notes Dr. Meyer was the resident-physician during care of patient. I separately evaluated patient for bar portions of the history and the exam. I was present during the critical portion of medical decision making, and I discussed the case with the resident. I generally agree with the findings and plan except for any additions/exceptions noted. Patient seen and examined bedside. No acute distress. Was on nasal cannula at the time of examination saturating 92% Denied any chest pain. Stated that he is feeling better No headache, no nausea, no vomiting Has been started on clear liquid diet Constitutional: No acute distress, frail-appearing HEENT: EOMI, PERRLA Respiratory system: Decreased air entry bilaterally, no wheeze, no rhonchi, positive crackles bilateral lower lobe CVS: S1-S2 positive, no murmurs or gallops, distant heart sounds Abdomen: Soft, nontender, nondistended, positive bowel sounds x4 Extremities: +2 pulses bilaterally radialis/ dorsalis pedis, no cyanosis, no edema Neuro: Awake alert oriented to self and place Psych: Normal mood and affect G/U: Positive Hannah --Prophylaxis VTE: Heparin (patient is on apixaban at home) GI: Pepcid Lines: Right IJ Diet: Clear liquid Plan: In/out +1222, urine output 22 mL Clinically patient looks better. We will able to take him off BiPAP But unfortunately he is anuric. He was taken off of vasopressor support for couple of hours but his blood pressure went down significantly and they needed to be restarted Palliative care has been talking with the family. If there is no improvement in the next 24 hours when it comes to his urine output or vasopressor requirement comfort measures will be initiated We will start the patient on D5 half NS at 40 mL an hour, procalcitonin is going this is likely from the worsening kidney function. Continue with antibiotics for multilobar pneumonia I have personally spent 38 minutes of critical care time in the direct management of this patient. This is a life/limb threatening event. This includes time spent evaluating patient, direct bedside care, chart review, placing orders, interpretation of diagnostic studies, discussion with consultants, patient, and/or family members regarding treatment decisions, as well as other required patient management activities. This time is exclusive of all separately billable procedures, and teaching time and separate from and in addition to any other critical care service time. Subjective Patient does not have any complaints. Denies all ROS. No chest pain or SOB. He denies confusion. He states he has some appetite for breakfast. Review of Systems Review of Systems: Constitutional: Denies fever, chills Cardiovascular: Denies chest pain Respiratory: Denies shortness of breath Gastrointestinal: Denies abdominal pain, nausea, vomiting Genitourinary: Denies urinary symptoms Musculoskeletal: Denies pain Neurological: Denies numbness, tingling ROS may be limited by patient's baseline dementia. Physical Exam Physical Exam: General: A&Ox1. Thin, frail appearing, cachetic appearance w/ ribs and trunk bones visible. No distress. HEENT: Atraumatic, normocephalic. EOMI. Pulm: No respiratory distress. Fine inspiratory crackles at L anterior lung field. R lung field is clear to auscultation. Cardiac: IIR, tachycardic, -rg. Radial pulses intact and symmetrical. No LE edema. Abdominal: Nontender, nondistended, soft. Integ: R IJ appropriate. : + hannah. Results & Data Results & Data ([facility]) Vital Signs (Past 12 Hours) Vital Signs HR ~100. RR mid-upper 20s, 20 most recently. MAPs low of 68 (90/59). 94 sat on 2L NC transitioned off bipap overnight. Temp Pulse Pulse Resp BP Pulse Ox 12/12/20 07:18 100 H 20 94 12/12/20 06:10 91 H 26 H 90/59 L 94 12/12/20 05:40 95 H 23 86/61 L 94 12/12/20 05:10 94 H 28 H 100/73 96 12/12/20 04:40 113 H 29 H 93/64 L 92 12/12/20 04:10 37 C 99 H 28 H 98/60 L 94 12/12/20 03:40 97 H 27 H 99/61 L 92 12/12/20 03:10 106 H 25 H 91/72 L 92 12/12/20 02:53 110 H 20 98 12/12/20 02:40 101 H 25 H 99/71 L 93 12/12/20 02:10 112 H 24 92/64 L 94 12/12/20 01:40 107 H 24 99/66 L 94 12/12/20 01:10 103 H 21 96/67 L 93 12/12/20 00:40 103 H 24 95/64 L 94 12/12/20 00:10 36.5 C 105 H 21 93/57 L 92 12/11/20 23:46 112 H 24 95 12/11/20 23:40 103 H 23 86/64 L 93 12/11/20 23:10 111 H 25 H 101/67 93 12/11/20 22:40 111 H 25 H 98/74 L 93 12/11/20 22:10 103 H 23 100/67 93 12/11/20 21:40 98 H 24 105/84 94 12/11/20 21:10 102 H 19 100/53 L 92 12/11/20 20:40 105 H 20 96/60 L 93 12/11/20 20:10 36.4 C L 106 H 25 H 109/70 97 12/11/20 19:40 103 H 24 109/60 98 Laboratory Results wbc 13.39->17.36. Hb stable 10.7. Plts sligtly low at 169, chronic. INR 2.0- >1.6. ptt 39.6->46. Na 1470>145. K 4.4->3.7. BUN 70. Cr 2.25->2.12->2.26. a1c 5.5. No new lactate. Mg 1.7->2.5H. AST 106->49, improved. procalc 5.66->17.43. 12/10 BC aerobic NG 24 hours. cumulative 6.2L in 32mL out. anuric 12/12/20 04:42 12/12/20 04:42 Abnormal lab results 12/11/20 12/11/20 12/11/20 Range/Units 12:31 17:14 23:41 WBC (4.8-10.8) K/uL RBC (4.7-6.1) M/uL Hgb (14.0-18.0) g/dL Hct (42-52) % RDW Std Deviation (36.4-46.3) fL RDW Coeff of Victoriano (11.5-14.5) % MPV (7.4-10.4) fL Neut # (Auto) (1.4-6.5) K/uL Lymph # (Auto) (1.2-3.4) K/uL Hudspeth # (Auto) (0.11-0.59) K/uL Immature Gran # (Auto) (0.00-0.02) K/uL PT (9.0-12.0) Seconds INR (0.9-1.1) APTT (21.0-31.0) Seconds Chloride (98-107) mmol/L BUN (7-18) mg/dl Creatinine (0.6-1.4) mg/dl BUN/Creatinine Ratio (10-20) Glucose (70-99) mg/dl POC Glucose 125 H (70-99) mg/dl POC Glucose (other) 174 H 153 H (70-99) mg/dl Magnesium (1.8-2.4) mg/dl Direct Bilirubin (0-0.2) mg/dl AST (15-37) U/L Total Protein (6.4-8.2) gm/dl Albumin (3.4-5.0) gm/dl Procalcitonin (0-0.5) ng/ml 12/12/20 12/12/20 12/12/20 Range/Units 04:42 04:42 04:42 WBC 17.36 H (4.8-10.8) K/uL RBC 3.30 L (4.7-6.1) M/uL Hgb 10.7 L (14.0-18.0) g/dL Hct 33.0 L (42-52) % RDW Std Deviation 55.8 H (36.4-46.3) fL RDW Coeff of Victoriano 15.4 H (11.5-14.5) % MPV 11.3 H (7.4-10.4) fL Neut # (Auto) 16.11 H (1.4-6.5) K/uL Lymph # (Auto) 0.57 L (1.2-3.4) K/uL Hudspeth # (Auto) 0.64 H (0.11-0.59) K/uL Immature Gran # (Auto) 0.03 H (0.00-0.02) K/uL PT 15.6 H (9.0-12.0) Seconds INR 1.6 H (0.9-1.1) APTT 46.0 H* (21.0-31.0) Seconds Chloride 113 H (98-107) mmol/L BUN 70 H (7-18) mg/dl Creatinine 2.26 H (0.6-1.4) mg/dl BUN/Creatinine Ratio 30.9 H (10-20) Glucose 116 H (70-99) mg/dl POC Glucose (70-99) mg/dl POC Glucose (other) (70-99) mg/dl Magnesium 2.5 H (1.8-2.4) mg/dl Direct Bilirubin 0.3 H (0-0.2) mg/dl AST 49 H (15-37) U/L Total Protein 6.3 L (6.4-8.2) gm/dl Albumin 1.6 L (3.4-5.0) gm/dl Procalcitonin (0-0.5) ng/ml 12/12/20 12/12/20 12/12/20 Range/Units 04:42 06:09 11:01 WBC (4.8-10.8) K/uL RBC (4.7-6.1) M/uL Hgb (14.0-18.0) g/dL Hct (42-52) % RDW Std Deviation (36.4-46.3) fL RDW Coeff of Victoriano (11.5-14.5) % MPV (7.4-10.4) fL Neut # (Auto) (1.4-6.5) K/uL Lymph # (Auto) (1.2-3.4) K/uL Hudspeth # (Auto) (0.11-0.59) K/uL Immature Gran # (Auto) (0.00-0.02) K/uL PT (9.0-12.0) Seconds INR (0.9-1.1) APTT (21.0-31.0) Seconds Chloride (98-107) mmol/L BUN (7-18) mg/dl Creatinine (0.6-1.4) mg/dl BUN/Creatinine Ratio (10-20) Glucose (70-99) mg/dl POC Glucose 118 H 116 H (70-99) mg/dl POC Glucose (other) (70-99) mg/dl Magnesium (1.8-2.4) mg/dl Direct Bilirubin (0-0.2) mg/dl AST (15-37) U/L Total Protein (6.4-8.2) gm/dl Albumin (3.4-5.0) gm/dl Procalcitonin 17.43 H (0-0.5) ng/ml Resident Activity Tracking Resident Involvement: Resident Care Provided Care Provided: [facility]
[2020-12-12] MEDS: HEPARIN SOD 5,000 UNIT/0.5 ML VIAL SQ SCH ×2 (08:14→20:07)
[2020-12-12] MEDS: FAMOTIDINE 20 MG in SYRINGE 3 ML IV SCH ×2 (09:07→20:07)
[2020-12-12] MEDS: D5W AND 1/2NSS 1,000 ML IV SCH (10:06)
--- NOTE | 2020-12-12 10:44 | Palliative Care Progress Note ---
Date of Service December 12, 2020 Assessment & Plan (1) Palliative care encounter: Plan: I met with Miguelangel Aguilar" at his bedside. He was sleeping soundly. He was arousable to verbal stimuli and interacted minimally, but he was pretty tired. I was able to talk with Pedrito on the phone at [phone]. I provided him with an update and discussed what we had talked about during ICU rounds, including that we would attempt a gentle fluid challenge to possibly stimulate his kidneys to have more urine output; with caution to avoid cardiac overload. His pressors are being weaned and he is now just on Levophed 0.07. The renal ultrasound that was performed yesterday ultimately just revealed some age-related atrophic kidneys. I confirmed today with Pedrito that his living will indicated that he would not want to be resuscitated with CPR or intubation. Confirmed DNR/DNI. Vee mentioned that they would not want him to go through bronchoscopy, hemodialysis, feeding tubes, or any aggressive procedures. As stated previously, Millicent does live with his son and daughter in law. When discussing his ADL abilities she stated that he can eat independently, but does require assistance with bathing, dressing. He does ambulate with a walker at times, but does require support with walking. She mentioned that he did have a stroke int he past, and never really regained his full swallowing capabilities. He has had expressive aphagia since the event more than 10 years ago. I followed up about our conversation from yesterday with Vee about him returning home with hospice if we were unable to fix the underlying medical issues. Pedrito said that they both work and is unsure that this would be a possibility. He asked if he could stay here, if we transitioned to comfort focused approach to his care. I mentioned that we could make the transition here and see how he does, but if he has 'prolonged' life beyond a few days after comfort transition, we would need to look at another alternate for placement whether at home with additional caregiver support and hospice or at a nursing facility with hospice. Advised that we can continue to discuss tomorrow after we see how he progresses today. Palliative will follow. Admission and Anticipated Discharge Date Admission Date: December 10, 2020 Subjective Patient sleeping soundly when I entered the room. Arousable, but weak. Currently on 2LNC. Patient denies complaints at this time. Review of Systems Review of Systems: [place] [facility] Assessment Scale: Pain: 0/3 SOB: 1/3 Lack of Appetite: 1/3 Tiredness: 2/3 Anxiety: 0/3 Palliative Performance Scale: 20% Physical Exam Constitutional: + cachectic, cooperative and comfortable ENMT: Mouth: + dry oral mucous membranes Respiratory: + respiratory distress (on BiPAP) and + tachypneic (intermittently ) Auscultation: + diminished lung sounds and + crackles Cardiovascular: Rate/Rhythm: regular rate and regular rhythm Gastrointestinal (Abdomen): Inspection/Auscultation: normal bowel sounds Skin: + crusts, + dry skin and + pallor Psychiatric: Orientation: alert, oriented to person, oriented to place and cooperative Insight: + limited insight Judgement: + limited judgement lethargic Results & Data ([facility]) Vital Signs (Past 12 Hours) Vital Signs Temp Pulse Pulse Resp BP BP Pulse Ox 12/12/20 10:10 76/45 L 89 L 12/12/20 09:45 89 17 72/43 L 92 12/12/20 09:40 82 21 70/46 L 92 12/12/20 09:21 91 H 19 79/47 L 93 12/12/20 09:10 89 20 76/46 L 95 12/12/20 08:53 97 H 26 H 82/53 L 90 12/12/20 08:40 102 H 19 83/56 L 91 12/12/20 08:25 106 H 24 86/55 L 86/55 L 89 L 12/12/20 08:10 85/54 L 12/12/20 08:00 97 H 12/12/20 07:55 87/58 L 12/12/20 07:41 93/70 L 12/12/20 07:18 100 H 20 94 12/12/20 07:10 36.3 C L 108 H 26 H 101/58 L 93 12/12/20 06:10 91 H 26 H 90/59 L 94 12/12/20 05:40 95 H 23 86/61 L 94 12/12/20 05:10 94 H 28 H 100/73 96 12/12/20 04:40 113 H 29 H 93/64 L 92 12/12/20 04:10 37 C 99 H 28 H 98/60 L 94 12/12/20 03:40 97 H 27 H 99/61 L 92 12/12/20 03:10 106 H 25 H 91/72 L 92 12/12/20 02:53 110 H 20 98 12/12/20 02:40 101 H 25 H 99/71 L 93 12/12/20 02:10 112 H 24 92/64 L 94 12/12/20 01:40 107 H 24 99/66 L 94 12/12/20 01:10 103 H 21 96/67 L 93 12/12/20 00:40 103 H 24 95/64 L 94 12/12/20 00:10 36.5 C 105 H 21 93/57 L 92 12/11/20 23:46 112 H 24 95 12/11/20 23:40 103 H 23 86/64 L 93 12/11/20 23:10 111 H 25 H 101/67 93 PG Care Time/CCT Total # of Minutes Spent Total Time Spent with Patient: Total time spent is greater than 50% in coordination of care (as documented) at patient's floor/unit and/or counseling patient: 35 minutes with > 50% of that time spent assessing the patient, discussing goals of care with family, and collaborating with IDT Coding Level of Care Code 72979 Subseq Hosp Care Lvl 3 Diagnoses Palliative care encounter Z51.5 Time Spent (min) 35
[2020-12-12] MEDS: NOREPINEPHRINE/D5W 8 MG/508 ML BAG IV SCH (10:57)
--- NOTE | 2020-12-12 14:04 | Hospitalist Progress Note ---
Date of Service December 12, 2020 Assessment & Plan (1) Pneumonia: Plan: CXR on 12/10 showed left lung with multifocal left-sided pulmonary consolidation. - Continue Zosyn - [employer]EARCH [employer]ING OPERATOR eval once/if stable given it looks like aspiration-related. (2) CKD (chronic kidney disease), stage III: Plan: Baseline Cr ~1.0. Now with acute renal failure, present on admission. - Cr was 2.25 on admission, stable today. - Monitor UOP, Cr -> Today patient is nearly aneuric with just a tiny (several mL) UOP. (3) Septic shock: Plan: On Levophed during my interview today with BP in the 90/60 range. Had been on Levophed 0.05 mcg/kg/min, but now up to 0.15 to maintain MAP > 60 mmHg. - Per ICU team (4) Acute and chronic respiratory failure with hypoxia: Plan: Due to above. - Now on 1L per minute nasal cannula, so that is improving. - As above (5) Atrial fibrillation with rapid ventricular response: Plan: HR worsened due to sepsis and Levophed, though only ~90 bpm. - Hold apixaban for now. - Monitor (6) Diastolic CHF: Plan: Chronic diastolic heart failure. No indication of acute exacerbation and patient looks volume down to me on exam this morning. - Hold furosemide - Monitor (7) CAD (coronary artery disease): Plan: Denied any chest pain to me. - Hold beta-cassie for hypotension. - Hold statin, spironolactone until able to reliably take PO (8) BPH (benign prostatic hyperplasia): Plan: - Continue finasteride as able - Monitor PVRs once Diop is removed. (9) Dementia: Plan: Unclear baseline, but for me he is pleasant and conversant, but not a lot of insight into medical issues. - Continue donepezil as able (10) DVT prophylaxis: Plan: SCDs - Holding heparin per ICU team Admission and Anticipated Discharge Date Admission Date: December 10, 2020 Subjective More fatigued today. Opens eyes somewhat, but doesn't answer questions. Review of Systems Review of Systems: Unobtainable due to reduced consciousness Physical Exam Constitutional: WD/WN, vitals as above Eyes: EOM intact bilaterally; no conjunctival abnormality ENMT: external ear and nose normal, oropharynx normal Neck: trachea midline, no thyromegaly normal visual inspection Respiratory: normal respiratory effort, lungs clear to auscultation no respiratory distress Cardiovascular: RRR, no murmur, no edema Gastrointestinal (Abdomen): Inspection/Auscultation: abdomen normal to inspection; abdomen not distended Musculoskeletal: no cyanosis or clubbing, extremities motor strength 5/5 Skin: no rashes, warm and dry Neurologic: moves all extremities; + not awake Psychiatric: Orientation: + not alert Results & Data Results & Data ([facility]) Vital Signs (Past 12 Hours) Vital Signs Temp Pulse Pulse Resp BP BP Pulse Ox 12/12/20 13:10 88 20 98/58 L 92 12/12/20 12:40 80 18 96/53 L 91 12/12/20 12:10 74 19 89/57 L 92 12/12/20 11:55 81 22 99/55 L 93 12/12/20 11:40 36.4 C L 84 18 95/51 L 95 12/12/20 11:10 81 18 85/57 L 92 12/12/20 10:40 81 17 77/55 L 91 12/12/20 10:10 76/45 L 89 L 12/12/20 09:45 89 17 72/43 L 92 12/12/20 09:40 82 21 70/46 L 92 12/12/20 09:21 91 H 19 79/47 L 93 12/12/20 09:10 89 20 76/46 L 95 12/12/20 08:53 97 H 26 H 82/53 L 90 12/12/20 08:40 102 H 19 83/56 L 91 12/12/20 08:25 106 H 24 86/55 L 86/55 L 89 L 12/12/20 08:10 85/54 L 12/12/20 08:00 97 H 12/12/20 07:55 87/58 L 12/12/20 07:41 93/70 L 12/12/20 07:18 100 H 20 94 12/12/20 07:10 36.3 C L 108 H 26 H 101/58 L 93 12/12/20 06:10 91 H 26 H 90/59 L 94 12/12/20 05:40 95 H 23 86/61 L 94 12/12/20 05:10 94 H 28 H 100/73 96 12/12/20 04:40 113 H 29 H 93/64 L 92 12/12/20 04:10 37 C 99 H 28 H 98/60 L 94 12/12/20 03:40 97 H 27 H 99/61 L 92 12/12/20 03:10 106 H 25 H 91/72 L 92 12/12/20 02:53 110 H 20 98 12/12/20 02:40 101 H 25 H 99/71 L 93 12/12/20 02:10 112 H 24 92/64 L 94 PG Care Time/CCT Total # of Minutes Spent Total Time Spent with Patient: Total time spent is greater than 50% in coordination of care (as documented) at patient's floor/unit and/or counseling patient: Coding Level of Care Code 40546 Subseq Hosp Care Lvl 3 Diagnoses Pneumonia J18.9 Septic shock A41.9; R65.21 Acute and chronic respiratory failure with hypoxia J96.21 Atrial fibrillation with rapid ventricular response I48.91 Diastolic CHF I50.30 CAD (coronary artery disease) I25.10 CKD (chronic kidney disease), stage III N18.3 BPH (benign prostatic hyperplasia) N40.0 Dementia F03.90 DVT prophylaxis Z29.9
--- NOTE | 2020-12-12 15:08 | Billing Data ---
Date of Service December 12, 2020 Coding Level of Care Code Critical Care 1st 30-74 mins Time Spent (min) 38
[2020-12-12 17:12] LABS: Bacteria Urine Automated Negative (Negative)
[2020-12-12 17:38] LABS: RBC Urine Automated >30 /hpf (0-4)
[2020-12-12 17:40] LABS: Uric Acid Crystals Urine Present (None Prsent)
[2020-12-12 17:44] LABS: Hematocrit (blood only) 32.5 % (42-52); Hemoglobin 10.6 g/dL (14.0-18.0); Immature Granulocytes # (auto) 0.04 K/uL (0.00-0.02); Immature Granulocytes % (auto) 0.2 %; Lymphocytes # (auto) 0.57 K/uL (1.2-3.4); Lymphocytes % (auto) 3.3 %; Mean Corpuscular Hemoglobin 32.7 pg (25-34); Mean Corpuscular Hgb Conc 32.6 g/dL (32-36); Mean Corpuscular Volume 100.3 fL (80-100); Mean Platelet Volume 11.1 fL (7.4-10.4); Monocytes # (auto) 0.75 K/uL (0.11-0.59); Monocytes % (auto) 4.3 %; Neutrophils # (auto) 16.08 K/uL (1.4-6.5); Neutrophils % (auto) 92.2 %; Platelet Count 163 K/uL (130-400); RDW Coefficient of Variation 15.7 % (11.5-14.5); RDW Standard Deviation 56.9 fL (36.4-46.3); Red Blood Count 3.24 M/uL (4.7-6.1); White Blood Count 17.44 K/uL (4.8-10.8)
[2020-12-12 18:02] LABS: BUN Creatinine Ratio 31.7 (10-20); Calcium 9.1 mg/dl (8.5-10.1); Creatinine Clr Calc Pharmacy 15.4 ml/min; Est GFR (Non-African American) 28.5 ml/min; Potassium 3.2 mmol/L (3.5-5.1)
--- NOTE | 2020-12-12 18:19 | XRay Report ---
XR chest 1V portable HISTORY: 85 years-old Male hypoxia, aspiration pna acute hypoxia with pneumonia COMPARISON: Chest radiograph 12/10/2020 TECHNIQUE: Portable AP view of the chest FINDINGS: The patient is again mildly rotated. Right IJ central venous catheter is unchanged. Cardiomegaly. Lef t greater than right pleural effusions and bilateral airspace opacities are redemonstrated and appear generally stable. No pneumothorax. Degenerative changes of the shoulders and spine. IMPRESSION: 1. Stable exam with left greater than right bilateral airspace opacities redemonstrated. 2. Unchanged left pleural effusion. 3. Cardiomegaly. ACT 112: Negative or not required by law. The above report was generated using voice recognition software. It may contain grammatical, syntax o r spelling errors. Electronically signed by: Sloan Ro M.D. 12/12/2020 6:18 PM
[2020-12-13] MEDS: INSULIN ASPART 100 UNITS/ML 3 ML PEN SC SCH ×5 (00:53→21:41)
[2020-12-13] MEDS: PIPERACILLIN/TAZOBACTAM 3.375 GM in DEXTROSE 5% 100 ML IV SCH ×2 (01:29→14:38)
--- NOTE | 2020-12-13 05:10 | Billing Data ---
Date of Service December 13, 2020 Coding Level of Care Code Critical Care mins
[2020-12-13 05:59] LABS: Basophils # (auto) 0.01 K/uL (0-0.2); Basophils % (auto) 0.1 %; Hematocrit (blood only) 32.5 % (42-52); Hemoglobin 10.6 g/dL (14.0-18.0); Immature Granulocytes # (auto) 0.02 K/uL (0.00-0.02); Immature Granulocytes % (auto) 0.1 %; Lymphocytes # (auto) 0.57 K/uL (1.2-3.4); Lymphocytes % (auto) 4.1 %; Mean Corpuscular Hemoglobin 32.5 pg (25-34); Mean Corpuscular Hgb Conc 32.6 g/dL (32-36); Mean Corpuscular Volume 99.7 fL (80-100); Mean Platelet Volume 11.2 fL (7.4-10.4); Monocytes # (auto) 0.54 K/uL (0.11-0.59); Monocytes % (auto) 3.8 %; Neutrophils # (auto) 12.91 K/uL (1.4-6.5); Neutrophils % (auto) 91.9 %; Platelet Count 156 K/uL (130-400); RDW Coefficient of Variation 15.5 % (11.5-14.5); RDW Standard Deviation 56.4 fL (36.4-46.3); Red Blood Count 3.26 M/uL (4.7-6.1); White Blood Count 14.05 K/uL (4.8-10.8)
[2020-12-13 06:14] LABS: INR 1.4 (0.9-1.1); Partial Thromboplastin Ratio 1.7; Partial Thromboplastin Time 43.9 Seconds (21.0-31.0); Prothrombin Time 13.5 Seconds (9.0-12.0)
[2020-12-13 06:26] LABS: Albumin Level 1.6 gm/dl (3.4-5.0); BUN Creatinine Ratio 29.6 (10-20); Bilirubin Direct 0.2 mg/dl (0-0.2); Creatinine Clr Calc Pharmacy 16.3 ml/min; Est GFR (African American) 35.5 ml/min; Est GFR (Non-African American) 30.6 ml/min; Magnesium 2.3 mg/dl (1.8-2.4); Potassium 2.9 mmol/L (3.5-5.1)
[2020-12-13 06:32] LABS: Albumin Globulin Ratio 0.4 (0.9-2); Bilirubin,Total 0.5 mg/dl (0.2-1); Globulin 4.5 gm/dl (2.5-4.0); Phosphorus 2.5 mg/dl (2.5-4.9); Total Protein 6.1 gm/dl (6.4-8.2)
[2020-12-13] MEDS: LEVALBUTEROL HCL 1.25 MG/3 ML NEB NEB PRN (07:23)
[2020-12-13] MEDS: ACETYLCYSTEINE 20% INHAL SOLN 4ML ***DISPENSED BY RESP. INH SCH ×2 (07:23→20:03)
[2020-12-13] MEDS: SODIUM CHLOR 7% 4 ML NEB NEB SCH ×2 (07:24→20:03)
[2020-12-13] MEDS: POTASSIUM CHLORIDE / WTR 10 MEQ/100 ML PLCT IV SCH ×7 (07:31→23:53)
[2020-12-13] MEDS: NOREPINEPHRINE/D5W 8 MG/508 ML BAG IV SCH (07:36)
--- NOTE | 2020-12-13 07:57 | Critical Care Progress Note ---
Date of Service December 13, 2020 Assessment & Plan (1) Septic shock: Plan: Reason Critically Ill: 85-year-old male w/ PMHx of afib, CKD3, and diastolic CHF who presents to the ICU evening of 12/10/20 with septic shock and acute hypoxic respiratory failure, initially requiring pressors and BiPAP. He is weaned off bipap. In the past 24 hours, patient has shown some improvement in his hannah output, from ~0ml to ~500mL. Patient is DNR/DNI. Neuro - No change in mental status in 24 hours. Follow clinically. AMSstroke and dementia noted on patient's history and unsure of baseline mental status -Likely had some contribution from metabolic encephalopathy in the setting of sepsis. Cardiac - Shock, improvingpatient presented with hypotension's unresponsive to fluids. Chest x-ray consistent with pneumonia and suspect likely septic shock from pulmonary source. -Patient does have history of diastolic heart failure -12/11/20 echo. EF 60-65%. No RWMA. Moderate concentric LVH. Severe biatrial dilation. Moderate to severe MR and PH. -Received 2.5 L isotonic bolus in the emergency department -We will hold diuretics and antihypertensives for now -Weaned off vasopressin. Levophed as above -Troponin 0.043 -Random cortisol 43.2, appropriate -Monitor Atrial fibrillationchronic -Rate 90s-low 100s -Anticoagulated on Eliquis at home, currently held, initially for NPO, but also for THEO/anuria. -Continuous monitoring on telemetry Respiratory - Acute hypoxic respiratory failurepatient presented with severe hypoxia. Would normally require intubation but patient strictly DNI -Chest x-ray consistent with pneumonia, discussed w/ family regarding b ronchoscopy. This would require intubation and patient's family declined. -Compared w/ 2018 CXR, similar appearance at that time w/ cardiomegaly and L pleural effusion. considered mucous plug, but similar appearance on 2019 cxr would support against a new occurence -History of diastolic heart failure requiring diuretics, BNP 11,435. Will hold on diuresis as not clinically supporting hypervolemia. -Less likely PE because anticoagulated on Eliquis at home -resp acidosis+metabolic acidosis (likely lactic) -Will preferably have patient lay on right side w/ good lung down to decrease V/Q mismatch -Added N acetylcysteine nebulized and hypertonic 7% nebulized treatments BID. Cough assist as tolerated. -12/12 cxr w/ some improvement in opacities at L upper lung field. GI - Clear liquid, low Na diet. Transaminitismild likely in the setting of shock liver following hypotension, improving. Monitor RENAL/LYTES - THEO on CKD stage IIIsuspect ATN following hypotension. Baseline 1.14 -FeNa 1.1%, intermediate between prerenal and intrinsic, may have element of both -microscopy did not mention granular casts -Cr 2.25->2.12->2.26->1.92 -D5 1/2 NSS at 40mL/hr -Monitor BMPs HypoK - 2.9, repleting Oliguria Previously ~10-20ml hannah UOP/day. Past 24 hours ~500mL UOP, showing some improvement Likely secondary to ATN form renal hypoperfusion Renal US showed mildly atrophic kidneys, but did not show obstruction Gentle IV hydration as per above - BPHholding finasteride while NPO -Hannah. -Cumulative 6.7L in 517mL out. ENDO - No history of diabetes, ICU hyperglycemic protocol TSH within normal limits HEME - H&H stable, routine CBCs elevated coags, improving - likely 2/2 sepsis Hold home Eliquis ID - Sepsislikely from pulmonary source -Elevated WBC and lactate on admission. Afebrile -Urinalysis unremarkable, blood cultures pending -Procalcitonin 5.66->17.43, likely 2/2 shock and pulmonary infection -COVID-19 negative -Nasal MRSA negative -Continue Zosyn LINES/IV ACCESS - Right IJ CVC. PIVs DVT PROPHYLAXIS - SCDs, SQ heparin 5000 q12 Progress patient's prognosis is poor. Palliative care consulted. There is improvement his respiratory status and UOP. Continue ICU care and reassess on 12/14/20. (2) Acute kidney injury: (3) Multi-organ system dysfunction: (4) Pneumonia: (5) Hypoxia: (6) Acute and chronic respiratory failure with hypoxia: (7) Atrial fibrillation with rapid ventricular response: (8) Leukocytosis: (9) Metabolic acidosis: Plan: Dr. Meyer was the resident-physician during care of patient. I separately evaluated patient for bar portions of the history and the exam. I was present during the critical portion of medical decision making, and I discussed the case with the resident. I generally agree with the findings and plan except for any additions/exceptions noted. Patient seen and examined at bedside. No acute distress, no adverse events overnight. Denies any chest pain. He is answering simple questions. Says that he is feeling better Has been using CoughAssist as well as chest PT. Afebrile. Constitutional: No acute distress, frail-appearing HEENT: EOMI, PERRLA Respiratory system: Decreased air entry bilaterally, no wheeze, no rhonchi, p ositive crackles bilateral lower lobe CVS: S1-S2 positive, no murmurs or gallops, distant heart sounds Abdomen: Soft, nontender, nondistended, positive bowel sounds x4 Extremities: +2 pulses bilaterally radialis/ dorsalis pedis, no cyanosis, no edema Neuro: Awake alert oriented to self only Psych: Normal mood and affect G/U: Positive Hannah --Prophylaxis VTE: Heparin (patient is on apixaban at home) GI: Pepcid Lines: Right IJ Diet: Clear liquid --> advance diet Plan: In/out +43, urine output 485 Chest x-ray from 12/12/2020 does show mild improvement in the left upper lobe opacity Patient's urine output has picked up. His creatinine is improving There has been mild improvement in his respiratory status as well as a creatinine I think getting another 24 hours on vasopressors should be okay Overall prognosis of the patient is poor given underlying severe COPD. If there is no significant improvement palliative care approach would be the best thing for him. Continue with D5 half NS at 40 mL an hour Hypokalemia being replaced I have personally spent 33 minutes of critical care time in the direct management of this patient. This is a life/limb threatening event. This includes time spent evaluating patient, direct bedside care, chart review, placing orders, interpretation of diagnostic studies, discussion with consultants, patient, and family members, as well as other required patient management activities. This time is exclusive of all separately billable procedures, and teaching time and separate from and in addition to any other critical care service time. Please note the above document was generated using voice recognition software. It may contain grammatical, syntax or spelling errors. Admission and Anticipated Discharge Date Admission Date: December 10, 2020 Subjective No acute events overnight. Patient continues on levophed .15 and 2L of nasal cannula. Patient denies any complaints. He ate a small amount of pudding in the morning. On recheck, he is comfortable eating lunch. Review of Systems Review of Systems: Constitutional: Denies fever, chills Cardiovascular: Denies chest pain Respiratory: Denies shortness of breath Gastrointestinal: Denies abdominal pain, nausea, vomiting Genitourinary: Denies urinary symptoms Musculoskeletal: Denies pain Neurological: Denies numbness, tingling ROS reported as above, but may be limited by patient's baseline dementia. Physical Exam Physical Exam: General: A&Ox1. Thin, frail appearing. Cachectic appearance w/ ribs and trunk bones visible. No distress. HEENT: Atraumatic, normocephalic. EOMI. Pulm: No respiratory distress. No crackles. Cardiac: IIR, tachycardic, -rg. Radial pulses intact and symmetrical. No LE edema. Abdominal: Nontender, nondistended, soft. Integ: R IJ appropriate, nonerythematous. : + hannah, cloudy appearance w/ slight red tinge per nursing. Results & Data Results & Data ([facility]) Vital Signs (Past 12 Hours) Vital Signs HR ~90. BP 1 low of 92/65, MAPs >70. Mostly low 90s on 2L NC. Intermittent desat Temp Pulse Pulse Resp BP Pulse Ox 12/13/20 07:34 36.4 C L 90 20 94 12/13/20 07:25 85 21 92 12/13/20 07:19 90 12/13/20 07:10 90 27 H 110/69 90 12/13/20 01:24 36.7 C 12/13/20 01:10 100 H 25 H 103/66 91 12/13/20 00:40 88 21 92/65 L 86 L 12/13/20 00:10 87 24 106/59 L 87 L 12/13/20 00:00 81 12/12/20 23:40 97 H 29 H 95/64 L 94 12/12/20 23:10 86 22 102/52 L 91 12/12/20 22:40 85 22 108/69 94 12/12/20 22:10 86 24 103/61 92 12/12/20 21:40 87 31 H 99/62 L 83 L 12/12/20 21:10 86 23 100/60 90 12/12/20 20:40 72 20 105/68 88 L 12/12/20 20:16 36.7 C 12/12/20 20:10 81 20 99/60 L 87 L Laboratory Results wbc 17.44->14.05. Hb stable 10.6. Na 146->144. K 3.2->2.9. Cr 2.26->2.04->1.92. BUN/Cr 31.7->29.6. serum osm 320. urine osm 438. urine microscopy w/ uric acid crystals. transaminitis resolved. procalc 17.43->8.61 12/13/20 05:29 12/13/20 05:29 Diagnostic Findings Chest X-Ray 12/12/20 16:50 XR chest 1V portable HISTORY: 85 years-old Male hypoxia, aspiration pna acute hypoxia with pneumonia COMPARISON: Chest radiograph 12/10/2020 TECHNIQUE: Portable AP view of the chest FINDINGS: The patient is again mildly rotated. Right IJ central venous catheter is unchanged. Cardiomegaly. Left greater than right pleural effusions and bilateral airspace opacities are redemonstrated and appear generally stable. No pneumothorax. Degenerative changes of the shoulders and spine. IMPRESSION: 1. Stable exam with left greater than right bilateral airspace opacities redemonstrated. 2. Unchanged left pleural effusion. 3. Cardiomegaly. ACT 112: Negative or not required by law. The above report was generated using voice recognition software. It may contain grammatical, syntax or spelling errors. Electronically signed by: Sloan Ro M.D. 12/12/2020 6:18 PM Resident Activity Tracking Resident Involvement: Resident Care Provided Care Provided: Adult Hospital Medicine
[2020-12-13] MEDS: FAMOTIDINE 20 MG in SYRINGE 3 ML IV SCH ×2 (08:09→21:39)
[2020-12-13] MEDS: HEPARIN SOD 5,000 UNIT/0.5 ML VIAL SQ SCH ×2 (08:09→21:39)
--- NOTE | 2020-12-13 10:28 | Palliative Care Progress Note ---
Date of Service December 13, 2020 Assessment & Plan (1) Palliative care encounter: Plan: Grimacing noted walking by earlier today. He denies pain or discomfort. He has had some urine output in the last 24 hours but had been anuric previously. His labs are generally trending in the right direction with decreased WBC, decreased prolactin, decreased creatinine. Family has been considering shift of focus to comfort care but given changes in last 24 hours, would prefer to watch for another day which seems totally appropriate. He is DNR/DNI. I tried to call his daughter, Vee, but there was no answer. Dr. Meyer did speak to her earlier this morning. Palliative care will follow. (2) Septic shock: (3) Atrial fibrillation with rapid ventricular response: (4) Pneumonia: (5) Dementia: (6) CAD (coronary artery disease): (7) Diastolic CHF: Admission and Anticipated Discharge Date Admission Date: December 10, 2020 Subjective Awake and alert. Denies pain or discomfort. Says that he feels "crazy" and that his thinking is off. Good appetite, ate breakfast and asking for something to eat. Review of Systems Review of Systems: [place] Symptom Assessment Scale Pain 0/3 Dyspnea 0/3 Fatigue 2/3 Nausea 0/3 Anxiety 0/3 Drowsiness 0/3 Palliative Performance Score 30% Physical Exam Constitutional: + cachectic and + frail appearing Respiratory: normal respiratory effort; no labored breathing Cardiovascular: Rate/Rhythm: + irregularly irregular Extremities: no edema Gastrointestinal (Abdomen): nondistended, nontender, LBM / Musculoskeletal: Extremities: + muscle atrophy Neurologic: awake and + confused (at times) Genitourinary: Diop catheter with 260cc output Results & Data ([facility]) Vital Signs (Past 12 Hours) Vital Signs Temp Pulse Pulse Resp BP Pulse Ox 12/13/20 09:30 89 L 12/13/20 09:12 90 12/13/20 08:40 96 H 26 H 111/65 92 12/13/20 08:10 93 H 29 H 95/62 L 93 12/13/20 07:40 106/68 97 12/13/20 07:34 97.5 F L 90 20 94 12/13/20 07:25 85 21 92 12/13/20 07:19 90 12/13/20 07:10 90 27 H 110/69 90 12/13/20 01:24 98.1 F 12/13/20 01:10 100 H 25 H 103/66 91 12/13/20 00:40 88 21 92/65 L 86 L 12/13/20 00:10 87 24 106/59 L 87 L 12/13/20 00:00 81 12/12/20 23:40 97 H 29 H 95/64 L 94 12/12/20 23:10 86 22 102/52 L 91 12/12/20 22:40 85 22 108/69 94 PG Care Time/CCT Total # of Minutes Spent Total Time Spent: 30 Total Time Spent with Patient: Total time spent is greater than 50% in coordination of care (as documented) at patient's floor/unit and/or counseling patient: symptom management, goals of care Coding Level of Care Code 80345 Subseq Hosp Care Lvl 2 Diagnoses Palliative care encounter Z51.5 Septic shock A41.9; R65.21 Atrial fibrillation with rapid ventricular response I48.91 Pneumonia J18.9 Dementia F03.90 CAD (coronary artery disease) I25.10 Diastolic CHF I50.30
[2020-12-13] MEDS: D5W AND 1/2NSS 1,000 ML IV SCH (11:13)
[2020-12-13 13:16] LABS: BUN Creatinine Ratio 27.4 (10-20); Calcium 9.2 mg/dl (8.5-10.1); Creatinine Clr Calc Pharmacy 16.5 ml/min; Est GFR (African American) 35.9 ml/min; Potassium 3.3 mmol/L (3.5-5.1)
--- NOTE | 2020-12-13 13:59 | Pharmacy Report ---
Pharmacy Glycemic Sign Off Nt - Date of Service December 13, 2020 - Assessment & Plan ASSESSMENT: * Pharmacy was consulted by Dr Kay on 12/11 for glycemic control and to write orders per [facility] inpatient glycemic control protocol per the ICU hyperglycemic protocol * Major changes made by pharmacy to antidiabetic regimen include: * Addition of novolog correctional insulin * Patient has been receiving/requiring 0 units of insulin per day for adequate glycemic control * BSGs ranging 115 142 mg/dl * Regimen has only required minor adjustments over the past 48hrs to achieve this level of control * Can possibly discontinue BSG checks and check with lab if transition to comfort more desired * Please see recommendations for outpatient antidiabetic regimen below. PLAN FOR INPATIENT GLYCEMIC CONTROL: No changes needed to current regimen, can possibly d/c BSG checks if desired * Continue NovoLog per scale ACHS/Q6hrs while NPO * Goal range = 140 180 mg/dl * CF = 40 mg/dl/unit * Pharmacy is signing off of glycemic consult and will no longer be making adjustments to inpatient regimen. Please feel free to re-consult if needed. Thank you.
[2020-12-13] MEDS: POLYETHYLENE (MIRALAX) 17 GM PACK PO SCH (14:36)
--- NOTE | 2020-12-13 15:05 | Billing Data ---
Date of Service December 13, 2020 Coding Level of Care Code Critical Care 1st 30-74 mins Time Spent (min) 33
--- NOTE | 2020-12-13 15:11 | Hospitalist Progress Note ---
Date of Service December 13, 2020 Assessment & Plan (1) Pneumonia: Plan: CXR on 12/10 showed left lung with multifocal left-sided pulmonary consolidation. - Continue Zosyn - COPRA SAMPLER eval once/if stable given it looks like aspiration-related. - Respiratory status improving. Now on 2L NC. (2) Septic shock: Plan: On Levophed during my interview today with BP in the 90/60 range. Had been on Levophed 0.05 mcg/kg/min, but now at 0.10 to maintain MAP > 60 mmHg. - Per ICU team; improving. (3) CKD (chronic kidney disease), stage III: Plan: Baseline Cr ~1.0. Now with acute renal failure, present on admission. - Cr was 2.25 on admission, stable today. - Monitor UOP, Cr -> Today patient is making some urine. Cr down to 1.9 today. (4) Acute and chronic respiratory failure with hypoxia: Plan: Due to above. - Now on nasal cannula, so that is improving. - As above (5) Atrial fibrillation with rapid ventricular response: Plan: HR worsened due to sepsis and Levophed, though only ~90 bpm. - Hold apixaban for now. - Monitor (6) Diastolic CHF: Plan: Chronic diastolic heart failure. No indication of acute exacerbation and patient looks volume down to me on exam this morning. - Hold furosemide - Monitor (7) CAD (coronary artery disease): Plan: Denied any chest pain to me. - Hold beta-cassie for hypotension. - Hold statin, spironolactone until able to reliably take PO (8) BPH (benign prostatic hyperplasia): Plan: - Continue finasteride as able - Monitor PVRs once Diop is removed. (9) Dementia: Plan: Unclear baseline, but for me he is pleasant and conversant, but not a lot of insight into medical issues. - Continue donepezil as able (10) DVT prophylaxis: Plan: Heparin 5,000 units SQ Q12h GI ppx: Famotidine 20 mg IV BID Admission and Anticipated Discharge Date Admission Date: December 10, 2020 Subjective Doing well today. Eating breakfast when I saw him. Reports no fevers/chills, chest pain, shortness of breath, abdominal pain, nausea, or vomiting. Physical Exam Constitutional: + cachectic; no acute distress Eyes: EOM intact bilaterally; no conjunctival abnormality ENMT: external ear and nose normal, oropharynx normal Neck: trachea midline, no thyromegaly normal visual inspection Respiratory: normal respiratory effort, lungs clear to auscultation no respiratory distress Cardiovascular: RRR, no murmur, no edema Gastrointestinal (Abdomen): Inspection/Auscultation: abdomen normal to inspection; abdomen not distended Musculoskeletal: no cyanosis or clubbing, extremities motor strength 5/5 Skin: no rashes, warm and dry Neurologic: moves all extremities and awake Psychiatric: Orientation: alert and oriented to person Results & Data Results & Data ([facility]) Vital Signs (Past 12 Hours) Vital Signs Temp Pulse Pulse Resp BP Pulse Ox 12/13/20 11:40 88 26 H 93/62 L 90 12/13/20 11:10 89 25 H 102/67 92 12/13/20 10:40 88 31 H 97/71 L 92 12/13/20 10:10 80 22 91/66 L 84 L 12/13/20 09:30 89 L 12/13/20 09:12 90 12/13/20 08:40 96 H 26 H 111/65 92 12/13/20 08:10 93 H 29 H 95/62 L 93 12/13/20 07:40 106/68 97 12/13/20 07:34 36.4 C L 90 20 94 12/13/20 07:25 85 21 92 12/13/20 07:19 90 12/13/20 07:10 90 27 H 110/69 90 PG Care Time/CCT Total # of Minutes Spent Total Time Spent with Patient: Total time spent is greater than 50% in coordination of care (as documented) at patient's floor/unit and/or counseling patient: Coding Level of Care Code 60929 Subseq Hosp Care Lvl 3 Diagnoses Pneumonia J18.9 CKD (chronic kidney disease), stage III N18.3 Septic shock A41.9; R65.21 Acute and chronic respiratory failure with hypoxia J96.21 Atrial fibrillation with rapid ventricular response I48.91 Diastolic CHF I50.30 CAD (coronary artery disease) I25.10 BPH (benign prostatic hyperplasia) N40.0 Dementia F03.90 DVT prophylaxis Z29.9
[2020-12-14] MEDS: PIPERACILLIN/TAZOBACTAM 3.375 GM in DEXTROSE 5% 100 ML IV SCH ×2 (01:58→14:39)
[2020-12-14] MEDS: NOREPINEPHRINE/D5W 8 MG/508 ML BAG IV SCH ×4 (04:29→07:00)
[2020-12-14 05:08] LABS: Eosinophils # (auto) 0.03 K/uL (0-0.5); Eosinophils % (auto) 0.3 %; Hematocrit (blood only) 30.5 % (42-52); Hemoglobin 10.1 g/dL (14.0-18.0); Immature Granulocytes # (auto) 0.02 K/uL (0.00-0.02); Immature Granulocytes % (auto) 0.2 %; Lymphocytes % (auto) 5.8 %; Mean Corpuscular Hemoglobin 32.4 pg (25-34); Mean Corpuscular Hgb Conc 33.1 g/dL (32-36); Mean Corpuscular Volume 97.8 fL (80-100); Mean Platelet Volume 11.3 fL (7.4-10.4); Monocytes # (auto) 0.53 K/uL (0.11-0.59); Monocytes % (auto) 6.2 %; Neutrophils # (auto) 7.51 K/uL (1.4-6.5); Neutrophils % (auto) 87.5 %; Platelet Count 134 K/uL (130-400); RDW Coefficient of Variation 15.3 % (11.5-14.5); RDW Standard Deviation 54.2 fL (36.4-46.3); Red Blood Count 3.12 M/uL (4.7-6.1); White Blood Count 8.59 K/uL (4.8-10.8)
[2020-12-14 05:31] LABS: Albumin Globulin Ratio 0.4 (0.9-2); Albumin Level 1.5 gm/dl (3.4-5.0); Bilirubin,Total 0.4 mg/dl (0.2-1); Calcium 8.7 mg/dl (8.5-10.1); Creatinine Clr Calc Pharmacy 19.7 ml/min; Est GFR (African American) 44.6 ml/min; Est GFR (Non-African American) 38.5 ml/min; Globulin 4.1 gm/dl (2.5-4.0); Phosphorus 1.8 mg/dl (2.5-4.9); Potassium 3.8 mmol/L (3.5-5.1); Total Protein 5.6 gm/dl (6.4-8.2)
[2020-12-14] MEDS ORDERED: POTASSIUM PHOS 3 MMOL/1 ML INFUSION IV STA (06:30)
[2020-12-14] MEDS ORDERED: POTASSIUM PHOSPHATE 15 MMOL in SODIUM CHLORIDE 0.9% 250 ML IV ONE (06:45)
[2020-12-14] MEDS: SODIUM CHLOR 7% 4 ML NEB NEB SCH ×2 (07:25→19:23)
--- NOTE | 2020-12-14 07:26 | Critical Care Progress Note ---
Date of Service December 14, 2020 Assessment & Plan (1) Septic shock: Plan: Reason Critically Ill: 85-year-old male w/ PMHx of afib, CKD3, and diastolic CHF who presents to the ICU evening of 12/10/20 with septic shock and acute hypoxic respiratory failure, initially requiring pressors and BiPAP. He is weaned off bipap. In the past 36 hours, patient has shown improvement in his hannah output. He is weaned off IV vasopressors 12/14/20 and started on PO midodrine. Patient is DNR/DNI. Neuro - No change in mental status in 24 hours. Follow clinically. AMSstroke and dementia noted on patient's history and unsure of baseline mental status. Cardiac - Shock, improvingpatient presented with hypotension's unresponsive to fluids. Chest x-ray consistent with pneumonia and suspect likely septic shock from pulmonary source. -Patient does have history of diastolic heart failure -12/11/20 echo. EF 60-65%. No RWMA. Moderate concentric LVH. Severe biatrial dilation. Moderate to severe MR and PH. -Weaned off vasopressin and levophed. -Troponin 0.043 -Random cortisol 43.2, appropriate -Monitor Atrial fibrillationchronic -Rate 90s-low 100s -Anticoagulated on Eliquis at home, currently held -Continuous monitoring on telemetry Respiratory - Acute hypoxic respiratory failurepatient presented with severe hypoxia. Would normally require intubation but patient strictly DNI -Chest x-ray consistent with pneumonia, discussed w/ family regarding bronchoscopy. This would require intubation and patient's family declined. -Compared / 2018 CXR, similar appearance at that time w/ cardiomegaly and L pleural effusion. considered mucous plug, but similar appearance on 2019 cxr would support against a new occurence -History of diastolic heart failure requiring diuretics, BNP 11,435. Will hold on diuresis as not clinically supporting hypervolemia. -Less likely PE because anticoagulated on Eliquis at home -Continue N acetylcysteine nebulized and hypertonic 7% nebulized treatments BID. Cough assist as tolerated. -12/12 cxr w/ some improvement in opacities at L upper lung field. -12/13 cxr w/ L hemithorax complete opacification. Likely mucous plug, but will not bronch due to high likelihood of inability to wean off mechanical ventilation after. Continue chest physiotherapy and encourage laying on right side. GI - Clear liquid, low Na diet. Transaminitismild likely in the setting of shock liver following hypotension, improving. Monitor RENAL/LYTES - THEO on CKD stage IIIsuspect ATN following hypotension. Improving. - Baseline 1.14 -FeNa 1.1%, intermediate between prerenal and intrinsic, may have element of both -microscopy did not mention granular casts -Cr 2.25->2.12->2.26->1.92>1.49 -D5 1/2 NSS at 40mL/hr -Monitor BMPs HypoK - 3.8, repleting w/ KPhos Hypophos - 1.8, repleting w/ KPhos Oliguria Previously ~10-20ml hannah UOP/day. UOP, showing some improvement Likely secondary to ATN form renal hypoperfusion Renal US showed mildly atrophic kidneys, but did not show obstruction Gentle IV hydration as per above - BPHholding finasteride while NPO -Hannah. -Cumulative 11L in 1.3L out. 1.2L out in past 24 hours. ENDO - No history of diabetes. Reviewed patient's BSGs this admission and has not needed SSI during ICU stay. Switch BSG from achs to daily AM labs and qhs (skip 12/14). TSH within normal limits HEME - H&H stable, routine CBCs elevated coags, improving - likely 2/2 sepsis Hold home Eliquis ID - Sepsislikely from pulmonary source -Elevated WBC and lactate on admission. Afebrile -Urinalysis unremarkable, blood cultures pending -Procalcitonin 5.66->17.43, likely 2/2 shock and pulmonary infection -COVID-19 negative -Nasal MRSA negative -Continue Zosyn LINES/IV ACCESS - Right IJ CVC. PIVs. DVT PROPHYLAXIS - SCDs, SQ heparin 5000 q12 Dispo: Continue ICU care tonight because while patient is off of IV vasopressors, MAPs borderline ~low-mid 60s. RIJ will remain in tonight. Per blanche vail's discussion w/ patient's son, would want restarting of IV vasopressors if he were to decompensate. Progress patient's prognosis is poor. Palliative care consulted. There is improvement his respiratory status and UOP. He is started on PO midodrine and off IV vasopressors. Continue ICU care and reassess on . (2) Acute kidney injury: (3) Multi-organ system dysfunction: (4) Pneumonia: (5) Hypoxia: (6) Acute and chronic respiratory failure with hypoxia: (7) Atrial fibrillation with rapid ventricular response: (8) Leukocytosis: (9) Metabolic acidosis: Admission and Anticipated Discharge Date Admission Date: December 10, 2020 Supervising Physician Co-Signing Physician Notes Dr. Meyer was the resident-physician during care of patient. I separately evaluated patient for bar portions of the history and the exam. I was present during the critical portion of medical decision making, and I discussed the case with the resident. I generally agree with the findings and plan except for any additions/exceptions noted. Patient seen and examined at bedside. No acute distress, no adverse events overnight. Denies any chest pain. He is answering simple questions. Says that he is feeling better Has been using CoughAssist as well as chest PT. Afebrile. Constitutional: No acute distress, frail-appearing HEENT: EOMI, PERRLA Respiratory system: Decreased air entry bilaterally, no wheeze, no rhonchi, positive crackles bilateral lower lobe CVS: S1-S2 positive, no murmurs or gallops, distant heart sounds Abdomen: Soft, nontender, nondistended, positive bowel sounds x4 Extremities: +2 pulses bilaterally radialis/ dorsalis pedis, no cyanosis, no edema Neuro: Awake alert oriented to self only Psych: Normal mood and affect G/U: Positive Hannah --Prophylaxis VTE: Heparin (patient is on apixaban at home) GI: Pepcid Lines: Right IJ Diet: Clear liquid --> advance diet Plan: In/out: +2941, urine output 827 Chest x-ray from today does show worsening left upper lobe infiltrate/collapse Continue with chest PT, keep the patient on the right side Patient hypophosphatemia being replaced. I will start the patient on midodrine 5 mg every 8 hours in order to get the patient off low-dose of Levophed which he is on. I will change the antibiotics to p.o. moxifloxacin as of tomorrow Change D5 half NS to Normosol. Change advised to Pured I have personally spent 34 minutes of critical care time in the direct management of this patient. This is a life/limb threatening event. This includes time spent evaluating patient, direct bedside care, chart review, placing orders, interpretation of diagnostic studies, discussion with consultants, patient, and family members, as well as other required patient management activities. This time is exclusive of all separately billable procedures, and teaching time and separate from and in addition to any other critical care service time. Please note the above document was generated using voice recognition software. It may contain grammatical, syntax or spelling errors. Subjective Patient was weaned to room air overnight. He completed his breakfast of oatmeal. He has intermittent paresthesias of feet. He denies pain, shortness of breath, abd pain, nausea/vomiting, constipation or diarrhea or any other complaints. Per nursing, + stool. Review of Systems Review of Systems: Constitutional: Denies fever, chills Cardiovascular: Denies chest pain Respiratory: Denies shortness of breath Gastrointestinal: Denies abdominal pain, nausea, vomiting Genitourinary: Denies urinary symptoms Musculoskeletal: + hannah Neurological: + feet paresthesias ROS reported as above, but may be limited by patient's baseline dementia. Physical Exam Physical Exam: General: A&Ox1. Thin, frail appearing. Cachectic appearance w/ ribs and trunk bones visible. No distress. HEENT: Atraumatic, normocephalic. EOMI. Pulm: No respiratory distress. Decreased air entry diffusely, worse on left. Very faint crackles at R lateral lung. Faint crackles at L midaxillary line and L posterior lung coleman, both inspiratory and expiratory. Cardiac: IIR, tachycardic, -rg. Radial pulses intact and symmetrical. Very slight pretibial edema Abdominal: Nontender, nondistended, soft. Integ: R IJ appropriate, nonerythematous. : + hannah Results & Data Results & Data ([facility]) Vital Signs (Past 12 Hours) Vital Signs MAP 64+. weaned to RA Pulse Pulse Resp BP Pulse Ox 12/14/20 06:15 89 23 96 12/14/20 06:10 94/61 L 12/14/20 06:05 88 22 94 12/14/20 05:55 84 23 95 12/14/20 05:45 86 19 95 12/14/20 05:40 90/56 L 12/14/20 05:35 79 23 95 12/14/20 05:15 84 20 94 12/14/20 05:10 101/55 L 12/14/20 05:05 91 H 21 96 12/14/20 05:00 86 20 96 12/14/20 04:55 106/61 12/14/20 04:50 84 20 100 12/14/20 04:45 88 24 97 12/14/20 04:40 91/55 L 12/14/20 04:35 100 H 15 96 12/14/20 04:16 97 H 29 H 92 12/14/20 04:11 100/59 L 12/14/20 03:40 105/59 L 12/14/20 03:35 98 H 28 H 94 12/14/20 03:16 86 25 H 96 12/14/20 03:11 101/65 12/14/20 02:40 109/68 12/14/20 01:55 83 23 95 12/14/20 01:46 86 23 95 12/14/20 00:40 110/76 12/14/20 00:35 94 H 25 H 90 12/14/20 00:10 82 23 94 12/14/20 00:00 80 12/13/20 22:45 85 23 95 12/13/20 22:40 107/73 12/13/20 21:45 78 29 H 96 12/13/20 21:40 109/71 12/13/20 21:15 81 27 H 96 12/13/20 21:10 103/71 12/13/20 20:15 81 23 99 12/13/20 20:10 109/62 12/13/20 20:00 81 20 93 12/13/20 19:45 84 24 97 12/13/20 19:40 116/66 12/13/20 19:25 82 Laboratory Results wbc 17.44->14.05->8.59. Hb stable 10.1. Na 142->137. change to isotonic? K 3.8 don't replete. Cr 1.9-1.59. phos 4>2.5->1.8L. alb stable at 1.5L. BC neg 48 hrs. 12/14/20 04:52 12/14/20 04:52 Diagnostic Findings Chest X-Ray 12/14/20 07:00 XR chest 1V portable HISTORY: Pneumonia. Follow-up. COMPARISON: Chest 12/04/2020. FINDINGS: Near complete opacification of the left hemithorax which has progressed in the interval. There is associated volume loss within the left hemithorax suggesting atelectasis/collapse which is concerning for mucous plug ging. Left pleural effusion has also increased in size. No pneumothorax. Right jugular central venous catheter terminates at the distal SVC. Right basilar airspace opacities remain unchanged. IMPRESSION: 1. Near-complete opacification of the left hemithorax which has progressed in the interval with increase in size in the left pleural effusion. Associated left mediastinal shift suggests the possibility of volume loss secondary to mucous plugging. Consider follow-up bronchoscopy for further evaluation. 2. Right basilar airspace opacities persist. 3. This report was called/faxed to the referring physician following dictation. ACT 112: Negative or not required by law. Electronically signed by: Willard Montoya M.D. 12/14/2020 7:35 AM Resident Activity Tracking Resident Involvement: Resident Care Provided Care Provided: Adult [facility] Medicine
[2020-12-14] MEDS: LEVALBUTEROL HCL 1.25 MG/3 ML NEB NEB PRN ×2 (07:28→19:23)
[2020-12-14] MEDS: ACETYLCYSTEINE 20% INHAL SOLN 4ML ***DISPENSED BY RESP. INH SCH ×2 (07:29→19:23)
--- NOTE | 2020-12-14 07:37 | XRay Report ---
XR chest 1V portable HISTORY: Pneumonia. Follow-up. COMPARISON: Chest 12/04/2020. FINDINGS: Near complete opacification of the left hemithorax which has progressed in the interval. Th ere is associated volume loss within the left hemithorax suggesting atelectasis/collapse which is con cerning for mucous plugging. Left pleural effusion has also increased in size. No pneumothorax. Right jugular central venous catheter terminates at the distal SVC. Right basilar airspace opacities remai n unchanged. IMPRESSION: 1. Near-complete opacification of the left hemithorax which has progressed in the interval with incre ase in size in the left pleural effusion. Associated left mediastinal shift suggests the possibility of volume loss secondary to mucous plugging. Consider follow-up bronchoscopy for further evaluation. 2. Right basilar airspace opacities persist. 3. This report was called/faxed to the referring physician following dictation. ACT 112: Negative or not required by law. Electronically signed by: Willard Montoya M.D. 12/14/2020 7:35 AM
[2020-12-14] MEDS: INSULIN ASPART 100 UNITS/ML 3 ML PEN SC SCH ×2 (08:46→11:44)
[2020-12-14] MEDS ORDERED: FAMOTIDINE 20 MG in SYRINGE 3 ML IV SCH (09:00)
[2020-12-14] MEDS: NORMOSOL-R 1,000 ML IV SCH (09:22)
[2020-12-14] MEDS: MIDODRINE HCL 2.5 MG TAB PO SCH ×3 (09:23→18:44)
[2020-12-14] MEDS: HEPARIN SOD 5,000 UNIT/0.5 ML VIAL SQ SCH ×2 (09:23→20:09)
[2020-12-14] MEDS: POLYETHYLENE (MIRALAX) 17 GM PACK PO SCH (09:24)
--- NOTE | 2020-12-14 10:42 | Palliative Care Progress Note ---
Date of Service December 14, 2020 Assessment & Plan (1) Palliative care encounter: Plan: I spoke with Mr. Lynch's son, Pedrito, by phone with update. He is pleased to hear that his father is comfortable. We discussed attempt to wean pressor support and maintain on midrodrine. If successful, he could likely be moved to medical floor. We discussed what they would want for his care if he were to decompensate on the floor. Pedrito's response was that he would want him to be restarted on IV pressors. He told me that he would want to know that we did everything that we could to help him. I asked him if he and Vee were discussing this together and were in agreement with the plan of care. He indicated that they were. Vee is unavailable to discuss goals of care today. Agreed with Pedrito that we would continue to monitor, wean IV pressors and discuss further as we see how he does. (2) CAD (coronary artery disease): (3) CKD (chronic kidney disease), stage III: (4) Dementia: (5) Atrial fibrillation with rapid ventricular response: (6) Pneumonia: (7) Acute and chronic respiratory failure with hypoxia: Admission and Anticipated Discharge Date Admission Date: December 10, 2020 Subjective Sleeping with facial grimace but easily arousable. Denies pain or discomfort. Appetite is good. Remains on pressors. Review of Systems Review of Systems: [place] Symptom Assessment Scale Pain 0/3 Anxiety 0/3 Dyspnea 0/3 Fatigue 2/3 Drowsiness 1/3 Palliative Performance Score 30% Physical Exam Constitutional: + ill appearing and + cachectic Respiratory: normal respiratory effort; no labored breathing Cardiovascular: Rate/Rhythm: + irregularly irregular Gastrointestinal (Abdomen): nondistended, LBM 9/30 Musculoskeletal: Extremities: + muscle atrophy Neurologic: awake and + confused Results & Data ([facility]) Vital Signs (Past 12 Hours) Vital Signs Pulse Pulse Resp BP Pulse Ox 12/14/20 08:30 86 21 85/51 L 94 12/14/20 08:00 91 H 20 94 12/14/20 07:35 87 22 92 12/14/20 07:00 87 22 93/62 L 95 12/14/20 06:15 89 23 96 12/14/20 06:10 94/61 L 09/30/21 06:05 88 22 94 12/14/20 05:55 84 23 95 12/14/20 05:45 86 19 95 12/14/20 05:40 90/56 L 12/14/20 05:35 79 23 95 12/14/20 05:15 84 20 94 12/14/20 05:10 101/55 L 12/14/20 05:05 91 H 21 96 12/14/20 05:00 86 20 96 12/14/20 04:55 106/61 12/14/20 04:50 84 20 100 12/14/20 04:45 88 24 97 12/14/20 04:40 91/55 L 12/14/20 04:35 100 H 15 96 12/14/20 04:16 97 H 29 H 92 12/14/20 04:11 100/59 L 12/14/20 03:40 105/59 L 12/14/20 03:35 98 H 28 H 94 12/14/20 03:16 86 25 H 96 12/14/20 03:11 101/65 12/14/20 02:40 109/68 12/14/20 01:55 83 23 95 12/14/20 01:46 86 23 95 12/14/20 00:40 110/76 12/14/20 00:35 94 H 25 H 90 12/14/20 00:10 82 23 94 12/14/20 00:00 80 12/13/20 22:45 85 23 95 12/13/20 22:40 107/73 PG Care Time/CCT Total # of Minutes Spent Total Time Spent: 25 Total Time Spent with Patient: Total time spent is greater than 50% in coordination of care (as documented) at patient's floor/unit and/or counseling patient:symptom management, goals of care, family education and support Coding Level of Care Code 55416 Subseq Hosp Care Lvl 2 Diagnoses Palliative care encounter Z51.5 CAD (coronary artery disease) I25.10 CKD (chronic kidney disease), stage III N18.3 Dementia F03.90 Atrial fibrillation with rapid ventricular response I48.91 Pneumonia J18.9 Acute and chronic respiratory failure with hypoxia J96.21
--- NOTE | 2020-12-14 14:15 | Hospitalist Progress Note ---
Date of Service December 14, 2020 Assessment & Plan (1) Pneumonia: Plan: CXR on 12/10 showed left lung with multifocal left-sided pulmonary consolidation. 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 - Respiratory status improving. Now on room air. However, CXR (read by me) is substantially worse with likely left-sided mucus plugging. Added nebulized saline, Mucomyst. (2) Septic shock: Plan: On Levophed during my interview today with BP in the 90/60 range. Had been on Levophed 0.05 mcg/kg/min, but now at 0.10 to maintain MAP > 60 mmHg. - Per ICU team; improving. -> Started midodrine (3) CKD (chronic kidney disease), stage III: Plan: Baseline Cr ~1.0. Now with acute renal failure, present on admission. - Cr was 2.25 on admission. - Cr down to 1.6 today. (4) Acute and chronic respiratory failure with hypoxia: Plan: Due to above. - Now on nasal cannula, so that is improving. - As above (5) Atrial fibrillation with rapid ventricular response: Plan: HR worsened due to sepsis and Levophed, though only ~90 bpm. - Hold apixaban for now. - Monitor (6) Diastolic CHF: Plan: Chronic diastolic heart failure. No indication of acute exacerbation and patient looks volume down to me on exam this morning. - Hold furosemide - Monitor (7) CAD (coronary artery disease): Plan: Denied any chest pain to me. - Hold beta-cassie for hypotension. - Hold statin, spironolactone until able to reliably take PO (8) BPH (benign prostatic hyperplasia): Plan: - Continue finasteride as able - Monitor PVRs once Diop is removed. (9) Dementia: Plan: Unclear baseline, but for me he is pleasant and conversant, but not a lot of insight into medical issues. - Continue donepezil as able (10) DVT prophylaxis: Plan: Heparin 5,000 units SQ Q12h GI ppx: Famotidine 20 mg IV BID Admission and Anticipated Discharge Date Admission Date: December 10, 2020 Subjective Doing well today. Seen at breakfast. Alert, awake. Reports no fevers/chills, chest pain, shortness of breath, abdominal pain, nausea, or vomiting. Physical Exam Constitutional: WD/WN, vitals as above + cachectic; no acute distress Eyes: EOM intact bilaterally; no conjunctival abnormality ENMT: external ear and nose normal, oropharynx normal Neck: trachea midline, no thyromegaly normal visual inspection Respiratory: normal respiratory effort, lungs clear to auscultation no respiratory distress Cardiovascular: RRR, no murmur, no edema Gastrointestinal (Abdomen): Inspection/Auscultation: abdomen normal to inspection; abdomen not distended Musculoskeletal: no cyanosis or clubbing, extremities motor strength 5/5 Skin: no rashes, warm and dry Neurologic: moves all extremities and awake Psychiatric: Orientation: alert and oriented to person Results & Data Results & Data ([facility]) Vital Signs (Past 12 Hours) Vital Signs Pulse Pulse Resp BP Pulse Ox 12/14/20 10:00 84 21 92/63 L 91 12/14/20 09:00 88 24 97/55 L 93 12/14/20 08:30 86 21 85/51 L 94 12/14/20 08:00 91 H 20 94 12/14/20 07:35 87 22 92 12/14/20 07:00 87 22 93/62 L 95 12/14/20 06:15 89 23 96 12/14/20 06:10 94/61 L 12/14/20 06:05 88 22 94 12/14/20 05:55 84 23 95 12/14/20 05:45 86 19 95 12/14/20 05:40 90/56 L 12/14/20 05:35 79 23 95 12/14/20 05:15 84 20 94 12/14/20 05:10 101/55 L 12/14/20 05:05 91 H 21 96 12/14/20 05:00 86 20 96 12/14/20 04:55 106/61 12/14/20 04:50 84 20 100 12/14/20 04:45 88 24 97 12/14/20 04:40 91/55 L 12/14/20 04:35 100 H 15 96 12/14/20 04:16 97 H 29 H 92 12/14/20 04:11 100/59 L 12/14/20 03:40 105/59 L 12/14/20 03:35 98 H 28 H 94 12/14/20 03:16 86 25 H 96 12/14/20 03:11 101/65 12/14/20 02:40 109/68 PG Care Time/CCT Total # of Minutes Spent Total Time Spent with Patient: Total time spent is greater than 50% in coordination of care (as documented) at patient's floor/unit and/or counseling patient: Coding Level of Care Code 08406 Subseq Hosp Care Lvl 3 Diagnoses Pneumonia J18.9 Septic shock A41.9; R65.21 CKD (chronic kidney disease), stage III N18.3 Acute and chronic respiratory failure with hypoxia J96.21 Atrial fibrillation with rapid ventricular response I48.91 Diastolic CHF I50.30 CAD (coronary artery disease) I25.10 BPH (benign prostatic hyperplasia) N40.0 Dementia F03.90 DVT prophylaxis Z29.9
--- NOTE | 2020-12-14 18:59 | Billing Data ---
Date of Service December 14, 2020 Coding Level of Care Code Critical Care 1st 30-74 mins Time Spent (min) 34
[2020-12-14] MEDS: DONEPEZIL HCL 10 MG TAB PO SCH (20:09)
[2020-12-15 05:11] LABS: Eosinophils # (auto) 0.04 K/uL (0-0.5); Eosinophils % (auto) 0.5 %; Hematocrit (blood only) 29.4 % (42-52); Hemoglobin 9.8 g/dL (14.0-18.0); Immature Granulocytes # (auto) 0.02 K/uL (0.00-0.02); Immature Granulocytes % (auto) 0.2 %; Lymphocytes # (auto) 0.48 K/uL (1.2-3.4); Lymphocytes % (auto) 5.9 %; Mean Corpuscular Hemoglobin 32.5 pg (25-34); Mean Corpuscular Hgb Conc 33.3 g/dL (32-36); Mean Corpuscular Volume 97.4 fL (80-100); Mean Platelet Volume 11.3 fL (7.4-10.4); Monocytes # (auto) 0.48 K/uL (0.11-0.59); Monocytes % (auto) 5.9 %; Neutrophils # (auto) 7.08 K/uL (1.4-6.5); Neutrophils % (auto) 87.5 %; Platelet Count 118 K/uL (130-400); RDW Coefficient of Variation 15.5 % (11.5-14.5); RDW Standard Deviation 55.1 fL (36.4-46.3); Red Blood Count 3.02 M/uL (4.7-6.1)
[2020-12-15 05:28] LABS: Albumin Level 1.4 gm/dl (3.4-5.0); BUN Creatinine Ratio 26.8 (10-20); Calcium 9.2 mg/dl (8.5-10.1); Est GFR (African American) 48.2 ml/min; Est GFR (Non-African American) 41.6 ml/min; Magnesium 1.9 mg/dl (1.8-2.4); Potassium 4.1 mmol/L (3.5-5.1)
[2020-12-15 05:35] LABS: Albumin Globulin Ratio 0.3 (0.9-2); Bilirubin,Total 0.4 mg/dl (0.2-1); Globulin 4.1 gm/dl (2.5-4.0); Phosphorus 3.4 mg/dl (2.5-4.9); Total Protein 5.5 gm/dl (6.4-8.2)
[2020-12-15] MEDS: ACETYLCYSTEINE 20% INHAL SOLN 4ML ***DISPENSED BY RESP. INH SCH ×2 (07:27→19:19)
[2020-12-15] MEDS: SODIUM CHLOR 7% 4 ML NEB NEB SCH ×2 (07:27→19:19)
[2020-12-15] MEDS: LEVALBUTEROL HCL 1.25 MG/3 ML NEB NEB PRN ×2 (07:36→19:19)
--- NOTE | 2020-12-15 07:42 | Critical Care Progress Note ---
Date of Service December 15, 2020 Assessment & Plan (1) Septic shock: Plan: Reason Critically Ill: 85-year-old male w/ PMHx of afib, CKD3, and diastolic CHF who presents to the ICU evening of 12/10/20 with septic shock and acute hypoxic respiratory failure, initially requiring pressors and BiPAP. He is weaned off bipap and IV vasopressors. Continues on PO midodrine. Patient is DNR/DNI. Neuro - Has dementia at baseline. Follow clinically. Cardiac - Shock, resolved -Chest x-ray consistent with pneumonia and suspect likely septic shock from pulmonary source. -Patient does have history of diastolic heart failure -12/11/20 echo. EF 60-65%. No RWMA. Moderate concentric LVH. Severe biatrial dilation. Moderate to severe MR and PH. -Weaned off vasopressin and levophed. -Troponin 0.043 -Random cortisol 43.2, appropriate -Monitor Atrial fibrillationchronic -Rate 90s-low 100s -Anticoagulated on Eliquis at home, currently held -Continuous monitoring on telemetry Respiratory - Acute hypoxic respiratory failureresolved, on room air. Would normally require intubation but patient strictly DNI -Chest x-ray consistent with pneumonia, discussed w/ family regarding bronchoscopy. This would require intubation and patient's family declined. -Compared / 2018 CXR, similar appearance at that time w/ cardiomegaly and L pleural effusion. considered mucous plug, but similar appearance on 2019 cxr would support against a new occurence -History of diastolic heart failure requiring diuretics, BNP 11,435. Will hold on diuresis as not clinically supporting hypervolemia. -Less likely PE because anticoagulated on Eliquis at home -Continue N acetylcysteine nebulized and hypertonic 7% nebulized treatments BID. Cough assist as tolerated. -12/12 cxr w/ some improvement in opacities at L upper lung field. -12/13 cxr w/ L hemithorax complete opacification. Likely mucous plug, but will not bronch due to high likelihood of inability to wean off mechanical ventilation after. Continue chest physiotherapy and encourage laying on right side. Complicated by L hemithorax opacification, bronch not indicated because would need intubation. GI - Clear liquid, low Na diet. Transaminitismild likely in the setting of shock liver following hypotension, improving. Monitor RENAL/LYTES - THEO on CKD stage IIIsuspect ATN following hypotension. Improving. - Baseline 1.14 -FeNa 1.1%, intermediate between prerenal and intrinsic, may have element of both -microscopy did not mention granular casts -Cr 2.25->2.12->2.26->1.92>1.49 -Switched from d5 1/2 NSS 40/hr to Normosol 40/hr -Monitor BMPs Oliguria Previously ~10-20ml hannah UOP/day. UOP, showing some improvement Likely secondary to ATN form renal hypoperfusion Renal US showed mildly atrophic kidneys, but did not show obstruction Gentle IV hydration as per above - BPHholding finasteride while NPO -Hannah. -24 hrs 2160 in 626 out. cumulative 13.5 in 2L out ENDO - No history of diabetes. Reviewed patient's BSGs this admission and has not needed SSI during ICU stay. Switch BSG from achs to daily AM labs and qhs (skip 12/14). TSH within normal limits HEME - H&H stable, routine CBCs elevated coags, improving - likely 2/2 sepsis Hold home Eliquis Thrombocytopenic. stopped heparin DVT prophylaxis ID - Sepsislikely from pulmonary source -Elevated WBC and lactate on admission. Afebrile -Urinalysis unremarkable, blood cultures pending -Procalcitonin 5.66->17.43, likely 2/2 shock and pulmonary infection -COVID-19 negative -Nasal MRSA negative -Continue Zosyn LINES/IV ACCESS - Right IJ CVC. PIVs. DVT PROPHYLAXIS - SCDs only. Dispo: stable for downgrade from ICU. Progress patient's prognosis is poor. Palliative care consulted. If patient were to decompensate, no escalation (i.e. will not restart IV pressors). (2) Acute kidney injury: (3) Multi-organ system dysfunction: (4) Pneumonia: (5) Hypoxia: (6) Acute and chronic respiratory failure with hypoxia: (7) Atrial fibrillation with rapid ventricular response: (8) Leukocytosis: (9) Metabolic acidosis: Admission and Anticipated Discharge Date Admission Date: December 10, 2020 Supervising Physician Co-Signing Physician Notes Dr. Meyer was the resident-physician during care of patient. I separately evaluated patient for bar portions of the history and the exam. I was present during the critical portion of medical decision making, and I discussed the case with the resident. I generally agree with the findings and plan except for any additions/exceptions noted. Patient seen and examined at bedside. No acute distress, no adverse events overnight. Denies any chest pain. He is answering simple questions. Says that he is feeling better Has been using CoughAssist as well as chest PT. Afebrile. Constitutional: No acute distress, frail-appearing HEENT: EOMI, PERRLA Respiratory system: Decreased air entry bilaterally, no wheeze, no rhonchi, positive crackles bilateral lower lobe CVS: S1-S2 positive, no murmurs or gallops, distant heart sounds Abdomen: Soft, nontender, nondistended, positive bowel sounds x4 Extremities: +2 pulses bilaterally radialis/ dorsalis pedis, no cyanosis, no edema Neuro: Awake alert oriented to self only Psych: Normal mood and affect G/U: Positive Hannah --Prophylaxis VTE: Heparin (on hold secondary to thrombocytopenia) GI: Pepcid Lines: Right IJ Diet: Pured diet Plan: Patient has been off vasopressor support for more than 24 hours. Continue with midodrine 5 mg every 8 hours can increase it to 10 mg every 8 if need be Chest x-ray still shows collapse of the left lower as well as the left upper lobe Patient saturating 98-99% on room air. Continue with CoughAssist, chest PT, hypertonic saline and Mucomyst nebulized New onset thrombocytopenia. Could be from underlying sepsis. Hold heparin for the time being. Dr. Oliva has been following the patient from palliative care Family has decided to go towards comfort measures. Please note the above document was generated using voice recognition software. It may contain grammatical, syntax or spelling errors.Any formal questions or concerns about the content, text or information contained within the body of this dictation should be directly addressed to the provider for clarification. Subjective Per nursing, mentation slightly worse today. He required assistance w/ breakfast compared to eating independently yesterday. Patient denies any complaints. He is eating breakfast. Review of Systems Review of Systems: Constitutional: Denies fever, chills Cardiovascular: Denies chest pain Respiratory: Denies shortness of breath Gastrointestinal: Denies abdominal pain, nausea, vomiting Genitourinary: + hannah Neuro: Denies headache Physical Exam Physical Exam: General: A&Ox1. Thin, frail appearing. Cachectic appearance w/ ribs and trunk bones visible. No distress. He required reprompting before responding to my questions. HEENT: Atraumatic, normocephalic. EOMI. Pulm: No respiratory distress. + bilateral anterior field and faint crackles Cardiac: IIR, tachycardic, -rg. No LE edema. Abdominal: Nontender, nondistended, soft. Integ: R IJ appropriate, nonerythematous. : + hannah Results & Data Results & Data ([facility]) Vital Signs (Past 12 Hours) Vital Signs Pulse Pulse Resp BP Pulse Ox 12/15/20 07:32 87 18 93 12/15/20 06:57 93 H 21 97/63 L 91 12/15/20 00:27 129 H 20 93/63 L 82 L 12/14/20 23:27 96 H 22 87/59 L 91 12/14/20 22:27 84 20 94/63 L 91 12/14/20 21:27 85 20 87/56 L 93 12/14/20 20:28 93 H 29 H 109/70 90 Laboratory Results Hb 9.8, stable/slight gradual downtrend. Thrombocytopenia. 118. 217 at admission. Electrolytes stable. Cr downtrending. 1.49 most recent, was 2.25 on 12/10/20. alb low at 1.4. cxr unchanged from yesterday's. 12/10 . aerobic 48 hr NG. 12/15/20 05:02 12/15/20 05:02 Diagnostic Findings Chest X-Ray 12/15/20 08:47 XR chest 1V portable INDICATION: MN ^f/u mucous plug. TECHNIQUE: Single frontal radiograph of the chest was obtained. Comparison: Comparison is made to chest one view 12/14/2020 FINDINGS: No lines and tubes are seen. The cardiomediastinal silhouette is obscured. Again noted is leftward cardiomediastinal shift. The left hemithorax is again noted to be completely opacified. Airspace opacity is again noted at the right lower lung. No pneumothorax is seen, a left effusion cannot be excluded. IMPRESSION: 1. Redemonstration of complete opacification of left hemithorax with leftward mediastinal shift likely represents atelectasis with or without an element of pleural effusion. 2. Right basilar airspace opacities may reflect atelectasis, aspiration, and/or pneumonia. ACT 112: Negative or not required by law. Electronically signed by: Wilman Gupta M.D. 12/15/2020 9:28 AM Resident Activity Tracking Resident Involvement: Resident Care Provided Care Provided: Adult Hospital Medicine
[2020-12-15] MEDS: AMOXICILLIN/CLAVULANATE 500 MG TAB PO SCH ×2 (08:10→16:35)
[2020-12-15] MEDS: MIDODRINE HCL 2.5 MG TAB PO SCH ×3 (08:11→16:35)
[2020-12-15] MEDS: FAMOTIDINE 20 MG TAB PO SCH (08:11)
[2020-12-15] MEDS: HEPARIN SOD 5,000 UNIT/0.5 ML VIAL SQ SCH (08:11)
[2020-12-15] MEDS: POLYETHYLENE (MIRALAX) 17 GM PACK PO SCH (08:13)
[2020-12-15] MEDS: NORMOSOL-R 1,000 ML IV SCH (08:16)
[2020-12-15] MEDS: NOREPINEPHRINE/D5W 8 MG/508 ML BAG IV SCH (08:27)
--- NOTE | 2020-12-15 09:29 | XRay Report ---
XR chest 1V portable INDICATION: MN ^f/u mucous plug. TECHNIQUE: Single frontal radiograph of the chest was obtained. Comparison: Comparison is made to chest one view 12/14/2020 FINDINGS: No lines and tubes are seen. The cardiomediastinal silhouette is obscured. Again noted is leftward ca rdiomediastinal shift. The left hemithorax is again noted to be completely opacified. Airspace opacit y is again noted at the right lower lung. No pneumothorax is seen, a left effusion cannot be excluded . IMPRESSION: 1. Redemonstration of complete opacification of left hemithorax with leftward mediastinal shift like ly represents atelectasis with or without an element of pleural effusion. 2. Right basilar airspace opacities may reflect atelectasis, aspiration, and/or pneumonia. ACT 112: Negative or not required by law. Electronically signed by: Wilman Gupta M.D. 12/15/2020 9:28 AM
--- NOTE | 2020-12-15 10:25 | Palliative Care Progress Note ---
Date of Service December 15, 2020 Assessment & Plan (1) Palliative care encounter: Plan: I spoke with Vee this morning to clarify goals of care. We discussed what Miguelangel would want for his care. She thinks that he would want to be comfortable and Pedrito agreed with this yesterday. We reviewed that he will likely be transferred to a medical bed. We talked about goals moving forward regarding comfort care versus continuing current level of care. While they are not wanting the full focus of his care, they do make that a priority. We did discuss that while he has had some improvement, his overall condition is poor. Given the fact that they are very concerned about comfort and his overall prognosis for improvement is poor, plan will be to move him to a medical bed if possible and continue current level of care with no escalation of care if he declines. Vee agrees with this and will discuss with Pedrito. Discussed with Dr. Meyer. (2) Acute and chronic respiratory failure with hypoxia: (3) Dementia: (4) CAD (coronary artery disease): (5) CKD (chronic kidney disease), stage III: (6) Chronic atrial fibrillation: (7) Diastolic CHF: Admission and Anticipated Discharge Date Admission Date: December 10, 2020 Subjective More tired today. Ate all of his breakfast but did require assistance. He is now off iv pressors and O2. Denies pain or dyspnea. Review of Systems Review of Systems: [place] Symptom Assessment Scale Pain 0/3 Dyspnea 0/3 Fatigue 3/3 Drowsiness 1/3 Palliative Performance Score 30% Physical Exam Constitutional: + cachectic and + frail appearing Respiratory: normal respiratory effort; no labored breathing Cardiovascular: Rate/Rhythm: + irregularly irregular Gastrointestinal (Abdomen): soft, nontender Musculoskeletal: Extremities: + muscle atrophy Neurologic: Speech / Cognition: + abnormal cognition Results & Data ([facility]) Vital Signs (Past 12 Hours) Vital Signs Pulse Pulse Resp BP Pulse Ox 12/15/20 07:32 87 18 93 12/15/20 06:57 93 H 21 97/63 L 91 12/15/20 00:27 129 H 20 93/63 L 82 L 12/14/20 23:27 96 H 22 87/59 L 91 12/14/20 22:27 84 20 94/63 L 91 PG Care Time/CCT Total # of Minutes Spent Total Time Spent: 40 Total Time Spent with Patient: Total time spent is greater than 50% in coordination of care (as documented) at patient's floor/unit and/or counseling patient:symptom management, goals of care, family education and support, coordination of care Coding Level of Care Code 73889 Subseq Hosp Care Lvl 3 Diagnoses Palliative care encounter Z51.5 Acute and chronic respiratory failure with hypoxia J96.21 Dementia F03.90 CAD (coronary artery disease) I25.10 CKD (chronic kidney disease), stage III N18.3 Chronic atrial fibrillation I48.2 Diastolic CHF I50.30
--- NOTE | 2020-12-15 15:13 | Hospitalist Progress Note ---
Date of Service December 15, 2020 Assessment & Plan (1) Pneumonia: Plan: CXR on 12/10 showed left lung with multifocal left-sided pulmonary consolidation. - Continue Zosyn - Discussed with W[employer] SPORTS MANAGER on 12/15. He is almost certainly aspirating as he had significant dysphagia on video swallow on 08/15/2020. To determine further extent woud need either bedside scope or repeat video swallow. - Respiratory status improving. Now on room air. However, CXR from 12/14 was substantially worse with likely left-sided mucus plugging. Added nebulized saline, Mucomyst. (2) Septic shock: Plan: On Levophed during my interview today with BP in the 90/60 range. Had been on Levophed 0.05 mcg/kg/min, but now at 0.10 to maintain MAP > 60 mmHg. - Per ICU team; improving. -> Started midodrine; off pressors. No escalation of care. (3) CKD (chronic kidney disease), stage III: Plan: Baseline Cr ~1.0. Now with acute renal failure, present on admission. - Cr was 2.25 on admission. - Cr down to 1.5 today. (4) Acute and chronic respiratory failure with hypoxia: Plan: Due to above. - As above (5) Atrial fibrillation with rapid ventricular response: Plan: HR worsened due to sepsis and Levophed. Now off pressors. HR ~90 bpm. - Hold apixaban for now. - Monitor (6) Diastolic CHF: Plan: Chronic diastolic heart failure. No indication of acute exacerbation. - Hold furosemide - Monitor (7) CAD (coronary artery disease): Plan: Denied any chest pain to me. - Hold beta-cassie for hypotension. - Hold statin, spironolactone until able to reliably take PO (8) BPH (benign prostatic hyperplasia): Plan: - Continue finasteride as able - Monitor PVRs once Diop is removed. (9) Dementia: Plan: Unclear baseline, but for me he is pleasant and conversant, but not a lot of insight into medical issues. - Continue donepezil as able (10) DVT prophylaxis: Plan: SCDs GI ppx: Famotidine 20 mg PO daily Admission and Anticipated Discharge Date Admission Date: December 10, 2020 Subjective More tired today. Reports no fevers/chills, chest pain, shortness of breath, abdominal pain, nausea, or vomiting. Physical Exam Constitutional: WD/WN, vitals as above + cachectic; no acute distress Eyes: EOM intact bilaterally; no conjunctival abnormality ENMT: external ear and nose normal, oropharynx normal Neck: trachea midline, no thyromegaly normal visual inspection Respiratory: normal respiratory effort, lungs clear to auscultation no respiratory distress Cardiovascular: RRR, no murmur, no edema Gastrointestinal (Abdomen): Inspection/Auscultation: abdomen normal to inspection; abdomen not distended Musculoskeletal: no cyanosis or clubbing, extremities motor strength 5/5 Skin: no rashes, warm and dry Neurologic: moves all extremities and awake Psychiatric: Orientation: alert and oriented to person Results & Data Results & Data ([facility]) Vital Signs (Past 12 Hours) Vital Signs Temp Pulse Pulse Resp BP Pulse Ox 12/15/20 13:00 92 H 30 H 102/62 94 12/15/20 11:58 93 H 20 103/65 95 12/15/20 11:14 36.8 C 12/15/20 10:28 97 H 22 99/60 L 12/15/20 09:27 100 H 23 112/93 94 12/15/20 08:05 98 H 26 H 101/69 12/15/20 07:32 87 18 93 12/15/20 07:27 141 H 22 100/60 92 12/15/20 06:57 93 H 21 97/63 L 91 PG Care Time/CCT Total # of Minutes Spent Total Time Spent with Patient: Total time spent is greater than 50% in coordination of care (as documented) at patient's floor/unit and/or counseling patient: Coding Level of Care Code 59471 Subseq Hosp Care Lvl 2 Diagnoses Pneumonia J18.9 Septic shock A41.9; R65.21 CKD (chronic kidney disease), stage III N18.3 Acute and chronic respiratory failure with hypoxia J96.21 Atrial fibrillation with rapid ventricular response I48.91 Diastolic CHF I50.30 CAD (coronary artery disease) I25.10 BPH (benign prostatic hyperplasia) N40.0 Dementia F03.90 DVT prophylaxis Z29.9
--- NOTE | 2020-12-15 17:37 | Billing Data ---
Date of Service December 15, 2020 Coding Level of Care Code 89335 Subseq Hosp Care Lvl 3
[2020-12-15] MEDS: DONEPEZIL HCL 10 MG TAB PO SCH (23:53)
[2020-12-16] MEDS: ACETYLCYSTEINE 20% INHAL SOLN 4ML ***DISPENSED BY RESP. INH SCH ×2 (07:28→19:24)
[2020-12-16] MEDS: LEVALBUTEROL HCL 1.25 MG/3 ML NEB NEB PRN ×2 (07:28→19:24)
[2020-12-16] MEDS: SODIUM CHLOR 7% 4 ML NEB NEB SCH ×2 (07:33→19:25)
[2020-12-16] MEDS: AMOXICILLIN/CLAVULANATE 500 MG TAB PO SCH ×2 (09:10→16:25)
[2020-12-16] MEDS: FAMOTIDINE 20 MG TAB PO SCH (09:10)
[2020-12-16] MEDS: MIDODRINE HCL 2.5 MG TAB PO SCH ×3 (09:12→16:25)
[2020-12-16] MEDS: FINASTERIDE 5 MG TAB PO SCH (09:12)
[2020-12-16] MEDS: POLYETHYLENE (MIRALAX) 17 GM PACK PO SCH (09:13)
[2020-12-16 10:14] LABS: Hemoglobin 11.5 g/dL (14.0-18.0); Mean Corpuscular Hemoglobin 32.5 pg (25-34); Mean Corpuscular Hgb Conc 32.9 g/dL (32-36); Mean Corpuscular Volume 98.9 fL (80-100); Mean Platelet Volume 11.8 fL (7.4-10.4); Platelet Count 136 K/uL (130-400); RDW Coefficient of Variation 15.7 % (11.5-14.5); RDW Standard Deviation 56.5 fL (36.4-46.3); Red Blood Count 3.54 M/uL (4.7-6.1); White Blood Count 8.48 K/uL (4.8-10.8)
[2020-12-16 10:19] LABS: BUN Creatinine Ratio 22.6 (10-20); Calcium 9.5 mg/dl (8.5-10.1); Creatinine Clr Calc Pharmacy 23.1 ml/min; Est GFR (African American) 48.2 ml/min; Est GFR (Non-African American) 41.6 ml/min; Magnesium 2.1 mg/dl (1.8-2.4); Potassium 4.1 mmol/L (3.5-5.1)
--- NOTE | 2020-12-16 18:32 | Hospitalist Progress Note ---
Date of Service December 16, 2020 Assessment & Plan (1) Pneumonia: Plan: CXR on 12/10 showed left lung with multifocal left-sided pulmonary consolidation. - Discussed with [employer] SUPERVISOR on 12/15. He is almost certainly aspirating as he had significant dysphagia on video swallow on 08/15/2020. To determine further extent woud need either bedside scope or repeat video swallow. - Respiratory status improving. Now on room air. However, CXR from 12/14 was substantially worse with likely left-sided mucus plugging. Added nebulized saline, Mucomyst. -> Continue Augmentin (2) Septic shock: Plan: On Levophed during my interview today with BP in the 90/60 range. Had been on Levophed 0.05 mcg/kg/min, but now at 0.10 to maintain MAP > 60 mmHg. - Per ICU team; improving. -> Started midodrine; off pressors. No escalation of care. (3) CKD (chronic kidney disease), stage III: Plan: Baseline Cr ~1.0. Now with acute renal failure, present on admission. - Cr was 2.25 on admission. - Cr down to 1.5 today. (4) Acute and chronic respiratory failure with hypoxia: Plan: Due to above. - As above (5) Atrial fibrillation with rapid ventricular response: Plan: HR worsened due to sepsis and Levophed. Now off pressors. HR ~90 - 100 bpm. - Hold apixaban for now. - Monitor (6) Diastolic CHF: Plan: Chronic diastolic heart failure. No indication of acute exacerbation. - Hold furosemide - Monitor (7) CAD (coronary artery disease): Plan: Denied any chest pain to me. - Hold beta-cassie for hypotension. - Hold statin, spironolactone until able to reliably take PO (8) BPH (benign prostatic hyperplasia): Plan: - Continue finasteride as able - Monitor PVRs once Diop is removed. (9) Dementia: Plan: Unclear baseline, but for me he is pleasant and conversant, but not a lot of insight into medical issues. - Continue donepezil as able (10) DVT prophylaxis: Plan: SCDs GI ppx: Famotidine 20 mg PO daily Admission and Anticipated Discharge Date Admission Date: December 10, 2020 Subjective More tired today. Reports no fevers/chills, chest pain, shortness of breath, abdominal pain, nausea, or vomiting. Does go back to sleep very quickly. Physical Exam Constitutional: WD/WN, vitals as above + cachectic; no acute distress Eyes: EOM intact bilaterally; no conjunctival abnormality ENMT: external ear and nose normal, oropharynx normal Neck: trachea midline, no thyromegaly normal visual inspection Respiratory: normal respiratory effort, lungs clear to auscultation no respiratory distress Cardiovascular: RRR, no murmur, no edema Gastrointestinal (Abdomen): Inspection/Auscultation: abdomen normal to inspection; abdomen not distended Musculoskeletal: no cyanosis or clubbing, extremities motor strength 5/5 Skin: no rashes, warm and dry Neurologic: moves all extremities and awake Psychiatric: Orientation: alert and oriented to person Results & Data Results & Data ([facility]) Vital Signs (Past 12 Hours) Vital Signs Temp Pulse Pulse Resp BP Pulse Ox 12/16/20 15:27 36.5 C 99 H 16 99/66 L 93 12/16/20 11:18 36.5 C 69 16 95/60 L 98 12/16/20 07:39 36.1 C L 62 16 90/56 L 99 12/16/20 07:33 115 H 18 92 12/16/20 07:32 113 H PG Care Time/CCT Total # of Minutes Spent Total Time Spent with Patient: Total time spent is greater than 50% in coordination of care (as documented) at patient's floor/unit and/or counseling patient: Coding Level of Care Code 55029 Subseq Hosp Care Lvl 2 Diagnoses Pneumonia J18.9 Septic shock A41.9; R65.21 CKD (chronic kidney disease), stage III N18.3 Acute and chronic respiratory failure with hypoxia J96.21 Atrial fibrillation with rapid ventricular response I48.91 Diastolic CHF I50.30 CAD (coronary artery disease) I25.10 BPH (benign prostatic hyperplasia) N40.0 Dementia F03.90 DVT prophylaxis Z29.9
[2020-12-16] MEDS: DONEPEZIL HCL 10 MG TAB PO SCH (20:14)
[2020-12-17] MEDS: ACETYLCYSTEINE 20% INHAL SOLN 4ML ***DISPENSED BY RESP. INH SCH (08:07)
[2020-12-17] MEDS: SODIUM CHLOR 7% 4 ML NEB NEB SCH (08:07)
[2020-12-17] MEDS: LEVALBUTEROL HCL 1.25 MG/3 ML NEB NEB PRN (08:07)
[2020-12-17] MEDS: FAMOTIDINE 20 MG TAB PO SCH (08:39)
[2020-12-17] MEDS: AMOXICILLIN/CLAVULANATE 500 MG TAB PO SCH ×2 (08:40→16:14)
[2020-12-17] MEDS: MIDODRINE HCL 2.5 MG TAB PO SCH ×3 (08:40→16:14)
[2020-12-17] MEDS: POLYETHYLENE (MIRALAX) 17 GM PACK PO SCH (08:41)
[2020-12-17] MEDS: FINASTERIDE 5 MG TAB PO SCH (09:20)
[2020-12-17 09:31] LABS: Hematocrit (blood only) 32.4 % (42-52); Hemoglobin 10.9 g/dL (14.0-18.0); Mean Corpuscular Hgb Conc 33.6 g/dL (32-36); Mean Corpuscular Volume 98.2 fL (80-100); Mean Platelet Volume 11.5 fL (7.4-10.4); Platelet Count 143 K/uL (130-400); RDW Standard Deviation 56.3 fL (36.4-46.3); White Blood Count 7.48 K/uL (4.8-10.8)
[2020-12-17 09:41] LABS: BUN Creatinine Ratio 20.5 (10-20); Calcium 9.5 mg/dl (8.5-10.1); Creatinine Clr Calc Pharmacy 25.8 ml/min; Est GFR (African American) 48.6 ml/min; Est GFR (Non-African American) 41.9 ml/min; Magnesium 2.3 mg/dl (1.8-2.4)
--- NOTE | 2020-12-17 17:06 | Hospitalist Progress Note ---
Date of Service December 17, 2020 Assessment & Plan (1) Pneumonia: Plan: CXR on 12/10 showed left lung with multifocal left-sided pulmonary consolidation. - Discussed with SENIOR QUANTITY SURVEYOR on 12/15. He is almost certainly aspirating as he had significant dysphagia on video swallow on 08/15/2020. To determine further extent would need either bedside scope or repeat video swallow. However, there is not much to do about it other than what was already recommended. - Respiratory status improving. Now on room air. However, CXR from 12/14 was substantially worse with likely left-sided mucus plugging. Added nebulized saline, Mucomyst. (These were stopped on 12/17 as they were not helping much per RT.) -> Continue Augmentin - Stable today. Given goals being largely shifted toward non-escalation and comfort, I wonder if he could go home on hospice as he is near baseline and blood pressure holding steady on midodrine. Reached out Palliative through [place] on Friday to see if they could facilitate. (2) Septic shock: Plan: On Levophed during time in the ICU. - Per ICU team; improving. -> Started midodrine; off pressors. No escalation of care. (3) CKD (chronic kidney disease), stage III: Plan: Baseline Cr ~1.0. Admitted with acute renal failure, present on admission. - Cr was 2.25 on admission. - Cr down to 1.5 today. Has been stable for 3-4 days. Likely his new baseline. (4) Acute and chronic respiratory failure with hypoxia: Plan: Due to above. - As above (5) Atrial fibrillation with rapid ventricular response: Plan: HR worsened due to sepsis and Levophed. Now off pressors. HR ~90 - 100 bpm. - Continue apixaban - If HR not well-controlled, would probably try digoxin next as he doesn't have BP room to try beta-cassie or calcium channel cassie. (6) Diastolic CHF: Plan: Chronic diastolic heart failure. No indication of acute exacerbation. - Hold furosemide - Monitor (7) CAD (coronary artery disease): Plan: Denied any chest pain to me. - Hold beta-cassie & spironolactone for hypotension. - Continue statin (8) BPH (benign prostatic hyperplasia): Plan: - Continue finasteride as able - Monitor PVRs (9) Dementia: Plan: Unclear baseline, but for me he is pleasant and conversant, but not a lot of insight into medical issues. - Continue donepezil as able (10) DVT prophylaxis: Plan: Apixaban GI ppx: Famotidine 20 mg PO daily Admission and Anticipated Discharge Date Admission Date: December 10, 2020 Subjective Doing well today. No major issues. Reports no fevers/chills, chest pain, shortness of breath, abdominal pain, nausea, or vomiting. Physical Exam Constitutional: WD/WN, vitals as above + cachectic; no acute distress Eyes: EOM intact bilaterally; no conjunctival abnormality ENMT: external ear and nose normal, oropharynx normal Neck: trachea midline, no thyromegaly normal visual inspection Respiratory: normal respiratory effort, lungs clear to auscultation no respiratory distress Cardiovascular: RRR, no murmur, no edema Gastrointestinal (Abdomen): Inspection/Auscultation: abdomen normal to inspection; abdomen not distended Musculoskeletal: no cyanosis or clubbing, extremities motor strength 5/5 Skin: no rashes, warm and dry Neurologic: moves all extremities and awake Psychiatric: Orientation: alert and oriented to person Results & Data Results & Data ([facility]) Vital Signs (Past 12 Hours) Vital Signs Temp Pulse Pulse Resp BP BP Pulse Ox 12/17/20 16:18 36.7 C 91 H 16 90/61 L 12/17/20 15:47 92 H 12/17/20 11:40 36.5 C 63 16 105/74 95 12/17/20 08:10 87 18 90 12/17/20 08:00 36.5 C 63 16 96/70 L 95 12/17/20 07:30 91 H PG Care Time/CCT Total # of Minutes Spent Total Time Spent with Patient: Total time spent is greater than 50% in coordination of care (as documented) at patient's floor/unit and/or counseling patient: Coding Level of Care Code 51256 Subseq Hosp Care Lvl 2 Diagnoses Pneumonia J18.9 Septic shock A41.9; R65.21 CKD (chronic kidney disease), stage III N18.3 Acute and chronic respiratory failure with hypoxia J96.21 Atrial fibrillation with rapid ventricular response I48.91 Diastolic CHF I50.30 CAD (coronary artery disease) I25.10 BPH (benign prostatic hyperplasia) N40.0 Dementia F03.90 DVT prophylaxis Z29.9
[2020-12-17] MEDS: DONEPEZIL HCL 10 MG TAB PO SCH (21:12)
[2020-12-18] MEDS: FAMOTIDINE 20 MG TAB PO SCH (07:44)
[2020-12-18] MEDS: FINASTERIDE 5 MG TAB PO SCH (07:44)
[2020-12-18] MEDS: MIDODRINE HCL 2.5 MG TAB PO SCH ×3 (07:44→16:16)
[2020-12-18] MEDS: AMOXICILLIN/CLAVULANATE 500 MG TAB PO SCH ×2 (07:45→16:16)
[2020-12-18] MEDS: POLYETHYLENE (MIRALAX) 17 GM PACK PO SCH (07:46)
--- NOTE | 2020-12-18 11:29 | Palliative Care Progress Note ---
Date of Service December 18, 2020 Assessment & Plan (1) Palliative care encounter: Plan: I was able to talk with Pedrito at length regarding my interactions and that he appears to have returned to his baseline status, although he is very frail. He has stated that he would like him to return home with some extra support, like Hospice. I stated that hospice is not 24/7 which Pedrito does understand; however, he does not feel he can afford private caregivers. He stated that this scenario is very difficult for him as he is still grieving the loss of his mother. We did discuss the option of SNF placement and he would like to hear more about this, which will be done by case management. For now, continue supportive care and work on disposition. For now, as patient has returned to near baseline, palliative will follow peripherally, but will be available for continued a ssistance regarding goals of care. (2) Acute and chronic respiratory failure with hypoxia: (3) Dementia: (4) CAD (coronary artery disease): (5) CKD (chronic kidney disease), stage III: (6) Chronic atrial fibrillation: (7) Diastolic CHF: Admission and Anticipated Discharge Date Admission Date: December 10, 2020 Subjective Patient resting in his bed and able to have a conversation with me. He appears to be back to his baseline. I witnessed him drinking some water with coughing afterwards. Known aspiration risk. Please see A/P for further details Review of Systems Review of Systems: [place] Symptom Assessment Scale Pain 0/3 Dyspnea 0/3 Fatigue 3/3 Drowsiness 1/3 Palliative Performance Score 30% Physical Exam Constitutional: + cachectic, cooperative and comfortable ENMT: Mouth: + dry oral mucous membranes Respiratory: normal respiratory effort and + cough Auscultation: + diminished lung sounds and + crackles Cardiovascular: Rate/Rhythm: regular rate and regular rhythm Extremities: no edema Gastrointestinal (Abdomen): Inspection/Auscultation: normal bowel sounds Musculoskeletal: Extremities: + muscle atrophy Skin: + crusts, + dry skin and + pallor Neurologic: awake and + confused Speech / Cognition: + abnormal cognition Psychiatric: Orientation: alert, oriented to person, oriented to place and cooperative Insight: + limited insight Judgement: + limited judgement Results & Data ([facility]) Vital Signs (Past 12 Hours) Vital Signs Temp Pulse Pulse Resp BP Pulse Ox 12/18/20 07:49 36.5 C 105 H 18 93/68 L 92 12/18/20 07:25 95 H 12/18/20 03:15 36.3 C L 102 H 16 101/58 L 93 12/18/20 01:39 95 H PG Care Time/CCT Total # of Minutes Spent Total Time Spent with Patient: Total time spent is greater than 50% in coordination of care (as documented) at patient's floor/unit and/or counseling patient: 45 minutes with > 50% of that time spent assessing the patient, discussing goals of care with family and collaborating with IDT Coding Level of Care Code 62809 Subseq Hosp Care Lvl 3 Diagnoses Palliative care encounter Z51.5 Acute and chronic respiratory failure with hypoxia J96.21 Dementia F03.90 CAD (coronary artery disease) I25.10 CKD (chronic kidney disease), stage III N18.3 Chronic atrial fibrillation I48.2 Diastolic CHF I50.30 Time Spent (min) 35
[2020-12-18] MEDS: DONEPEZIL HCL 10 MG TAB PO SCH (21:05)
--- NOTE | 2020-12-18 22:02 | Hospitalist Progress Note ---
Date of Service December 18, 2020 Assessment & Plan (1) Pneumonia: Plan: CXR on 12/10 showed left lung with multifocal left-sided pulmonary consolidation. - Discussed with SAND MIXER on 12/15. He is almost certainly aspirating as he had significant dysphagia on video swallow on 08/15/2020. To determine further extent would need either bedside scope or repeat video swallow. However, there is not much to do about it other than what was already recommended. - Respiratory status improving. Now on room air. However, CXR from 12/14 was substantially worse with likely left-sided mucus plugging. Added nebulized saline, Mucomyst. (These were stopped on 12/17 as they were not helping much per RT.) -> Continue Augmentin - Stable today. Given goals being largely shifted toward non-escalation and comfort, I wonder if he could go home on hospice as he is near baseline and blood pressure holding steady on midodrine. Reached out Palliative through [place] on Friday to see if they could facilitate. Appreciate input from pallaitive care. Patient will likely need to be placed. (2) Septic shock: Plan: On Levophed during time in the ICU. - Per ICU team; improving. -> Started midodrine; off pressors. No escalation of care. (3) CKD (chronic kidney disease), stage III: Plan: Baseline Cr ~1.0. Admitted with acute renal failure, present on admission. - Cr was 2.25 on admission. - Cr down to 1.5 today. Has been stable for 3-4 days. Likely his new baseline. (4) Acute and chronic respiratory failure with hypoxia: Plan: Due to above. - As above (5) Atrial fibrillation with rapid ventricular response: Plan: HR worsened due to sepsis and Levophed. Now off pressors. HR ~90 - 100 bpm. - Continue apixaban - If HR not well-controlled, would probably try digoxin next as he doesn't have BP room to try beta-cassie or calcium channel cassie. (6) Diastolic CHF: Plan: Chronic diastolic heart failure. No indication of acute exacerbation. - Hold furosemide - Monitor (7) CAD (coronary artery disease): Plan: Denied any chest pain to me. - Hold beta-cassie & spironolactone for hypotension. - Continue statin (8) BPH (benign prostatic hyperplasia): Plan: - Continue finasteride as able - Monitor PVRs (9) Dementia: Plan: Unclear baseline, but for me he is pleasant and conversant, but not a lot of insight into medical issues. - Continue donepezil as able (10) DVT prophylaxis: Plan: Apixaban GI ppx: Famotidine 20 mg PO daily Admission and Anticipated Discharge Date Admission Date: December 10, 2020 Subjective Patient reports he is comfortable. Review of Systems Review of Systems: All systems reviewed & are unremarkable except as noted in HPI & below Physical Exam Physical Exam: Constitutional: WD/WN, vitals as above + cachectic; no acute distress Eyes: EOM intact bilaterally; no conjunctival abnormality ENMT: external ear and nose normal, oropharynx normal Neck: trachea midline, no thyromegaly normal visual inspection Respiratory: normal respiratory effort, lungs clear to auscultation no respiratory distress Cardiovascular: RRR, no murmur, no edema Gastrointestinal (Abdomen): Inspection/Auscultation: abdomen normal to inspection; abdomen not distended Musculoskeletal: no cyanosis or clubbing, extremities motor strength 5/5 Skin: no rashes, warm and dry Neurologic: moves all extremities and awake Psychiatric: Orientation: alert and oriented to person Results & Data Results & Data ([facility]) Vital Signs (Past 12 Hours) Vital Signs Temp Pulse Pulse Resp BP Pulse Ox 12/18/20 20:00 36.4 C L 98 H 18 102/69 94 12/18/20 15:19 89 12/18/20 15:12 36.6 C 91 H 18 97/64 L 12/18/20 11:18 36.4 C L 99 H 18 104/67 90 PG Care Time/CCT Total # of Minutes Spent Total Time Spent with Patient: Total time spent is greater than 50% in coordination of care (as documented) at patient's floor/unit and/or counseling patient: Coding Level of Care Code 33094 Subseq Hosp Care Lvl 2 Diagnoses Pneumonia J18.9 Septic shock A41.9; R65.21 CKD (chronic kidney disease), stage III N18.3 Acute and chronic respiratory failure with hypoxia J96.21 Atrial fibrillation with rapid ventricular response I48.91 Diastolic CHF I50.30 CAD (coronary artery disease) I25.10 BPH (benign prostatic hyperplasia) N40.0 Dementia F03.90 DVT prophylaxis Z29.9 Time Spent (min) 25
[2020-12-19] MEDS: MIDODRINE HCL 2.5 MG TAB PO SCH ×3 (09:46→16:29)
[2020-12-19] MEDS: FINASTERIDE 5 MG TAB PO SCH (09:47)
[2020-12-19] MEDS: AMOXICILLIN/CLAVULANATE 500 MG TAB PO SCH ×2 (09:47→16:29)
[2020-12-19] MEDS: FAMOTIDINE 20 MG TAB PO SCH (09:47)
[2020-12-19] MEDS ORDERED: INFLUENZA VACCINE HIGH DOSE PF 65+ 0.7 ML SYR IM ONE (10:00)
[2020-12-19] MEDS: POLYETHYLENE (MIRALAX) 17 GM PACK PO SCH (10:56)
[2020-12-19] MEDS: DONEPEZIL HCL 10 MG TAB PO SCH (20:12)
--- NOTE | 2020-12-19 20:14 | Hospitalist Progress Note ---
Date of Service December 19, 2020 Assessment & Plan (1) Pneumonia: Plan: CXR on 12/10 showed left lung with multifocal left-sided pulmonary consolidation. - Discussed with SUPERVISOR WHEEL SHOP on 12/15. He is almost certainly aspirating as he had significant dysphagia on video swallow on 08/15/2020. To determine further extent would need either bedside scope or repeat video swallow. However, there is not much to do about it other than what was already recommended. - Respiratory status improving. Now on room air. However, CXR from 12/14 was substantially worse with likely left-sided mucus plugging. Added nebulized saline, Mucomyst. (These were stopped on 12/17 as they were not helping much per RT.) -> Continue Augmentin - Stable today. Given goals being largely shifted toward non-escalation and comfort, I wonder if he could go home on hospice as he is near baseline and blood pressure holding steady on midodrine. Reached out Palliative through [place] on Friday to see if they could facilitate. Appreciate input from pallaitive care. Patient will likely need to be placed. consulted PT/OT (2) Septic shock: Plan: On Levophed during time in the ICU. - Per ICU team; improving. -> Started midodrine; off pressors. No escalation of care. (3) CKD (chronic kidney disease), stage III: Plan: Baseline Cr ~1.0. Admitted with acute renal failure, present on admission. - Cr was 2.25 on admission. - Cr down to 1.5 today. Has been stable for 3-4 days. Likely his new baseline. (4) Acute and chronic respiratory failure with hypoxia: Plan: Due to above. - As above (5) Atrial fibrillation with rapid ventricular response: Plan: HR worsened due to sepsis and Levophed. Now off pressors. HR ~90 - 100 bpm. - Continue apixaban - If HR not well-controlled, would probably try digoxin next as he doesn't have BP room to try beta-cassie or calcium channel cassie. (6) Diastolic CHF: Plan: Chronic diastolic heart failure. No indication of acute exacerbation. - Hold furosemide - Monitor (7) CAD (coronary artery disease): Plan: Denied any chest pain to me. - Hold beta-cassie & spironolactone for hypotension. - Continue statin (8) BPH (benign prostatic hyperplasia): Plan: - Continue finasteride as able - Monitor PVRs (9) Dementia: Plan: Unclear baseline, but for me he is pleasant and conversant, but not a lot of insight into medical issues. - Continue donepezil as able (10) DVT prophylaxis: Plan: Apixaban GI ppx: Famotidine 20 mg PO daily Admission and Anticipated Discharge Date Admission Date: December 10, 2020 Subjective 85 yo male reports no new symptoms. Review of Systems Review of Systems: All systems reviewed & are unremarkable except as noted in HPI & below Physical Exam Physical Exam: Constitutional: WD/WN, vitals as above + cachectic; no acute distress Eyes: EOM intact bilaterally; no conjunctival abnormality ENMT: external ear and nose normal, oropharynx normal Neck: trachea midline, no thyromegaly normal visual inspection Respiratory: normal respiratory effort, lungs clear to auscultation no respiratory distress Cardiovascular: RRR, no murmur, no edema Gastrointestinal (Abdomen): Inspection/Auscultation: abdomen normal to inspection; abdomen not distended Musculoskeletal: no cyanosis or clubbing Skin: no rashes, warm and dry Neurologic: moves all extremities and awake Psychiatric: Orientation: alert and oriented to person Results & Data Results & Data ([facility]) Vital Signs (Past 12 Hours) Vital Signs Temp Pulse Pulse Resp BP BP Pulse Ox 12/19/20 19:51 36.6 C 100 H 20 117/82 93 12/19/20 19:15 37.0 C 73 18 134/69 97 12/19/20 15:46 36.7 C 77 18 108/75 97 12/19/20 15:34 87 12/19/20 11:40 36.4 C L 100 H 24 104/70 93 PG Care Time/CCT Total # of Minutes Spent Total Time Spent with Patient: Total time spent is greater than 50% in coordination of care (as documented) at patient's floor/unit and/or counseling patient: Coding Level of Care Code 10510 Subseq Hosp Care Lvl 2 Diagnoses Pneumonia J18.9 Septic shock A41.9; R65.21 CKD (chronic kidney disease), stage III N18.3 Acute and chronic respiratory failure with hypoxia J96.21 Atrial fibrillation with rapid ventricular response I48.91 Diastolic CHF I50.30 CAD (coronary artery disease) I25.10 BPH (benign prostatic hyperplasia) N40.0 Dementia F03.90 DVT prophylaxis Z29.9
[2020-12-20] MEDS: FINASTERIDE 5 MG TAB PO SCH (08:12)
[2020-12-20] MEDS: MIDODRINE HCL 2.5 MG TAB PO SCH ×3 (08:12→16:55)
[2020-12-20] MEDS: FAMOTIDINE 20 MG TAB PO SCH (08:12)
[2020-12-20] MEDS: AMOXICILLIN/CLAVULANATE 500 MG TAB PO SCH ×2 (08:13→16:56)
[2020-12-20] MEDS: POLYETHYLENE (MIRALAX) 17 GM PACK PO SCH (08:14)
[2020-12-20] MEDS ORDERED: XYLOCAINE 1%/SOD BICARB 20 ML VIAL INFIL ONE (09:38)
[2020-12-20] MEDS: carvediloL 3.125 MG TAB PO SCH (17:18)
[2020-12-20] MEDS: DONEPEZIL HCL 10 MG TAB PO SCH (19:45)
[2020-12-20] MEDS: ATORVASTATIN 40 MG TAB PO SCH (19:45)
[2020-12-20] MEDS: APIXABAN 2.5 MG TAB PO SCH (19:45)
--- NOTE | 2020-12-20 20:57 | Hospitalist Progress Note ---
Date of Service December 20, 2020 Assessment & Plan (1) Pneumonia: Plan: CXR on 12/10 showed left lung with multifocal left-sided pulmonary consolidation. - Discussed with SOLID WASTE MANAGER on 12/15. He is almost certainly aspirating as he had significant dysphagia on video swallow on 08/15/2020. To determine further extent would need either bedside scope or repeat video swallow. However, there is not much to do about it other than what was already recommended. - Respiratory status improving. Now on room air. However, CXR from 12/14 was substantially worse with likely left-sided mucus plugging. Added nebulized saline, Mucomyst. (These were stopped on 12/17 as they were not helping much per RT.) -> Continue Augmentin - Stable today. Given goals being largely shifted toward non-escalation and comfort, I wonder if he could go home on hospice as he is near baseline and blood pressure holding steady on midodrine. Reached out Palliative through [facility] on Friday to see if they could facilitate. Appreciate input from pallaitive care. Patient will likely need to be placed, however it appears family is leaning towards bringing patient home. consulted PT/OT (2) Septic shock: Plan: On Levophed during time in the ICU. - Per ICU team; improving. -> Started midodrine; off pressors. No escalation of care. (3) CKD (chronic kidney disease), stage III: Plan: Baseline Cr ~1.0. Admitted with acute renal failure, present on admission. - Cr was 2.25 on admission. - Cr down to 1.5 today. Has been stable for 3-4 days. Likely his new baseline. (4) Acute and chronic respiratory failure with hypoxia: Plan: Due to above. - As above (5) Atrial fibrillation with rapid ventricular response: Plan: HR worsened due to sepsis and Levophed. Now off pressors. HR ~90 - 100 bpm. - Continue apixaban - If HR not well-controlled, would probably try digoxin next as he doesn't have BP room to try beta-cassie or calcium channel cassie. will likely consult cardio. (6) Diastolic CHF: Plan: Chronic diastolic heart failure. No indication of acute exacerbation. - Hold furosemide - Monitor (7) CAD (coronary artery disease): Plan: Denied any chest pain to me. - Hold beta-cassie & spironolactone for hypotension. - Continue statin (8) BPH (benign prostatic hyperplasia): Plan: - Continue finasteride as able - Monitor PVRs (9) Dementia: Plan: Unclear baseline, but for me he is pleasant and conversant, but not a lot of insight into medical issues. - Continue donepezil as able (10) DVT prophylaxis: Plan: Apixaban GI ppx: Famotidine 20 mg PO daily Admission and Anticipated Discharge Date Admission Date: December 10, 2020 Subjective Patient reports no new symptoms. Review of Systems Review of Systems: All systems reviewed & are unremarkable except as noted in HPI & below Physical Exam Physical Exam: Constitutional: WD/WN, vitals as above + cachectic; no acute distress Eyes: EOM intact bilaterally; no conjunctival abnormality ENMT: external ear and nose normal, oropharynx normal Neck: trachea midline, no thyromegaly normal visual inspection Respiratory: normal respiratory effort, lungs clear to auscultation no respiratory distress Cardiovascular: RRR, no murmur, no edema Gastrointestinal (Abdomen): Inspection/Auscultation: abdomen normal to inspection; abdomen not distended Musculoskeletal: no cyanosis or clubbing Skin: no rashes, warm and dry Neurologic: moves all extremities and awake Psychiatric: Orientation: alert and oriented to person Results & Data Results & Data ([facility]) Vital Signs (Past 12 Hours) Vital Signs Temp Pulse Pulse Resp BP Pulse Ox Pulse Ox 12/20/20 18:36 36.8 C 108 H 16 101/66 92 12/20/20 15:42 36.6 C 110 H 16 103/67 92 12/20/20 15:05 110 H 12/20/20 11:59 36.4 C L 119 H 20 95/64 L 92 12/20/20 10:18 91 12/20/20 10:03 91 PG Care Time/CCT Total # of Minutes Spent Total Time Spent with Patient: Total time spent is greater than 50% in coordination of care (as documented) at patient's floor/unit and/or counseling patient: Coding Level of Care Code 48379 Subseq Hosp Care Lvl 2 Diagnoses Pneumonia J18.9 Septic shock A41.9; R65.21 CKD (chronic kidney disease), stage III N18.3 Acute and chronic respiratory failure with hypoxia J96.21 Atrial fibrillation with rapid ventricular response I48.91 Diastolic CHF I50.30 CAD (coronary artery disease) I25.10 BPH (benign prostatic hyperplasia) N40.0 Dementia F03.90 DVT prophylaxis Z29.9
[2020-12-21] MEDS: FINASTERIDE 5 MG TAB PO SCH (08:33)
[2020-12-21] MEDS: carvediloL 3.125 MG TAB PO SCH ×2 (08:33→20:52)
[2020-12-21] MEDS: APIXABAN 2.5 MG TAB PO SCH ×2 (08:34→20:52)
[2020-12-21] MEDS: POLYETHYLENE (MIRALAX) 17 GM PACK PO SCH (08:34)
[2020-12-21] MEDS: MIDODRINE HCL 2.5 MG TAB PO SCH ×3 (08:34→17:50)
[2020-12-21] MEDS: FAMOTIDINE 20 MG TAB PO SCH (08:34)
--- NOTE | 2020-12-21 18:29 | Cardiology Consultation ---
Date of Consultation December 21, 2020 Assessment & Plan (1) Atrial fibrillation with rapid ventricular response: He is known to have permanent atrial fibrillation. Clearly with his acute illness some variability and rate control is expected. Over the past 24 hours his overall ventricular rates appear to hover around 90-100 beats per minute. I think this is acceptable. He is on low-dose carvedilol. It is unclear if he would tolerate additional rate control agents such as higher dose beta-cassie or diltiazem. Digoxin would be an option, especially given his sedentary status. His renal function is not perfect and this will need to be monitored closely. However, given his poor functional status and overall poor prognosis, it is unclear if more aggressive treatment is really required. If his heart rate stayed in the current range I would not advocate any change. We should also consider deescalation of therapy with respect to anticoagulation. With his severe dementia and overall poor prognosis he dries limited benefit from chronic anticoagulation. I would consider discontinuing apixaban. (2) CAD (coronary artery disease): History of remote myocardial infarction. No additional details available. Do not think this is a clinical issue currently. No current symptoms consistent with coronary insufficiency or angina. Known preserved LV systolic function. (3) Valvular heart disease: He does have some significant valvular heart disease. However, certainly not a candidate for any valve intervention. While he does have elevated BNP, clinically he appears hypovolemic. I would not advocate any diuresis at this point especially given his recent illness and tenuous blood pressure. History of Present Illness Reason for Consultation: Atrial fibrillation Requesting Physician: Preeti Attending Physician: Jarrett Álvarez History of Present Illness The patient is an 85-year-old who suffers from severe dementia and permanent atrial fibrillation who was admitted last month for a pulmonary infection and subsequent sepsis. He has had a long recovery in currently is on midodrine for support of blood pressure. The patient could not provide any meaningful history. He did not report symptoms such as pain or breathing difficulty. He was aware that he was in the hospital but could not name the hospital. He did report some sadness over his 's passing, but could not recall her name. Do not believe he has been ambulatory recently. Allergies Allergy/AdvReac Type Severity Reaction Status Date / Time No Known Allergies Allergy Unverified 02/21/19 10:21 Home Medications Medication Instructions Recorded Confirmed Type ascorbic acid (vitamin C) 500 mg 500 mg PO QAM 02/20/19 12/10/20 History tablet (Vitamin C) atorvastatin 80 mg tablet 40 mg PO HS 02/20/19 12/10/20 History cetirizine 10 mg tablet 5 mg PO QAM 02/20/19 12/10/20 History donepezil 10 mg tablet 10 mg PO HS 02/20/19 12/10/20 History ferrous sulfate 325 mg (65 mg 325 mg PO Q OTHER DAY 02/20/19 12/10/20 History iron) tablet cholecalciferol (vitamin D3) 50 50 mcg PO DAILY 12/10/20 12/10/20 History mcg (2,000 unit) tablet ergocalciferol (vitamin D2) 1,250 1,250 mcg PO WK 12/10/20 12/10/20 History mcg (50,000 unit) capsule finasteride 5 mg tablet 5 mg PO DAILY 12/10/20 12/10/20 History food supplemt, lactose-reduced 1 ea PO TID 12/10/20 12/10/20 History (Ensure Clear) loperamide 1 mg/7.5 mL oral liquid 2 - 4 mg PO UD PRN MDD 16mg 12/10/20 12/10/20 History omeprazole 20 mg capsule,delayed 20 mg PO DAILY 12/10/20 12/10/20 History release potassium chloride 20 mEq 20 meq PO DAILY 12/10/20 12/10/20 History tablet,extended release(part/cryst) midodrine 2.5 mg tablet 5 mg PO TID@0800,1200,1700 30 Days 12/25/20 Rx #90 tab Patient History Medical History Afib CHF (congestive heart failure) COPD (chronic obstructive pulmonary disease) Emphysema of lung Myocardial infarction Palliative care encounter Stroke Surgical History No significant past surgical history Social History Smoking Status: Never smoker Second Hand Exposure: No; Hx Alcohol Use: No Hx Substance Use: No Preferred Language: Divehi Communication Ability: Unable Senior Facilities Manager Required: No Beliefs That Will Affect Care: None marital status: / Current Living Situation: Family Feels Safe at Home: Yes Assistive Devices: Walker Review of Systems Review of Systems: He did not endorse symptoms of palpitations or chest pain. He has not been aware of any lower extremity edema. He could not recall any particular activities which he participates in at home. Physical Exam Physical Exam: The patient is alert but only oriented to person. He answered questions, but was not a reliable historian. HEENT: Edentulous. Sclerae are anicteric. Neuro: Cranial nerves intact Lungs: Poor air movement overall. Reduced breath sounds in the left. Some expiratory wheezing. No rales. Cardiac: Irregularly irregular rhythm. Pulses: The patient has palpable radial pulses bilaterally that are equal in intensity Extremities: There was no evidence of hypoperfusion. There is no cyanosis or clubbing. There is no edema. Skin: I did not appreciate any rashes on examination today. Results & Data ([facility]) Vital Signs (Past 12 Hours) Vital Signs Temp Pulse Pulse Resp BP Pulse Ox 12/21/20 15:25 36.5 C 91 H 20 103/63 92 12/21/20 15:05 84 12/21/20 11:37 36.4 C L 92 H 20 100/70 93 12/21/20 08:00 36.4 C L 96 H 20 101/67 92 12/21/20 07:22 105 H Laboratory Results Echocardiogram was obtained on 12/11/2020. Preserved LV systolic function with ejection fraction of 60 65%. Severe biatrial dilation. Mild aortic regurgitation, moderate to severe mitral regurgitation, moderate tricuspid regurgitation, moderate to severe pulmonary hypertension, mild aortic root dilation. Chest x-ray obtained on 12/15/2020 revealed complete opacification of the left lung field with some streaking in the right base. PG Care Time/CCT Total # of Minutes Spent Total Time Spent with Patient: Total time spent is greater than 50% in coordination of care (as documented) at patient's floor/unit and/or counseling patient: Coding Level of Care Code 68508 Initial Inpt Care Lvl 3 Diagnoses Atrial fibrillation with rapid ventricular response I48.91 CAD (coronary artery disease) I25.10 Valvular heart disease I38
--- NOTE | 2020-12-21 20:42 | Hospitalist Progress Note ---
Date of Service December 21, 2020 Assessment & Plan (1) Pneumonia: Plan: CXR on 12/10 showed left lung with multifocal left-sided pulmonary consolidation. - Discussed with MELT ROOM OPERATOR on 12/15. He is almost certainly aspirating as he had significant dysphagia on video swallow on 08/15/2020. To determine further extent would need either bedside scope or repeat video swallow. However, there is not much to do about it other than what was already recommended. - Respiratory status improving. Now on room air. However, CXR from 12/14 was substantially worse with likely left-sided mucus plugging. Added nebulized saline, Mucomyst. (These were stopped on 12/17 as they were not helping much per RT.) -> Continue Augmentin - Stable today. Given goals being largely shifted toward non-escalation and comfort, I wonder if he could go home on hospice as he is near baseline and blood pressure holding steady on midodrine. Reached out Palliative through [facility] on Friday to see if they could facilitate. Appreciate input from pallaitive care. Patient will likely need to be placed, however it appears family is leaning towards bringing patient home. consulted PT/OT (2) Septic shock: Plan: On Levophed during time in the ICU. - Per ICU team; improving. -> Started midodrine; off pressors. No escalation of care. (3) CKD (chronic kidney disease), stage III: Plan: Baseline Cr ~1.0. Admitted with acute renal failure, present on admission. - Cr was 2.25 on admission. - Cr down to 1.5 today. Has been stable for 3-4 days. Likely his new baseline. (4) Acute and chronic respiratory failure with hypoxia: Plan: Due to above. - As above (5) Atrial fibrillation with rapid ventricular response: Plan: HR worsened due to sepsis and Levophed. Now off pressors. HR ~90 - 100 bpm. - Continue apixaban - If HR not well-controlled, would probably try digoxin next as he doesn't have BP room to try beta-cassie or calcium channel cassie. consult cardio: appreciate input. will hold beta cassie as patient is not as active. (6) Diastolic CHF: Plan: Chronic diastolic heart failure. No indication of acute exacerbation. - Hold furosemide - Monitor (7) CAD (coronary artery disease): Plan: Denied any chest pain to me. - Hold beta-cassie & spironolactone for hypotension. - Continue statin (8) BPH (benign prostatic hyperplasia): Plan: - Continue finasteride as able - Monitor PVRs (9) Dementia: Plan: Unclear baseline, but for me he is pleasant and conversant, but not a lot of insight into medical issues. - Continue donepezil as able (10) DVT prophylaxis: Plan: Apixaban GI ppx: Famotidine 20 mg PO daily Admission and Anticipated Discharge Date Admission Date: December 10, 2020 Subjective Patient reports no new symptoms. Review of Systems Review of Systems: All systems reviewed & are unremarkable except as noted in HPI & below Physical Exam Physical Exam: Constitutional: WD/WN, vitals as above + cachectic; no acute distress Eyes: EOM intact bilaterally; no conjunctival abnormality ENMT: external ear and nose normal, oropharynx normal Neck: trachea midline, no thyromegaly normal visual inspection Respiratory: normal respiratory effort, lungs clear to auscultation no respiratory distress Cardiovascular: RRR, no murmur, no edema Gastrointestinal (Abdomen): Inspection/Auscultation: abdomen normal to insp ection; abdomen not distended Musculoskeletal: no cyanosis or clubbing Skin: no rashes, warm and dry Neurologic: moves all extremities and awake Psychiatric: Orientation: alert and oriented to person Results & Data Results & Data ([facility]) Vital Signs (Past 12 Hours) Vital Signs Temp Pulse Pulse Resp BP Pulse Ox 12/21/20 19:17 36.4 C L 92 H 20 102/68 93 12/21/20 15:25 36.5 C 91 H 20 103/63 92 12/21/20 15:05 84 12/21/20 11:37 36.4 C L 92 H 20 100/70 93 PG Care Time/CCT Total # of Minutes Spent Total Time Spent with Patient: Total time spent is greater than 50% in coordination of care (as documented) at patient's floor/unit and/or counseling patient: Coding Level of Care Code 35726 Subseq Hosp Care Lvl 2 Diagnoses Pneumonia J18.9 Septic shock A41.9; R65.21 CKD (chronic kidney disease), stage III N18.3 Acute and chronic respiratory failure with hypoxia J96.21 Atrial fibrillation with rapid ventricular response I48.91 Diastolic CHF I50.30 CAD (coronary artery disease) I25.10 BPH (benign prostatic hyperplasia) N40.0 Dementia F03.90 DVT prophylaxis Z29.9 Time Spent (min) 25
[2020-12-21] MEDS: DONEPEZIL HCL 10 MG TAB PO SCH (20:52)
[2020-12-21] MEDS: ATORVASTATIN 40 MG TAB PO SCH (20:52)
[2020-12-22] MEDS: POLYETHYLENE (MIRALAX) 17 GM PACK PO SCH (07:08)
[2020-12-22] MEDS: APIXABAN 2.5 MG TAB PO SCH ×2 (08:02→20:25)
[2020-12-22] MEDS: MIDODRINE HCL 2.5 MG TAB PO SCH ×3 (08:02→16:50)
[2020-12-22] MEDS: FAMOTIDINE 20 MG TAB PO SCH (08:02)
[2020-12-22] MEDS: FINASTERIDE 5 MG TAB PO SCH (08:03)
[2020-12-22] MEDS: carvediloL 3.125 MG TAB PO SCH ×2 (08:03→20:25)
[2020-12-22] MEDS: ATORVASTATIN 40 MG TAB PO SCH (20:25)
[2020-12-22] MEDS: DONEPEZIL HCL 10 MG TAB PO SCH (20:25)
--- NOTE | 2020-12-22 20:28 | Hospitalist Progress Note ---
Date of Service December 22, 2020 Assessment & Plan (1) Pneumonia: Plan: CXR on 12/10 showed left lung with multifocal left-sided pulmonary consolidation. - Discussed with BRICK PITCHER on 12/15. He is almost certainly aspirating as he had significant dysphagia on video swallow on 08/15/2020. To determine further extent would need either bedside scope or repeat video swallow. However, there is not much to do about it other than what was already recommended. - Respiratory status improving. Now on room air. However, CXR from 12/14 was substantially worse with likely left-sided mucus plugging. Added nebulized saline, Mucomyst. (These were stopped on 12/17 as they were not helping much per RT.) -> Continue Augmentin - Stable today. Given goals being largely shifted toward non-escalation and comfort, I wonder if he could go home on hospice as he is near baseline and blood pressure holding steady on midodrine. Reached out Palliative through [facility] on Friday to see if they could facilitate. Appreciate input from pallaitive care. Patient will likely need to be placed, however it appears family is leaning towards bringing patient home. consulted PT/OT (2) Septic shock: Plan: On Levophed during time in the ICU. - Per ICU team; improving. -> Started midodrine; off pressors. No escalation of care. (3) CKD (chronic kidney disease), stage III: Plan: Baseline Cr ~1.0. Admitted with acute renal failure, present on admission. - Cr was 2.25 on admission. - Cr down to 1.5 today. Has been stable for 3-4 days. Likely his new baseline. (4) Acute and chronic respiratory failure with hypoxia: Plan: Due to above. - As above (5) Atrial fibrillation with rapid ventricular response: Plan: HR worsened due to sepsis and Levophed. Now off pressors. HR ~90 - 100 bpm. - Continue apixaban - If HR not well-controlled, would probably try digoxin next as he doesn't have BP room to try beta-cassie or calcium channel cassie. consult cardio: appreciate input. will hold beta cassie as patient is not as active. (6) Diastolic CHF: Plan: Chronic diastolic heart failure. No indication of acute exacerbation. - Hold furosemide - Monitor (7) CAD (coronary artery disease): Plan: Denied any chest pain to me. - Hold beta-cassie & spironolactone for hypotension. - Continue statin (8) BPH (benign prostatic hyperplasia): Plan: - Continue finasteride as able - Monitor PVRs (9) Dementia: Plan: Unclear baseline, but for me he is pleasant and conversant, but not a lot of insight into medical issues. - Continue donepezil as able (10) DVT prophylaxis: Plan: Apixaban GI ppx: Famotidine 20 mg PO daily Admission and Anticipated Discharge Date Admission Date: December 10, 2020 Subjective Patient is resting comfortably. Review of Systems Review of Systems: All systems reviewed & are unremarkable except as noted in HPI & below Physical Exam Physical Exam: Constitutional: WD/WN, vitals as above + cachectic; no acute distress Eyes: EOM intact bilaterally; no conjunctival abnormality ENMT: external ear and nose normal, oropharynx normal Neck: trachea midline, no thyromegaly normal visual inspection Respiratory: normal respiratory effort, lungs clear to auscultation no respiratory distress Cardiovascular: RRR, no murmur, no edema Gastrointestinal (Abdomen): Inspection/Auscultation: abdomen normal to inspe ction; abdomen not distended Musculoskeletal: no cyanosis or clubbing Skin: no rashes, warm and dry Neurologic: moves all extremities and awake Psychiatric: Orientation: alert and oriented to person Results & Data Results & Data ([facility]) Vital Signs (Past 12 Hours) Vital Signs Temp Pulse Pulse Resp BP Pulse Ox 12/22/20 15:33 90 12/22/20 15:27 36.8 C 91 H 14 100/62 93 12/22/20 11:58 36.7 C 89 20 102/68 91 PG Care Time/CCT Total # of Minutes Spent Total Time Spent with Patient: Total time spent is greater than 50% in coordination of care (as documented) at patient's floor/unit and/or counseling patient: Coding Level of Care Code 51293 Subseq Hosp Care Lvl 1 Diagnoses Pneumonia J18.9 Septic shock A41.9; R65.21 CKD (chronic kidney disease), stage III N18.3 Acute and chronic respiratory failure with hypoxia J96.21 Atrial fibrillation with rapid ventricular response I48.91 Diastolic CHF I50.30 CAD (coronary artery disease) I25.10 BPH (benign prostatic hyperplasia) N40.0 Dementia F03.90 DVT prophylaxis Z29.9
[2020-12-23] MEDS: MIDODRINE HCL 2.5 MG TAB PO SCH ×3 (08:27→16:13)
[2020-12-23] MEDS: carvediloL 3.125 MG TAB PO SCH ×2 (08:27→20:44)
[2020-12-23] MEDS: FINASTERIDE 5 MG TAB PO SCH (08:27)
[2020-12-23] MEDS: FAMOTIDINE 20 MG TAB PO SCH (08:27)
[2020-12-23] MEDS: APIXABAN 2.5 MG TAB PO SCH ×2 (08:27→20:45)
[2020-12-23] MEDS: POLYETHYLENE (MIRALAX) 17 GM PACK PO SCH (08:31)
[2020-12-23 16:16] LABS: Basophils # (auto) 0.01 K/uL (0-0.2); Basophils % (auto) 0.1 %; Eosinophils # (auto) 0.04 K/uL (0-0.5); Eosinophils % (auto) 0.5 %; Hematocrit (blood only) 28.5 % (42-52); Hemoglobin 9.6 g/dL (14.0-18.0); Immature Granulocytes # (auto) 0.02 K/uL (0.00-0.02); Immature Granulocytes % (auto) 0.2 %; Lymphocytes # (auto) 0.76 K/uL (1.2-3.4); Lymphocytes % (auto) 8.9 %; Mean Corpuscular Hemoglobin 32.8 pg (25-34); Mean Corpuscular Hgb Conc 33.7 g/dL (32-36); Mean Corpuscular Volume 97.3 fL (80-100); Mean Platelet Volume 10.6 fL (7.4-10.4); Monocytes % (auto) 8.2 %; Neutrophils % (auto) 82.1 %; Platelet Count 172 K/uL (130-400); RDW Coefficient of Variation 16.8 % (11.5-14.5); RDW Standard Deviation 58.7 fL (36.4-46.3); Red Blood Count 2.93 M/uL (4.7-6.1); White Blood Count 8.53 K/uL (4.8-10.8)
[2020-12-23 16:38] LABS: Calcium 9.9 mg/dl (8.5-10.1); Creatinine Clr Calc Pharmacy 27.3 ml/min; Est GFR (African American) 54.3 ml/min; Est GFR (Non-African American) 46.9 ml/min; Potassium 4.5 mmol/L (3.5-5.1)
[2020-12-23] MEDS: DONEPEZIL HCL 10 MG TAB PO SCH (20:45)
[2020-12-23] MEDS: ATORVASTATIN 40 MG TAB PO SCH (20:45)
--- NOTE | 2020-12-23 20:51 | Hospitalist Progress Note ---
Date of Service December 23, 2020 Assessment & Plan (1) Pneumonia: Plan: CXR on 12/10 showed left lung with multifocal left-sided pulmonary consolidation. - Discussed with DISPLAYER on 12/15. He is almost certainly aspirating as he had significant dysphagia on video swallow on 08/15/2020. To determine further extent would need either bedside scope or repeat video swallow. However, there is not much to do about it other than what was already recommended. - Respiratory status improving. Now on room air. However, CXR from 12/14 was substantially worse with likely left-sided mucus plugging. Added nebulized saline, Mucomyst. (These were stopped on 12/17 as they were not helping much per RT.) -> Continue Augmentin - Stable today. No escalation of care, however, his son wants him to return home. He is not ready for hospice and would like to care for him as he has been doing this 24 hour. [facility] though is not ready to take patient home and would prefer to take him home on Friday. consulted PT/OT (2) Septic shock: Plan: On Levophed during time in the ICU. - Per ICU team; improving. -> Started midodrine; off pressors. No escalation of care. (3) CKD (chronic kidney disease), stage III: Plan: Baseline Cr ~1.0. Admitted with acute renal failure, present on admission. - Cr was 2.25 on admission. - Cr down to 1.5 today. Has been stable for 3-4 days. Likely his new baseline. (4) Acute and chronic respiratory failure with hypoxia: Plan: Due to above. - As above (5) Atrial fibrillation with rapid ventricular response: Plan: HR worsened due to sepsis and Levophed. Now off pressors. HR ~90 - 100 bpm. - Continue apixaban - If HR not well-controlled, would probably try digoxin next as he doesn't have BP room to try beta-cassie or calcium channel cassie. consult cardio: appreciate input. will hold beta cassie as patient is not as active. (6) Diastolic CHF: Plan: Chronic diastolic heart failure. No indication of acute exacerbation. - Hold furosemide - Monitor (7) CAD (coronary artery disease): Plan: Denied any chest pain to me. - Hold beta-cassie & spironolactone for hypotension. - Continue statin (8) BPH (benign prostatic hyperplasia): Plan: - Continue finasteride as able - Monitor PVRs (9) Dementia: Plan: Unclear baseline, but for me he is pleasant and conversant, but not a lot of insight into medical issues. - Continue donepezil as able (10) DVT prophylaxis: Plan: Apixaban GI ppx: Famotidine 20 mg PO daily Admission and Anticipated Discharge Date Admission Date: December 10, 2020 Subjective Patient has no new complaints. Updated [facility]. Review of Systems Review of Systems: All systems reviewed & are unremarkable except as noted in HPI & below Physical Exam Physical Exam: Constitutional: WD/WN, vitals as above + cachectic; no acute distress Eyes: EOM intact bilaterally; no conjunctival abnormality ENMT: external ear and nose normal, oropharynx normal Neck: trachea midline, no thyromegaly normal visual inspection Respiratory: normal respiratory effort, lungs clear to auscultation no respiratory distress Cardiovascular: RRR, no murmur, no edema Gastrointestinal (Abdomen): Inspection/Auscultation: abdomen normal to inspection; abdomen not distended Musculoskeletal: no cyanosis or clubbing Skin: no rashes, warm and dry Neurologic: moves all extremities and awake Psychiatric: Orientation: alert and oriented to person Results & Data Results & Data ([facility]) Vital Signs (Past 12 Hours) Vital Signs Temp Pulse Pulse Resp BP BP Pulse Ox 12/23/20 19:06 36.1 C L 70 18 90/53 L 94 12/23/20 15:23 36.6 C 79 18 89/50 L 90 12/23/20 15:03 79 12/23/20 12:17 36.7 C 86 18 94/55 L 90 PG Care Time/CCT Total # of Minutes Spent Total Time Spent with Patient: Total time spent is greater than 50% in coordination of care (as documented) at patient's floor/unit and/or counseling patient: Coding Level of Care Code 31272 Subseq Hosp Care Lvl 3 Diagnoses Pneumonia J18.9 Septic shock A41.9; R65.21 CKD (chronic kidney disease), stage III N18.3 Acute and chronic respiratory failure with hypoxia J96.21 Atrial fibrillation with rapid ventricular response I48.91 Diastolic CHF I50.30 CAD (coronary artery disease) I25.10 BPH (benign prostatic hyperplasia) N40.0 Dementia F03.90 DVT prophylaxis Z29.9 Time Spent (min) 35
[2020-12-24] MEDS: APIXABAN 2.5 MG TAB PO SCH ×2 (08:32→20:50)
[2020-12-24] MEDS: FINASTERIDE 5 MG TAB PO SCH (08:32)
[2020-12-24] MEDS: MIDODRINE HCL 2.5 MG TAB PO SCH ×3 (08:32→15:59)
[2020-12-24] MEDS: FAMOTIDINE 20 MG TAB PO SCH (08:32)
[2020-12-24] MEDS: POLYETHYLENE (MIRALAX) 17 GM PACK PO SCH (08:33)
[2020-12-24] MEDS: carvediloL 3.125 MG TAB PO SCH ×2 (08:33→20:50)
[2020-12-24] MEDS ORDERED: MICONAZOLE NITRATE POWDER 43 GM EXT PRN (10:53)
--- NOTE | 2020-12-24 20:08 | Hospitalist Progress Note ---
Date of Service December 24, 2020 Assessment & Plan (1) Pneumonia: Plan: CXR on 12/10 showed left lung with multifocal left-sided pulmonary consolidation. - Discussed with MANAGER RESOURCE on 12/15. He is almost certainly aspirating as he had significant dysphagia on video swallow on 08/15/2020. To determine further extent would need either bedside scope or repeat video swallow. However, there is not much to do about it other than what was already recommended. - Respiratory status improving. Now on room air. However, CXR from 12/14 was substantially worse with likely left-sided mucus plugging. Added nebulized saline, Mucomyst. (These were stopped on 12/17 as they were not helping much per RT.) -> Continue Augmentin - Stable today. No escalation of care, however, his son wants him to return home. He is not ready for hospice and would like to care for him as he has been doing this 24 hour. Pedrito though is not ready to take patient home and would prefer to take him home on Friday. (2) Septic shock: Plan: On Levophed during time in the ICU. - Per ICU team; improving. -> Started midodrine; off pressors. No escalation of care. (3) CKD (chronic kidney disease), stage III: Plan: Baseline Cr ~1.0. Admitted with acute renal failure, present on admission. - Cr was 2.25 on admission. - Cr down to 1.35 today. Likely his new baseline. (4) Acute and chronic respiratory failure with hypoxia: Plan: Due to above. - As above (5) Atrial fibrillation with rapid ventricular response: Plan: HR worsened due to sepsis and Levophed. Now off pressors. HR ~90 - 100 bpm. - Continue apixaban - If HR not well-controlled, would probably try digoxin next as he doesn't have BP room to try beta-cassie or calcium channel cassie. consult cardio: appreciate input. will hold beta cassie as patient is not as active. (6) Diastolic CHF: Plan: Chronic diastolic heart failure. No indication of acute exacerbation. - Hold furosemide - Monitor (7) CAD (coronary artery disease): Plan: Denied any chest pain to me. - Hold beta-cassie & spironolactone for hypotension. - Continue statin (8) BPH (benign prostatic hyperplasia): Plan: - Continue finasteride as able - Monitor PVRs (9) Dementia: Plan: Unclear baseline, but for me he is pleasant and conversant, but not a lot of insight into medical issues. - Continue donepezil as able (10) DVT prophylaxis: Plan: Apixaban GI ppx: Famotidine 20 mg PO daily Admission and Anticipated Discharge Date Admission Date: December 10, 2020 Subjective Patient is comfortable and has no new complaints. Review of Systems Review of Systems: All systems reviewed & are unremarkable except as noted in HPI & below Physical Exam Physical Exam: Constitutional: WD/WN, vitals as above + cachectic; no acute distress Eyes: EOM intact bilaterally; no conjunctival abnormality ENMT: external ear and nose normal, oropharynx normal Neck: trachea midline, no thyromegaly normal visual inspection Respiratory: normal respiratory effort, lungs clear to auscultation no respiratory distress Cardiovascular: RRR, no murmur, no edema Gastrointestinal (Abdomen): Inspection/Auscultation: abdomen normal to inspection; abdomen not distended Musculoskeletal: no cyanosis or clubbing Skin: no rashes, warm and dry Neurologic: moves all extremities and awake Psychiatric: Orientation: alert and oriented to person Results & Data Results & Data ([facility]) Vital Signs (Past 12 Hours) Vital Signs Temp Pulse Pulse Resp BP BP Pulse Ox 12/24/20 19:26 36.8 C 89 18 90/53 L 91 12/24/20 14:58 86 12/24/20 14:42 36.8 C 93 H 20 90/50 L 90 12/24/20 13:57 91/47 L 12/24/20 12:00 36.7 C 93 H 20 76/46 L 91 PG Care Time/CCT Total # of Minutes Spent Total Time Spent with Patient: Total time spent is greater than 50% in coordination of care (as documented) at patient's floor/unit and/or counseling patient: Coding Level of Care Code 54235 Subseq Hosp Care Lvl 2 Diagnoses Pneumonia J18.9 Septic shock A41.9; R65.21 CKD (chronic kidney disease), stage III N18.3 Acute and chronic respiratory failure with hypoxia J96.21 Atrial fibrillation with rapid ventricular response I48.91 Diastolic CHF I50.30 CAD (coronary artery disease) I25.10 BPH (benign prostatic hyperplasia) N40.0 Dementia F03.90 DVT prophylaxis Z29.9 Time Spent (min) 25
[2020-12-24] MEDS: ATORVASTATIN 40 MG TAB PO SCH (20:50)
[2020-12-24] MEDS: DONEPEZIL HCL 10 MG TAB PO SCH (20:50)
[2020-12-25] MEDS: carvediloL 3.125 MG TAB PO SCH (07:38)
[2020-12-25] MEDS: FINASTERIDE 5 MG TAB PO SCH (07:39)
[2020-12-25] MEDS: APIXABAN 2.5 MG TAB PO SCH (07:39)
[2020-12-25] MEDS: FAMOTIDINE 20 MG TAB PO SCH (07:39)
[2020-12-25] MEDS: MIDODRINE HCL 2.5 MG TAB PO SCH ×3 (07:39→16:28)
[2020-12-25] MEDS: POLYETHYLENE (MIRALAX) 17 GM PACK PO SCH (07:39)
--- NOTE | 2020-12-25 15:11 | Discharge Summary ---
Date of Service December 25, 2020 Admission HPI Per Admitting Provider Miguelangel Lynch is a 85-year-old male with past medical received for atrial fibrillation, chronic kidney disease stage III, BPH, dementia, and diastolic heart failure; who presented to the ER with altered mental status following brief period of time of unresponsiveness with family earlier today. Family notes that over the last several weeks he has continued to have decline in his overall strength, and seems to be getting weaker almost daily. This morning getting him up to get him cleaned up, he was with it and interacting with them like normal. However, as they transition him to a stretcher to take him to the bathroom and noticed that he was having incredible difficulty with this, and subsequently became unresponsive. Family is uncertain for how long he was unresponsive, but they were trying to stimulate him and talk with him with no effect. EMS was ultimately called and patient was transported to the ED for further evaluation. Upon EMS arrival to the house he was hypoxic and hypotensive, requiring high flow nasal cannula and received 1 L normal saline bolus prior to arrival to the ED. Continued to have marked hypotension and hypoxia, ultimately was transitioned to BiPAP with initially minimal improvement in oxygen saturations before admission. Family present in the ED states that he looked considerably better prior to admission than he had early this morning. But noted that his fingers and toes were becoming more bluish discolored. Acknowledged that he had previously expressed desire to not be resuscitated if his heart stopped and desire to avoid intubation, and wishes to be DNR/DNI. However had previously never had conversations about antibiotics or fluid resuscitation, nor had knowledge of potential for medications to elevate blood pressure. Family indicates that they would be willing to trial these medications, in an effort to prolong life. Admission Exam Per Admitting Provider Constitutional: + thin, + frail appearing, cooperative and + lethargic Eyes: PERRL, conjunctivae normal, anicteric sclerae normal visual coleman by confrontation and EOM intact bilaterally Respiratory: + abnormal respiratory effort and no labored breathing Auscultation: + diminished lung sounds (L>R) and + wheezes (pena-lobar); no crackles and no rales Cardiovascular: Rate/Rhythm: + tachycardic and + irregularly irregular Heart Sounds: no gallop, no murmur and no cardiac rub Faint peripheral pulses (radial, ulnar, posterior tibial, dorsalis pedis) Gastrointestinal (Abdomen): normal bowel sounds, soft, nontender, no hepatosplenomegaly Skin: + turgor decreased Neurologic: PERRL, EOMI, accommodation nl, no face palsy, no dysarthria moves all extremities, awake and + confused; no focal motor deficits Speech / Cognition: normal speech Principal Diagnosis Septic shock due to pneumonia Discharge Exam General: Cachectic, appears chronically frail but nontoxic and in no acute distress HEENT: Atraumatic, normocephalic. Visual acuity and hearing grossly intact. Pulm: CTAB A&P. -wheezes, -rales, -rhonchi. Symmetrical chest rise. No increase work of breathing. No respiratory distress. Cardiac: RRR, -mrg. Radial pulses intact and symmetrical. Abdominal: Nontender, nondistended, soft. BS present. Discharge Data Allergies Allergy/AdvReac Type Severity Reaction Status Date / Time No Known Allergies Allergy Unverified 02/21/19 10:21 Consultations 12/10/20 20:54 ED Decision to Admit Stat 12/10/20 21:56 Consult Print Decorator Routine 12/11/20 07:09 Consult Palliative Care Routine 12/21/20 08:46 Consult Cardiology Routine Ordered Studies 12/10/20 23:02 US point of care ultrasound Routine 12/11/20 09:58 US renal/blad retro comp Urgent Hospital Course (1) Pneumonia: Miguelangel is a 85-year-old male who was admitted for septic shock due to pneumonia. He had gradual clinical improvement, and was recommended for SNF by PT/OT. This was discussed with the patient and his son, and after extended discussion they declined placement options and hospice options. His son Pedrito preferred for him to return home with 24-hour care. Discussed that patient is unsafe to be home alone, patient and son expressed understanding of this patient was ultimately discharged to 24-hour care. To do as outpatient: 1. Routine PCP follow-up 2. Continue blood pressure monitoring, adjustments to antihy pertensives/midodrine as needed. Patient remains mildly hypotensive, but stable over several days. Midodrine continued. 3. Follow-up for rate control of A. fib, if blood pressure remains low but pa tient becomes poorly rate controlled would add digoxin 4. Continued goals of care discussion. Extended discussion with patient and his son on day of discharge, they do not wish to engage palliative care/hospice services at this time but also recognize that Miguelangel has a poor baseline and is chronically severely ill and also chronically aspirates. Are aware that any recurrent aspiration/infection could be a life threatening/life ending event, and that he is chronically ill with a baseline likely to gradually worsen. Expressed an understanding of this, would like to return home to 24-hour care and did not wish for SNF/rehab placement or hospice evaluation at time of discharge. Pneumonia CXR on 12/10 showed left lung with multifocal left-sided pulmonary consolidation. - Discussed with WINDSURFING INSTRUCTOR on 12/15. He is almost certainly aspirating as he had significant dysphagia on video swallow on 08/15/2020. To determine further extent would need either bedside scope or repeat video swallow. However, there is not much to do about it other than what was already recommended. - Respiratory status improving. Now on room air. However, CXR from 12/14 was substantially worse with likely left-sided mucus plugging. Added nebulized saline, Mucomyst. (These were stopped on 12/17 as they were not helping much per RT.) Completed a course of Zosyn narrowed to Augmentin during admission, no additional antibiotics indicated at time of discharge Eating normally on room air at time of discharge (2) Septic shock: Acute septic shock requiring pressor support in the ICU during admission Patient required Levophed, gradually weaned and transitioned to midodrine Patient remained clinically stable although persistently with low blood pressure over the next several days Patient continued to require midodrine for blood pressure support on discharge Midodrine 3 times daily continued at discharge (3) CKD (chronic kidney disease), stage III: Baseline Cr ~1.0. Admitted with acute renal failure, present on admission. - Cr was 2.25 on admission. Creatinine down trended, 1.35 likely reflecting new baseline 12/23. (4) Acute and chronic respiratory failure with hypoxia: Due to pneumonia, gradually improved and resolved by time of discharge (5) Atrial fibrillation with rapid ventricular response: Worsened due to sepsis and Levophed requirements, improved after pressors removed Beta-cassie held, patient with adequate rate at time of discharge Blood pressure without room to tolerate beta-cassie/calcium channel cassie at time of discharge If heart rate elevates or becomes poorly controlled consider digoxin Risk/benefits of apixaban discussed at time of discharge. Based on reduced benefit and elevated bleeding risk, have held apixaban indefinitely at this time. (6) Diastolic CHF: Chronic diastolic heart failure. No indication of acute exacerbation. - Hold furosemide - Monitor (7) CAD (coronary artery disease): Denied any chest pain to me. - Hold beta-cassie & spironolactone for hypotension. - Continue statin (8) BPH (benign prostatic hyperplasia): - Continue finasteride as able - Monitor PVRs (9) Dementia: Unclear baseline, but for me he is pleasant and conversant, but not a lot of insight into medical issues. - Continue donepezil as able (10) DVT prophylaxis: Apixaban GI ppx: Famotidine 20 mg PO daily Total Time Total Time Spent Total Time Spent (In Minutes): Spent preparing discharge on day of discharge including direct patient care, documentation, and coordination of care approximately 40 minutes. Discharge Plan Discharge Items Patient Disposition: Home - Self-Care Reason For Visit: SHOCK Discharge Diagnosis: Left lung pneumonia Activity: Per Instructions section Non-emergency contact: Primary Care Provider Call non-emergency contact if: you have any medication questions, your symptoms worsen, your pain is not controlled, your pain is worsening and you have a fever Follow-up/Referrals: PCP,NO [Physician] - Diet: Heart Healthy Addtl Attending Provider Instructions: You are seen in the hospital for sepsis due to pneumonia. You required ICU care and were transitioned off pressor medications and were prescribed a blood pressure medicine midodrine. You were treated for pneumonia, your imaging showed a left sided lung infection and it is highly likely you are aspirating when swallowing and significant dysphagia (difficulty with swallowing/abnormal swallow mechanics) were seen on a imaging exam on 08/15/2020. Your case was discussed with your son, and hospice and referral placement was not desired at this time. Per discussion with preference of you and your family you are being discharged home to 24-hour care without additional escalation of care. You completed the course of antibiotics during your hospitalization, no additional antibiotics were indicated at time of discharge. Due to low blood pressure adjustments to your medications were made. Your carvedilol, furosemide, and spironolactone were discontinued. You have been prescribed a blood pressure medicine midodrine as noted below. Please follow-up with your primary care provider for additional blood pressure medication adjustments. You have been prescribed a medication to improve blood pressure, midodrine. Please take midodrine 3 times daily at 8 AM, noon, and 5 PM. A follow-up appointment should be scheduled with your primary care provider. You should be seen by your primary care provider within 1 week. Please call [facility] to schedule a follow-up appointment within 48 hours of returning home. Their office can be reached [phone]. If you develop any new or worsening symptoms including fever, chills, sweats, chest pain, chest pressure, difficulty breathing, uncontrolled nausea/vomiting, rash, wheezing, passing out or nearly passing out, bleeding, black/bloody bowel movements, or other new or concerning symptoms please call your primary care physician, or call 911 for re-evaluation in the emergency department if you are very concerned. Pending Studies at Discharge: No Stand-Alone Forms: My [facility] [employer], Smoking Cessation Medications and DC Order Prescriptions: New midodrine 2.5 mg Tablet 5 mg PO TID@0800,1200,1700 30 Days Qty: 90 RF: 0 Continued atorvastatin 80 mg Tablet 40 mg PO HS RF: 0 cetirizine 10 mg Tablet 5 mg PO QAM RF: 0 ascorbic acid (vitamin C) [Vitamin C] 500 mg Tablet 500 mg PO QAM RF: 0 ferrous sulfate 325 mg (65 mg iron) Tablet 325 mg PO Q OTHER DAY RF: 0 Eliquis 5 mg Tablet 2.5 mg PO BID RF: 0 donepezil 10 mg Tablet 10 mg PO HS RF: 0 potassium chloride 20 mEq Tablet,Er Particles/Crystals 20 meq PO DAILY RF: 0 omeprazole 20 mg Capsule,Delayed Release(Dr/Ec) 20 mg PO DAILY RF: 0 ergocalciferol (vitamin D2) 1,250 mcg (50,000 unit) Capsule 1,250 mcg PO WK RF: 0 finasteride 5 mg Tablet 5 mg PO DAILY RF: 0 cholecalciferol (vitamin D3) 50 mcg (2,000 unit) Tablet 50 mcg PO DAILY RF: 0 Ensure Clear Liquid 1 ea PO TID RF: 0 loperamide 1 mg/7.5 mL Liquid 2 - 4 mg PO UD MDD 16mg PRN (Reason: Diarrhea) RF: 0 Discontinued furosemide 20 mg Tablet 20 mg PO QAM RF: 0 carvedilol 6.25 mg Tablet 3.125 mg PO Q12 RF: 0 spironolactone 25 mg Tablet 12.5 mg PO DAILY RF: 0 Discharge Orders: Discharge Order (Routine); Ordered 12/25/20 Ordered By: Bennie Lora Admission Data Admit Date/Time: 12/10/20 21:56 Attending Provider: Bennie Lora Admit Provider: Gasper Alexander Primary Care Provider: Katie Posey Other Providers: Shmuel Lazo ; Nahum Lakhani ; Sin Camacho ; Malini Oliva ; Freddy Dhaliwal ; Epi [place] ; Ismael Vee ; Getachew Webb ; Wily Jacques Jr ; Scooby Alexis ; Freya Rice ; Sherin Sloan ; [place] ; [place] ; Chalino Roe ; Елена Fritz ; Bailey Tucker ; Ritchie Herbert ; Fabian Hernandez ; Victor Hugo Fowler Coding Level of Care Code D/C DAY MANAGEMENT >30 MINS Diagnoses Pneumonia J18.9 Septic shock A41.9; R65.21 CKD (chronic kidney disease), stage III N18.3 Acute and chronic respiratory failure with hypoxia J96.21 Atrial fibrillation with rapid ventricular response I48.91 Diastolic CHF I50.30 CAD (coronary artery disease) I25.10 BPH (benign prostatic hyperplasia) N40.0 Dementia F03.90 DVT prophylaxis Z29.9
== END 2020-12-25 17:48 | disposition home or self-care (01) | DRG 871 ==
LOC: ED 17:24 → SUATTDRO 21:56 → 1E 21:56 → 2W 12-15 18:00
DX: E86.0 Dehydration; Z86.73 Personal history of transient ischemic attack (TIA), and cerebral infarction without residual deficits; N40.0 Benign prostatic hyperplasia without lower urinary tract symptoms; Z66 Do not resuscitate; Z20.822 Contact with and (suspected) exposure to COVID-19; N17.0 Acute kidney failure with tubular necrosis; E83.39 Other disorders of phosphorus metabolism; N18.30 Chronic kidney disease, stage 3 unspecified; J43.9 Emphysema, unspecified; E83.42 Hypomagnesemia; Z51.81 Encounter for therapeutic drug level monitoring; J98.09 Other diseases of bronchus, not elsewhere classified; Z79.01 Long term (current) use of anticoagulants; J18.9 Pneumonia, unspecified organism; R13.10 Dysphagia, unspecified; I50.32 Chronic diastolic (congestive) heart failure; Z79.899 Other long term (current) drug therapy; D72.829 Elevated white blood cell count, unspecified; A41.9 Sepsis, unspecified organism; J96.21 Acute and chronic respiratory failure with hypoxia; E87.2 Acidosis; E87.6 Hypokalemia; I25.10 Atherosclerotic heart disease of native coronary artery without angina pectoris; I25.2 Old myocardial infarction; G93.41 Metabolic encephalopathy; I48.21 Permanent atrial fibrillation; F03.90 Unspecified dementia, unspecified severity, without behavioral disturbance, psychotic disturbance, mood disturbance, and anxiety; R65.21 Severe sepsis with septic shock; K72.00 Acute and subacute hepatic failure without coma

== ENCOUNTER 2021-01-03 11:55 | Inpatient (IN) ==
--- NOTE | 2021-01-03 14:41 | Emergency Department Note ---
History of Present Illness General Chief complaint: Wound Stated complaint: wound/sore on butt Time Seen by Provider: 01/03/21 14:22 Source: family ([id number]) Limitations: other (Dementia and nonverbal) History of Present Illness Provider complaint: Sacral decubitus Onset (ago): week(s) Location: buttocks and right Pain Consistency: + constant Associated symptoms: + shortness of breath (Some rapid breathing today); no chest pain, no cough, no fever/chills or no nausea/vomiting This is a 89-year-old male who presents for evaluation of a sacral decubitus to his right buttock. It has been there for over a week since he was in the [facility] for septic shock for pneumonia. He has 24-hour care at home with a visiting nurse and she noticed the decubitus yesterday and recommended that they follow-up with the wound care clinic. They have not had an appointment yet and the nurse recommended he be evaluated in the ED. According to his [id number] the patient has been doing well since his discharge. He has been eating and drinking normally. He has not had any fevers or vomiting. He has normal bowel movements without diarrhea and is urinating normally. He has not communicated any pain, although he has difficulty with communication due to his dementia. He is nonverbal here making his HPI limited. His daughter in law noticed that he did have some rapid breathing today. She states he has a prior history of pneumonia during his hospitalization. Home Medications Medication Instructions Recorded Confirmed Type ascorbic acid (vitamin C) 500 mg 500 mg PO QAM 02/20/19 01/03/21 History tablet (Vitamin C) atorvastatin 80 mg tablet 40 mg PO HS 02/20/19 01/03/21 History cetirizine 10 mg tablet 5 mg PO QAM 02/20/19 01/03/21 History donepezil 10 mg tablet 10 mg PO HS 02/20/19 01/03/21 History ferrous sulfate 325 mg (65 mg 325 mg PO Q OTHER DAY 02/20/19 01/03/21 History iron) tablet cholecalciferol (vitamin D3) 50 50 mcg PO DAILY 12/10/20 01/03/21 History mcg (2,000 unit) tablet ergocalciferol (vitamin D2) 1,250 1,250 mcg PO WK 12/10/20 01/03/21 History mcg (50,000 unit) capsule finasteride 5 mg tablet 5 mg PO DAILY 12/10/20 01/03/21 History food supplemt, lactose-reduced 1 ea PO TID 12/10/20 01/03/21 History (Ensure Clear) loperamide 1 mg/7.5 mL oral liquid 2 - 4 mg PO UD PRN MDD 16mg 12/10/20 01/03/21 History omeprazole 20 mg capsule,delayed 20 mg PO DAILY 12/10/20 01/03/21 History release potassium chloride 20 mEq 20 meq PO DAILY 12/10/20 01/03/21 History tablet,extended release(part/cryst) midodrine 2.5 mg tablet 5 mg PO TID@0800,1200,1700 30 Days 12/25/20 01/03/21 Rx #90 tab Allergies Allergy/AdvReac Type Severity Reaction Status Date / Time No Known Allergies Allergy Verified 01/03/21 15:50 Past Med/Surg History Medical History Afib CHF (congestive heart failure) COPD (chronic obstructive pulmonary disease) Emphysema of lung Myocardial infarction Palliative care encounter Stroke Surgical History No significant past surgical history Social History Smoking Status: Never smoker Second Hand Exposure: No; Hx Alcohol Use: No Hx Substance Use: No Preferred Language: Luxembourgish Communication Ability: Impaired Foundation Relations Manager Required: No Beliefs That Will Affect Care: None marital status: / Current Living Situation: Family Other Information That Helps Us Care for You: No Feels Safe at Home: Yes Safety Concerns: Feels Safe At This Time Assistive Devices: Denture - Upper, Denture - Lower and Wheelchair Review of Systems See HPI for pertinent positives & negatives. Unobtainable due to cognitive status Physical Exam Vital Signs Vital Signs - 24 hr 01/03/21 12:01 01/03/21 16:18 01/03/21 16:30 Temperature 36.7 C Temperature Source Temporal Artery Scan Pulse Rate 84 Pulse Rate [Apical] 144 H Pulse Rate from SpO2 Sensor Pulse Rhythm Regular Pulse Strength Normal Respiratory Rate 20 18 32 H Respiratory Effort / Characteristics Non-Labored Spontaneous Respiratory Depth Normal Respiratory Pattern Regular Blood Pressure 100/67 101/36 L Blood Pressure [Right Arm] 84/55 L Blood Pressure Mean 78 57 Blood Pressure Mean [Right Arm] 64 Blood Pressure Position Sitting Pulse Oximetry 97 Oxygen Delivery Method Room Air Sepsis Recent Fever Within 48 Hours No Sepsis New/Unexplained Change in Mental Status N/A Sepsis Action Taken by Nursing No Action Required 01/03/21 16:40 01/03/21 17:00 01/03/21 17:10 Temperature Temperature Source Pulse Rate 138 H 171 H Pulse Rate [Apical] Pulse Rate from SpO2 Sensor 154 H Pulse Rhythm Pulse Strength Respiratory Rate 25 H 27 H 24 Respiratory Effort / Characteristics Respiratory Depth Respiratory Pattern Blood Pressure 65/50 L 108/65 88/69 L Blood Pressure [Right Arm] Blood Pressure Mean 55 79 75 Blood Pressure Mean [Right Arm] Blood Pressure Position Pulse Oximetry 81 L 81 L Oxygen Delivery Method Sepsis Recent Fever Within 48 Hours Sepsis New/Unexplained Change in Mental Status Sepsis Action Taken by Nursing 01/03/21 17:20 01/03/21 17:30 01/03/21 17:40 Temperature Temperature Source Pulse Rate 154 H 144 H 141 H Pulse Rate [Apical] Pulse Rate from SpO2 Sensor Pulse Rhythm Pulse Strength Respiratory Rate 27 H 25 H 28 H Respiratory Effort / Characteristics Respiratory Depth Respiratory Pattern Blood Pressure 111/62 112/74 96/66 L Blood Pressure [Right Arm] Blood Pressure Mean 78 86 76 Blood Pressure Mean [Right Arm] Blood Pressure Position Pulse Oximetry Oxygen Delivery Method Sepsis Recent Fever Within 48 Hours Sepsis New/Unexplained Change in Mental Status Sepsis Action Taken by Nursing Constitutional: Vital signs reviewed. Eyes: Pupils are equal round reactive to light. Conjunctiva are noninjected. ENT: Pharynx is clear without erythema or exudate. Mucous membranes are dry. Neck supple without meningeal signs. Respiratory: Clear to auscultation bilaterally. Breath sounds are equal bilaterally. Cardiovascular: Irregularly irregular rhythm. Normal rate. GI: Soft, nondistended and nontender. Bowel sounds are present. Musculoskeletal: No peripheral edema. No lower extremity tenderness. Integumentary: No cyanosis. or jaundice. [place] sized stage III sacral decub itus without significant surrounding erythema or increased warmth over the right buttock. No discharge from the wound. 2 cm ulceration to the right lower back with mild yellowish discharge. No surrounding cellulitis. Neurological: The patient is awake and alert. Nonverbal. Psychiatric: Unable to assess. Course Administered Medications Atorvastatin Calcium (Atorvastatin 40 Mg Tab) 40 mg PO HS [facility] Stop: 02/02/21 20:59 Last Admin: 01/03/21 21:41 Dose: 40 mg Documented by: [id number] Donepezil HCl (Donepezil Hcl 10 Mg Tab) 10 mg PO HS [facility] Stop: 02/02/21 20:59 Last Admin: 01/03/21 21:41 Dose: 10 mg Documented by: [id number] Diltiazem HCl 125 mg/ Dextrose 125 mls @ 0 mls/hr IV .Q0M MARIBETH; Protocol Stop: 02/02/21 16:14 Last Titration: 01/03/21 19:23 Dose: 0 mg/hr, 0 mls/hr Documented by: [id number] Cosigned by: [id number] Admin: 01/03/21 16:38 Dose: 5 mg/hr, 5 mls/hr Documented by: [id number] Cosigned by: [id number] Lactated Ringer's (Lr) 1,000 mls @ 250 mls/hr IV .Q4H ONE Stop: 01/03/21 23:54 Last Admin: 01/03/21 20:24 Dose: 250 mls/hr Documented by: [id number] Discontinued Medications Sodium Chloride (Nss 1000ml) 250 mls @ 999 mls/hr IV .Q16M ONE Stop: 01/03/21 16:25 Last Infusion: 01/03/21 16:28 Dose: 0 mls/hr Documented by: [id number] Admin: 01/03/21 16:12 Dose: 999 mls/hr Documented by: [id number] Lactated Ringer's (Lr) 500 mls @ 999 mls/hr IV .Q31M ONE Stop: 01/03/21 18:09 Last Infusion: 01/03/21 18:21 Dose: 0 mls/hr Documented by: [id number] Admin: 01/03/21 17:50 Dose: 999 mls/hr Documented by: [id number] Midodrine (Midodrine Hcl 10 Mg Tab) 10 mg PO ONCE ONE Stop: 01/03/21 17:40 Last Admin: 01/03/21 17:58 Dose: 10 mg Documented by: [id number] Critical Care Time Critical Care Time: Yes Total Critical Care Time: 35 I have personally spent approximately 35 minutes of critical care time in the direct management of this patient. This includes bedside care, interpretation of diagnostic studies, and testing, discussion with consultants, patient, and family members, and other required patient management activities. These minutes are in excess of all separately billable procedures. Medical Decision Making Differential Diagnosis Sacral decubitus, cellulitis, wound infection, bacteremia, pneumonia Medical Records Attestation: I reviewed the patient's medical records. I did perform a limited focused review of portions of the patient's old chart on the electronic medical record. The patient was discharged from the hospital 9 days ago after spending 2 weeks for septic shock secondary to pneumonia. Home Medications Current Medication List: was personally reviewed by me Laboratory Data Attestation: I reviewed the patient's lab results. Result diagrams: 01/03/21 14:45 01/03/21 14:45 Lab Results 01/03/21 01/03/21 01/03/21 Range/Units 14:45 14:45 14:45 WBC 10.56 (4.8-10.8) K/uL RBC 3.40 L (4.7-6.1) M/uL Hgb 11.1 L (14.0-18.0) g/dL Hct 34.7 L (42-52) % MCV 102.1 H (80-100) fL MCH 32.6 (25-34) pg MCHC 32.0 (32-36) g/dL RDW Std Deviation 61.5 H (36.4-46.3) fL RDW Coeff of Victoriano 16.5 H (11.5-14.5) % Plt Count 203 (130-400) K/uL MPV 11.5 H (7.4-10.4) fL Immature Gran % (Auto) 0.1 % Neut % (Auto) 85.0 % Lymph % (Auto) 8.5 % [place] % (Auto) 6.3 % Eos % (Auto) 0.0 % Baso % (Auto) 0.1 % Neut # (Auto) 8.98 H (1.4-6.5) K/uL Lymph # (Auto) 0.90 L (1.2-3.4) K/uL [place] # (Auto) 0.66 H (0.11-0.59) K/uL Eos # (Auto) 0.00 (0-0.5) K/uL Baso # (Auto) 0.01 (0-0.2) K/uL Immature Gran # (Auto) 0.01 (0.00-0.02) K/uL Sodium 147 H (136-145) mmol/L Potassium 5.2 H (3.5-5.1) mmol/L Chloride 115 H (98-107) mmol/L Carbon Dioxide 27 (21-32) mmol/L Anion Gap 5.0 (3-11) BUN 30 H (7-18) mg/dl Creatinine 1.65 H (0.6-1.4) mg/dl Est Cr Clr Drug Dosing Not Reportable Est GFR ( Amer) 42.6 ml/min Est GFR (Non-Af Amer) 36.8 ml/min BUN/Creatinine Ratio 18.3 (10-20) Glucose 87 (70-99) mg/dl Calcium 9.1 (8.5-10.1) mg/dl Magnesium 2.2 (1.8-2.4) mg/dl Total Bilirubin 0.9 (0.2-1) mg/dl AST 26 (15-37) U/L ALT 13 (12-78) U/L Alkaline Phosphatase 83 (45-117) U/L Troponin I < 0.015 (0-0.045) ng/ml Total Protein 7.5 (6.4-8.2) gm/dl Albumin 1.9 L (3.4-5.0) gm/dl Globulin 5.6 H (2.5-4.0) gm/dl Albumin/Globulin Ratio 0.3 L (0.9-2) COVID-19 Eval Order SARS-CoV-2 (PCR) (Negative) 01/03/21 01/03/21 Range/Units 16:18 16:18 WBC (4.8-10.8) K/uL RBC (4.7-6.1) M/uL Hgb (14.0-18.0) g/dL Hct (42-52) % MCV (80-100) fL MCH (25-34) pg MCHC (32-36) g/dL RDW Std Deviation (36.4-46.3) fL RDW Coeff of Victoriano (11.5-14.5) % Plt Count (130-400) K/uL MPV (7.4-10.4) fL Immature Gran % (Auto) % Neut % (Auto) % Lymph % (Auto) % [place] % (Auto) % Eos % (Auto) % Baso % (Auto) % Neut # (Auto) (1.4-6.5) K/uL Lymph # (Auto) (1.2-3.4) K/uL [place] # (Auto) (0.11-0.59) K/uL Eos # (Auto) (0-0.5) K/uL Baso # (Auto) (0-0.2) K/uL Immature Gran # (Auto) (0.00-0.02) K/uL Sodium (136-145) mmol/L Potassium (3.5-5.1) mmol/L Chloride (98-107) mmol/L Carbon Dioxide (21-32) mmol/L Anion Gap (3-11) BUN (7-18) mg/dl Creatinine (0.6-1.4) mg/dl Est Cr Clr Drug Dosing Est GFR ( Amer) ml/min Est GFR (Non-Af Amer) ml/min BUN/Creatinine Ratio (10-20) Glucose (70-99) mg/dl Calcium (8.5-10.1) mg/dl Magnesium (1.8-2.4) mg/dl Total Bilirubin (0.2-1) mg/dl AST (15-37) U/L ALT (12-78) U/L Alkaline Phosphatase (45-117) U/L Troponin I (0-0.045) ng/ml Total Protein (6.4-8.2) gm/dl Albumin (3.4-5.0) gm/dl Globulin (2.5-4.0) gm/dl Albumin/Globulin Ratio (0.9-2) COVID-19 Eval Order Covid19 at [facility] SARS-CoV-2 (PCR) NEGATIVE (Negative) Imaging Data Radiologist's Impression: Chest X-Ray 01/03/21 14:32 XR chest 1V portable CLINICAL HISTORY: eval for pna COMPARISON STUDY: Chest radiograph December 15, 2020. FINDINGS: There is no pneumothorax. Small right pleural effusion is noted. There may be a left pleural effusion as well. Extensive opacification of the left hemithorax with volume loss is noted. Left lung aeration has improved since exam of December 15, 2020. There is leftward mediastinal shift due to volume loss. Right basilar opacity is noted. This has improved. IMPRESSION: 1. Extensive opacification of the left lung with volume loss. Interval improvement in left upper lung aeration since prior exam. 2. Right basilar opacity which favors pneumonia. This has improved since prior exam. 3. Bilateral pleural effusions. ACT 112: Negative or not required by law. Electronically signed by: Adam Almodovar M.D. 01/03/2021 3:11 PM ECG Data Attestation: I personally reviewed and interpreted this ECG as follows: Indication: + tachycardia Rate (beats per minute): 156 Rhythm: + atrial fibrillation ECG [place]: + Right axis deviation ECG ST segments: + Nonspecific ST abnormalities MDM Narrative I did evaluate the patient as noted above. The patient is unable to provide history due to his dementia. I did obtain history from his [id number]. The patient is brought in for evaluation of a sacral decubitus. He has not had any constitutional symptoms such as fever or vomiting. He has been eating well and doing well at home according to his [id number]. IV access was established. I did ask the wound care nurses to evaluate the patient. I did place an order for continuous cardiac monitoring. The monitor showed atrial fibrillation with a rate of 88 bpm. During the course of his ED visit the patient developed tachycardia. I did order and personally review the patient's 12-lead EKG as described above. He has atrial fibrillation with RVR. He was mildly hypotensive so he was given a bolus of normal saline 250 cc. He was started on a Cardizem drip at 5 mg/h. His heart rate did come down to the 110s and he remained hemodynamically stable. I did order and personally reviewed the images of the patient's chest x-ray as described above. He has chronic opacification of the left lung. The right opacity he previously had is improving. I did order and review the patient's blood work as noted in the electronic medical record. CBC demonstrates anemia with a hemoglobin of 11. White count is 10.5. Electrolytes demonstrate a sodium of 147, calcium of 5.2 and a chloride of 115. His creatinine is elevated 1.65. Troponin is negative. Covid screening is negative. Because of his atrial fibrillation with RVR he will need to be hospitalized. I did evaluate the patient again. He remains sl ightly hypotensive but his heart rate is about 115-1 25. He has still on the Cardizem drip. I did discuss case with the hospitalist and casework specialist. Impression & Plan Atrial fibrillation with rapid ventricular response, Decubitus ulcer of sacral area, Acute hypernatremia, CKD (chronic kidney disease) Discharge Plan Visit Data Chief Complaint: Wound Stated Complaint: wound/sore on butt ED Provider: [place] Discharge Problem: Atrial fibrillation with rapid ventricular response, Decubitus ulcer of sacral area, Acute hypernatremia, CKD (chronic kidney disease) Patient Disposition: Admitted As Inpatient Discharge Instructions Interventions: ED Discharge Assessment Last Done: 01/03/21 19:09
[2021-01-03 14:59] LABS: Basophils # (auto) 0.01 K/uL (0-0.2); Basophils % (auto) 0.1 %; Hematocrit (blood only) 34.7 % (42-52); Hemoglobin 11.1 g/dL (14.0-18.0); Immature Granulocytes # (auto) 0.01 K/uL (0.00-0.02); Immature Granulocytes % (auto) 0.1 %; Lymphocytes % (auto) 8.5 %; Mean Corpuscular Hemoglobin 32.6 pg (25-34); Mean Corpuscular Volume 102.1 fL (80-100); Mean Platelet Volume 11.5 fL (7.4-10.4); Monocytes # (auto) 0.66 K/uL (0.11-0.59); Monocytes % (auto) 6.3 %; Neutrophils # (auto) 8.98 K/uL (1.4-6.5); Platelet Count 203 K/uL (130-400); RDW Coefficient of Variation 16.5 % (11.5-14.5); RDW Standard Deviation 61.5 fL (36.4-46.3); White Blood Count 10.56 K/uL (4.8-10.8)
--- NOTE | 2021-01-03 15:12 | XRay Report ---
XR chest 1V portable CLINICAL HISTORY: eval for pna COMPARISON STUDY: Chest radiograph December 15, 2020. FINDINGS: There is no pneumothorax. Small right pleural effusion is noted. There may be a left pleura l effusion as well. Extensive opacification of the left hemithorax with volume loss is noted. Left doroteo ng aeration has improved since exam of December 15, 2020. There is leftward mediastinal shift due to vo lume loss. Right basilar opacity is noted. This has improved. IMPRESSION: 1. Extensive opacification of the left lung with volume loss. Interval improvement in left upper lung aeration since prior exam. 2. Right basilar opacity which favors pneumonia. This has improved since prior exam. 3. Bilateral pleural effusions. ACT 112: Negative or not required by law. Electronically signed by: Adam Almodovar M.D. 01/03/2021 3:11 PM
[2021-01-03 15:29] LABS: Alanine Aminotransferase 13 U/L (12-78); Albumin Globulin Ratio 0.3 (0.9-2); Albumin Level 1.9 gm/dl (3.4-5.0); Alkaline Phosphatase 83 U/L (45-117); Aspartate Aminotransferase 26 U/L (15-37); BUN Creatinine Ratio 18.3 (10-20); Bilirubin,Total 0.9 mg/dl (0.2-1); Blood Urea Nitrogen 30 mg/dl (7-18); Calcium 9.1 mg/dl (8.5-10.1); Carbon Dioxide 27 mmol/L (21-32); Chloride 115 mmol/L (98-107); Est GFR (African American) 42.6 ml/min; Est GFR (Non-African American) 36.8 ml/min; Globulin 5.6 gm/dl (2.5-4.0); Glucose 87 mg/dl (70-99); Potassium 5.2 mmol/L (3.5-5.1); Sodium 147 mmol/L (136-145); Total Protein 7.5 gm/dl (6.4-8.2)
[2021-01-03] MEDS ORDERED: SODIUM CHLORIDE 0.9% 1000ML 250 ML IV ONE (16:10)
[2021-01-03] MEDS ORDERED: STAT IV Infusion **Titration per Protocol STA (16:10)
[2021-01-03] MEDS ORDERED: dilTIAZem HCL 125 MG in DEXTROSE 5% 100 ML IV SCH (16:15)
[2021-01-03 16:37] LABS: Magnesium 2.2 mg/dl (1.8-2.4); Troponin I < 0.015 ng/ml (0-0.045)
[2021-01-03] MEDS ORDERED: LACTATED RINGER'S 500 ML IV ONE (17:39)
[2021-01-03] MEDS ORDERED: MIDODRINE HCL 10 MG TAB PO ONE (17:39)
[2021-01-03] MEDS ORDERED: ACETAMINOPHEN 325 MG TAB PO PRN (17:40)
--- NOTE | 2021-01-03 18:17 | History & Physical Report ---
Date of Service January 03, 2021 Assessment & Plan (1) Afib: Plan: Afib with RVR - multifactorial as already has history of Afib - Complicated with hypovolemia - Gently replace intravascular volume - 750 ml total bolus - support with LR overnight at 60ml/hr for one liter - Rate responsive to the above - Wean Cardizem GTT as able - BP limiting BB, CA channel blockade- consider digoxin if rate control overnight needed (2) Hypotension: Plan: As above- volume depletion likely- however compunded difficulty by rate - as above - Midodrine 10mg PO now - Then 5mg PO TID --- have room to increase dose but would ensure achieving euvolemia first (3) CKD (chronic kidney disease), stage III: Plan: support with IVF - need to find balance of liquid vs. aspiration risk at home (4) Diastolic CHF: Plan: As above- preserved EF - meds minimized as able - support euvolemia (5) Decubitus ulcer of sacral area: Plan: Healing no drainage, no surrounding cellulitis - Appreciate wound care consult - Off load - keep area clean and dry - optimizing nutritional and protein intake - likely unable to meet this for benefit History of Present Illness Chief Complaint: decubitus ulcer Primary Care Provider: Katie Posey 85 YOM with past medical history of: Sacral and back decubitus, PNA, Afib with RVR, HFpEF, CAD, CKDIII, aspiration. Frail elderly gentlemen who was recently discharged home from lengthy stay here including ICU and intubation. The patient was successfully extubated and was discharged home with comfort and family as the priority. The patient was seen by nurse today at home for evaluation and there was concern for his sacrum and back wound needing care. His family brought him to the emergency room for evaluation. During his evaluation, his HR was noted to be in AFIB with RVR up into the 150s and he was hypotensive 80/50s. The patient was given a 250ml fluid bolus in the EMD and started on a diltiazem drip by ER. Due to poor HR control the Hospitalist service was notified for admission. Patient remained tachycardic with HR in the 140 range, appears clinically hypovolemic, and states he is thirsty. He has gotten little fluid for fears of aspiration at home. He also missed his last 2 doses of midodrine. Will give 10mg PO x1 now and then continue his home dose. Patient will be admitted for better targeted HR <120 and BP goal 80-90s SBP. I have discussed the case with the patient and his son. Family presence and being at home is priority for them at this time. I discussed with them the goal of not being overly aggressive with HR control or BP support and getting patient back to feeling comfortable, without feeling like his heart is uncontrollably racing. Will do this with providing IVF with hydration overnight as his HR decreased following the 500ml bolus to 120s-110s and following his midodrine dosing as well his BP was 90-100 SBP, and will wean down/off the diltiazem drip. The son, patient, and sister-in law (at the bedside) were in agreement that this was reasonable and avoidance of severe hypotension or severe tachycardia control would be best. The patient baseline BP is 90-100/50-60 and his HR is 90-110s. Will support these numbers but will also support HR 110-120 with his normal BP. I reviewed the images of he chest with the sister in law- his RLL opacity has imrpoved since discharge. and his left lung has better airation as well. We will have wound care see him and provide wound care needs to go home with. They were waiting on an appointment as outpatient but this wasn't until next week. Patient COVID test is: NEGATIVE on admission. Allergies Allergy/AdvReac Type Severity Reaction Status Date / Time No Known Allergies Allergy Verified 01/03/21 15:50 Home Medications Medication Instructions Recorded Confirmed Type ascorbic acid (vitamin C) 500 mg 500 mg PO QAM 02/20/19 01/03/21 History tablet (Vitamin C) atorvastatin 80 mg tablet 40 mg PO HS 02/20/19 01/03/21 History cetirizine 10 mg tablet 5 mg PO QAM 02/20/19 01/03/21 History donepezil 10 mg tablet 10 mg PO HS 02/20/19 01/03/21 History ferrous sulfate 325 mg (65 mg 325 mg PO Q OTHER DAY 02/20/19 01/03/21 History iron) tablet cholecalciferol (vitamin D3) 50 50 mcg PO DAILY 12/10/20 01/03/21 History mcg (2,000 unit) tablet ergocalciferol (vitamin D2) 1,250 1,250 mcg PO WK 12/10/20 01/03/21 History mcg (50,000 unit) capsule finasteride 5 mg tablet 5 mg PO DAILY 12/10/20 01/03/21 History food supplemt, lactose-reduced 1 ea PO TID 12/10/20 01/03/21 History (Ensure Clear) loperamide 1 mg/7.5 mL oral liquid 2 - 4 mg PO UD PRN MDD 16mg 12/10/20 01/03/21 History omeprazole 20 mg capsule,delayed 20 mg PO DAILY 12/10/20 01/03/21 History release potassium chloride 20 mEq 20 meq PO DAILY 12/10/20 01/03/21 History tablet,extended release(part/cryst) midodrine 2.5 mg tablet 5 mg PO TID@0800,1200,1700 30 Days 12/25/20 01/03/21 Rx #90 tab Past Med/Surg History Medical History Afib CHF (congestive heart failure) COPD (chronic obstructive pulmonary disease) Emphysema of lung Myocardial infarction Palliative care encounter Stroke Surgical History No significant past surgical history Social History Smoking Status: Never smoker Second Hand Exposure: No; Hx Alcohol Use: No Hx Substance Use: No Preferred Language: Maltese Communication Ability: Unable 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: No Beliefs That Will Affect Care: None marital status: / Current Living Situation: Family Other Information That Helps Us Care for You: No Feels Safe at Home: Yes Safety Concerns: Feels Safe At This Time Assistive Devices: Oxygen - Continuous and Wheelchair Review of Systems Review of Systems: REVIEW OF SYSTEMS: Constitutional: No fever, sweats or chills Eyes: No diplopia, no worsening or blurred vision ENT: normal hearing, no trouble swallowing Respiratory: No cough, sputum, dyspnea at rest or on exertion Cardiovascular: (+) HR racing, No chest pain, tightness or palpitations Abdomen: No pain, nausea, vomiting, diarrhea or constipation Musculoskeletal: (+) joint pain stiffness, No calf pain, swelling Neurologic: (+) weakness, numbness/tingling, or balance problems Skin:(+) ulceration Physical Exam Physical Exam: PHYSICAL EXAM: General: awake, alert, cachectic and fatigued Head: Normocephalic, atraumatic ENT: PERRL, EOMI, no pharyngeal exudate, mucous membranes dry Neuro: AAO x 3, speech clear and appropriate, strength intact bilaterally 5/5, sensation intact and equal all extremities and dermatomes, no pronator drift Chest: equal rise and fall of the chest, no accessory muscle use, no heaves or thrills, Clear to auscultation, on room air, Cardiac: Regular rate and rhythm, telemetry reviewed-AFIB with RVR, skin warm dry, cap refill <3 seconds, peripheral pulses +2 no JVD, no murmur, no edema GI: NABS x 4 quadrants, soft, nontender to palpation, no rebound, guarding or tenderness : Spontaneously voiding, no pain, no CVA tenderness, Psych: Normal mood and affect Skin: Decubitus ulcer stage II on sacrum, underlying tissue is pink and no drainage- covered with coagulated granulated tissue Results & Data Results & Data ([facility]) Vital Signs (Past 12 Hours) Vital Signs Temp Pulse Pulse Resp BP BP Pulse Ox 01/03/21 16:18 144 H 18 84/55 L 01/03/21 12:01 36.7 C 84 20 100/67 97 Laboratory Results Abnormal lab results 01/03/21 01/03/21 Range/Units 14:45 14:45 RBC 3.40 L (4.7-6.1) M/uL Hgb 11.1 L (14.0-18.0) g/dL Hct 34.7 L (42-52) % MCV 102.1 H (80-100) fL RDW Std Deviation 61.5 H (36.4-46.3) fL RDW Coeff of Victoriano 16.5 H (11.5-14.5) % MPV 11.5 H (7.4-10.4) fL Neut # (Auto) 8.98 H (1.4-6.5) K/uL Lymph # (Auto) 0.90 L (1.2-3.4) K/uL Gooding # (Auto) 0.66 H (0.11-0.59) K/uL Sodium 147 H (136-145) mmol/L Potassium 5.2 H (3.5-5.1) mmol/L Chloride 115 H (98-107) mmol/L BUN 30 H (7-18) mg/dl Creatinine 1.65 H (0.6-1.4) mg/dl Albumin 1.9 L (3.4-5.0) gm/dl Globulin 5.6 H (2.5-4.0) gm/dl Albumin/Globulin Ratio 0.3 L (0.9-2) Diagnostic Findings Chest X-Ray 01/03/21 14:32 XR chest 1V portable CLINICAL HISTORY: eval for pna COMPARISON STUDY: Chest radiograph December 15, 2020. FINDINGS: There is no pneumothorax. Small right pleural effusion is noted. There may be a left pleural effusion as well. Extensive opacification of the left hemithorax with volume loss is noted. Left lung aeration has improved since exam of December 15, 2020. There is leftward mediastinal shift due to volume loss. Right basilar opacity is noted. This has improved. IMPRESSION: 1. Extensive opacification of the left lung with volume loss. Interval improvement in left upper lung aeration since prior exam. 2. Right basilar opacity which favors pneumonia. This has improved since prior exam. 3. Bilateral pleural effusions. ACT 112: Negative or not required by law. Electronically signed by: Adam Almodovar M.D. 01/03/2021 3:11 PM Medications Administered Home Medications ascorbic acid (vitamin C) 500 mg tablet (Vitamin C) 500 mg PO QAM 02/20/19 [History Confirmed 01/03/21] atorvastatin 80 mg tablet 40 mg PO HS 02/20/19 [History Confirmed 01/03/21] cetirizine 10 mg tablet 5 mg PO QAM 02/20/19 [History Confirmed 01/03/21] donepezil 10 mg tablet 10 mg PO HS 02/20/19 [History Confirmed 01/03/21] ferrous sulfate 325 mg (65 mg iron) tablet 325 mg PO Q OTHER DAY 02/20/19 [History Confirmed 01/03/21] cholecalciferol (vitamin D3) 50 mcg (2,000 unit) tablet 50 mcg PO DAILY 12/10/20 [History Confirmed 01/03/21] ergocalciferol (vitamin D2) 1,250 mcg (50,000 unit) capsule 1,250 mcg PO WK 12/10/20 [History Confirmed 01/03/21] finasteride 5 mg tablet 5 mg PO DAILY 12/10/20 [History Confirmed 01/03/21] food supplemt, lactose-reduced (Ensure Clear) 1 ea PO TID 12/10/20 [History Confirmed 01/03/21] loperamide 1 mg/7.5 mL oral liquid 2 - 4 mg PO UD PRN MDD 16mg 12/10/20 [History Confirmed 01/03/21] omeprazole 20 mg capsule,delayed release 20 mg PO DAILY 12/10/20 [History Confirmed 01/03/21] potassium chloride 20 mEq tablet,extended release(part/cryst) 20 meq PO DAILY 12/10/20 [History Confirmed 01/03/21] midodrine 2.5 mg tablet 5 mg PO TID@0800,1200,1700 30 Days #90 tab 12/25/20 [Rx Confirmed 01/03/21] Active Medications Acetaminophen (Acetaminophen 325 Mg Tab) 650 mg PO Q4H PRN PRN Reason: Pain or Fever Stop: 02/02/21 17:39 Atorvastatin Calcium (Atorvastatin 40 Mg Tab) 40 mg PO HS [facility]ETH Stop: 02/02/21 20:59 Cetirizine HCl (Cetirizine Hcl 10 Mg Tablet) 5 mg PO QAM [facility]IBETH Stop: 02/03/21 08:59 Donepezil HCl (Donepezil Hcl 10 Mg Tab) 10 mg PO HS [facility]IBETH Stop: 02/02/21 20:59 Ferrous Sulfate (Ferrous Sulfate 325 Mg Tab) 325 mg PO Q48H [facility] Stop: 02/03/21 08:59 Finasteride (Finasteride 5 Mg Tab) 5 mg PO DAILY [facility]ETH Stop: 02/03/21 08:59 Diltiazem HCl 125 mg/ Dextrose 125 mls @ 0 mls/hr IV .Q0M MARIBETH; Protocol Stop: 02/02/21 16:14 Last Titration: 01/03/21 19:23 Dose: 0 mg/hr, 0 mls/hr Documented by: Lactated Ringer's (Lr) 1,000 mls @ 250 mls/hr IV .Q4H ONE Stop: 01/03/21 23:54 Lactated Ringer's (Lr) 1,000 mls @ 60 mls/hr IV .[id number] ONE Stop: 01/04/21 12:34 Midodrine (Midodrine Hcl 2.5 Mg Tab) 5 mg PO TID@0800,1200,1700 [facility] Stop: 02/03/21 07:59 Pantoprazole Sodium (Pantoprazole 40 Mg Tab) 40 mg PO DAILY [facility] Stop: 02/03/21 08:59 ECG Additional Comments: Atrial fibrillation with rapid ventricular response Rightward axis Low voltage QRS Cannot rule out Anteroseptal infarct (cited on or before 03-JAN-2021) Abnormal ECG When compared with ECG of 03-JAN-2021 15:59, (unconfirmed) Nonspecific T wave abnormality has replaced inverted T waves in Inferior leads Nonspecific T wave abnormality no longer evident in Anterior leads Code Status & VTE Plan Code Status CODE: DNR/DNI VTE: SCDS VTE Prophylaxis Plan VTE Prophylaxis will be ordered: Yes Supervising Physician Co-Signing Physician Notes 85 yo male is seen and examined at bedside. During face to face encounter with patient, obtained a history and physical examination. Discussed case with TAYA Chris. I reviewed above note and agree with it. Patient is coming in with a fib RVR. Given his advanced age and multiple comorbidities, family will like consevrative management. Will try to improve his HR and wean him off diltiazem drip. PG Care Time/CCT Total # of Minutes Spent Total Time Spent with Patient: Total time spent is greater than 50% in coordination of care (as documented) at patient's floor/unit and/or counseling patient: Coding Level of Care Code 46150 Initial Inpt Care Lvl 3 Diagnoses Afib I48.91 Hypotension I95.9 CKD (chronic kidney disease), stage III N18.3 Diastolic CHF I50.30 Decubitus ulcer of sacral area L89.153 Pressure injury stage: stage 3 (1) Decubitus ulcer of sacral area Pressure injury stage: stage 3 Qualified Code(s): L89.153 - Pressure ulcer of sacral region, stage 3
[2021-01-03] MEDS ORDERED: LACTATED RINGER'S 1,000 ML IV ONE ×2 (19:55)
[2021-01-03] MEDS: DONEPEZIL HCL 10 MG TAB PO SCH (21:41)
[2021-01-03] MEDS: ATORVASTATIN 40 MG TAB PO SCH (21:41)
[2021-01-04] MEDS: MIDODRINE HCL 2.5 MG TAB PO SCH ×3 (08:18→17:46)
[2021-01-04] MEDS: FINASTERIDE 5 MG TAB PO SCH (08:18)
[2021-01-04] MEDS: FERROUS SULFATE 325 MG TAB PO SCH (08:18)
[2021-01-04] MEDS: PANTOprazole 40 MG TAB PO SCH (08:19)
[2021-01-04] MEDS: CETIRIZINE HCL 10 MG TABLET PO SCH (08:19)
--- NOTE | 2021-01-04 08:22 | Hospitalist Progress Note ---
Date of Service January 04, 2021 Assessment & Plan (1) Afib: Plan: Afib with RVR - multifactorial as already has history of Afib - Complicated with hypovolemia - - Wean Cardizem GTT to po cardizem, reluctant to use metoprolol with lower blood pressures - BP limiting BB, CA channel blockade- starting digoxin load with 0.5 mg check level in am (2) Hypotension: Plan: As above- volume depletion likely- however compounded difficulty by rate - - Midodrine 10mg PO now - Then 5mg PO TID --- have room to increase dose but would ensure achieving euvolemia first (3) Lung abnormality: Plan: Pt with pre hospital opacification of left lung and improving right lung basilar opacity. not started on antibiotics by primary team (4) CKD (chronic kidney disease), stage III: Plan: support with IVF - need to find balance of liquid vs. aspiration risk at home (5) Diastolic CHF: Plan: As above- preserved EF - meds minimized as able - support euvolemia (6) Decubitus ulcer of sacral area: Plan: Healing no drainage, no surrounding cellulitis - Appreciate wound care consult - Off load - keep area clean and dry - optimizing nutritional and protein intake - likely unable to meet this for benefit Admission and Anticipated Discharge Date Admission Date: January 03, 2021 Subjective pt is in really no distress says hes fine to all questions, does not have rate control on monitor, blood pressure limits medicines, staring digoxin Review of Systems Review of Systems: Unobtainable due to cognitive status Physical Exam Physical Exam: The patient appeared frail and chronically ill Vital signs as documented. Head exam is normocephalic atraumatic Neck is without JVD, thyromegaly, or carotid bruits. Lungs are clear diminished at the bases Cardiac exam, tachycardic and irregular Abdominal exam reveals normal bowel sounds, soft non tender, no masses Extremities are thin with trace edema Neurologic exam is alert and oriented x1, globally very weak perhaps considering functional paraplegia or quadriplegia Skin is without bruises or rashes Psychologically is without concerns for anxiety or depression Results & Data Results & Data ([facility]) Vital Signs (Past 12 Hours) Vital Signs Temp Pulse Pulse Resp BP Pulse Ox 01/04/21 07:58 97.9 F 82 17 99/68 L 92 01/04/21 04:49 98 H 92/59 L 01/04/21 04:14 97.5 F L 106 H 16 80/53 L 98 01/03/21 23:29 97.7 F 116 H 20 98/63 L 96 01/03/21 22:00 107 H 01/03/21 21:57 123 H 86/54 L 96 PG Care Time/CCT Total # of Minutes Spent Total Time Spent with Patient: Total time spent is greater than 50% in coordination of care (as documented) at patient's floor/unit and/or counseling patient: Coding Level of Care Code 45092 Subseq Hosp Care Lvl 3 Diagnoses Afib I48.91 Hypotension I95.9 CKD (chronic kidney disease), stage III N18.3 Diastolic CHF I50.30 Decubitus ulcer of sacral area L89.153 Pressure injury stage: stage 3 Lung abnormality J98.4 (1) Decubitus ulcer of sacral area Pressure injury stage: stage 3 Qualified Code(s): L89.153 - Pressure ulcer of sacral region, stage 3
[2021-01-04] MEDS ORDERED: INFLUENZA VACCINE HIGH DOSE PF 65+ 0.7 ML SYR IM ONE (10:30)
--- NOTE | 2021-01-04 13:23 | Electrocardiogram Report ---
Test Reason : Blood Pressure : / mmHG Vent. Rate : 156 BPM Atrial Rate : 100 BPM P-R Int : 000 ms QRS Dur : 070 ms QT Int : 284 ms P-R-T Axes : 000 100 -73 degrees QTc Int : 457 ms Atrial fibrillation with rapid ventricular response Rightward axis Low voltage QRS Cannot rule out Anteroseptal infarct (cited on or before 03-JAN-2021) Abnormal ECG When compared with ECG of 11-DEC-2020 03:41, No significant change Confirmed by Getachew Webb ([id number]) on 01/04/2021 1:23:44 PM Referred By: REFERRED SELF Confirmed By:Getachew Webb
[2021-01-04] MEDS ORDERED: DIGOXIN 250 MCG in SYRINGE 9 ML IV STA (13:57)
[2021-01-04] MEDS: ATORVASTATIN 40 MG TAB PO SCH (20:46)
[2021-01-04] MEDS: DIGOXIN 250 MCG in SYRINGE 9 ML IV STA ×2 (20:46→21:13)
[2021-01-04] MEDS: dilTIAZem HCL 30 MG TAB PO SCH ×2 (20:46→21:13)
[2021-01-04] MEDS: DONEPEZIL HCL 10 MG TAB PO SCH (20:46)
[2021-01-04] MEDS ORDERED: METOPROLOL TARTRATE 25 MG TAB PO SCH (21:00)
[2021-01-05 07:55] LABS: BUN Creatinine Ratio 22.7 (10-20); Calcium 8.3 mg/dl (8.5-10.1); Creatinine Clr Calc Pharmacy 28.8 ml/min; Est GFR (African American) 54.8 ml/min; Est GFR (Non-African American) 47.3 ml/min; Magnesium 1.9 mg/dl (1.8-2.4); Potassium 4.2 mmol/L (3.5-5.1)
[2021-01-05] MEDS: dilTIAZem HCL 30 MG TAB PO SCH ×3 (08:29→20:15)
[2021-01-05] MEDS: FINASTERIDE 5 MG TAB PO SCH (08:29)
[2021-01-05] MEDS: CETIRIZINE HCL 10 MG TABLET PO SCH (08:29)
[2021-01-05] MEDS: PANTOprazole 40 MG TAB PO SCH (08:30)
[2021-01-05] MEDS: MIDODRINE HCL 2.5 MG TAB PO SCH ×3 (08:36→16:27)
[2021-01-05] MEDS ORDERED: DIGOXIN 0.125 MG/2.5 ML UDP PO SCH (16:00)
--- NOTE | 2021-01-05 19:13 | Hospitalist Progress Note ---
Date of Service January 05, 2021 Assessment & Plan (1) Afib: Plan: Afib with RVR - multifactorial as already has history of Afib - Complicated with hypovolemia - - Wean Cardizem GTT to po cardizem, reluctant to use metoprolol with lower blood pressures -good success adding digoxin to regimen, level is therapeutic 01/05/21 (2) Hypotension: Plan: As above- volume depletion likely- however compounded difficulty by rate - - Midodrine 10mg PO now - Then 5mg PO TID --- have room to increase dose but would ensure achieving euvolemia first (3) Lung abnormality: Plan: Pt with pre hospital opacification of left lung and improving right lung basilar opacity. not started on antibiotics by primary team (4) CKD (chronic kidney disease), stage III: Plan: support with IVF - need to find balance of liquid vs. aspiration risk at home (5) Diastolic CHF: Plan: As above- preserved EF - meds minimized as able - support euvolemia (6) Decubitus ulcer of sacral area: Plan: Healing no drainage, no surrounding cellulitis - Appreciate wound care consult - Off load - keep area clean and dry - optimizing nutritional and protein intake - likely unable to meet this for benefit Admission and Anticipated Discharge Date Admission Date: January 03, 2021 Subjective pt is in really no distress says hes fine to all questions, rate control his atrial fibrillation with digoxin and diltiazem. I did speak to the family today which requested that we attempt to get some better control of his wound prior to sending him home to try to get a better mattress for his home hospital bed. I did explain to the family that I am concerned that we may not bill accomplishes because this needs to be achieved with good diet and offloading and his overall tenuous state he may actually in the hospital Review of Systems Review of Systems: Unobtainable due to cognitive status Physical Exam Physical Exam: The patient appeared frail and chronically ill Vital signs as documented. Head exam is normocephalic atraumatic Neck is without JVD, thyromegaly, or carotid bruits. Lungs are clear diminished at the bases Cardiac exam, tachycardic and irregular Abdominal exam reveals normal bowel sounds, soft non tender, no masses Extremities are thin with trace edema Neurologic exam is alert and oriented x1, globally very weak perhaps considering functional paraplegia or quadriplegia Skin is without bruises or rashes Psychologically is without concerns for anxiety or depression Results & Data Results & Data ([facility]) Vital Signs (Past 12 Hours) Vital Signs Temp Pulse Pulse Resp BP Pulse Ox 01/05/21 15:49 74 01/05/21 15:32 98.6 F 59 L 20 143/60 H 99 01/05/21 11:40 98.2 F 65 16 131/63 97 01/05/21 07:51 98.2 F 89 20 105/78 96 01/05/21 07:24 89 PG Care Time/CCT Total # of Minutes Spent Total Time Spent with Patient: Total time spent is greater than 50% in coordination of care (as documented) at patient's floor/unit and/or counseling patient: Coding Level of Care Code 95123 Subseq Hosp Care Lvl 2 Diagnoses Afib I48.91 Hypotension I95.9 Lung abnormality J98.4 CKD (chronic kidney disease), stage III N18.3 Diastolic CHF I50.30 Decubitus ulcer of sacral area L89.153 Pressure injury stage: stage 3 (1) Decubitus ulcer of sacral area Pressure injury stage: stage 3 Qualified Code(s): L89.153 - Pressure ulcer of sacral region, stage 3
[2021-01-05] MEDS: ATORVASTATIN 40 MG TAB PO SCH (20:15)
[2021-01-05] MEDS: DONEPEZIL HCL 10 MG TAB PO SCH (20:16)
[2021-01-06] MEDS: CETIRIZINE HCL 10 MG TABLET PO SCH (07:55)
[2021-01-06] MEDS: MIDODRINE HCL 2.5 MG TAB PO SCH ×3 (07:55→17:24)
[2021-01-06] MEDS: dilTIAZem HCL 30 MG TAB PO SCH ×3 (07:56→21:05)
[2021-01-06] MEDS: FERROUS SULFATE 325 MG TAB PO SCH (07:56)
[2021-01-06] MEDS: PANTOprazole 40 MG TAB PO SCH (07:57)
[2021-01-06] MEDS: FINASTERIDE 5 MG TAB PO SCH (07:57)
--- NOTE | 2021-01-06 09:47 | Hospitalist Progress Note ---
Date of Service January 06, 2021 Assessment & Plan (1) Afib: Plan: Afib with RVR - multifactorial as already has history of Afib - Complicated with hypovolemia - - Wean Cardizem GTT to po cardizem, change to extended release 01/07, -good success adding digoxin to regimen, level is therapeutic 01/05/21 (2) Hypotension: Plan: As above- volume depletion likely- however compounded difficulty by rate - - Midodrine n 5mg PO TID --- have room to increase dose but would ensure achieving euvolemia first (3) Lung abnormality: Plan: Pt with pre hospital opacification of left lung and improving right lung basilar opacity. not started on antibiotics by primary team (4) CKD (chronic kidney disease), stage III: Plan: no additional ivf - need to find balance of liquid vs. aspiration risk at home (5) Diastolic CHF: Plan: As above- preserved EF - meds minimized as able - support euvolemia (6) Decubitus ulcer of sacral area: Plan: at least stage 3 Pressure ulcer of sacral region, POA stage II Pressure injury on L posterior back, POA R heel deep tissue pressure injury, POA - Appreciate wound care consult - Off load - keep area clean and dry - optimizing nutritional and protein intake - likely unable to meet this for benefit Plan: severe protein calorie malnutrition Admission and Anticipated Discharge Date Admission Date: January 03, 2021 Subjective pt is in really no distress says hes fine to all questions, rate control his atrial fibrillation with digoxin and diltiazem. I did speak to the family 01/05 which requested that we attempt to get some better control of his wound prior to sending him home to try to get a better mattress for his home hospital bed. I did explain to the family that I am concerned that we may not bill accomplishes because this needs to be achieved with good diet and offloading and his overall tenuous state he may actually in the hospital Review of Systems Review of Systems: REVIEW OF SYSTEMS: Constitutional: No fever, sweats or chills Eyes: No diplopia, no worsening or blurred vision ENT: normal hearing, some coughing with swallowing Respiratory: + cough, no sputum, dyspnea at rest or on exertion Cardiovascular: , No chest pain, tightness or palpitations Abdomen: No pain, nausea, vomiting, diarrhea or constipation Musculoskeletal: (+) joint pain stiffness, No calf pain, swelling Neurologic: (+) weakness, numbness/tingling, or balance problems Skin:(+) ulceration see wound pictures as extensive Physical Exam Physical Exam: The patient appeared frail and chronically ill Vital signs as documented. Head exam is normocephalic atraumatic Neck is without JVD, thyromegaly, or carotid bruits. Lungs are clear diminished at the bases Cardiac exam, tachycardic and irregular Abdominal exam reveals normal bowel sounds, soft non tender, no masses Extremities are thin with trace edema Neurologic exam is alert and oriented x1, globally very weak perhaps considering functional paraplegia or quadriplegia Skin is without bruises or rashes Psychologically is without concerns for anxiety or depression Results & Data Results & Data ([facility]) Vital Signs (Past 12 Hours) Vital Signs Temp Pulse Pulse Resp BP Pulse Ox 01/06/21 07:29 97.9 F 85 18 95/57 L 93 01/06/21 04:17 97.9 F 89 15 99/63 L 95 01/06/21 02:53 88 01/05/21 22:41 98.2 F 94 H 16 103/62 91 PG Care Time/CCT Total # of Minutes Spent Total Time Spent with Patient: Total time spent is greater than 50% in coordination of care (as documented) at patient's floor/unit and/or counseling patient: Coding Level of Care Code 49395 Subseq Hosp Care Lvl 2 Diagnoses Afib I48.91 Hypotension I95.9 Lung abnormality J98.4 CKD (chronic kidney disease), stage III N18.3 Diastolic CHF I50.30 Decubitus ulcer of sacral area L89.153 Pressure injury stage: stage 3 (1) Decubitus ulcer of sacral area Pressure injury stage: stage 3 Qualified Code(s): L89.153 - Pressure ulcer of sacral region, stage 3
[2021-01-06] MEDS: DIGOXIN 0.125 MG TAB PO SCH (17:24)
[2021-01-06] MEDS ORDERED: MoRPHine SULFATE 2 MG/ML CARP IV PRN (18:23)
[2021-01-06] MEDS: ATORVASTATIN 40 MG TAB PO SCH (21:42)
[2021-01-06] MEDS: DONEPEZIL HCL 10 MG TAB PO SCH (21:42)
[2021-01-07] MEDS: PANTOprazole 40 MG TAB PO SCH (07:56)
[2021-01-07] MEDS: MIDODRINE HCL 2.5 MG TAB PO SCH ×3 (07:57→15:05)
[2021-01-07] MEDS: dilTIAZem HCL 120 MG CAPCR PO SCH (08:01)
[2021-01-07] MEDS: FINASTERIDE 5 MG TAB PO SCH (09:03)
[2021-01-07] MEDS: CETIRIZINE HCL 10 MG TABLET PO SCH (09:19)
[2021-01-07] MEDS: DIGOXIN 0.125 MG TAB PO SCH (15:05)
--- NOTE | 2021-01-07 17:19 | Hospitalist Progress Note ---
Date of Service January 07, 2021 Assessment & Plan (1) Afib: Plan: Afib with RVR - multifactorial as already has history of Afib - Complicated with hypovolemia - - Wean Cardizem GTT to po cardizem, change to extended release 01/07, -good success adding digoxin to regimen, level is therapeutic 01/05/21 (2) Hypotension: Plan: As above- volume depletion likely- however compounded difficulty by rate - - Midodrine n 5mg PO TID --- have room to increase dose but would ensure achieving euvolemia first (3) Lung abnormality: Plan: Pt with pre hospital opacification of left lung and improving right lung basilar opacity. not started on antibiotics by primary team (4) CKD (chronic kidney disease), stage III: Plan: no additional ivf - need to find balance of liquid vs. aspiration risk at home (5) Diastolic CHF: Plan: As above- preserved EF - meds minimized as able - support euvolemia (6) Decubitus ulcer of sacral area: Plan: at least stage 3 Pressure ulcer of sacral region, POA stage II Pressure injury on L posterior back, POA R heel deep tissue pressure injury, POA - Appreciate wound care consult - Off load - keep area clean and dry - optimizing nutritional and protein intake - likely unable to meet this for benefit Plan: severe protein calorie malnutrition Admission and Anticipated Discharge Date Admission Date: January 03, 2021 Subjective pt is in really no distress says hes fine to all questions, rate control his atrial fibrillation with digoxin and diltiazem. I did speak to the family 01/05 which requested that we attempt to get some better control of his wound prior to sending him home to try to get a better mattress for his home hospital bed. I did explain to the family that I am concerned that we may not bill accomplishes because this needs to be achieved with good diet and offloading and his overall tenuous state he may actually in the hospital Review of Systems Review of Systems: REVIEW OF SYSTEMS: Constitutional: No fever, sweats or chills Eyes: No diplopia, no worsening or blurred vision ENT: normal hearing, some coughing with swallowing Respiratory: + cough, no sputum, dyspnea at rest or on exertion Cardiovascular: , No chest pain, tightness or palpitations Abdomen: No pain, nausea, vomiting, diarrhea or constipation Musculoskeletal: (+) joint pain stiffness, No calf pain, swelling Neurologic: (+) weakness, numbness/tingling, or balance problems Skin:ulceration see wound pictures as extensive Physical Exam Physical Exam: The patient appeared frail and chronically ill Vital signs as documented. Head exam is normocephalic atraumatic Neck is without JVD, thyromegaly, or carotid bruits. Lungs are clear diminished at the bases Cardiac exam, tachycardic and irregular Abdominal exam reveals normal bowel sounds, soft non tender, no masses Extremities are thin with trace edema Neurologic exam is alert and oriented x1, globally very weak perhaps considering functional paraplegia or quadriplegia Skin is without bruises or rashes Psychologically is without concerns for anxiety or depression Results & Data Results & Data ([facility]) Vital Signs (Past 12 Hours) Vital Signs Temp Pulse Pulse Resp BP BP Pulse Ox 01/07/21 16:50 90 01/07/21 15:25 97.9 F 67 18 107/67 96 01/07/21 15:05 75 01/07/21 13:25 98.1 F 75 18 95/55 L 94 01/07/21 07:20 83 01/07/21 07:09 97.9 F 92 H 18 96/64 L 90 PG Care Time/CCT Total # of Minutes Spent Total Time Spent with Patient: Total time spent is greater than 50% in coordination of care (as documented) at patient's floor/unit and/or counseling patient: Coding Level of Care Code 18062 Subseq Hosp Care Lvl 1 Diagnoses Afib I48.91 Hypotension I95.9 Lung abnormality J98.4 CKD (chronic kidney disease), stage III N18.3 Diastolic CHF I50.30 Decubitus ulcer of sacral area L89.153 Pressure injury stage: stage 3 (1) Decubitus ulcer of sacral area Pressure injury stage: stage 3 Qualified Code(s): L89.153 - Pressure ulcer of sacral region, stage 3
[2021-01-07] MEDS: ATORVASTATIN 40 MG TAB PO SCH (20:51)
[2021-01-07] MEDS: DONEPEZIL HCL 10 MG TAB PO SCH (20:51)
[2021-01-08] MEDS: FINASTERIDE 5 MG TAB PO SCH (07:47)
[2021-01-08] MEDS: MIDODRINE HCL 2.5 MG TAB PO SCH ×3 (07:48→15:56)
[2021-01-08] MEDS: FERROUS SULFATE 325 MG TAB PO SCH (07:48)
[2021-01-08] MEDS: dilTIAZem HCL 120 MG CAPCR PO SCH (07:48)
[2021-01-08] MEDS: CETIRIZINE HCL 10 MG TABLET PO SCH (07:48)
[2021-01-08] MEDS: PANTOprazole 40 MG TAB PO SCH (07:49)
[2021-01-08 08:00] LABS: Hematocrit (blood only) 30.9 % (42-52); Hemoglobin 10.1 g/dL (14.0-18.0); Mean Corpuscular Hemoglobin 32.1 pg (25-34); Mean Corpuscular Hgb Conc 32.7 g/dL (32-36); Mean Corpuscular Volume 98.1 fL (80-100); Mean Platelet Volume 11.2 fL (7.4-10.4); Platelet Count 171 K/uL (130-400); RDW Coefficient of Variation 15.7 % (11.5-14.5); RDW Standard Deviation 55.9 fL (36.4-46.3); Red Blood Count 3.15 M/uL (4.7-6.1)
[2021-01-08 08:34] LABS: BUN Creatinine Ratio 30.2 (10-20); Calcium 8.5 mg/dl (8.5-10.1); Est GFR (African American) 63.9 ml/min; Est GFR (Non-African American) 55.2 ml/min; Magnesium 1.9 mg/dl (1.8-2.4)
--- NOTE | 2021-01-08 08:47 | Hospitalist Progress Note ---
Date of Service January 08, 2021 Assessment & Plan (1) Afib: Plan: Afib with RVR. Multifactorial as already has history of Afib - Continue Cardizem XL 120 mg daily & digoxin 125 mcg daily - HR presently ~90 bpm while resting. (2) Hypotension: Plan: As above- volume depletion likely. - Now euvolemic. - Continue midodrine 5mg PO TID - BP stable. (3) Lung abnormality: Plan: Pt with pre-hospital opacification of left lung and improving right lung basilar opacity. not started on antibiotics by primary team. - Stable breathing. (4) CKD (chronic kidney disease), stage III: Plan: Baseline Cr. ~1.2. - At baseline. (5) Diastolic CHF: Plan: As above- preserved EF. - meds minimized as able - support euvolemia -> Presently euvolemic. (6) Decubitus ulcer of sacral area: Plan: at least stage 3 Pressure ulcer of sacral region, POA. Severe protein calorie malnutrition. stage II Pressure injury on L posterior back, POA R heel deep tissue pressure injury, POA - Appreciate wound care consult - Off load - keep area clean and dry - optimizing nutritional and protein intake - likely unable to meet required needs given patient's debility. (7) DVT prophylaxis: Plan: SCDs - Will assess bleeding risk and consider heparin SQ Admission and Anticipated Discharge Date Admission Date: January 03, 2021 Subjective No issues this AM. Tired, but does arouse. Denies pain. Reports no fevers/chills, chest pain, shortness of breath, abdominal pain, nausea, or vomiting. Physical Exam Constitutional: WD/WN, vitals as above Eyes: EOM intact bilaterally; no conjunctival abnormality ENMT: external ear and nose normal, oropharynx normal Neck: trachea midline, no thyromegaly normal visual inspection Respiratory: normal respiratory effort, lungs clear to auscultation no respiratory distress Cardiovascular: Rate/Rhythm: regular rate and + irregularly irregular Gastrointestinal (Abdomen): Inspection/Auscultation: abdomen normal to inspection; abdomen not distended Musculoskeletal: no cyanosis or clubbing, extremities motor strength 5/5 Skin: no rashes, warm and dry Neurologic: moves all extremities and awake Psychiatric: Orientation: alert, oriented to person and cooperative Results & Data Results & Data ([place]) Vital Signs (Past 12 Hours) Vital Signs Temp Pulse Resp BP BP Pulse Ox 01/08/21 06:54 37.1 C 106 H 20 115/72 92 01/08/21 04:56 37.3 C 93 H 20 112/76 91 01/07/21 22:44 37.1 C 93 H 20 99/62 L 90 PG Care Time/CCT Total # of Minutes Spent Total Time Spent with Patient: Total time spent is greater than 50% in coordination of care (as documented) at patient's floor/unit and/or counseling patient: Coding Level of Care Code 92377 Subseq Hosp Care Lvl 3 Diagnoses Afib I48.91 Hypotension I95.9 Lung abnormality J98.4 CKD (chronic kidney disease), stage III N18.3 Diastolic CHF I50.30 Decubitus ulcer of sacral area L89.153 Pressure injury stage: stage 3 DVT prophylaxis Z29.9 (1) Decubitus ulcer of sacral area Pressure injury stage: stage 3 Qualified Code(s): L89.153 - Pressure ulcer of sacral region, stage 3
[2021-01-08] MEDS: DIGOXIN 0.125 MG TAB PO SCH (15:55)
[2021-01-08] MEDS: DONEPEZIL HCL 10 MG TAB PO SCH (21:20)
[2021-01-08] MEDS: ATORVASTATIN 40 MG TAB PO SCH (21:20)
[2021-01-09] MEDS: MIDODRINE HCL 2.5 MG TAB PO SCH ×2 (08:23→12:19)
[2021-01-09] MEDS: PANTOprazole 40 MG TAB PO SCH (08:23)
[2021-01-09] MEDS: CETIRIZINE HCL 10 MG TABLET PO SCH (08:24)
[2021-01-09] MEDS: FINASTERIDE 5 MG TAB PO SCH (08:26)
[2021-01-09] MEDS: dilTIAZem HCL 120 MG CAPCR PO SCH (08:26)
--- NOTE | 2021-01-09 12:07 | Discharge Summary ---
Date of Service January 09, 2021 Admission HPI Per Admitting Provider 85 YOM with past medical history of: Sacral and back decubitus, PNA, Afib with RVR, HFpEF, CAD, CKDIII, aspiration. Frail elderly gentlemen who was recently discharged home from lengthy stay here including ICU and intubation. The patient was successfully extubated and was discharged home with comfort and family as the priority. The patient was seen by nurse today at home for evaluation and there was concern for his sacrum and back wound needing care. His family brought him to the emergency room for evaluation. During his evaluation, his HR was noted to be in AFIB with RVR up into the 150s and he was hypotensive 80/50s. The patient was given a 250ml fluid bolus in the EMD and started on a diltiazem drip by ER. Due to poor HR control the Hospitalist service was notified for admission. Patient remained tachycardic with HR in the 140 range, appears clinically hypovolemic, and states he is thirsty. He has gotten little fluid for fears of aspiration at home. He also missed his last 2 doses of midodrine. Will give 10mg PO x1 now and then continue his home dose. Patient will be admitted for better targeted HR <120 and BP goal 80-90s SBP. I have discussed the case with the patient and his son. Family presence and being at home is priority for them at this time. I discussed with them the goal of not being overly aggressive with HR control or BP support and getting patient back to feeling comfortable, without feeling like his heart is uncontrollably racing. Will do this with providing IVF with hydration overnight as his HR decreased following the 500ml bolus to 120s-110s and following his midodrine dosing as well his BP was 90-100 SBP, and will wean down/off the diltiazem drip. The son, patient, and sister-in law (at the bedside) were in agreement that this was reasonable and avoidance of severe hypotension or severe tachycardia control would be best. The patient baseline BP is 90-100/50-60 and his HR is 90-110s. Will support these numbers but will also support HR 110-120 with his normal BP. I reviewed the images of he chest with the sister in law- his RLL opacity has imrpoved since discharge. and his left lung has better airation as well. We will have wound care see him and provide wound care needs to go home with. They were waiting on an appointment as outpatient but this wasn't until next week. Patient COVID test is: NEGATIVE on admission. Principal Diagnosis Afib with rapid heart rate Sacral ulcer Discharge Exam Constitutional WD/WN, vitals as above Eyes EOM intact bilaterally; no conjunctival abnormality ENMT external ear and nose normal, oropharynx normal Neck trachea midline, no thyromegaly normal visual inspection Respiratory normal respiratory effort, lungs clear to auscultation no respiratory distress Cardiovascular Rate/Rhythm: regular rate and + irregularly irregular Gastrointestinal (Abdomen) Inspection/Auscultation: abdomen normal to inspection; abdomen not distended Musculoskeletal no cyanosis or clubbing, extremities motor strength 5/5 Skin + wound (Sacrum, back, heel) Neurologic moves all extremities and awake Psychiatric Orientation: alert, oriented to person and cooperative Discharge Data Allergies Allergy/AdvReac Type Severity Reaction Status Date / Time No Known Allergies Allergy Verified 01/03/21 15:50 Consultations 01/03/21 16:12 ED Decision to Admit Stat 01/04/21 06:35 Consult Nutrition Routine Hospital Course (1) Afib: Afib with RVR. Multifactorial as already has history of Afib - Continue Cardizem XL 120 mg daily & digoxin 125 mcg daily -> Discharged on those medications. - HR presently ~90 bpm while resting. Given his low activity levels, I think this is appropriate rate control for him. (2) Hypotension: As above- volume depletion likely. - Now euvolemic. - Continue midodrine 5mg PO TID - BP stable, though still on the low end at 95/60 - 110/65. (3) Lung abnormality: Pt with pre-hospital opacification of left lung and improving right lung basilar opacity. not started on antibiotics by primary team. - Known permissive aspiration from prior speech evals. - Stable breathing. (4) CKD (chronic kidney disease), stage III: Baseline Cr. ~1.2. - At baseline. (5) Diastolic CHF: As above- preserved EF. - meds minimized as able - support euvolemia -> Presently euvolemic. (6) Decubitus ulcer of sacral area: at least stage 3 Pressure ulcer of sacral region, POA. Severe protein calorie malnutrition. stage II Pressure injury on L posterior back, POA R heel deep tissue pressure injury, POA - Appreciate wound care consult - Off load - keep area clean and dry - optimizing nutritional and protein intake - likely unable to meet required needs given patient's debility. Discharge recs given in instructions. (7) DVT prophylaxis: SCDs - Will assess bleeding risk and consider heparin SQ. Discussed with son, Pedrito, on 01/08. The goal for Mr. Lynch is comfort, though he is not on hospice. I do not think his sacral ulcer will heel, and may in fact worsen. He did not eat anything on 01/08 (literally 0% of his trays all day), but then did wake up and eat his breakfast on 01/09. I told Pedrito honestly that I thought he was getting closer to the time of his passing which seemed to surprise Pedrito. Case management will work with [facility] and consider hospice evaluation which I think could be beneficial given Mr. Lynch's advanced dementia, malnutrition, and pressure ulcers. Without hospice, I think he is a high re-admission risk. I certify that this patient is under my care and that I, or a physicians patient care assistant working with me, had a face to-face encounter that meets the home health [id number] encounter requirements with this patient. The encounter with the patient was in whole, or in part, for the following medical condition, which is the primary reason for home health care (list medical condition): Afib-RVR, Decubitus Ulcers I certify that, based on my findings, the following services are medically necessary home health services: My clinical findings support the need for the above services because: OT Assess ADL Status and Restore Function w ADLs PT Assessment for Endurance / Balance / Strength PT Eval for Safety and Mobility PT Eval for Safety, Gait Training, Assistive Devices PT Gait and Balance Training, Strengthening and Safety Skilled Nsg Assessment Skilled Nsg Assessment Surgical Incision / Wound Skilled Nsg Assess Pt Illness, Disease and Sx Monitoring Skilled Nsg to Assess, Perform and Teach Wound Care S/S to Report to Provider Further, I certify that my clinical findings support that this patient is homebound (i.e. absences from home require considerable and taxing effort and are for medical reasons or latter-day services or infrequently or of short duration when for other reasons) because: Chair Bound; Requires Transfer Assist Maximum Assistance with Ambulation and ADL's Supportive Aid - Wheelchair Transportation Assistance/Unable to Leave Home Unassisted Certification for Home Health Services: Based on the above findings, I certify that this patient is confined to the home and needs intermittent alf care, physical therapy and/or speech therapy or continues to need occupational therapy. The patient is under my care, and I have initiated the establishment of the plan of care. This patient will be followed by a physician who will periodically review the plan of care. Total Time Total Time Spent Total Time Spent (In Minutes): 35 Discharge Plan Discharge Items Patient Disposition: Home - Home Health Services Reason For Visit: AFIB WITH RVR, DECUBITUS ULCERS Discharge Diagnosis: Atrial fibrillation with fast heart rate Activity: Resume your previous activity Non-emergency contact: Primary Care Provider Call non-emergency contact if: your symptoms worsen Follow-up/Referrals: Katie Posey C.R.N.P. [Primary Care Provider] - Diet: Regular Fluids: 1200ml (5 cups) Addtl Attending Provider Instructions: Mr. Lynch was admitted for a fast heart rate (called atrial fibrillation) and low blood pressure. With some medication adjustments, we were able to keep the heart rate closer to 90 - 100 beats/min and keep the blood pressure near/at 100 - 110 / 60 - 70. Please adjust his medications as below. He also had a wound on his bottom. The Wound Care nurse saw him for this with the following recommendations: * Rinse with saline every day * Cover with a large Optifoam dressing * Change every day or as needed if drainage occurs For the right heel: * Open to air * Wear waffle boots at all times when in bed For the back: * Clean with saline * Cover with Optifoam * Change every 3 days or as needed General: * Turn at least every 2 hours while in bed * No pillows placed underneath legs or bottom Pending Studies at Discharge: No Stand-Alone Forms: [facility] [employer], Smoking Cessation Medications and DC Order Prescriptions: New digoxin [Digitek] 125 mcg (0.125 mg) Tablet 125 mcg PO DAILY@1600 Qty: 30 RF: 0 diltiazem HCl 120 mg Capsule,Extended Release 24hr 120 mg PO QAM Qty: 30 RF: 0 Continued atorvastatin 80 mg Tablet 40 mg PO HS RF: 0 cetirizine 10 mg Tablet 5 mg PO QAM RF: 0 ascorbic acid (vitamin C) [Vitamin C] 500 mg Tablet 500 mg PO QAM RF: 0 ferrous sulfate 325 mg (65 mg iron) Tablet 325 mg PO Q OTHER DAY RF: 0 donepezil 10 mg Tablet 10 mg PO HS RF: 0 potassium chloride 20 mEq Tablet,Er Particles/Crystals 20 meq PO DAILY RF: 0 omeprazole 20 mg Capsule,Delayed Release(Dr/Ec) 20 mg PO DAILY RF: 0 ergocalciferol (vitamin D2) 1,250 mcg (50,000 unit) Capsule 1,250 mcg PO WK RF: 0 finasteride 5 mg Tablet 5 mg PO DAILY RF: 0 cholecalciferol (vitamin D3) 50 mcg (2,000 unit) Tablet 50 mcg PO DAILY RF: 0 Ensure Clear Liquid 1 ea PO TID RF: 0 loperamide 1 mg/7.5 mL Liquid 2 - 4 mg PO UD MDD 16mg PRN (Reason: Diarrhea) RF: 0 midodrine 2.5 mg Tablet 5 mg PO TID@0800,1200,1700 30 Days Qty: 90 RF: 0 Discharge Orders: Discharge Order (Routine); Ordered 01/09/21 Ordered By: Shmuel Lazo Admission Data Admit Date/Time: 01/03/21 17:41 Attending Provider: Shmuel Lazo Admit Provider: Jarrett Álvarez Primary Care Provider: Katie Posey Other Providers: [facility],Home Healthcare ; Shmuel Lazo Coding Level of Care Code D/C DAY MANAGEMENT >30 MINS Diagnoses Afib I48.91 Hypotension I95.9 Lung abnormality J98.4 CKD (chronic kidney disease), stage III N18.3 Diastolic CHF I50.30 Decubitus ulcer of sacral area L89.153 Pressure injury stage: stage 3 DVT prophylaxis Z29.9
== END 2021-01-09 15:01 | disposition home health service (06) | DRG 308 ==
LOC: ED 11:55 → 2S 17:41 → SUATTDRO 17:41 → 2S 19:09 → 2N 01-06 07:32